=== PATIENT | female | born 1940 | race Caucasian/White ===

== ENCOUNTER → 2016-10-24 | Outpatient (CLI) | payer MEDICARE ==
--- NOTE | 2016-10-24 09:37 | MM ---
Reason for exam: follow-up at short interval from prior study. Last mammogram was performed 7 months ago. History: Patient is postmenopausal. Excisional biopsy of the left breast. Excisional biopsy of the right breast. Took estrogen for 2 years beginning at age 38. Physical Findings: Nurse did not find any significant physical abnormalities on exam. MG 3D Diag Mammo W/Cad LT CC and MLO view(s) were taken of the left breast. Prior study comparison: April 04, 2016, bilateral MG 3d screening mammo w/cad. January 26, 2003, bilateral screening mammogram. There are scattered fibroglandular densities. Finding: There is a 3 mm circumscribed round mass located 3 cm from the nipple in the inner quadrant of the left breast, stable. No significant changes in finding since April 04, 2016 and January 26, 2003. These results were verbally communicated with the patient and result sheet given to the patient on 10/24/16. ASSESSMENT: Benign, BI-RAD 2 RECOMMENDATION: Return to routine screening mammogram schedule for both breasts. Back on schedule.
== END | disposition home or self-care (01) ==
LOC: RADMAMWWP 08:44
PROVIDERS: ATTEND Family Medicine
DX: R92.8 Other abnormal and inconclusive findings on diagnostic imaging of breast (principal)
CPT/HCPCS: G0206; G0279

== ENCOUNTER → 2016-11-14 | Outpatient (CLI) | payer MEDICARE ==
--- NOTE | 2016-11-14 13:55 | XR ---
EXAMINATION TYPE: XR Hip Complete RT DATE OF EXAM: 11/14/2016 12:50 PM CLINICAL HISTORY: Right posterior groin area hip pain for 10 days. History of osteoarthritis. TECHNIQUE: AP and frogleg views of the right hip are obtained. COMPARISON: None. FINDINGS: There is no acute fracture/dislocation evident in the right hip. There is moderate to laura re axial joint space loss in the right hip. There is prominent spurring at head neck junction in the right proximal femur. Mild acetabular spurring is noted. Overlying soft tissue is unremarkable. IMPRESSION: Moderate to severe degenerative changes in right hip as detailed above
== END | disposition home or self-care (01) ==
LOC: RADXRMAIN 12:30
PROVIDERS: ATTEND Family Medicine
DX: M16.11 Unilateral primary osteoarthritis, right hip (principal)
CPT/HCPCS: 73502

== ENCOUNTER → 2017-11-28 | Outpatient (CLI) | payer MEDICARE ==
[2017-11-28 07:52] LABS: Basophils # (A) 0.1 k/uL (0-0.2); Basophils % (A) 1 %; Eosinophils # (A) 0.1 k/uL (0-0.7); Eosinophils % (A) 2 %; HCT 41.3 % (34.0-46.0); HGB 13.5 gm/dL (11.4-16.0); Lymphocytes # (A) 1.3 k/uL (1.0-4.8); Lymphocytes % (A) 22 %; MCH 30.7 pg (25.0-35.0); MCHC 32.8 g/dL (31.0-37.0); MCV 93.8 fL (80.0-100.0); Mean Platelet Volume 7.2; Monocytes # (A) 0.3 k/uL (0-1.0); Monocytes % (A) 5 %; Neutrophils # (A) 3.9 k/uL (1.3-7.7); Neutrophils % (A) 68 %; Platelet Count 205 k/uL (150-450); RBC 4.41 m/uL (3.80-5.40); WBC 5.7 k/uL (3.8-10.6)
[2017-11-28 08:09] LABS: Appearance,Urine Cloudy (Clear); Bacteria,Urine Many /hpf; Bilirubin,Urine Negative (Negative); Blood,Urine Moderate (Negative); Color,Urine Yellow; Glucose,Urine (UA) Negative (Negative); Ketones,Urine 1+ (Negative); Leukocyte Esterase,Urine Large (Negative); Mucus,Urine Rare /hpf; Nitrite,Urine Negative (Negative); PH, Urine 6.5 (5.0-8.0); Protein,Urine Trace (Negative); RBC,Urine 9 /hpf (0-5); Specific Gravity,Urine 1.017 (1.001-1.035); Squamous Epithelial Cell,Urine 8 /hpf (0-4); Urobilinogen,Urine <2.0 mg/dL (<2.0); WBC,Urine >182 /hpf (0-5)
[2017-11-28 08:29] LABS: ALT 34 U/L (9-52); AST 34 U/L (14-36); Albumin 4.1 g/dL (3.5-5.0); Alkaline Phosphatase 59 U/L (38-126); Anion Gap 11 mmol/L; Blood Urea Nitrogen 19 mg/dL (7-17); Calcium 8.9 mg/dL (8.4-10.2); Carbon Dioxide 26 mmol/L (22-30); Chloride 107 mmol/L (98-107); Cholesterol 130 mg/dL (<200); Creatine Kinase 107 U/L (30-135); Glucose 77 mg/dL (74-99); HDL Cholesterol 76 mg/dL (40-60); LDL Cholesterol,Calculated 39 mg/dL (0-99); Magnesium 1.9 mg/dL (1.6-2.3); Potassium 4.5 mmol/L (3.5-5.1); Sodium 144 mmol/L (137-145); Total Bilirubin 0.5 mg/dL (0.2-1.3); Total Protein 6.8 g/dL (6.3-8.2); Triglycerides 73 mg/dL (<150)
[2017-11-28 08:38] LABS: T4, Free (Free Thyroxine) 1.26 ng/dL (0.78-2.19)
[2017-11-28 11:19] LABS: Vitamin D 25 Hydroxy 30.5 ng/mL (30.0-100.0)
[2017-11-28 13:05] LABS: Hemoglobin A1C 5.6 % (4.0-6.0)
== END | disposition home or self-care (01) ==
LOC: LABWHC1 06:57
PROVIDERS: ATTEND Family Medicine
DX: N32.81 Overactive bladder (principal); M81.0 Age-related osteoporosis without current pathological fracture; I10 Essential (primary) hypertension; E78.5 Hyperlipidemia, unspecified; E03.9 Hypothyroidism, unspecified; E53.8 Deficiency of other specified B group vitamins
CPT/HCPCS: 36415; 80053; 80061; 81001; 82306; 82550; 82607; 83036; 83735; 84439; 84443; 85025

== ENCOUNTER → 2018-01-03 | Outpatient (CLI) | payer MEDICARE ==
--- NOTE | 2018-01-03 17:11 | US ---
EXAMINATION TYPE: US venous doppler duplex LE LT DATE OF EXAM: 01/03/2018 4:55 PM COMPARISON: NONE CLINICAL HISTORY: M79.662 left leg pain, I80.9 Phlebitis and thrombo. SIDE PERFORMED: TECHNIQUE: The lower extremity deep venous system is examined utilizing real time linear array sonog rickey with graded compression, doppler sonography and color-flow sonography. VESSELS IMAGED: External Iliac Vein (EIV) Common Femoral Vein Deep Femoral Vein Greater Saphenous Vein * Femoral Vein Popliteal Vein Small Saphenous Vein * Proximal Calf Veins (* superficial vessels) Right Leg: Negative for DVT Superficial thrombus noted in at ankle. IMPRESSION: No deep venous thrombosis in the right leg. There is some superficial venous thrombus at the ankle joint.
== END | disposition home or self-care (01) ==
LOC: RADUSWWP 16:34
PROVIDERS: ATTEND Orthopaedic Surgery
DX: I82.812 Embolism and thrombosis of superficial veins of left lower extremity (principal)

== ENCOUNTER → 2018-01-06 | Outpatient (CLI) | payer MEDICARE ==
--- NOTE | 2018-01-06 12:17 | BD ---
EXAMINATION TYPE: Axial Bone Density DATE OF EXAM: 01/06/2018 COMPARISON: 2016 CLINICAL HISTORY: osteoporosis Height: 5'2 Weight: 134 FRAX RISK QUESTIONS: History of Fracture in Adulthood: y Secondary Osteoporosis: RISK FACTORS HISTORY OF: Active: n Postmenopausal woman: y MEDICATIONS: Thyroid Medications: Which medication: Synthroid How Lon years Osteoporosis Medications: Which medication: Evista How Lon months Additional Medications: cholesterol, eye meds, heart Additional History: EXAM MEASUREMENTS: Bone mineral densitometry was performed using the [employer] System. Bone mineral density as measured about the Lumbar spine is: ----- L1-L4(G/cm2):0.825 T Score Values are as follows: ----- L2: -3.6 ----- L3: -3.2 ----- L4: -2.5 ----- L1-L4: -3.0 Bone mineral density has: Decreased -8.0% since study of: 01/03/2015 Bone mineral density about the R hip (g/cm2): 0.708 Bone mineral density about the L hip (g/cm2): 0.673 T Score values are as follows: -----R Neck: -2.4 -----L Neck: -2.6 -----R Total: -3.5 -----L Total: -3.4 Bone mineral density has: Increased 2.1% since study of: 01/03/2015 IMPRESSION: Osteoporosis (T Score less than -2.5). There is increased fracture risk and therapy is usually indicated based on age. Re-Screen 1-2 years. NOTE: T-SCORE=SD OF THE YOUNG ADULT MEAN.
== END | disposition home or self-care (01) ==
LOC: RADBDWWP 08:57
PROVIDERS: ATTEND Family Medicine
DX: M81.0 Age-related osteoporosis without current pathological fracture (principal)
CPT/HCPCS: 77080

== ENCOUNTER → 2018-03-21 | Outpatient (CLI) | payer MEDICARE ==
--- NOTE | 2018-03-21 15:45 | US ---
EXAMINATION TYPE: US carotid duplex BILAT DATE OF EXAM: 03/21/2018 COMPARISON: NONE CLINICAL HISTORY: R55 syncope and collapse. Syncope EXAM MEASUREMENTS: RIGHT: Peak Systolic Velocity (PSV) cm/sec ----- Right CCA: 61.2 ----- Right ICA: 95.4 ----- Right ECA: 61.6 ICA/CCA ratio: 1.6 RIGHT: End Diastole cm/sec ----- Right CCA: 17.2 ----- Right ICA: 38.1 ----- Right ECA: 12.7 LEFT: Peak Systolic Velocity (PSV) cm/sec ----- Left CCA: 70.0 ----- Left ICA: 87.7 ----- Left ECA: 66.7 ICA/CCA ratio: 1.3 LEFT: End Diastole cm/sec ----- Left CCA: 24.9 ----- Left ICA: 34.8 ----- Left ECA: 9.5 VERTEBRALS (direction of flow): Right Vertebral: Antegrade Left Vertebral: Antegrade Rhythm: Normal Mild plaque bilateral bifurcations. NO evidence of significant stenosis. Tortuous right ICA IMPRESSION: No hemodynamically significant stenosis seen in either internal carotid artery. Criteria for Assigning % of Stenosis / Diameter reduction (Estimation based on the indirect measurements of the internal carotid artery velocities (ICA PSV). 1. Normal (no stenosis)=ICA PSV < 125 cm/s: ratio < 2.0: ICA EDV<40 cm/s. 2. Less than 50% stenosis=ICA PSV < 125 cm/s: ratio < 2.0: ICA EDV<40 cm/s. 3. 50 to 69% stenosis=ICA PSV of 125 to 230 cm/s: ration 2.0 ? 4.0: ICA EDV 40-100 cm/s. 4. Greater than 70% stenosis to near occlusion= ICA PSV > 230 cm/s: ratio > 4.0: ICA EDV > 100 cm/s. 5. Near occlusion= ICA PSV velocities may be low or undetectable: variable ratio and ICA EDV. 6. Total occlusion=unable to detect flow.
== END ==
LOC: RADUSWWP 14:47
PROVIDERS: ATTEND Family Medicine
DX: R55 Syncope and collapse (principal)
CPT/HCPCS: 93880

== ENCOUNTER → 2018-06-30 | Outpatient (CLI) | payer MEDICARE ==
[2018-06-30 07:59] LABS: Basophils # (A) 0.1 k/uL (0-0.2); Basophils % (A) 1 %; Eosinophils # (A) 0.4 k/uL (0-0.7); Eosinophils % (A) 6 %; HCT 44.4 % (34.0-46.0); HGB 14.2 gm/dL (11.4-16.0); Lymphocytes # (A) 1.5 k/uL (1.0-4.8); Lymphocytes % (A) 20 %; MCH 29.9 pg (25.0-35.0); MCV 93.6 fL (80.0-100.0); Mean Platelet Volume 7.1; Monocytes # (A) 0.3 k/uL (0-1.0); Monocytes % (A) 4 %; Neutrophils # (A) 4.8 k/uL (1.3-7.7); Neutrophils % (A) 67 %; Platelet Count 269 k/uL (150-450); RBC 4.75 m/uL (3.80-5.40); RDW 12.7 % (11.5-15.5); WBC 7.1 k/uL (3.8-10.6)
[2018-06-30 11:07] LABS: Albumin 4.2 g/dL (3.80-4.90); Albumin/Globulin Ratio 1.83 (1.20-2.10); Anion Gap 6.8 mmol/L (4.00-12.00); Calcium 8.9 mg/dL (8.7-10.3); Carbon Dioxide 28.2 mmol/L (21.6-31.8); Globulin 2.3 g/dL (1.6-3.3); Potassium 4.2 mmol/L (3.5-5.5); Total Bilirubin 0.5 mg/dL (0.3-1.2); Total Protein 6.5 g/dL (6.2-8.2)
[2018-06-30 11:10] LABS: Iron Saturation 23.62 (12.00-45.00)
[2018-06-30 11:16] LABS: T4, Free (Free Thyroxine) 1.5 ng/dL (0.80-1.80)
== END | disposition home or self-care (01) ==
LOC: LABWHC1 07:38
PROVIDERS: ATTEND Family Medicine
DX: I49.5 Sick sinus syndrome (principal); E03.9 Hypothyroidism, unspecified; D64.9 Anemia, unspecified
CPT/HCPCS: 36415; 80053; 82728; 83540; 83550; 83735; 84439; 84443; 85025

== ENCOUNTER → 2018-07-08 | Outpatient (CLI) | payer MEDICARE ==
--- NOTE | 2018-07-08 14:14 | US ---
EXAMINATION TYPE: US venous doppler duplex LE BI DATE OF EXAM: 07/08/2018 1:46 PM COMPARISON: 01/03/2018 CLINICAL HISTORY: 77-year-old female R06.02 Shortness of Breath. SOB x 1 month following long plane r neal SIDE PERFORMED: Bilateral TECHNIQUE: The lower extremity deep venous system is examined utilizing real time linear array sonog rickey with graded compression, doppler sonography and color-flow sonography. FINDINGS: VESSELS IMAGED: External Iliac Vein (EIV) Common Femoral Vein Deep Femoral Vein Greater Saphenous Vein * Femoral Vein Popliteal Vein Small Saphenous Vein * Proximal Calf Veins (* superficial vessels) Right Leg: Positive for DVT lower femoral vein Left Leg: Positive for DVT popliteal vein Spinner Tender notes: Results called to Marlen at Dr. Vanegas's office at end of exam. IMPRESSION: Exam positive for bilateral lower extremity DVT within the lower femoral vein on the right and in the popliteal vein on the left.
[2018-07-08 14:44] LABS: Blood Urea Nitrogen 16 mg/dL (7-17)
--- NOTE | 2018-07-08 15:35 | CT ---
CT CHEST FOR PULMONARY EMBOLISM. EXAMINATION TYPE: CT angio chest DATE OF EXAM: 07/08/2018 INDICATION: SOB CT DLP: 167.6 mGycm, Automated exposure control for dose reduction was used. CONTRAST: Patient injected with 64 mL of Isovue 370. COMPARISON: None TECHNIQUE: CT of the chest is performed on a spiral scan at 2 mm thick sections. Study is performed with intravenous contrast timed for evaluation for pulmonary embolism. This will limit additional po rtions of the evaluation. 3-D MIP images reconstructed by the technologist are reviewed on the compu ter in the coronal and sagittal planes. FINDINGS: No persistent filling defects are evident to suggest an acute pulmonary embolism. No mediastinal or hilar adenopathy enlarged by CT criteria is evident. The ascending aorta diameter at the level of the main pulmonary artery is 3.9 cm. The main pulmonary artery diameter at the bifur cation is 3.2 cm. There is a 0.5 cm calcification anterior right middle lobe. Series [address] section through the upper abdomen are unremarkable. IMPRESSIONS: 1. No acute pulmonary embolism.
== END ==
LOC: RADUSWWP 13:09
PROVIDERS: ATTEND Family Medicine
DX: I82.411 Acute embolism and thrombosis of right femoral vein (principal); I82.432 Acute embolism and thrombosis of left popliteal vein; R06.02 Shortness of breath
CPT/HCPCS: 82565; 84520; 93970; 71275; 36415; Q9967

== ENCOUNTER → 2019-03-04 | Outpatient (CLI) | payer MEDICARE ==
[2019-03-04 17:11] LABS: T4, Free (Free Thyroxine) 1.6 ng/dL (0.80-1.80)
== END | disposition home or self-care (01) ==
LOC: LABWHC1 10:55
PROVIDERS: ATTEND Family Medicine
DX: E03.9 Hypothyroidism, unspecified (principal)
CPT/HCPCS: 36415; 84439; 84443; 84480

== ENCOUNTER → 2019-03-18 | Outpatient (CLI) | payer MEDICARE ==
--- NOTE | 2019-04-22 10:01 | P.PN ---
Progress Note - Text Progress Note Date: 04/22/19 This is a report on the 14 day event monitor. Baseline EKG showed sinus rhythm. Patient had frequent APCs with a short bursts of SVT. The longest being about 10 beats with heart rates in the 100s. No ventricular arrhythmias are detected. Patient did not report any cardiac symptoms. Final impression #1. Baseline rhythm is sinus #2 frequent APCs with short burst of paroxysmal atrial tachycardia. The longest run is about 10 beats and the highest rate is about 110. #3. Patient did not report any cardiac symptoms
--- NOTE | 2019-04-24 12:19 | EM ---
This is a report on the 14 day event monitor. Baseline EKG showed sinus rhythm. Patient had frequent APCs with a short bursts of SVT. The longest being about 10 beats with heart rates in the 100s. No ventricular arrhythmias are detected. Patient did not report any cardiac symptoms. Final impression #1. Baseline rhythm is sinus #2 frequent APCs with short burst of paroxysmal atrial tachycardia. The longest run is about 10 beats and the highest rate is about 110. #3. Patient did not report any cardiac symptoms MTDD
== END | disposition home or self-care (01) ==
LOC: RADECHMAIN 11:41
PROVIDERS: ATTEND Family Medicine
DX: I47.1 Supraventricular tachycardia (principal)
CPT/HCPCS: 93270

== ENCOUNTER → 2019-04-21 | Outpatient (CLI) | payer MEDICARE ==
[2019-04-21 11:20] LABS: Basophils % (A) 1 %; Eosinophils # (A) 0.1 k/uL (0-0.7); Eosinophils % (A) 2 %; HCT 40.2 % (34.0-46.0); HGB 12.9 gm/dL (11.4-16.0); Lymphocytes # (A) 1.8 k/uL (1.0-4.8); Lymphocytes % (A) 29 %; MCH 30.2 pg (25.0-35.0); MCHC 32.2 g/dL (31.0-37.0); MCV 93.8 fL (80.0-100.0); Mean Platelet Volume 6.2; Monocytes # (A) 0.3 k/uL (0-1.0); Monocytes % (A) 4 %; Neutrophils # (A) 3.9 k/uL (1.3-7.7); Neutrophils % (A) 63 %; Platelet Count 260 k/uL (150-450); RBC 4.29 m/uL (3.80-5.40); RDW 13.1 % (11.5-15.5); WBC 6.3 k/uL (3.8-10.6)
[2019-04-21 19:08] LABS: African American GFR (CKD) 80.7 (60.0-200.0); Albumin 4.2 g/dL (3.80-4.90); Albumin/Globulin Ratio 1.75 (1.60-3.17); Anion Gap 10.8 mmol/L (4.00-12.00); BUN/Creat Ratio 16.25 Ratio (12.00-20.00); Calcium 9.4 mg/dL (8.7-10.3); Carbon Dioxide 27.2 mmol/L (21.6-31.8); Chol/HDL Ratio 1.85; Globulin 2.4 g/dL (1.6-3.3); LDL Cholesterol,Calculated 43.4 mg/dL (0.0-131.0); Total Bilirubin 0.5 mg/dL (0.2-1.2); Total Protein 6.6 g/dL (6.2-8.2); VLDL Calculation 12.6 mg/dL (5.00-40.00)
[2019-04-21 19:15] LABS: T4, Free (Free Thyroxine) 1.6 ng/dL (0.80-1.80)
[2019-04-23 13:11] LABS: Alpha 1 Anti-Trypsin 208 mg/dL (90 - 200)
== END ==
LOC: LABWHC1 10:28
PROVIDERS: ATTEND Family Medicine
DX: I10 Essential (primary) hypertension (principal); E78.5 Hyperlipidemia, unspecified; E03.9 Hypothyroidism, unspecified; R06.02 Shortness of breath
CPT/HCPCS: 36415; 80053; 80061; 82103; 82104; 82550; 82607; 83880; 84439; 84443; 84480; 85025

== ENCOUNTER → 2020-03-03 | Outpatient (CLI) | payer MEDICARE ==
--- NOTE | 2020-03-03 11:07 | XR ---
EXAMINATION TYPE: XR Hip Complete RT DATE OF EXAM: 03/03/2020 COMPARISON: 04/22/2017 HISTORY: 79 year-old female right hip pain TECHNIQUE: 2 views FINDINGS: Redemonstrated moderate degenerative change of the right hip with marginal spurring and axial joint s pace narrowing which is slightly worsened. There may be a chronic healed fracture deformity of the in ferior right pubic ramus. Mild degenerative change of the right SI joint as well. Osteitis pubis. IMPRESSION: 1. Slight worsening moderate right hip OA with significant axial joint space loss. 2. Possible old fracture deformity along the right inferior pubic ramus. 3. Osteitis pubis.
== END | disposition home or self-care (01) ==
LOC: RADXRMAIN 08:18
PROVIDERS: ATTEND Family Medicine
DX: M16.11 Unilateral primary osteoarthritis, right hip (principal); M86.8X8 Other osteomyelitis, other site
CPT/HCPCS: 73502

== ENCOUNTER → 2020-03-04 | Outpatient (CLI) | payer MEDICARE ==
[~2020-03-04] MED LIST: REGADENOSON 0.4 MG/5 ML SYRINGE IV ONE
--- NOTE | 2020-03-04 12:57 | P.STRESS ---
- Stress Test Note Stress Test Results/Findings: Exam Performed: NM stress lexiscan cardiolite Exam Date: 03/04/20 Reason for Exam: CHEST PAIN Height: 5 ft 5 in Weight: 57.153 kg Protocol: LEXISCAN CARDIOLITE Stage: N/A Duration of Exercise: N/A Resting Heart Rate: 56 Resting Blood Pressure: 115/48 Maximum Achieved Heart Rate: 89 Maximum Achieved Blood Pressure: 115/48 85% PMHR: 118 100% PMHR: 139 METS: N/A Technologist Comment: Stress Test Results/Findings: At baseline EKG showed normal sinus rhythm with frequent PACs, nonspecific [address] depression in the inferior and lateral leads. Patient recieved IV infusion of Lexiscan 0.4mg and at peak infusion EKG showed nonspecific accentuation of 1.[address] depression in the inferior and lateral leads. Conclusions: 1. Nondiagnostic EKG response to Lexiscan infusion 2. Nuclear imaging to be reported separately.
--- NOTE | 2020-03-04 13:25 | NM ---
EXAMINATION TYPE: NM stress lexiscan cardiolite DATE OF EXAM: 03/04/2020 COMPARISON: 12/24/2018 HISTORY: 79-year-old female with chest pain. Patient with palpitations, angina, hypertension, hyperch olesterolemia, family history, and prior catheterization. TECHNIQUE: After the intravenous administration of 9.49 mCi Tc 99m Sestamibi - Cardiolite resting SP ECT images acquired 60 minutes post injection. The patient received 0.4mg Lexiscan, 24.3 mCi Tc 99m Sestamibi - Stress images obtained [address] injection FINDINGS: Review of stress and rest SPECT images demonstrates decreased perfusion along the mid to apical anter oseptal wall which is more pronounced on the rest images. No discrete reversibility is identified. Ga solomon analysis shows normal wall motion with an estimated left ventricular ejection fraction of 76 %. TID is calculated at 0.67, within normal limits. IMPRESSION: 1. Fixed defect along the mid to apical anteroseptal wall could represent an area of old infarct. As the defect is larger on rest images, at least a portion of this represents attenuation artifact. 2. No evidence for reversible ischemia.
== END | disposition home or self-care (01) ==
LOC: RADNMMAIN 07:42
PROVIDERS: ATTEND Family Medicine
DX: R07.9 Chest pain, unspecified (principal)
CPT/HCPCS: 93017; 78452; A9500; J2785

== ENCOUNTER → 2020-10-18 | Outpatient (CLI) | payer MEDICARE ==
[2020-10-18 16:49] LABS: Basophils # (A) 0.07 X 10*3/uL (0.00-0.10); Basophils % (A) 1.1 %; Eosinophils # (A) 0.14 X 10*3/uL (0.04-0.35); Eosinophils % (A) 2.2 %; HCT 42.6 % (37.2-46.3); HGB 13.3 g/dL (12.0-15.0); Lymphocytes # (A) 1.62 X 10*3/uL (0.90-5.00); Lymphocytes % (A) 25.7 %; MCH 29.9 pg (27.0-32.0); MCHC 31.2 g/dL (32.0-37.0); MCV 95.7 fL (80.0-97.0); Mean Platelet Volume 10.9 fL (9.5-12.2); Monocytes # (A) 0.43 X 10*3/uL (0.20-1.00); Monocytes % (A) 6.8 %; Neutrophils # (A) 4.02 X 10*3/uL (1.80-7.70); Neutrophils % (A) 63.9 %; Platelet Count 231 X 10*3/uL (140-440); RBC 4.45 X 10*6/uL (4.10-5.20); RDW 13.8 % (11.5-14.5)
[2020-10-19 02:29] LABS: African American GFR (CKD) 80.1 (60.0-200.0); Albumin 4.4 g/dL (3.80-4.90); Albumin/Globulin Ratio 1.83 (1.60-3.17); BUN/Creat Ratio 28.75 Ratio (12.00-20.00); Calcium 9.6 mg/dL (8.7-10.3); Chol/HDL Ratio 2.01; Globulin 2.4 g/dL (1.6-3.3); Non-African American GFR(CKD) 69.1 (60.0-200.0); Potassium 3.9 mmol/L (3.5-5.5); Total Bilirubin 0.6 mg/dL (0.2-1.2); Total Protein 6.8 g/dL (6.2-8.2)
[2020-10-19 04:13] LABS: T4, Free (Free Thyroxine) 0.9 ng/dL (0.80-1.80)
== END | disposition home or self-care (01) ==
LOC: LABWHC1 08:06
PROVIDERS: ATTEND Internal Medicine
DX: E78.5 Hyperlipidemia, unspecified (principal); E03.9 Hypothyroidism, unspecified; I47.1 Supraventricular tachycardia; I50.9 Heart failure, unspecified; I25.10 Atherosclerotic heart disease of native coronary artery without angina pectoris
CPT/HCPCS: 36415; 80053; 80061; 82306; 83835; 83880; 84439; 84443; 84480; 85025

== ENCOUNTER 2020-11-03 06:21 | Day surgery (SDC) | payer MEDICARE ==
[2020-11-01 16:45] VITALS: BMI 22.4
[~2020-11-03 06:21] MED LIST changes: +ALPRAZolam 0.25 MG TAB PO PRN; +ALPRAZolam 0.5 MG TAB PO PRN; +ASPIRIN 325 MG TAB PO STA; +ATORVASTATIN 80 MG TAB PO STA; +HEPARIN SODIUM,PORCINE 10,000 UNIT in SODIUM CHLORIDE 0.9% 1,000 ML IRRIGATION PRN; +HEPARIN SODIUM,PORCINE 2,500 UNIT in SODIUM CHLORIDE 0.9% 250 ML IRRIGATION PRN; +NITROGLYCERIN SL TABS 0.4 MG TAB SUBLINGUAL PRN; -REGADENOSON 0.4 MG/5 ML SYRINGE IV ONE; +SODIUM CHLORIDE 0.9% 1,000 ML in EMPTY BAG 1 BAG IV ONE
[2020-11-03 07:01] VITALS: TEMP 98.1
[2020-11-03] MEDS ORDERED: fentaNYL (PF) 50 MCG/ML 2 ML AMP ONE (07:23)
[2020-11-03] MEDS ORDERED: IV FLUID CONTINUATION 1,000 ML IV ONE (07:26)
[2020-11-03] MEDS ORDERED: BENZOCAINE SPRAY 1 CAN TOPICAL ONE (07:38)
[2020-11-03] MEDS: MIDAZOLAM 2 MG/2 ML VIAL IV ONE ×2 (07:39→07:43)
[2020-11-03] MEDS ORDERED: fentaNYL (PF) 50 MCG/ML 2 ML AMP IV ONE (07:41)
[2020-11-03 08:09] VITALS: RESP 16
--- NOTE | 2020-11-03 08:26 | P.TEE ---
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 She was given Versed 2 mg and fentanyl 25 g for sedation, given in boluses. The throat was sprayed with Cetacaine . A lubricated Omni probe was introduced into the oropharynx and was advanced into the esophagus. Multiple views were obtained. Patient tolerated the procedure well. Color, pulsed and continuous wave Doppler studies were done. Saline contrast bubble injections were done. Patient tolerated the procedure well. No immediate complications FINDINGS:. The aortic valve is tricuspid with normal opening excursion. There is central aortic regurgitation which appears to be in the range of 2-3+. The mitral valve shows thickening and myxoid changes with mild calcification. That seemed to some prolapsing of the posterior leaflet. There is central mitral regurgitation which appears to be 3-4+. The PISA value is about 0.8. There is no reversal of flow in the pulmonary veins. The left atrial appendage is free of any clot. The interatrial septum is free of any shunt. Saline contrast bubble injection did not show any crossing of bubbles. Left atrium is severely enlarged. Left ankle function is preserved. Aorta seem to have mild plaque IMPRESSION: #1. 3-4+ mitral regurgitation which is central. #2. 2-3+ aortic regurgitation. #3. Severe left atrial enlargement #4. Preserved LV function. #5. No clot in left atrial appendage. #6. No evidence of PFO PLAN:. Proceed with cardiac catheterization. May consider repair of the mitral valve
[2020-11-03] MEDS ORDERED: SODIUM CHLORIDE 0.9% 1,000 ML IV SCH ×3 (08:30→10:42)
[2020-11-03] MEDS ORDERED: MIDAZOLAM 2 MG/2 ML VIAL IV ONE (08:40)
[2020-11-03] MEDS ORDERED: LIDOCAINE 1% INJ 10MG/ML (20 ML MDV) SQ ONE (08:43)
[2020-11-03] MEDS ORDERED: HYDROmorphone 0.5 MG/0.5 ML SYRINGE IVP ONE (09:23)
[2020-11-03] MEDS ORDERED: IOPAMIDOL-370 100ML BTL INJ ONE (09:23)
[2020-11-03 09:27] LABS: O2 Sat Blood Gas 77.1 %
[2020-11-03 09:30] LABS: O2 Sat Blood Gas 69.3 %
[2020-11-03 09:31] LABS: O2 Sat Blood Gas 96.9 %
[2020-11-03] MEDS ORDERED: NITROGLYCERIN 1000MCG/10ML SYRINGE IV ONE (09:34)
--- NOTE | 2020-11-03 10:23 | CC ---
CARDIAC CATHETERIZATION REPORT DATE OF SERVICE: 11/03/2020. PROCEDURE: Right and left heart catheterization and coronary angiography. PERFORMED BY: Dr. Varun Rabago. Moderate conscious sedation time was 56 minutes. Patient was administered Versed. Oxygen saturation, hemodynamics and EKG were monitored closely. CLINICAL INFORMATION: Mrs. 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 She has history of hypertension, hyperlipidemia with increasing shortness of breath and echocardiogram revealed biatrial enlargement, more so of the left atrium with moderate to severe MR with prolapse of post mitral leaflet and mild to moderate aortic regurgitation. There was also prolapse of the posterior mitral leaflet as well. She has advised a right and left heart catheterization and coronary angiography, brought in for the procedure electively. She had a transesophageal echo earlier this morning. PROCEDURE NOTE: Under local anesthesia and strict aseptic precautions, a 6-[place] introducer was placed in the right femoral artery, the 8-[place] introducer in the right femoral vein. A balloon tipped flotation catheter was used to do the right heart catheterization on Mrs. David. Thermodilution cardiac output was performed. Hemodynamics and saturations were obtained. I then performed coronary angiography with standard Suze catheters. I used a pigtail catheter to check LV pressures but did not perform an LV- gram. Both sheaths were taken out and manual compression used to secure hemostasis and she was sent to the room in stable condition. The findings were discussed with the patient and daughter. I will see her in the office on Saturday. I will also seek an opinion from Dr. Carlitos Headley regarding mitral regurgitation. CARDIAC CATHETERIZATION FINDINGS: The right atrial pressure was 3 mmHg, right ventricular pressure was 25/3, pulmonary arterial pressure was 25/8 with a mean of 14 mmHg, pulmonary capillary wedge pressure was 8 mmHg. The left ventricular end-diastolic pressure was about 12 mmHg without any gradient across aortic valve. Right atrial saturation was 77%, pulmonary artery saturation was 70%, femoral arterial saturation was 96%. The thermodilution cardiac output was 4.14 L and Ariana cardiac output was 6.5 L. CORONARY ANGIOGRAPHY FINDINGS: RIGHT CORONARY ARTERY: This is a dominant vessel. No significant disease, minor irregularities, mild calcification. Distally bifurcates into PDA and PLV, both of which supply a sizable amount of myocardium. No significant disease in the dominant RCA. LEFT MAIN CORONARY ARTERY: Long patent disease-free vessel that bifurcates into LAD and circumflex. LEFT ANTERIOR DESCENDING CORONARY ARTERY: Good caliber vessel extends along the anterior wall, gives off septal and diagonal branches runs all the way to the apex supplying a sizable amount of myocardium. There is moderate calcification noted in the LAD, but no significant obstructive disease is noted. There is calcification in the midportion of a moderate degree noted. LEFT POSTERIOR CIRCUMFLEX CORONARY ARTERY: Small nondominant vessel, tortuous, has minor irregularities, no significant disease. LEFT VENTRICULOGRAM: LV-gram was not performed. FINAL IMPRESSION: This patient has a right dominant system, normal filling pressures. No gradient across aortic valve. She does not have any significant pulmonary hypertension. The Ariana and thermodilution cardiac outputs are normal. Saturations are normal. There is no shunt. She has calcified LAD. No significant obstructive coronary artery disease. Dominant RCA, disease-free. Small circumflex. LV gram was not performed. RECOMMENDATIONS: I will review the LAURA echo make specific recommendations regarding the valvular disease, specifically mitral regurgitation for which she may require surgical repair.. However, with regards to the coronary artery disease, no intervention necessary. Discussed my thoughts in detail with the patient. I will seek a surgical opinion from Dr. Headley regarding the mitral valve prolapse as well. I expect she will be discharged today and I will see her in the office next week. MMODL / IJN: [id number] / KUSUM
--- NOTE | 2020-11-03 11:56 | US ---
EXAMINATION TYPE: US carotid duplex BILAT DATE OF EXAM: 11/03/2020 COMPARISON: Carotid ultrasound March 21, 2018 CLINICAL HISTORY: preop open heart. EXAM MEASUREMENTS: RIGHT: Peak Systolic Velocity (PSV) cm/sec ----- Right CCA: 57.0 ----- Right ICA: 69.0 ----- Right ECA: 40.8 ICA/CCA ratio: 1.21 RIGHT: End Diastole cm/sec ----- Right CCA: 10.6 ----- Right ICA: 28.9 ----- Right ECA: 3.3 LEFT: Peak Systolic Velocity (PSV) cm/sec ----- Left CCA: 64.4 ----- Left ICA: 75.3 ----- Left ECA: 59.4 ICA/CCA ratio: 1.17 LEFT: End Diastole cm/sec ----- Left CCA: 22.7 ----- Left ICA: 28.9 ----- Left ECA: 6.9 VERTEBRALS (direction of flow): Right Vertebral: Antegrade Left Vertebral: Antegrade No significant velocity elevations, mild plaque. IMPRESSION: No hemodynamically significant stenosis seen in either internal carotid artery. No sign ificant change from prior . Criteria for Assigning % of Stenosis / Diameter reduction (Estimation based on the indirect measurements of the internal carotid artery velocities (ICA PSV). 1. Normal (no stenosis)=ICA PSV < 125 cm/s: ratio < 2.0: ICA EDV<40 cm/s. 2. Less than 50% stenosis=ICA PSV < 125 cm/s: ratio < 2.0: ICA EDV<40 cm/s. 3. 50 to 69% stenosis=ICA PSV of 125 to 230 cm/s: ration 2.0 ? 4.0: ICA EDV 40-100 cm/s. 4. Greater than 70% stenosis to near occlusion= ICA PSV > 230 cm/s: ratio > 4.0: ICA EDV > 100 cm/s. 5. Near occlusion= ICA PSV velocities may be low or undetectable: variable ratio and ICA EDV. 6. Total occlusion=unable to detect flow.
[2020-11-03 12:05] LABS: Basophils % (A) 1 %; Eosinophils # (A) 0.1 k/uL (0-0.7); Eosinophils % (A) 2 %; HGB 12.4 gm/dL (11.4-16.0); Lymphocytes # (A) 1.1 k/uL (1.0-4.8); Lymphocytes % (A) 21 %; MCH 30.3 pg (25.0-35.0); MCHC 31.9 g/dL (31.0-37.0); MCV 94.8 fL (80.0-100.0); Mean Platelet Volume 7.1; Monocytes # (A) 0.2 k/uL (0-1.0); Monocytes % (A) 3 %; Neutrophils # (A) 3.7 k/uL (1.3-7.7); Neutrophils % (A) 71 %; Platelet Count 205 k/uL (150-450); RBC 4.11 m/uL (3.80-5.40); RDW 13.9 % (11.5-15.5); WBC 5.2 k/uL (3.8-10.6)
[2020-11-03 12:11] LABS: Prothrombin Time 10.7 sec (9.0-12.0)
[2020-11-03 12:20] LABS: Albumin 3.4 g/dL (3.5-5.0); Calcium 8.8 mg/dL (8.4-10.2); Magnesium 2.1 mg/dL (1.6-2.3); Potassium 4.1 mmol/L (3.5-5.1); Total Bilirubin 0.5 mg/dL (0.2-1.3); Total Protein 6.2 g/dL (6.3-8.2)
[2020-11-03 13:35] LABS: T4, Free (Free Thyroxine) 1.02 ng/dL (0.78-2.19)
[2020-11-03] MEDS ORDERED: MORPHINE SULFATE 2 MG/ML SYRINGE IVP STA (14:14)
[2020-11-03] MEDS ORDERED: MORPHINE SULFATE 4 MG/ML SYRINGE ONE (14:20)
[2020-11-03 14:46] VITALS: BP 110/53
--- NOTE | 2020-11-03 15:24 | P.GSCN ---
History of Present Illness Consult date: 11/03/20 Reason for Consult: Mitral regurgitation Requesting physician: Minna Rabago History of present illness: This is an 79-year-old active female who follows on an outpatient basis with Dr. Tomeka Vanegas for primary care and Dr. HENNA Rabago for cardiology. She is a previous medical history of mitral valve regurgitation, hypertension, hyperlipidemia, sick sinus syndrome/asymptomatic bradycardia, bilateral lower extremity DVTs after a long overseas trip with subsequent Eliquis use for 6 months, never smoker, and family history of premature coronary artery disease with mother diagnosed before the age of 6060 years old. She reports symptoms of shortness of breath and fatigue for approximately 1 year, the symptoms have gotten progressively worse over the last 3 weeks after being taken off her beta edwardo due to bradycardia. Initially she attributed her symptoms to just getting older, however her profound fatigue is limiting her quality of life. She denies any chest pain, syncope, or any other symptomatology. She presented to Dr. Rabago's office for evaluation and treatment. She had a trans-thoracic echocardiogram demonstrating biatrial enlargement, moderate to severe mitral regurgitation with prolapse of the posterior mitral leaflet, mild to moderate aortic regurgitation. She was recommended to undergo heart catheterization and transesophageal echocardiogram for further diagnostic workup. Both were c ompleted today. Heart catheterization demonstrated no significant coronary artery disease. Transesophageal echocardiogram demonstrated 3-4+ central mitral regurgitation with prolapse of the posterior leaflet, 2-3+ aortic regurgitation, severe left atrial enlargement, and preserved LV function. Dr. Headley from cardiothoracic surgery was consulted for surgical recommendations. Review of Systems Review of systems was completed and was negative except as noted - Constitutional Reports as per HPI, Reports fatigue - Cardiovascular Reports as per HPI, Reports dyspnea on exertion, Reports shortness of breath Past Medical History Past Medical History: Chest Pain / Angina, Deep Vein Thrombosis (DVT), Eye Disorder, Hyperlipidemia, Hypertension, Musculoskeletal Disorder, Osteoarthritis (OA), Thyroid Disorder Additional Past Medical History / Comment(s): DDD, spondylithosis, migraines, kidney stones, "small vessel heart disease", heart murmur, hx phlebitis, "leaky valves" per pt., SOB w/exertion, DVT leg 2 years ago after traveling, glaucoma, fully vaccinated for covid History of Any Multi-Drug Resistant Organisms: None Reported Past Surgical History: Heart Catheterization, Hysterectomy, Joint Replacement Additional Past Surgical History / Comment(s): elsy knee replacements, cataracts, left eye surg. after cataract removed, tendon surgery in right hand Past Anesthesia/Blood Transfusion Reactions: No Reported Reaction, Motion Sickness Past Psychological History: No Psychological Hx Reported Smoking Status: Never smoker Past Alcohol Use History: Rare Past Drug Use History: None Reported - Past Family History Mother Family Medical History: Coronary Artery Disease (CAD) Additional Family Medical History / Comment(s): Mother had CAD diagnosed less than 60 years old, during a heart cath at 65 years old Father Family Medical History: Diabetes Mellitus Medications and Allergies Home Medications Medication Instructions Recorded Confirmed Type Levothyroxine Sodium [Synthroid] 125 mcg PO DAILY 12/28/14 11/03/20 History Nitroglycerin Sl Tabs [Nitrostat] 0.4 mg SUBLINGUAL Q5M PRN 12/28/14 11/03/20 History Atorvastatin [Lipitor] 10 mg PO DAILY 04/25/17 11/03/20 History Aspirin 81 mg PO DAILY 11/01/20 11/03/20 History Furosemide [Lasix] 40 mg PO DAILY 11/01/20 11/03/20 History Latanoprost/Pf [Latanoprost 0.005% 1 drop LEFT EYE HS 11/01/20 11/03/20 History Eye Drop] Potassium Chloride [Klor-Con 10] 10 meq PO DAILY 11/01/20 11/03/20 History traMADol HCL [Ultram] 50 mg PO DAILY PRN 11/03/20 11/03/20 History Allergies Allergy/AdvReac Type Severity Reaction Status Date / Time No Known Allergies Allergy Verified 11/03/20 06:45 Surgical - Exam Vital Signs Temp Pulse Resp BP Pulse Ox 98.1 F 81 18 140/73 98 11/03/20 06:59 11/03/20 06:59 11/03/20 06:59 11/03/20 06:59 11/03/20 06:59 CONSTITUTIONAL: Awake and alert, appears comfortable, cooperative, well- developed, well-nourished, no pain, no acute distress EYES: Pupils equal, round, reactive to light, normal ocular movement ENT: Moist mucous membranes without oral lesions present NECK: No masses, no bruits, trachea midline RESPIRATORY: Lungs sounds clear to auscultation bilaterally. Respirations even, nonlabored. Currently on room air with oxygen saturation 95%. Strong co ugh. No chest wall deformities. No clubbing or cyanosis present CARDIOVASCULAR: S1, S2 present. Regular rate and rhythm, sinus rhythm on telemetry. Palpable peripheral pulses bilaterally. Bilateral lower extremity edema present. No calf pain or tenderness noted. Lower extremity varicosities noted. GASTROINTESTINAL: Abdomen soft, nontender, nondistended without masses or organomegaly noted. There is no rebound or guarding present. Active bowel sounds present 4 quadrants. GENITOURINARY: Deferred INTEGUMENTARY: Skin is warm and dry with evidence of good perfusion. NEUROLOGIC: Cranial nerves II through XII intact, normal coordination, no obvious motor or sensory deficits, speech is normal MUSKULOSKELETAL: Able to move all extremities, strength equal bilaterally, normal posture PSYCHIATRIC: Alert and oriented to person place and time, appropriate affect, intact judgment and insight Results - Labs 11/03/20 11:25 11/03/20 11:25 Abnormal Lab Results - Last 24 Hours (Table) 11/03/20 Range/Units 11:25 Chloride 108 H (98-107) mmol/L Total Protein 6.2 L (6.3-8.2) g/dL Albumin 3.4 L (3.5-5.0) g/dL HDL Cholesterol 68 H (40-60) mg/dL TSH 12.600 H (0.465-4.680) mIU/L Diabetes panel 11/03/20 Range/Units 11:25 Sodium 141 (137-145) mmol/L Potassium 4.1 (3.5-5.1) mmol/L Chloride 108 H (98-107) mmol/L Carbon Dioxide 29 (22-30) mmol/L BUN 16 (7-17) mg/dL Creatinine 0.74 (0.52-1.04) mg/dL Glucose 97 (74-99) mg/dL Calcium 8.8 (8.4-10.2) mg/dL AST 36 (14-36) U/L ALT 23 (4-34) U/L Alkaline Phosphatase 91 (38-126) U/L Total Protein 6.2 L (6.3-8.2) g/dL Albumin 3.4 L (3.5-5.0) g/dL Triglycerides 55 (<150) mg/dL HDL Cholesterol 68 H (40-60) mg/dL Thyroid panel 11/03/20 Range/Units 11:25 TSH 12.600 H (0.465-4.680) mIU/L Calcium panel 11/03/20 Range/Units 11:25 Calcium 8.8 (8.4-10.2) mg/dL Albumin 3.4 L (3.5-5.0) g/dL Pituitary panel 11/03/20 Range/Units 11:25 Sodium 141 (137-145) mmol/L Potassium 4.1 (3.5-5.1) mmol/L Chloride 108 H (98-107) mmol/L Carbon Dioxide 29 (22-30) mmol/L BUN 16 (7-17) mg/dL Creatinine 0.74 (0.52-1.04) mg/dL Glucose 97 (74-99) mg/dL Calcium 8.8 (8.4-10.2) mg/dL TSH 12.600 H (0.465-4.680) mIU/L Adrenal panel 11/03/20 Range/Units 11:25 Sodium 141 (137-145) mmol/L Potassium 4.1 (3.5-5.1) mmol/L Chloride 108 H (98-107) mmol/L Carbon Dioxide 29 (22-30) mmol/L BUN 16 (7-17) mg/dL Creatinine 0.74 (0.52-1.04) mg/dL Glucose 97 (74-99) mg/dL Calcium 8.8 (8.4-10.2) mg/dL Total Bilirubin 0.5 (0.2-1.3) mg/dL AST 36 (14-36) U/L ALT 23 (4-34) U/L Alkaline Phosphatase 91 (38-126) U/L Total Protein 6.2 L (6.3-8.2) g/dL Albumin 3.4 L (3.5-5.0) g/dL - Imaging Additional studies: Heart catheterization and transesophageal echocardiogram films reviewed with Dr. Headley Assessment and Plan Assessment: 1. Severe mitral valve regurgitation with prolapse of the posterior leaflet 2. Hypertension 3. Hyperlipidemia 4. Sick sinus syndrome/asymptomatic bradycardia 5. Bilateral lower extremity DVTs after a long overseas trip with subsequent Eliquis use for 6 months 6. Never smoker 7. Family history of premature coronary artery disease with mother diagnosed before the age of 6060 years old. Plan: The patient was seen and examined at the bedside in the extended stay unit with Dr. Headley. The usual perioperative course of mitral valve repair was discussed in detail with the patient, risks and benefits were reviewed, all questions were answered. Preoperative testing was initiated. The patient will need to obtain dental clearance prior to surgery, we will contact her dentist, Dr. Renner, whom she sees faithfully every 6 months, last visit was in July of this year. We did make a follow-up appointment for her to see Dr. Headley in the office in 2 weeks to further discuss surgery as well as schedule a surgery date. This is agreeable to the patient and Dr. Rabago. Medical management to continue per her primary care physician as well as Dr. Rabago. More recommendations to follow. Thank you Dr. Rabago for this consult. We look forward to working with you in the care of your patient. Time with Patient: Greater than 30
[2020-11-03 16:43] VITALS: PULSE 55
[2020-11-03 21:22] LABS: Hemoglobin A1C 6.7 % (4.0-6.0)
--- NOTE | 2020-11-03 21:39 | XR ---
EXAMINATION TYPE: XR chest 2V DATE OF EXAM: 11/03/2020 COMPARISON: Chest x-ray March 11, 2015. CTA chest July 08, 2018 HISTORY: Preoperative cardiac surgery. TECHNIQUE: Frontal and lateral views of the chest are obtained. FINDINGS: There is chronic parenchymal change without suspicious focal air space opacity, pleural ef fusion, or pneumothorax seen. The cardiac silhouette size is enlarged. The osseous structures are demineralized. IMPRESSION: Cardiomegaly and chronic changes without acute pulmonary process.
[2020-11-04 10:35] LABS: Hepatitis A Antibody IgM Non-Reactive (Non-Reactive); Hepatitis B Core IgM Non-Reactive (Non-Reactive); Hepatitis B Surface Antigen Non-Reactive (Non-Reactive); Hepatitis C IgG Antibody Non-Reactive (Non-Reactive)
== END 2020-11-03 17:09 | disposition home or self-care (01) ==
LOC: CATHCVL 06:21
PROVIDERS: ATTEND Internal Medicine Interventional Cardiology
DX: R93.1 Abnormal findings on diagnostic imaging of heart and coronary circulation (principal); I25.10 Atherosclerotic heart disease of native coronary artery without angina pectoris; I25.84 Coronary atherosclerosis due to calcified coronary lesion; I08.0 Rheumatic disorders of both mitral and aortic valves; I65.23 Occlusion and stenosis of bilateral carotid arteries; I77.1 Stricture of artery; I49.5 Sick sinus syndrome; I11.9 Hypertensive heart disease without heart failure; H40.9 Unspecified glaucoma; E78.00 Pure hypercholesterolemia, unspecified; E78.2 Mixed hyperlipidemia; E07.9 Disorder of thyroid, unspecified; M19.90 Unspecified osteoarthritis, unspecified site; Z86.718 Personal history of other venous thrombosis and embolism; Z82.49 Family history of ischemic heart disease and other diseases of the circulatory system; Z83.3 Family history of diabetes mellitus; Z87.442 Personal history of urinary calculi; Z90.710 Acquired absence of both cervix and uterus; Z96.653 Presence of artificial knee joint, bilateral; Z98.42 Cataract extraction status, left eye; Z79.82 Long term (current) use of aspirin; Z79.890 Hormone replacement therapy; Z79.899 Other long term (current) drug therapy
CPT/HCPCS: 93312; 93320; 93325; 93460; 84439; 80061; 80053; 80074; 85018; 84443; 82810; 83735; 85025; 85610; 83036; 87635; 71046; 93880; C1769 ×5; C1894 ×2; J2250; J2001; J3010; J2270; J1170; Q9967

== ENCOUNTER → 2020-11-24 | Outpatient (CLI) | payer MEDICARE ==
[2020-11-24 09:42] LABS: HCT 38.5 % (34.0-46.0); MCH 31.8 pg (25.0-35.0); MCHC 33.7 g/dL (31.0-37.0); MCV 94.4 fL (80.0-100.0); Mean Platelet Volume 7.2; Platelet Count 213 k/uL (150-450); RBC 4.08 m/uL (3.80-5.40); RDW 13.4 % (11.5-15.5); WBC 6.7 k/uL (3.8-10.6)
[2020-11-24 09:54] LABS: ALT 22 U/L (4-34); AST 36 U/L (14-36); African American GFR (CKD) >90 (>60 ml/min/1.73 sqM); Albumin 4.2 g/dL (3.5-5.0); Alkaline Phosphatase 98 U/L (38-126); Anion Gap 5 mmol/L; Blood Urea Nitrogen 19 mg/dL (7-17); Calcium 9.6 mg/dL (8.4-10.2); Carbon Dioxide 31 mmol/L (22-30); Chloride 104 mmol/L (98-107); Glucose 82 mg/dL (74-99); Non-African American GFR(CKD) 81 (>60 ml/min/1.73 sqM); Potassium 3.9 mmol/L (3.5-5.1); Sodium 140 mmol/L (137-145); Total Bilirubin 0.5 mg/dL (0.2-1.3)
[2020-11-24 10:04] LABS: Prothrombin Time 10.8 sec (9.0-12.0)
[2020-11-24 10:05] LABS: Partial Thromboplastin Time 22.4 sec (22.0-30.0)
[2020-11-24 11:12] LABS: Appearance,Urine Cloudy (Clear); Bacteria,Urine Many /hpf; Bilirubin,Urine Negative (Negative); Blood,Urine Small (Negative); Color,Urine Yellow; Glucose,Urine (UA) Negative (Negative); Ketones,Urine Negative (Negative); Leukocyte Esterase,Urine Moderate (Negative); Mucus,Urine Occasional /hpf; Nitrite,Urine Positive (Negative); Protein,Urine Negative (Negative); RBC,Urine 4 /hpf (0-5); Specific Gravity,Urine 1.018 (1.001-1.035); Squamous Epithelial Cell,Urine 1 /hpf (0-4); WBC,Urine 43 /hpf (0-5)
== END | disposition home or self-care (01) ==
LOC: LABPAT 07:58
PROVIDERS: ATTEND Thoracic Surgery (Cardiothoracic Vascular Surgery)
DX: I34.0 Nonrheumatic mitral (valve) insufficiency (principal); Z79.01 Long term (current) use of anticoagulants; Z79.899 Other long term (current) drug therapy
CPT/HCPCS: 36415; 80053; 81001; 85027; 85610; 85730; 87070; 87077; 87086; 87186; 94150

== ENCOUNTER 2020-12-01 05:32 | Inpatient (IN) | payer MEDICARE ==
[~2020-12-01 05:32] MED LIST changes: +ALBUMIN HUMAN 25% 50 ML IV ONE; +ALBUMIN HUMAN 5% 500 ML IVPB ONE; -ALPRAZolam 0.25 MG TAB PO PRN; -ALPRAZolam 0.5 MG TAB PO PRN; +ASPIRIN 325 MG TAB PO ONE; -ASPIRIN 325 MG TAB PO STA; +ATORVASTATIN 10 MG TAB PO ONE; -ATORVASTATIN 80 MG TAB PO STA; +CALCIUM CHLORIDE 100 MG/ML 10 ML SYRINGE IV ONE; +CARDIOPLEGIC SOLN (K+ 16 MEQ/L 1,000 ML with SODIUM BICARB (1 MEQ/ML) 20 ML, LIDOCAINE ... PERFUSION ONE; +CHLORHEXIDINE GLUCONATE 15 ML CUP MUCOUS MEM ONE; +CLEVIDIPINE BUTYRATE 25 MG in EMPTY BAG 1 BAG IV ONE; +HEPARIN SODIUM 1,000 UN/ML (10ML VL) IV ONE; -HEPARIN SODIUM,PORCINE 10,000 UNIT in SODIUM CHLORIDE 0.9% 1,000 ML IRRIGATION PRN; -HEPARIN SODIUM,PORCINE 2,500 UNIT in SODIUM CHLORIDE 0.9% 250 ML IRRIGATION PRN; +HEPARIN SODIUM,PORCINE 5,000 UNIT in SODIUM CHLORIDE 0.9% 500 ML 500 ML IV ONE; +INSULIN REGULAR 100 UNIT in SODIUM CHLORIDE 0.9% 100 ML IV ONE; +LACTATED RINGERS 1,000 ML IV ONE; +MAGNESIUM SULFATE MG 500 MG/ML IV ONE; +MANNITOL 25% 12.5 GM/50 ML VIAL IV ONE; +METOPROLOL TARTRATE 12.5 MG TAB PO ONE; +NITROGLYCERIN SL TABS 0.4 MG TAB SUBLINGUAL ONE; -NITROGLYCERIN SL TABS 0.4 MG TAB SUBLINGUAL PRN; +NITROGLYCERIN-D5W PMX 25 MG/250 ML BTL IV ONE; +NITROGLYCERIN-D5W PMX 50 MG in DEXTROSE/WATER 1 250ML.BAG IV ONE; +NOREPINEPHRINE 4 MG in SODIUM CHLORIDE 0.9% 250 ML IV ONE; +PAPAVERINE 360 MG in SODIUM CHLORIDE 0.9% 90 ML IV ONE; +PHENYLEPHRINE 10 MG/ML VIAL IV ONE; +PHENYLEPHRINE 40 MG in SODIUM CHLORIDE 0.9% 250 ML IV ONE; +PROTAMINE SULFATE 10 MG/ML 25 ML VIAL IV ONE; +PROTAMINE SULFATE 250 MG in EMPTY BAG 1 BAG IV ONE; +SODIUM BICARB 8.4% 50 ML SYR (1 MEQ/ML) IV ONE; +SODIUM CHLORIDE 0.9% 1,000 ML IV ONE; -SODIUM CHLORIDE 0.9% 1,000 ML in EMPTY BAG 1 BAG IV ONE; +TRANEXAMIC ACID 2,000 MG in SODIUM CHLORIDE 0.9% 80 ML IV ONE; +ceFAZolin 1,000 MG in SODIUM CHLORIDE 0.9% IRRIGATIO 1,000 ML IRRIGATION ONE; +propofoL 1,000 MG/100 ML VIAL IV ONE
[2020-12-01] MEDS ORDERED: LACTATED RINGERS 1,000 ML IV ONE (06:13)
--- NOTE | 2020-12-01 06:58 | P.PN ---
Progress Note - Text Progress Note Date: 12/01/20 A 5 m walk test was completed with the patient this morning, time 1: 2.55 seconds, time 2: 2.52 seconds, time 3: 2.32 seconds.
[2020-12-01] MEDS ORDERED: fentaNYL (PF) 50 MCG/ML 50 ML VIAL ONE (07:58)
[2020-12-01] MEDS ORDERED: PHENYLEPHRINE-0.9% NACL SYG 1,000 MCG/10 ML SYRINGE ONE (07:58)
[2020-12-01] MEDS ORDERED: VECURONIUM 10 MG VIAL IV ONE (07:58)
[2020-12-01] MEDS ORDERED: PROPOFOL 10 MG/ML 20 ML VIAL IV ONE (07:58)
[2020-12-01] MEDS ORDERED: CALCIUM CHLORIDE 100 MG/ML 10 ML SYRINGE ONE (07:58)
[2020-12-01] MEDS ORDERED: ceFAZolin 1,000 MG VIAL ONE (07:58)
[2020-12-01] MEDS ORDERED: ELECTROLYTE-R (PH 7.4) 1,000 ML IV.SOLN IV ONE (07:58)
[2020-12-01] MEDS ORDERED: HEPARIN SODIUM,PORCINE 10,000 UNIT/ML 1 ML VIAL ONE (07:58)
[2020-12-01] MEDS ORDERED: SODIUM CHLORIDE 0.9% 100 ML BAG ONE (07:58)
[2020-12-01] MEDS ORDERED: TRANEXAMIC ACID 1,000 MG/10 ML VIAL ONE (07:58)
[2020-12-01] MEDS ORDERED: ePHEDrine SULFATE/0.9% NACL/PF 50 MG/5 ML SYRINGE IV ONE (07:58)
[2020-12-01] MEDS ORDERED: SODIUM CHLORIDE 0.9% IRRIG 1,000 ML BTL IRRIGATION ONE (07:58)
[2020-12-01] MEDS ORDERED: MIDAZOLAM 2 MG/2 ML VIAL ONE (07:58)
[2020-12-01] MEDS ORDERED: fentaNYL (PF) 50 MCG/ML 2 ML AMP ONE (07:58)
[2020-12-01] MEDS ORDERED: SODIUM CHLORIDE 0.9% 250 ML BAG ONE (07:58)
[2020-12-01 08:33] LABS: ABG Glucose Whole Blood 93 mg/dL (75-99); ABG HCO3 26 mmol/L (21-25); ABG Hematocrit 33 % (34.0-46.0); ABG Ionized Calcium 4.7 mg/dL (4.5-5.3); ABG Lactic Acid Whole Blood 1.2 mmol/L (0.5-1.6); ABG PCO2 37 mmHg (35-45); ABG PH 7.45 (7.35-7.45); ABG PO2 331 mmHg (83-108); ABG Potassium Whole Blood 3.8 mmol/L (3.4-4.5); ABG Sodium Whole Blood 143 mmol/L (135-146); ABG TCO2 27 mmol/L (19-24)
[2020-12-01 09:13] LABS: ABG Base Excess 1.6 mmol/L; ABG Glucose Whole Blood 112 mg/dL (75-99); ABG HCO3 25 mmol/L (21-25); ABG Hematocrit 33 % (34.0-46.0); ABG Ionized Calcium 4.7 mg/dL (4.5-5.3); ABG Lactic Acid Whole Blood 1.1 mmol/L (0.5-1.6); ABG PCO2 36 mmHg (35-45); ABG PH 7.45 (7.35-7.45); ABG PO2 307 mmHg (83-108); ABG Potassium Whole Blood 3.6 mmol/L (3.4-4.5); ABG Sodium Whole Blood 143 mmol/L (135-146); ABG TCO2 27 mmol/L (19-24)
[2020-12-01 09:40] LABS: ABG Base Excess -3.5 mmol/L; ABG Glucose Whole Blood 114 mg/dL (75-99); ABG HCO3 21 mmol/L (21-25); ABG Ionized Calcium 3.8 mg/dL (4.5-5.3); ABG Lactic Acid Whole Blood 1.6 mmol/L (0.5-1.6); ABG PCO2 35 mmHg (35-45); ABG PH 7.39 (7.35-7.45); ABG Potassium Whole Blood 3.6 mmol/L (3.4-4.5); ABG Sodium Whole Blood 137 mmol/L (135-146); ABG TCO2 22 mmol/L (19-24)
[2020-12-01 10:01] LABS: ABG Base Excess -2.2 mmol/L; ABG Glucose Whole Blood 112 mg/dL (75-99); ABG HCO3 24 mmol/L (21-25); ABG Ionized Calcium 4.4 mg/dL (4.5-5.3); ABG Oxygen Saturation 99.8 % (94-97); ABG PCO2 47 mmHg (35-45); ABG PH 7.31 (7.35-7.45); ABG PO2 282 mmHg (83-108); ABG Sodium Whole Blood 140 mmol/L (135-146); ABG TCO2 25 mmol/L (19-24)
[2020-12-01] MEDS ORDERED: SODIUM CHLORIDE 0.9% 500 ML 500 ML with HEPARIN SODIUM,PORCINE 5,000 UNIT IV ONE ×2 (10:02)
[2020-12-01] MEDS ORDERED: ceFAZolin 1,000 MG in SODIUM CHLORIDE 0.9% 1,000 ML IRRIGATION ONE (10:02)
[2020-12-01 10:39] LABS: ABG Base Excess -1.1 mmol/L; ABG Glucose Whole Blood 120 mg/dL (75-99); ABG HCO3 23 mmol/L (21-25); ABG Lactic Acid Whole Blood 1.1 mmol/L (0.5-1.6); ABG PCO2 35 mmHg (35-45); ABG PH 7.42 (7.35-7.45); ABG PO2 395 mmHg (83-108); ABG Potassium Whole Blood 4.2 mmol/L (3.4-4.5); ABG Sodium Whole Blood 141 mmol/L (135-146); ABG TCO2 24 mmol/L (19-24)
[2020-12-01 11:20] LABS: ABG Base Excess -0.5 mmol/L; ABG Glucose Whole Blood 118 mg/dL (75-99); ABG HCO3 24 mmol/L (21-25); ABG Hematocrit 28 % (34.0-46.0); ABG Ionized Calcium 4.2 mg/dL (4.5-5.3); ABG Lactic Acid Whole Blood 1.5 mmol/L (0.5-1.6); ABG PCO2 35 mmHg (35-45); ABG PH 7.44 (7.35-7.45); ABG Potassium Whole Blood 3.8 mmol/L (3.4-4.5); ABG Sodium Whole Blood 141 mmol/L (135-146); ABG TCO2 25 mmol/L (19-24)
[2020-12-01 11:32] LABS: ABG Hematocrit 23 % (34.0-46.0); ABG PO2 >420 mmHg (83-108)
[2020-12-01 11:32] LABS: ABG Hematocrit 24 % (34.0-46.0)
[2020-12-01 11:33] LABS: ABG PO2 >420 mmHg (83-108)
[2020-12-01 11:33] LABS: ABG Hematocrit 22 % (34.0-46.0)
[2020-12-01] MEDS ORDERED: CALCIUM GLUCONATE 2 GM in SODIUM CHLORIDE 0.9% 100 ML IVPB PRN (12:02)
[2020-12-01] MEDS ORDERED: DEXTROSE 5% IN WATER 100 ML with AMIODARONE 150 MG IV PRN (12:02)
[2020-12-01] MEDS ORDERED: INSULIN REGULAR 100 UNIT in SODIUM CHLORIDE 0.9% 100 ML IV SCH (12:02)
[2020-12-01] MEDS ORDERED: IPRATROPIUM-ALBUTEROL 3 ML NEB INHALATION PRN (12:02)
[2020-12-01] MEDS ORDERED: Potassium Replacement Protocol 1 EACH MISC MISCELLANE PRN (12:02)
[2020-12-01] MEDS ORDERED: NITROGLYCERIN-D5W PMX 50 MG in DEXTROSE/WATER 1 250ML.BAG IV SCH (12:02)
[2020-12-01] MEDS ORDERED: Phosphorus Replacement Protoco 1 EACH MISC MISCELLANE PRN (12:02)
[2020-12-01] MEDS ORDERED: Magnesium Replacement Protocol 1 EACH MISC MISCELLANE PRN (12:02)
[2020-12-01] MEDS ORDERED: METOCLOPRAMIDE 5 MG/ML 2 ML VIAL IVP PRN (12:02)
[2020-12-01] MEDS ORDERED: AMIODARONE 360 MG in DEXTROSE 5% IN WATER 200 ML IV PRN ×2 (12:02)
[2020-12-01] MEDS ORDERED: AMIODARONE 450 MG in DEXTROSE 5% IN WATER 250 ML IV PRN ×2 (12:02)
--- NOTE | 2020-12-01 12:16 | P.OP ---
Date of Procedure: 12/01/20 Preoperative Diagnosis: Mitral regurgitation, aortic valvular insufficiency Postoperative Diagnosis: Same Procedure(s) Performed: Mitral valve repair, obliteration of the left atrial appendage, epi-aortic ultrasonography Implants: 28 mm physio-2 mitral annuloplasty ring, 35 mm AtriCure clip Anesthesia: NED Surgeon: Carlitos Headley Estimated Blood Loss (ml): 200 IV fluids (ml): 1,500 Urine output (ml): 300 Pathology: none sent Condition: stable Disposition: ICU Indications for Procedure: 80-year-old female presents with worsening dyspnea. She is found to have severe mitral regurgitation confirmed on LAURA. Cardiac catheterization demonstrated no coronary artery disease. She was also noted to have mild aortic valvular insufficiency. Surgery was recommended and the patient was seen in consultat ion. Risks versus benefits of surgery were outlined. Patient opted to undergo elective mitral valve repair. Operative Findings: Under general anesthesia, mitral regurgitation was only moderate. Aortic insufficiency was very mild. Following mitral valve repair there was no mitral regurgitation. Aortic insufficiency remained unchanged. Epi-aortic ultrasonography demonstrated no significant atherosclerotic disease in the ascending aorta. LAURA demonstrated no evidence of thrombus in the left atrial appendage and confirmed good closure with the AtriCure clip postoperatively. Description of Procedure: Patient was brought to the operating room, placed supine on the operating table, anesthetized and intubated. T probe was placed with findings as noted above. The anterior torso and bilateral lower extremities were sterilely prepped and draped in standard fashion. Midline sternotomy was performed. Pleural spaces were opened bilaterally. Pericardium was opened in the midline and the heart exposed with pericardial sutures. Patient was systemically heparinized. Epi- aortic ultrasonography was performed with findings as noted above. Patient was cannulated for cardiotomy bypass with 6 mm soft flow cannula in the distal ascending aorta, a straight 34-Tunisian venous cannula through the right atrial appendage into the inferior vena cava and a 28 right angle venous cannula in the superior vena cava. Antegrade and retrograde cardioplegia lines were placed in standard fashion. During placement of the retrograde catheter patient went into an SVT and was cardioverted 1. Once the patient was fully cannulated and fully heparinized patient was placed on cardiopulmonary bypass and stabilized. 35mm AtriCure was applied to the base of the left atrial appendage. The aorta was crossclamped and arrested with cold crystalloid antegrade cardioplegia followed by retrograde cardioplegia. The interatrial groove was developed and the left atrium entered through the inner atrial groove. Mitral valve was exposed with the Abhi retractor and tested. There was no evidence of prolapse. Anterior leaflet was sized and a 28 mm physio-2 ring was chosen. Circumferential annuloplasty sutures were placed around the annulus of the [place] mitral valve and then passed through the physio-2 ring at appropriate intervals. The ring was seated and the sutures tied and cut. His proceeded without event. The valve was tested and noted to be competent. The atrium was now closed with running 3-0 Prolene single layer closure. Patient was placed in Trendelenburg and the cross-clamp was removed, patient returned to a spontaneous sinus rhythm. Atrial and ventricular pacing wires were placed. The inferior vena caval cannula was pulled back into the right atrium and the superior vena caval cannula was removed and pursestring suture tied with good hemostasis. LAURA was used to confirm good de-airing of the heart. Patient was subsequently weaned cardiopulmonary bypass without the use of inotropic support. Aortic cannulae were removed and the sites reinforced with 40 pledgeted Prolene sutures. Heparin was reversed with protamine and good hemostasis obtained throughout. The venous cannula had also been removed. Once we assured good hemostasis throughout the chest and mediastinum the mediastinum was drained with 236-Tunisian chest tubes in the left pleural space was drained with a 32-Tunisian chest tube. Chest was irrigated with antibiotic solution. Pericardium was tacked closed. Sternum was closed with 6 Mersilene band's. Fascia was closed with 0 Ethibond. Subcutaneous and subcuticular layers with layers of Vicryl suture. Sterile dressings were applied the patient was transferred to ICU in stable condition.
[2020-12-01 12:28] LABS: Glucose,Whole Blood 116 mg/dL (75-99)
[2020-12-01] MEDS: IPRATROPIUM-ALBUTEROL 3 ML NEB INHALATION SCH ×3 (12:30→19:39)
[2020-12-01] MEDS: LACTATED RINGERS 1,000 ML IV SCH (12:50)
[2020-12-01] MEDS: ALBUMIN HUMAN 5% 250 ML in EMPTY BAG 1 BAG IVPB PRN ×3 (12:51→16:10)
[2020-12-01 12:54] LABS: ABG HCO3 25 mmol/L (21-25); ABG Oxygen Saturation 99.6 % (94-97); ABG PCO2 33 mmHg (35-45); ABG PH 7.48 (7.35-7.45); ABG PO2 >400 mmHg (83-108); ABG TCO2 26 mmol/L (19-24)
[2020-12-01 13:00] LABS: INR 1.1 (<1.2); Partial Thromboplastin Time 25.8 sec (22.0-30.0)
--- NOTE | 2020-12-01 13:04 | XR ---
EXAMINATION TYPE: XR chest 1V portable DATE OF EXAM: 12/01/2020 COMPARISON: 11/03/2020 HISTORY: Postoperative cardiac surgery TECHNIQUE: Single frontal view of the chest is obtained. FINDINGS: Heart size is enlarged. Atherosclerotic aorta. Valvular replacement. Endotracheal tube is s een with its tip just above the gonzález. This may be retracted slightly. Left-sided chest tube. 2 medi astinal drainage catheters are seen. There is a Clopton-Jacquelyn catheter with its tip projecting over the t he pulmonary trunk. Moderate left and tiny right pleural effusions with adjacent airspace opacities. Pulmonary interstitial of prominence may represent edema. IMPRESSION: 1. Endotracheal tube with its tip just above the gonzález. This may be slightly retracted. There is a l eft chest tube and 2 mediastinal drainage catheters. There is a Clopton-Jacquelyn catheter with its tip at th e pulmonary trunk. 2. Moderate left and tiny right pleural effusion with adjacent airspace opacity suggestive of atelect asis, developing pneumonia, or edema. There is pulmonary edema. 3. Cardiomegaly. Valvular replacement.
[2020-12-01 13:05] LABS: Basophils % (A) 0 %; Eosinophils # (A) 0.1 k/uL (0-0.7); Eosinophils % (A) 2 %; HCT 27.3 % (34.0-46.0); Lymphocytes % (A) 14 %; MCH 31.1 pg (25.0-35.0); MCHC 32.8 g/dL (31.0-37.0); MCV 94.6 fL (80.0-100.0); Mean Platelet Volume 7.8; Monocytes # (A) 0.1 k/uL (0-1.0); Monocytes % (A) 1 %; Neutrophils # (A) 5.9 k/uL (1.3-7.7); Neutrophils % (A) 82 %; Platelet Count 119 k/uL (150-450); RBC 2.88 m/uL (3.80-5.40); RDW 13.7 % (11.5-15.5); WBC 7.2 k/uL (3.8-10.6)
[2020-12-01 13:27] LABS: Glucose,Whole Blood 119 mg/dL (75-99)
[2020-12-01 13:43] LABS: Ionized Calcium 4.5 mg/dL (4.5-5.3)
[2020-12-01 13:52] LABS: ALT 24 U/L (4-34); AST 45 U/L (14-36); African American GFR (CKD) >90 (>60 ml/min/1.73 sqM); Albumin 2.8 g/dL (3.5-5.0); Alkaline Phosphatase 59 U/L (38-126); Anion Gap 3 mmol/L; Blood Urea Nitrogen 11 mg/dL (7-17); Calcium 8.3 mg/dL (8.4-10.2); Carbon Dioxide 25 mmol/L (22-30); Chloride 111 mmol/L (98-107); Glucose 109 mg/dL (74-99); Magnesium 2.9 mg/dL (1.6-2.3); Non-African American GFR(CKD) 89 (>60 ml/min/1.73 sqM); Potassium 4.4 mmol/L (3.5-5.1); Sodium 139 mmol/L (137-145); Total Bilirubin 0.6 mg/dL (0.2-1.3); Total Protein 4.9 g/dL (6.3-8.2)
[2020-12-01] MEDS: ACETAMINOPHEN IV (For NPO) 1,000 MG in EMPTY BAG 1 BAG IVPB SCH ×2 (14:14→18:59)
[2020-12-01 14:44] LABS: Glucose,Whole Blood 152 mg/dL (75-99)
[2020-12-01 14:57] LABS: Basophils % (A) 0 %; Eosinophils # (A) 0.1 k/uL (0-0.7); Eosinophils % (A) 1 %; HCT 26.1 % (34.0-46.0); HGB 8.9 gm/dL (11.4-16.0); Lymphocytes # (A) 0.6 k/uL (1.0-4.8); Lymphocytes % (A) 8 %; MCH 31.9 pg (25.0-35.0); MCHC 34.1 g/dL (31.0-37.0); MCV 93.5 fL (80.0-100.0); Mean Platelet Volume 7.3; Monocytes # (A) 0.3 k/uL (0-1.0); Monocytes % (A) 5 %; Neutrophils # (A) 6.2 k/uL (1.3-7.7); Neutrophils % (A) 86 %; Platelet Count 124 k/uL (150-450); RBC 2.79 m/uL (3.80-5.40); RDW 13.2 % (11.5-15.5); WBC 7.3 k/uL (3.8-10.6)
[2020-12-01] MEDS ORDERED: MUPIROCIN 2% OINT 22 GM TUBE NASAL ONE (15:30)
[2020-12-01 15:54] LABS: Glucose,Whole Blood 138 mg/dL (75-99)
--- NOTE | 2020-12-01 16:01 | P.CNPUL ---
History of Present Illness Consult date: 12/01/20 Requesting physician: Carlitos Headley Reason for consult: dyspnea Chief complaint: Dyspnea, severe mitral regurgitation History of present illness: 80-year-old white female patient of Dr. Vanegas with symptoms of worsening dyspnea, she was found to have severe mitral regurgitation confirmed on tr ansesophageal echocardiogram with prolapse of the posterior mitral leaflet, cardiac catheterization showed no new coronary artery disease. LAURA showed 3-4+ central mitral regurgitation, and 2-3+ aortic regurgitation, severe left atrial enlargement and preserved LV function. She has known history of mitral valve regurgitation, hypertension, hyperlipidemia, sick sinus syndrome/asymptomatic bradycardia, previous history of bilateral lower extremity DVTs, lifetime nonsmoker, and family history of premature coronary artery disease. Patient was referred to cardiothoracic surgery and on 12/01/2020 patient underwent mitral valve repair, left atrial appendage exclusion, and epi-aortic ultrasonography. Patient is seen in the postoperative period in the intensive care unit, she sedated, and ventilated currently on assist control mode of ventilation with a rate of 12, tidal volume is 450, FiO2 100%, and PEEP of 5. Patient is intubated with the #8 endotracheal tube. Postoperative blood gas was completed showing pO2 of greater than 420, pCO2 35, and pH is 7.44, this was done on 100% FiO2 and FiO2 has since been cut back to 50%. Patient is currently on lactated Ringer's at 50 ML per hour, insulin infusion is at 1.5 units per hour, nitroglycerin drip is at 5 mics per minute, propofol is at 20 mics per kilo per minute. Blood pressure is 111/68, PA pressures 35/23, CVP is 15, cardiac output is 4.1 and cardiac index is 2.5. Patient is being paced at AAI mode at a rate of 80, underlying rhythm is junctional. Mediastinal and left pleural chest tubes to wall suction with no evidence of air leak, with 190 mL of sanguinous drainage from the mediastinal chest tube and 45 mL from the left pleural chest tube. Patient did receive 2 units of fresh frozen plasma and 1 unit of platelets. Cu rrently his hemoglobin is 8.9, platelet count is 124. Postoperative chest x-ray shows ET tube with its tip just above the gonzález, left chest tube and 2 mediastinal chest tubes, [place]-Jacquelyn catheter in appropriate positions, moderate left and tiny right pleural effusions, adjacent airspace opacity suggestive of atelectasis, pulmonary edema. Review of Systems All systems: negative Constitutional: Denies chills, Denies fever Eyes: denies blurred vision, denies pain Ears, nose, mouth and throat: Denies headache, Denies sore throat Cardiovascular: Reports decreased exercise tolerance, Reports shortness of breath, Denies chest pain Respiratory: Reports dyspnea, Denies cough Gastrointestinal: Denies abdominal pain, Denies diarrhea, Denies nausea, Denies vomiting Genitourinary: Denies dysuria, Denies hematuria Musculoskeletal: Denies myalgias Integumentary: Denies pruritus, Denies rash Neurological: Denies numbness, Denies weakness Psychiatric: Denies anxiety, Denies depression Endocrine: Denies fatigue, Denies weight change Past Medical History Past Medical History: Chest Pain / Angina, Deep Vein Thrombosis (DVT), Eye Disorder, Hyperlipidemia, Hypertension, Musculoskeletal Disorder, Osteoarthritis (OA), Thyroid Disorder Additional Past Medical History / Comment(s): DDD, spondylithosis, migraines, kidney stones, "small vessel heart disease", heart murmur, hx phlebitis, "leaky valves" per pt., SOB w/exertion, DVT leg 2 years ago after traveling, glaucoma, fully vaccinated for covid History of Any Multi-Drug Resistant Organisms: None Reported Past Surgical History: Heart Catheterization, Hysterectomy, Joint Replacement Additional Past Surgical History / Comment(s): elsy knee replacements, cataracts, left eye surg. after cataract removed, tendon surgery in right hand Past Anesthesia/Blood Transfusion Reactions: Motion Sickness, Postoperative Nausea & Vomiting (PONV) Smoking Status: Never smoker - Past Family History Father Family Medical History: Diabetes Mellitus Mother Family Medical History: Coronary Artery Disease (CAD) Additional Family Medical History / Comment(s): Mother had CAD diagnosed less than 60 years old, during a heart cath at 65 years old Medications and Allergies Home Medications Medication Instructions Recorded Confirmed Type Levothyroxine Sodium [Synthroid] 125 mcg PO DAILY 12/28/14 11/24/20 History Nitroglycerin Sl Tabs [Nitrostat] 0.4 mg SUBLINGUAL Q5M PRN 12/28/14 11/24/20 History Atorvastatin [Lipitor] 10 mg PO DAILY 04/25/17 11/24/20 History Aspirin 81 mg PO DAILY 11/01/20 11/24/20 History Furosemide [Lasix] 40 mg PO DAILY 11/01/20 11/24/20 History Latanoprost/Pf [Latanoprost 0.005% 1 drop LEFT EYE HS 11/01/20 11/24/20 History Eye Drop] Potassium Chloride [Klor-Con 10] 10 meq PO DAILY 11/01/20 11/24/20 History traMADol HCL [Ultram] 50 mg PO DAILY PRN 11/03/20 11/24/20 History Ciprofloxacin HCl [Cipro] 500 mg PO Q12H 3 Days #6 tab 11/29/20 11/30/20 Rx Allergies Allergy/AdvReac Type Severity Reaction Status Date / Time morphine AdvReac Itching Verified 11/24/20 10:41 Physical Exam Vitals: Vital Signs Temp Pulse Pulse Resp BP BP Pulse Ox 12/01/20 14:00 96.1 F L 80 20 112/78 100 12/01/20 13:45 80 20 100 12/01/20 13:30 80 20 100 12/01/20 13:15 80 20 145/93 100 12/01/20 13:00 63 20 100 12/01/20 12:45 69 17 100 12/01/20 12:30 95.9 F L 73 18 100 12/01/20 06:14 64 18 138/56 98 12/01/20 06:12 97.3 F L 58 L 18 132/84 98 12/01/20 05:59 97.3 F L 58 L 18 132/84 98 Intake and Output 11/30/20 12/01/20 12/01/20 22:59 06:59 14:59 Intake Total 100 1671.323 Output Total 1020 Balance 100 651.323 Intake: IV 100 101 Cardiac Output 80 Pressure bag 18 Intake, IV Titration 607.323 Amount Albumin Human 5% 250 ml 500 In Empty Bag 1 bag @ 250 mls/hr IVPB Q1HR PRN Rx#: [id number] Lactated Ringers 1,000 ml 100 @ 50 mls/hr IV .Q20H [facility] Rx#:[id number] propofoL 1,000 mg In 7.323 Empty Bag 1 bag @ Titrate IV .Q0M [facility] Rx#: [id number] Blood Product 963 Ffp 24 Cpd Unit 352 [id number] Ffp 24 Cpd Unit 327 [id number] Platelet Pheresis Pas 284 Psoralen Unit [id number] Output: Chest Tube Drainage 235 Lt Pleural 45 Mediastinal 190 Urine 785 Other: Voiding Method Indwelling Catheter Weight 61.3 kg ABP, PAP, CO, CI - Last 8 Hours Arterial Blood Pressure 111/68 Arterial Blood Pressure 104/63 Arterial Blood Pressure 124/73 Arterial Blood Pressure 149/85 Arterial Blood Pressure 140/80 Arterial Blood Pressure 145/81 Arterial Blood Pressure 140/77 Pulmonary Artery Pressure 35/23 Pulmonary Artery Pressure 37/23 Pulmonary Artery Pressure 40/24 Pulmonary Artery Pressure 37/25 Pulmonary Artery Pressure 38/24 Pulmonary Artery Pressure 36/22 Pulmonary Artery Pressure 32/18 Cardiac Output 4.1 Cardiac Output 3.8 Cardiac Output 2.7 Cardiac Output 2.8 Cardiac Index 2.5 Cardiac Index 2.3 Cardiac Index 1.6 Cardiac Index 1.7 GENERAL EXAM: Sedated, intubated, 80-year-old white female, on assist-control mode of ventilation with FiO2 of 100% and PEEP of 8 comfortable in no apparent distress. HEAD: Normocephalic/atraumatic. EYES: Normal reaction of pupils, equal size. Conjunctiva pink, sclera white. NOSE: Clear with pink turbinates. THROAT: No erythema or exudates. NECK: No masses, no JVD, no thyroid enlargement, no adenopathy. CHEST: No chest wall deformity. Symmetrical expansion. Sternal incision clean dry and intact, 2 mediastinal and left pleural chest tube in place connected to Pleur-evac and continuous wall suction, no evidence of air leak, with small amount of single drainage. Epicardial wires connected to external pacemaker box, with backup VVI mode LUNGS: Equal air entry with no crackles, wheeze, rhonchi or dullness. CVS: Regular rate and rhythm, normal S1 and S2, no gallops, no murmurs, no rubs ABDOMEN: Soft, nontender. No hepatosplenomegaly, normal bowel sounds, no guarding or rigidity. EXTREMITIES: No clubbing, no edema, no cyanosis, 2+ pulses and upper and lower extremities. MUSCULOSKELETAL: Muscle strength and tone normal. SPINE: No scoliosis or deformity SKIN: No rashes CENTRAL NERVOUS SYSTEM: Sedated, intubated No focal deficits, tone is normal in all 4 extremities. Results - Laboratory Findings CBC and BMP: 12/01/20 14:39 12/01/20 12:25 ABG ABG pH 7.48 (7.35-7.45) H 12/01/20 12:52 ABG pCO2 33 mmHg (35-45) L 12/01/20 12:52 ABG pO2 >400 mmHg (83-108) H 12/01/20 12:52 ABG O2 Saturation 99.6 % (94-97) H 12/01/20 12:52 PT/INR, D-dimer PT 12.0 sec (9.0-12.0) 12/01/20 12:25 INR 1.1 (<1.2) 12/01/20 12:25 Abnormal lab findings: Abnormal Labs 11/24/20 12/01/20 12/01/20 09:00 08:35 09:15 RBC Hgb Hct Plt Count ABG pH ABG pCO2 ABG pO2 331 H 307 H ABG HCO3 26 H ABG Total CO2 27 H 27 H ABG O2 Saturation 100.0 H 100.0 H ABG Hematocrit 33 L 33 L ABG Ionized Calcium ABG Glucose 112 H Hemoglobin 10.8 L 10.8 L Chloride Glucose POC Glucose (mg/dL) Calcium Magnesium AST Total Protein Albumin Arterial Blood Glucose 112 H Crossmatch See Detail 12/01/20 12/01/20 12/01/20 09:42 10:03 10:41 RBC Hgb Hct Plt Count ABG pH 7.31 L ABG pCO2 47 H ABG pO2 >420 H 282 H 395 H ABG HCO3 ABG Total CO2 25 H ABG O2 Saturation 100.0 H 99.8 H 100.0 H ABG Hematocrit 23 L 24 L 22 L ABG Ionized Calcium 3.8 L 4.4 L 4.0 L ABG Glucose 114 H 112 H 120 H Hemoglobin 7.4 L 7.9 L 7.1 L Chloride Glucose POC Glucose (mg/dL) Calcium Magnesium AST Total Protein Albumin Arterial Blood Glucose 114 H 112 H 120 H Crossmatch 12/01/20 12/01/20 12/01/20 11:22 12:25 12:25 RBC 2.88 L Hgb 9.0 L D Hct 27.3 L Plt Count 119 L ABG pH ABG pCO2 ABG pO2 >420 H ABG HCO3 ABG Total CO2 25 H ABG O2 Saturation 100.0 H ABG Hematocrit 28 L ABG Ionized Calcium 4.2 L ABG Glucose 118 H Hemoglobin 9.1 L Chloride 111 H Glucose 109 H POC Glucose (mg/dL) Calcium 8.3 L Magnesium 2.9 H AST 45 H Total Protein 4.9 L Albumin 2.8 L Arterial Blood Glucose 118 H Crossmatch 12/01/20 12/01/20 12/01/20 12:27 12:52 13:25 RBC Hgb Hct Plt Count ABG pH 7.48 H ABG pCO2 33 L ABG pO2 >400 H ABG HCO3 ABG Total CO2 26 H ABG O2 Saturation 99.6 H ABG Hematocrit ABG Ionized Calcium ABG Glucose Hemoglobin Chloride Glucose POC Glucose (mg/dL) 116 H 119 H Calcium Magnesium AST Total Protein Albumin Arterial Blood Glucose Crossmatch 12/01/20 14:42 RBC Hgb Hct Plt Count ABG pH ABG pCO2 ABG pO2 ABG HCO3 ABG Total CO2 ABG O2 Saturation ABG Hematocrit ABG Ionized Calcium ABG Glucose Hemoglobin Chloride Glucose POC Glucose (mg/dL) 152 H Calcium Magnesium AST Total Protein Albumin Arterial Blood Glucose Crossmatch - Diagnostic Findings Chest x-ray: report reviewed, image reviewed Assessment and Plan Plan: Assessment: #1. Severe mitral regurgitation, 3-4+, and some mild bileaflet prolapse, without evidence of flail or cordial disruption. Status post mitral valve re pair, left atrial appendage exclusion, postoperative day #0 #2. Mild to moderate central aortic insufficiency, and this was not severe enough to warrant surgical repair #3. Routine postoperative ventilator management #4. History of hypertension #5. Hyperlipidemia #6. Hypothyroidism #7. Patient is a nonsmoker and nondrinker, preop FEV1 was 1.78 L or 88% predicted, FVC of 2.14 L or 78% predicted, normal spirometry #8. Previous history of bilateral DVTs 2 years ago, provoked, and patient has completed 6 months of anticoagulation #9. History of glaucoma #10. Osteoarthritis #11. Family history of early-onset coronary artery disease #12. Status post completed COVID 19 vaccination Plan: Postoperative chest x-ray reviewed, the chest x-ray consistent with pulmonary edema Blood gases reviewed, labs reviewed, FiO2 is currently down to 45% We'll proceed with spontaneous awakening trial and spontaneous breathing trials Incentive spirometer to the bedside after extubation Breathing treatments to 4 times a day and when necessary after extubation Continue close hemodynamic monitoring GI and DVT prophylaxis per CT surgery We'll continue to closely follow I performed a history & physical examination of the patient and discussed their management with my nurse practitioner, Osiris Rogers. I reviewed the nurse practitioner's note and agree with the documented findings and plan of care. Lung sounds are positive for diminished breath sounds throughout the lung frye. The findings and the impression was discussed with the patient. I attest to the documentation by the nurse practitioner. Time with Patient: Greater than 30
[2020-12-01] MEDS: traMADol 50 MG TAB PO SCH ×2 (16:17→20:58)
[2020-12-01] MEDS: HEPARIN SODIUM,PORCINE/PF 5,000 UNIT/0.5 ML SYRINGE SQ SCH ×2 (16:17→23:04)
[2020-12-01 17:05] LABS: Glucose,Whole Blood 138 mg/dL (75-99)
[2020-12-01 17:24] LABS: ABG HCO3 25 mmol/L (21-25); ABG Oxygen Saturation 98.9 % (94-97); ABG PCO2 42 mmHg (35-45); ABG PH 7.38 (7.35-7.45); ABG PO2 167 mmHg (83-108); ABG TCO2 26 mmol/L (19-24); Allen Test Performed? Yes
[2020-12-01] MEDS: KETOROLAC 15 MG/ML 1 ML VIAL IVP SCH ×2 (17:55→23:04)
[2020-12-01 18:01] LABS: Glucose,Whole Blood 151 mg/dL (75-99)
[2020-12-01 18:21] LABS: Basophils % (A) 0 %; Eosinophils % (A) 1 %; HCT 25.5 % (34.0-46.0); HGB 8.2 gm/dL (11.4-16.0); Lymphocytes # (A) 0.7 k/uL (1.0-4.8); Lymphocytes % (A) 9 %; MCH 30.9 pg (25.0-35.0); MCHC 32.2 g/dL (31.0-37.0); MCV 95.9 fL (80.0-100.0); Mean Platelet Volume 7.6; Monocytes # (A) 0.2 k/uL (0-1.0); Monocytes % (A) 3 %; Neutrophils # (A) 6.2 k/uL (1.3-7.7); Neutrophils % (A) 86 %; Platelet Count 147 k/uL (150-450); RBC 2.66 m/uL (3.80-5.40); RDW 13.8 % (11.5-15.5); WBC 7.2 k/uL (3.8-10.6)
[2020-12-01] MEDS: POTASSIUM CHLORIDE 20 MEQ in WATER FOR INJECTION 1 100ML.BAG IVPB SCH ×2 (18:36→20:58)
[2020-12-01 19:09] LABS: Glucose,Whole Blood 153 mg/dL (75-99)
[2020-12-01 20:05] LABS: Glucose,Whole Blood 133 mg/dL (75-99)
[2020-12-01] MEDS: LATANOPROST 0.005% OPHTH DROPS 2.5 ML BTL LEFT EYE SCH (20:58)
[2020-12-01 20:59] LABS: Glucose,Whole Blood 132 mg/dL (75-99)
--- NOTE | 2020-12-01 21:05 | CONS ---
CONSULTATION HISTORY OF PRESENT ILLNESS: Mrs. David is an 80-year-old female, followed by Dr. Varun Rabago on a regular basis, who has been having progressive symptoms of dyspnea. She underwent cardiac evaluation including cardiac catheterization and LAURA recently that showed severe mitral regurgitation and normal coronary arteries. She underwent mitral valve repair today by Dr. Headley where she had a 28 mm mitral annuloplasty ring and closure of the left atrial appendage. She is intubated and sedated at this time, atrially paced. On no vasopressors. She has no history of myocardial infarction. On her recent workup, her left ventricular systolic function was preserved. She has severe left atrial enlargement. MEDICATION: At home prior to admission included: Ultram, Synthroid, her eye drops, Lasix 40 mg daily, Atorvastatin 10 mg mg daily and aspirin once a day. REVIEW OF SYSTEMS: Review of systems could not be obtained. PHYSICAL EXAMINATION: 80-year-old female, intubated, sedated. Blood pressure 112/70 with a heart rate in the 80s, atrially paced. Temperature 96.1. HEAD: Normocephalic. Eyes sclerae anicteric. NECK: IJ catheter noted on the right side. LUNGS: Clear to auscultation anteriorly. HEART: Regular rate and rhythm S1, S2. No S3. No rub appreciated. ABDOMEN: Soft, hypoactive bowel sounds. No organomegaly. EXTREMITIES: No edema. LAB DATA: Lab data revealed a hemoglobin of 8.9. Her BUN and creatinine 11 and 0.53. Potassium 4.4. Her chest x-ray showed possible atelectasis with congestion. IMPRESSION: 1. Status post mitral valve repair in a patient with symptomatic mitral regurgitation. 2. Hypertension. 3. Hyperlipidemia. RECOMMENDATION: I will continue supportive care at this time. Hopefully the patient will be weaned and extubated soon and depending on her blood pressure after, adjustment of her medical regimen will be done. We will continue on the present regimen for now. Thank you for this consult. We will follow with you. MMODL / IJN: [id number] /
[2020-12-01 21:55] LABS: Glucose,Whole Blood 127 mg/dL (75-99)
[2020-12-01 23:04] LABS: Glucose,Whole Blood 121 mg/dL (75-99)
[2020-12-01 23:58] LABS: Glucose,Whole Blood 125 mg/dL (75-99)
[2020-12-02 00:56] LABS: Glucose,Whole Blood 110 mg/dL (75-99)
[2020-12-02 02:04] LABS: Glucose,Whole Blood 117 mg/dL (75-99)
[2020-12-02 03:02] LABS: Glucose,Whole Blood 121 mg/dL (75-99)
[2020-12-02] MEDS ORDERED: HYDROcodone/APAP 5-325MG 1 EACH TAB PO PRN (03:02)
[2020-12-02] MEDS: HYDROcodone/APAP 5-325MG 1 EACH TAB PO PRN ×3 (03:14→20:26)
[2020-12-02 04:11] LABS: Glucose,Whole Blood 115 mg/dL (75-99)
[2020-12-02 04:20] LABS: Basophils % (A) 0 %; Eosinophils # (A) 0.1 k/uL (0-0.7); Eosinophils % (A) 1 %; HCT 25.1 % (34.0-46.0); HGB 8.2 gm/dL (11.4-16.0); Lymphocytes # (A) 0.8 k/uL (1.0-4.8); Lymphocytes % (A) 13 %; MCH 31.2 pg (25.0-35.0); MCHC 32.8 g/dL (31.0-37.0); Mean Platelet Volume 9.6; Monocytes # (A) 0.3 k/uL (0-1.0); Monocytes % (A) 5 %; Neutrophils # (A) 4.9 k/uL (1.3-7.7); Neutrophils % (A) 81 %; Platelet Count 130 k/uL (150-450); RBC 2.64 m/uL (3.80-5.40); RDW 13.5 % (11.5-15.5)
[2020-12-02 04:34] LABS: ALT 19 U/L (4-34); AST 56 U/L (14-36); African American GFR (CKD) >90 (>60 ml/min/1.73 sqM); Albumin 3.3 g/dL (3.5-5.0); Alkaline Phosphatase 58 U/L (38-126); Anion Gap 4 mmol/L; Blood Urea Nitrogen 12 mg/dL (7-17); Calcium 8.3 mg/dL (8.4-10.2); Carbon Dioxide 25 mmol/L (22-30); Chloride 110 mmol/L (98-107); Glucose 107 mg/dL (74-99); Magnesium 2.2 mg/dL (1.6-2.3); Non-African American GFR(CKD) 88 (>60 ml/min/1.73 sqM); Potassium 4.4 mmol/L (3.5-5.1); Sodium 139 mmol/L (137-145); Total Bilirubin 0.5 mg/dL (0.2-1.3); Total Protein 5.3 g/dL (6.3-8.2)
[2020-12-02] MEDS: KETOROLAC 15 MG/ML 1 ML VIAL IVP SCH ×3 (05:12→18:29)
[2020-12-02 05:17] LABS: Glucose,Whole Blood 106 mg/dL (75-99)
[2020-12-02] MEDS: ONDANSETRON 4 MG/2 ML VIAL IVP PRN (06:06)
[2020-12-02 06:11] LABS: Glucose,Whole Blood 148 mg/dL (75-99)
[2020-12-02 07:01] LABS: Glucose,Whole Blood 126 mg/dL (75-99)
[2020-12-02] MEDS: IPRATROPIUM-ALBUTEROL 3 ML NEB INHALATION SCH ×4 (07:15→19:34)
[2020-12-02 08:17] LABS: Glucose,Whole Blood 146 mg/dL (75-99)
[2020-12-02] MEDS: METOPROLOL TARTRATE 12.5 MG TAB PO SCH ×2 (08:50→20:25)
[2020-12-02] MEDS: HEPARIN SODIUM,PORCINE/PF 5,000 UNIT/0.5 ML SYRINGE SQ SCH ×2 (08:50→16:01)
[2020-12-02] MEDS: ATORVASTATIN 40 MG TAB PO SCH (08:51)
[2020-12-02] MEDS: CLOPIDOGREL 75 MG TAB PO SCH (08:51)
[2020-12-02] MEDS: LACTATED RINGERS 1,000 ML IV SCH (08:54)
[2020-12-02] MEDS: ASPIRIN 325 MG TAB PO SCH (08:56)
--- NOTE | 2020-12-02 08:59 | PN ---
PROGRESS NOTE Mrs. David is an 80-year-old female who was admitted yesterday and underwent mitral valve repair by Dr. Headley. She is extubated, sitting up in the chair, has some soreness in the chest and dyspnea. She continued to be paced with atrial pacing. Underlying she has bradycardia appeared earlier as complete heart block. She is on no vasopressors. Her urine output is stable. She continues to be on aspirin once a day, Lipitor 40 mg daily, Plavix 75 mg daily, metoprolol tartrate 12.5 mg twice a day. PHYSICAL EXAMINATION: Blood pressure 111/50. Her PA pressure is systolic 31. Heart rate in the 80s. Lungs no wheezes. Heart is regular rate and rhythm S1, S2, plus rub. No gallop. ABDOMEN: Soft, nontender. EXTREMITIES: No edema. LAB DATA: Lab data revealed a hemoglobin of 8.2, BUN and creatinine of 12 and 0.55. IMPRESSION: 1. Status post mitral valve repair with closure of the left atrial appendage, extubated. 2. Bradycardia postoperatively with atrial pacing. 3. History of hypertension. 4. History of hyperlipidemia. RECOMMENDATIONS: We will continue present therapy at this time. We will follow her rhythm and if she continues to have significant bradycardia or complete heart block, then a permanent pacemaker implantation may be required. We will continue to increase her level of activity. Continue incentive spirometry. MMODL / IJN: [id number] /
[2020-12-02] MEDS ORDERED: PANTOPRAZOLE 40 MG/10 ML VIAL IVP SCH (09:00)
[2020-12-02] MEDS ORDERED: bisacodyL 10 MG SUPP RECTAL PRN (09:00)
--- NOTE | 2020-12-02 09:02 | P.PN ---
Subjective Progress Note Date: 12/02/20 Principal diagnosis: Mitral valve regurgitation, aortic valvular insufficiency. Past medical history significant for hypertension, hyperlipidemia, hypothyroidism, history of DVT to her left lower extremity and right groin, preoperative urinary tract infection with E. coli, treated and arthritis. POD #1 Mitral valve repair, obliteration of the left atrial appendage, epi-aortic ultrasonography. Postoperative acute blood loss anemia, expected, due to cardiopulmonary bypass and hemodilution. The patient was seen in follow-up today 12/02/2020 at her bedside in the intensive care unit. Currently she is sitting up to the bedside chair, is awake, alert and oriented 3 and is in no acute distress. She denies any complaints of pain or shortness of breath at this time. She was successfully expanded at 5:30 PM, currently on 2 L nasal cannula with oxygen saturations 98%. She is achieving 1000 mL on her incentive spirometry with encouragement. Bedside telemetry showing atrial paced rhythm at 80 BPM. Underlying rhythm is normal sinus rhythm with frequent PACs heart rate 78 BPM. Mediastinal and left pleural chest tubes remain in place to low continuous wall suction -20 cm H2O. No air leak is present. Draining thin serosanguineous drainage. Mediastinal chest tubes drained 180 mL output in the last 8 hours, and 650 mL output since surgery. Left pleural chest tubes drained 80 mL output in the last 8 hours and 210 mL output since surgery. She remained hemodynamically stable and is currently on no inotropic or pressor support. Right IJ [place]-Jacquelyn catheter and Cordis remain in place with current hemodynamic showing a cardiac output 3.6, cardiac index 2.2, PA pressures 31/12 and CVP 9 mmHg. Objective - Vital Signs Vital signs: Vital Signs Temp 98.1 F 12/01/20 18:00 Pulse 82 12/02/20 07:25 Resp 23 12/02/20 07:00 BP 111/74 12/02/20 03:30 Pulse Ox 97 12/02/20 07:00 Intake & Output 12/01/20 12/02/20 12/02/20 18:59 06:59 18:59 Intake Total 2398.754 1153.807 60.237 Output Total 2014 1045 50 Balance 383.754 108.807 10.237 Weight 68.3 kg Intake: IV 208 888 59 Cardiac Output 160 80 Lactated Ringers 1,000 ml 550 50 @ 50 mls/hr IV .Q20H [facility] Rx#:[id number] Potassium Chloride 20 meq 100 In Water For Injection 1 100ml.bag @ 50 mls/hr IVPB Q2H [facility] Rx#: [id number] Pressure bag 45 108 9 ceFAZolin 2 gm In Sodium 50 Chloride 0.9% 50 ml @ 100 mls/hr IVPB Q8HR [facility] Rx# :[id number] Intake, IV Titration 1227.754 265.807 1.237 Amount ACETAMINOPHEN IV (For NPO 100 100 ) 1,000 mg In Empty Bag 1 bag @ 400 mls/hr IVPB Q6H [facility] Rx#:[id number] Albumin Human 5% 250 ml 750 In Empty Bag 1 bag @ 250 mls/hr IVPB Q1HR PRN Rx#: [id number] Insulin Regular 100 unit 3.880 15.807 1.237 In Sodium Chloride 0.9% 100 ml @ Per Protocol IV .Q0M [facility] Rx#:[id number] Lactated Ringers 1,000 ml 300 50 @ 50 mls/hr IV .Q20H [facility] Rx#:[id number] Potassium Chloride 20 meq 100 In Water For Injection 1 100ml.bag @ 50 mls/hr IVPB Q2H [facility] Rx#: [id number] ceFAZolin 2 gm In Sodium 50 Chloride 0.9% 50 ml @ 100 mls/hr IVPB Q8HR [facility] Rx# :[id number] propofoL 1,000 mg In 23.874 Empty Bag 1 bag @ Titrate IV .Q0M [facility] Rx#: [id number] Blood Product 963 Ffp 24 Cpd Unit 352 [id number] Ffp 24 Cpd Unit 327 [id number] Platelet Pheresis Pas 284 Psoralen Unit [id number] Output: Chest Tube Drainage 440 440 30 Lt Pleural 100 130 20 Mediastinal 340 310 10 Urine 1575 605 20 Other: Voiding Method Indwelling Catheter Indwelling Catheter ABP, PAP, CO, CI - Last Documented Arterial Blood Pressure 111/54 Pulmonary Artery Pressure 31/10 Cardiac Output 3.6 Cardiac Index 2.2 - Exam CONSTITUTIONAL: Sitting up to the bedside chair in the intensive care unit, appears comfortable, cooperative, no apparent acute distress. HEENT: Neck is supple, no JVD, no lymphadenopathy. Right IJ Cordis and [place]- Jacquelyn catheter in place and functioning. RESPIRATORY: Lungs sounds essentially clear throughout, diminished to his bilateral bases. Respirations are symmetrical and nonlabored. Currently on 2 L nasal cannula with oxygen saturations 98%. Able to achieve 1000 mL on her incentive spirometry. Strong cough. CARDIOVASCULAR: Regular rhythm and rate. S1 and S2 present, negative for S3, gallop or murmur. Sternum is stable. Palpable peripheral pulses bilaterally. No calf pain or tenderness noted. Heart hugger in place with patient demonstrating appropriate use. Knee-high SILVIA hose and sequential compression devices in place to his bilateral lower extremities. GASTROINTESTINAL: Abdomen soft, nontender, nondistended. Hypoactive bowel sounds present 4 quadrants. Tolerating diet. Passing flatus. No guarding or rigidity. GENITOURINARY: Olmos present draining clear, yellow urine. Output 260 mL in the last 8 hours INTEGUMENTARY: Skin is warm and dry, no cyanosis.. Midline sternal incision clean dry and well approximated, covered with dry intact dressing. No redness or drainage is present. NEUROLOGIC: Cranial nerves II through XII intact. No focal deficits. MUSKULOSKELETAL: Able to move all extremities, strength equal bilaterally, generalized weakness. PSYCHIATRIC: Alert and oriented to person place and time, appropriate affect, intact judgment and insight. INVASIVE LINES AND TUBES: Mediastinal/left pleural chest tubes present and connected to low continuous wall suction, no air leaks present. Mediastinal tube with 180 mL of thin serosanguineous drainage overnight, 650 mL output in the last 24 hours. Left pleural chest tube with 80 mL of thin serosanguineous drainage overnight, 210 mL output in the last 24 hours. Atrial and ventricular epicardial pacemaker wires present, connected to generator, AAI backup rate 80 bpm. Right internal jugular [place]/Cordis, right radial arterial line present. Last CO 3.6 , CI 2.2 , PA 31/12 and CVP 9 mmHg. - Labs CBC & Chem 7: 12/02/20 04:04 12/02/20 04:04 Labs: Abnormal Lab Results - Last 24 Hours (Table) 11/24/20 12/01/20 12/01/20 Range/Units 09:00 08:35 09:15 RBC (3.80-5.40) m/uL Hgb (11.4-16.0) gm/dL Hct (34.0-46.0) % Plt Count (150-450) k/uL Lymphocytes # (1.0-4.8) k/uL ABG pH (7.35-7.45) ABG pCO2 (35-45) mmHg ABG pO2 331 H 307 H (83-108) mmHg ABG HCO3 26 H (21-25) mmol/L ABG Total CO2 27 H 27 H (19-24) mmol/L ABG O2 Saturation 100.0 H 100.0 H (94-97) % ABG Hematocrit 33 L 33 L (34.0-46.0) % ABG Ionized Calcium (4.5-5.3) mg/dL ABG Glucose 112 H (75-99) mg/dL Hemoglobin 10.8 L 10.8 L (11.4-16.0) gm/dL Chloride (98-107) mmol/L Glucose (74-99) mg/dL POC Glucose (mg/dL) (75-99) mg/dL Calcium (8.4-10.2) mg/dL Magnesium (1.6-2.3) mg/dL AST (14-36) U/L Total Protein (6.3-8.2) g/dL Albumin (3.5-5.0) g/dL Arterial Blood Glucose 112 H (75-99) mg/dL Crossmatch See Detail 12/01/20 12/01/20 12/01/20 Range/Units 09:42 10:03 10:41 RBC (3.80-5.40) m/uL Hgb (11.4-16.0) gm/dL Hct (34.0-46.0) % Plt Count (150-450) k/uL Lymphocytes # (1.0-4.8) k/uL ABG pH 7.31 L (7.35-7.45) ABG pCO2 47 H (35-45) mmHg ABG pO2 >420 H 282 H 395 H (83-108) mmHg ABG HCO3 (21-25) mmol/L ABG Total CO2 25 H (19-24) mmol/L ABG O2 Saturation 100.0 H 99.8 H 100.0 H (94-97) % ABG Hematocrit 23 L 24 L 22 L (34.0-46.0) % ABG Ionized Calcium 3.8 L 4.4 L 4.0 L (4.5-5.3) mg/dL ABG Glucose 114 H 112 H 120 H (75-99) mg/dL Hemoglobin 7.4 L 7.9 L 7.1 L (11.4-16.0) gm/dL Chloride (98-107) mmol/L Glucose (74-99) mg/dL POC Glucose (mg/dL) (75-99) mg/dL Calcium (8.4-10.2) mg/dL Magnesium (1.6-2.3) mg/dL AST (14-36) U/L Total Protein (6.3-8.2) g/dL Albumin (3.5-5.0) g/dL Arterial Blood Glucose 114 H 112 H 120 H (75-99) mg/dL Crossmatch 12/01/20 12/01/20 12/01/20 Range/Units 11:22 12:25 12:25 RBC 2.88 L (3.80-5.40) m/uL Hgb 9.0 L D (11.4-16.0) gm/dL Hct 27.3 L (34.0-46.0) % Plt Count 119 L (150-450) k/uL Lymphocytes # (1.0-4.8) k/uL ABG pH (7.35-7.45) ABG pCO2 (35-45) mmHg ABG pO2 >420 H (83-108) mmHg ABG HCO3 (21-25) mmol/L ABG Total CO2 25 H (19-24) mmol/L ABG O2 Saturation 100.0 H (94-97) % ABG Hematocrit 28 L (34.0-46.0) % ABG Ionized Calcium 4.2 L (4.5-5.3) mg/dL ABG Glucose 118 H (75-99) mg/dL Hemoglobin 9.1 L (11.4-16.0) gm/dL Chloride 111 H (98-107) mmol/L Glucose 109 H (74-99) mg/dL POC Glucose (mg/dL) (75-99) mg/dL Calcium 8.3 L (8.4-10.2) mg/dL Magnesium 2.9 H (1.6-2.3) mg/dL AST 45 H (14-36) U/L Total Protein 4.9 L (6.3-8.2) g/dL Albumin 2.8 L (3.5-5.0) g/dL Arterial Blood Glucose 118 H (75-99) mg/dL Crossmatch 12/01/20 12/01/20 12/01/20 Range/Units 12:27 12:52 13:25 RBC (3.80-5.40) m/uL Hgb (11.4-16.0) gm/dL Hct (34.0-46.0) % Plt Count (150-450) k/uL Lymphocytes # (1.0-4.8) k/uL ABG pH 7.48 H (7.35-7.45) ABG pCO2 33 L (35-45) mmHg ABG pO2 >400 H (83-108) mmHg ABG HCO3 (21-25) mmol/L ABG Total CO2 26 H (19-24) mmol/L ABG O2 Saturation 99.6 H (94-97) % ABG Hematocrit (34.0-46.0) % ABG Ionized Calcium (4.5-5.3) mg/dL ABG Glucose (75-99) mg/dL Hemoglobin (11.4-16.0) gm/dL Chloride (98-107) mmol/L Glucose (74-99) mg/dL POC Glucose (mg/dL) 116 H 119 H (75-99) mg/dL Calcium (8.4-10.2) mg/dL Magnesium (1.6-2.3) mg/dL AST (14-36) U/L Total Protein (6.3-8.2) g/dL Albumin (3.5-5.0) g/dL Arterial Blood Glucose (75-99) mg/dL Crossmatch 12/01/20 12/01/20 12/01/20 Range/Units 14:39 14:42 15:52 RBC 2.79 L (3.80-5.40) m/uL Hgb 8.9 L (11.4-16.0) gm/dL Hct 26.1 L (34.0-46.0) % Plt Count 124 L (150-450) k/uL Lymphocytes # 0.6 L (1.0-4.8) k/uL ABG pH (7.35-7.45) ABG pCO2 (35-45) mmHg ABG pO2 (83-108) mmHg ABG HCO3 (21-25) mmol/L ABG Total CO2 (19-24) mmol/L ABG O2 Saturation (94-97) % ABG Hematocrit (34.0-46.0) % ABG Ionized Calcium (4.5-5.3) mg/dL ABG Glucose (75-99) mg/dL Hemoglobin (11.4-16.0) gm/dL Chloride (98-107) mmol/L Glucose (74-99) mg/dL POC Glucose (mg/dL) 152 H 138 H (75-99) mg/dL Calcium (8.4-10.2) mg/dL Magnesium (1.6-2.3) mg/dL AST (14-36) U/L Total Protein (6.3-8.2) g/dL Albumin (3.5-5.0) g/dL Arterial Blood Glucose (75-99) mg/dL Crossmatch 12/01/20 12/01/20 12/01/20 Range/Units 16:55 17:01 17:18 RBC 2.66 L (3.80-5.40) m/uL Hgb 8.2 L (11.4-16.0) gm/dL Hct 25.5 L (34.0-46.0) % Plt Count 147 L (150-450) k/uL Lymphocytes # 0.7 L (1.0-4.8) k/uL ABG pH (7.35-7.45) ABG pCO2 (35-45) mmHg ABG pO2 167 H (83-108) mmHg ABG HCO3 (21-25) mmol/L ABG Total CO2 26 H (19-24) mmol/L ABG O2 Saturation 98.9 H (94-97) % ABG Hematocrit (34.0-46.0) % ABG Ionized Calcium (4.5-5.3) mg/dL ABG Glucose (75-99) mg/dL Hemoglobin (11.4-16.0) gm/dL Chloride (98-107) mmol/L Glucose (74-99) mg/dL POC Glucose (mg/dL) 138 H (75-99) mg/dL Calcium (8.4-10.2) mg/dL Magnesium (1.6-2.3) mg/dL AST (14-36) U/L Total Protein (6.3-8.2) g/dL Albumin (3.5-5.0) g/dL Arterial Blood Glucose (75-99) mg/dL Crossmatch 12/01/20 12/01/20 12/01/20 Range/Units 17:59 19:02 20:04 RBC (3.80-5.40) m/uL Hgb (11.4-16.0) gm/dL Hct (34.0-46.0) % Plt Count (150-450) k/uL Lymphocytes # (1.0-4.8) k/uL ABG pH (7.35-7.45) ABG pCO2 (35-45) mmHg ABG pO2 (83-108) mmHg ABG HCO3 (21-25) mmol/L ABG Total CO2 (19-24) mmol/L ABG O2 Saturation (94-97) % ABG Hematocrit (34.0-46.0) % ABG Ionized Calcium (4.5-5.3) mg/dL ABG Glucose (75-99) mg/dL Hemoglobin (11.4-16.0) gm/dL Chloride (98-107) mmol/L Glucose (74-99) mg/dL POC Glucose (mg/dL) 151 H 153 H 133 H (75-99) mg/dL Calcium (8.4-10.2) mg/dL Magnesium (1.6-2.3) mg/dL AST (14-36) U/L Total Protein (6.3-8.2) g/dL Albumin (3.5-5.0) g/dL Arterial Blood Glucose (75-99) mg/dL Crossmatch 12/01/20 12/01/20 12/01/20 Range/Units 20:57 21:53 23:03 RBC (3.80-5.40) m/uL Hgb (11.4-16.0) gm/dL Hct (34.0-46.0) % Plt Count (150-450) k/uL Lymphocytes # (1.0-4.8) k/uL ABG pH (7.35-7.45) ABG pCO2 (35-45) mmHg ABG pO2 (83-108) mmHg ABG HCO3 (21-25) mmol/L ABG Total CO2 (19-24) mmol/L ABG O2 Saturation (94-97) % ABG Hematocrit (34.0-46.0) % ABG Ionized Calcium (4.5-5.3) mg/dL ABG Glucose (75-99) mg/dL Hemoglobin (11.4-16.0) gm/dL Chloride (98-107) mmol/L Glucose (74-99) mg/dL POC Glucose (mg/dL) 132 H 127 H 121 H (75-99) mg/dL Calcium (8.4-10.2) mg/dL Magnesium (1.6-2.3) mg/dL AST (14-36) U/L Total Protein (6.3-8.2) g/dL Albumin (3.5-5.0) g/dL Arterial Blood Glucose (75-99) mg/dL Crossmatch 12/01/20 12/02/20 12/02/20 Range/Units 23:57 00:55 02:02 RBC (3.80-5.40) m/uL Hgb (11.4-16.0) gm/dL Hct (34.0-46.0) % Plt Count (150-450) k/uL Lymphocytes # (1.0-4.8) k/uL ABG pH (7.35-7.45) ABG pCO2 (35-45) mmHg ABG pO2 (83-108) mmHg ABG HCO3 (21-25) mmol/L ABG Total CO2 (19-24) mmol/L ABG O2 Saturation (94-97) % ABG Hematocrit (34.0-46.0) % ABG Ionized Calcium (4.5-5.3) mg/dL ABG Glucose (75-99) mg/dL Hemoglobin (11.4-16.0) gm/dL Chloride (98-107) mmol/L Glucose (74-99) mg/dL POC Glucose (mg/dL) 125 H 110 H 117 H (75-99) mg/dL Calcium (8.4-10.2) mg/dL Magnesium (1.6-2.3) mg/dL AST (14-36) U/L Total Protein (6.3-8.2) g/dL Albumin (3.5-5.0) g/dL Arterial Blood Glucose (75-99) mg/dL Crossmatch 12/02/20 12/02/20 12/02/20 Range/Units 03:01 04:04 04:04 RBC 2.64 L (3.80-5.40) m/uL Hgb 8.2 L (11.4-16.0) gm/dL Hct 25.1 L (34.0-46.0) % Plt Count 130 L (150-450) k/uL Lymphocytes # 0.8 L (1.0-4.8) k/uL ABG pH (7.35-7.45) ABG pCO2 (35-45) mmHg ABG pO2 (83-108) mmHg ABG HCO3 (21-25) mmol/L ABG Total CO2 (19-24) mmol/L ABG O2 Saturation (94-97) % ABG Hematocrit (34.0-46.0) % ABG Ionized Calcium (4.5-5.3) mg/dL ABG Glucose (75-99) mg/dL Hemoglobin (11.4-16.0) gm/dL Chloride 110 H (98-107) mmol/L Glucose 107 H (74-99) mg/dL POC Glucose (mg/dL) 121 H (75-99) mg/dL Calcium 8.3 L (8.4-10.2) mg/dL Magnesium (1.6-2.3) mg/dL AST 56 H (14-36) U/L Total Protein 5.3 L (6.3-8.2) g/dL Albumin 3.3 L (3.5-5.0) g/dL Arterial Blood Glucose (75-99) mg/dL Crossmatch 12/02/20 12/02/20 12/02/20 Range/Units 04:08 05:15 06:10 RBC (3.80-5.40) m/uL Hgb (11.4-16.0) gm/dL Hct (34.0-46.0) % Plt Count (150-450) k/uL Lymphocytes # (1.0-4.8) k/uL ABG pH (7.35-7.45) ABG pCO2 (35-45) mmHg ABG pO2 (83-108) mmHg ABG HCO3 (21-25) mmol/L ABG Total CO2 (19-24) mmol/L ABG O2 Saturation (94-97) % ABG Hematocrit (34.0-46.0) % ABG Ionized Calcium (4.5-5.3) mg/dL ABG Glucose (75-99) mg/dL Hemoglobin (11.4-16.0) gm/dL Chloride (98-107) mmol/L Glucose (74-99) mg/dL POC Glucose (mg/dL) 115 H 106 H 148 H (75-99) mg/dL Calcium (8.4-10.2) mg/dL Magnesium (1.6-2.3) mg/dL AST (14-36) U/L Total Protein (6.3-8.2) g/dL Albumin (3.5-5.0) g/dL Arterial Blood Glucose (75-99) mg/dL Crossmatch 12/02/20 12/02/20 Range/Units 07:00 08:15 RBC (3.80-5.40) m/uL Hgb (11.4-16.0) gm/dL Hct (34.0-46.0) % Plt Count (150-450) k/uL Lymphocytes # (1.0-4.8) k/uL ABG pH (7.35-7.45) ABG pCO2 (35-45) mmHg ABG pO2 (83-108) mmHg ABG HCO3 (21-25) mmol/L ABG Total CO2 (19-24) mmol/L ABG O2 Saturation (94-97) % ABG Hematocrit (34.0-46.0) % ABG Ionized Calcium (4.5-5.3) mg/dL ABG Glucose (75-99) mg/dL Hemoglobin (11.4-16.0) gm/dL Chloride (98-107) mmol/L Glucose (74-99) mg/dL POC Glucose (mg/dL) 126 H 146 H (75-99) mg/dL Calcium (8.4-10.2) mg/dL Magnesium (1.6-2.3) mg/dL AST (14-36) U/L Total Protein (6.3-8.2) g/dL Albumin (3.5-5.0) g/dL Arterial Blood Glucose (75-99) mg/dL Crossmatch Assessment and Plan Assessment: 1. Mitral valve regurgitation, status post mitral valve repair 2. Aortic valvular insufficiency 3. History of hypertension 4. Hyperlipidemia 5. Hypothyroidism 6. History of DVT to her left lower extremity and right groin 7. Osteoarthritis 8. Preoperative urinary tract infection with E. coli, treated 9. Postoperative acute blood loss anemia, expected Plan: 1. Continue to maximize medical therapy with aspirin, statin, Plavix and beta edwardo. We will increase beta edwardo as tolerated. 2. Place pacemaker to a VVI backup of 50. Keep atrial and ventricular epicardial pacemaker wires in place. 3. Wean oxygen as tolerated. Encourage use of his incentive spirometry 10 times every hour while awake. Bronchodilators per pulmonary management. 4. Will monitor daily labs and chest x-rays. Electrolyte replacement per protocol. 5. GI/DVT prophylaxis. 6. Remove right IJ [place]-Jacquelyn catheter. Keep right IJ Cordis in place for continuous CVP monitoring. 7. Insulin management per primary care service. Preoperative hemoglobin A1c 6.7% 8. Pain control current medication regimen. Toradol added for pain control. 9. Discontinue nitroglycerin drip. 10. Keep mediastinal and left pleural chest tubes in place to low continuous wall suction -20 cm H2O. 11. Increase activity as tolerated. Out of bed for all meals. Physical/occupational therapy and cardiac rehab consulted. 12. Restarted on her home dose of Cipro 500 mg by mouth twice a day for her preoperative urinary tract infection. 13. More recommendations to follow the follow based on patient's clinical course. Time with Patient: Greater than 30
[2020-12-02 09:12] LABS: Glucose,Whole Blood 126 mg/dL (75-99)
[2020-12-02] MEDS: ALBUMIN HUMAN 5% 250 ML in EMPTY BAG 1 BAG IVPB PRN ×2 (10:24→22:15)
[2020-12-02 10:31] LABS: Glucose,Whole Blood 111 mg/dL (75-99)
--- NOTE | 2020-12-02 11:16 | XR ---
EXAMINATION TYPE: XR chest 1V portable DATE OF EXAM: 12/02/2020 COMPARISON: 12/01/2020 HISTORY: Cardiac surgery postoperative TECHNIQUE: Single frontal view of the chest is obtained. FINDINGS: Heart size is enlarged. Atherosclerotic aorta. Valvular replacement. Endotracheal tube has been removed. Left-sided chest tube. 2 mediastinal drainage catheters are seen. There is a [place]-Jacquelyn catheter with its tip projecting over the the pulmonary trunk. Left Atrial clip.. Moderate left and t iny right pleural effusions with adjacent airspace opacities. Patchy perihilar airspace opacities may represent edema. IMPRESSION: 1. Left chest tube and 2 mediastinal drainage catheters. There is a [place]-Jacquelyn catheter with its tip a t the pulmonary trunk. 2. Moderate left and tiny right pleural effusion with adjacent airspace opacity suggestive of atelect asis, developing pneumonia, or edema. There is pulmonary edema. 3. Cardiomegaly. Valvular replacement.
[2020-12-02 11:27] VITALS: BMI 25.0
[2020-12-02 11:48] LABS: Glucose,Whole Blood 138 mg/dL (75-99)
--- NOTE | 2020-12-02 11:48 | P.PN ---
Subjective Progress Note Date: 12/02/20 Principal diagnosis: Status post mitral valve repair, postoperative day #1 80-year-old white female patient of Dr. Vanegas with symptoms of worsening dyspnea, she was found to have severe mitral regurgitation confirmed on transesophageal echocardiogram with prolapse of the posterior mitral leaflet, cardiac catheterization showed no new coronary artery disease. LAURA showed 3-4+ central mitral regurgitation, and 2-3+ aortic regurgitation, severe left atrial enlargement and preserved LV function. She has known history of mitral valve regurgitation, hypertension, hyperlipidemia, sick sinus syndrome/asymptomatic bradycardia, previous history of bilateral lower extremity DVTs, lifetime nonsmoker, and family history of premature coronary artery disease. Patient was referred to cardiothoracic surgery and on 12/01/2020 patient underwent mitral valve repair, left atrial appendage exclusion, and epi-aortic ultrasonography. Patient is seen in the postoperative period in the intensive care unit, she sedated, and ventilated currently on assist control mode of ventilation with a rate of 12, tidal volume is 450, FiO2 100%, and PEEP of 5. Patient is intubated with the #8 endotracheal tube. Postoperative blood gas was completed showing pO2 of greater than 420, pCO2 35, and pH is 7.44, this was done on 100% FiO2 and FiO2 has since been cut back to 50%. Patient is currently on lactated Ringer's at 50 ML per hour, insulin infusion is at 1.5 units per hour, nitroglycerin drip is at 5 mics per minute, propofol is at 20 mics per kilo per minute. Blood pressure is 111/68, PA pressures 35/23, CVP is 15, cardiac output is 4.1 and cardiac index is 2.5. Patient is being paced at AAI mode at a rate of 80, underlying rhythm is junctional. Mediastinal and left pleural chest tubes to wall suction with no evidence of air leak, with 190 mL of sanguinous drainage from the mediastinal chest tube and 45 mL from the left pleural chest tube. Patient did receive 2 units of fresh frozen plasma and 1 unit of platelets. Currently his hemoglobin is 8.9, platelet count is 124. Postoperative chest x- ray shows ET tube with its tip just above the gonzález, left chest tube and 2 medi astinal chest tubes, Savannah-Jacquelyn catheter in appropriate positions, moderate left and tiny right pleural effusions, adjacent airspace opacity suggestive of atelectasis, pulmonary edema. Patient was reevaluated today on 12/02/2020, patient is doing well, she is now postoperative day #1, sitting at a bedside chair, awake alert oriented 3, not in any distress. Patient was extubated around 5:30 PM yesterday, she is now on 2 L nasal cannula, and her O2 saturations 98%. Patient is doing fairly well w ith incentive spirometer. She is not requiring any pressors or any inotropes. Her cardiac output is 3.3 cardiac index is 2.0. CT PE is 8 pulmonary artery pressure 33/13. Hemoglobin is 8.2. Patient is on insulin at 1.5 units per hour, and all are at 80 mL per hour. Continues to have left pleural and mediastinal chest tubes, patient did receive yesterday 2 units of fresh frozen plasma and platelets. Chest x-ray today is reassuring except for minimal atelectasis. WBC count 6.0 hemoglobin is 8.2. Electrolytes and renal profile are normal. Objective - Vital Signs Vital signs: Vital Signs Temp 98.1 F 12/01/20 18:00 Pulse 65 12/02/20 10:30 Resp 12 12/02/20 10:30 BP 79/68 12/02/20 10:30 Pulse Ox 97 12/02/20 10:30 Intake & Output 12/01/20 12/02/20 12/02/20 18:59 06:59 18:59 Intake Total 2398.754 1153.807 587.237 Output Total 20145 220 Balance 383.754 108.807 367.237 Weight 68.3 kg 68.3 kg Intake: IV 208 888 586 Albumin Human 5% 250 ml 250 In Empty Bag 1 bag @ 250 mls/hr IVPB Q1HR PRN Rx#: [id number] Cardiac Output 160 80 50 Lactated Ringers 1,000 ml 550 200 @ 50 mls/hr IV .Q20H [facility] Rx#:[id number] Potassium Chloride 20 meq 100 In Water For Injection 1 100ml.bag @ 50 mls/hr IVPB Q2H [facility] Rx#: [id number] Pressure bag 45 108 36 ceFAZolin 2 gm In Sodium 50 50 Chloride 0.9% 50 ml @ 100 mls/hr IVPB Q8HR [facility] Rx# :[id number] Intake, IV Titration 1227.754 265.807 1.237 Amount ACETAMINOPHEN IV (For NPO 100 100 ) 1,000 mg In Empty Bag 1 bag @ 400 mls/hr IVPB Q6H [facility] Rx#:[id number] Albumin Human 5% 250 ml 750 In Empty Bag 1 bag @ 250 mls/hr IVPB Q1HR PRN Rx#: [id number] Insulin Regular 100 unit 3.880 15.807 1.237 In Sodium Chloride 0.9% 100 ml @ Per Protocol IV .Q0M [facility] Rx#:[id number] Lactated Ringers 1,000 ml 300 50 @ 50 mls/hr IV .Q20H [facility] Rx#:[id number] Potassium Chloride 20 meq 100 In Water For Injection 1 100ml.bag @ 50 mls/hr IVPB Q2H [facility] Rx#: [id number] ceFAZolin 2 gm In Sodium 50 Chloride 0.9% 50 ml @ 100 mls/hr IVPB Q8HR [facility] Rx# :[id number] propofoL 1,000 mg In 23.874 Empty Bag 1 bag @ Titrate IV .Q0M [facility] Rx#: [id number] Blood Product 963 Ffp 24 Cpd Unit 352 [id number] Ffp 24 Cpd Unit 327 [id number] Platelet Pheresis Pas 284 Psoralen Unit [id number] Output: Chest Tube Drainage 440 440 100 Lt Pleural 100 130 30 Mediastinal 340 310 70 Urine 1575 605 120 Other: Voiding Method Indwelling Catheter Indwelling Catheter Indwelling Catheter ABP, PAP, CO, CI - Last Documented Arterial Blood Pressure 77/44 Pulmonary Artery Pressure 33/14 Cardiac Output 3.3 Cardiac Index 2 - Exam CONSTITUTIONAL: Revealed a 28-year-old female in no distress, asymptomatic. HEENT: Supple no neck masses no JVD, right IJ Cordis and Savannah-Jacquelyn catheter in place. RESPIRATORY: Symmetrical chest expansion, diminished at the bases no crackles or rhonchi or wheezes. CARDIOVASCULAR: Normal S1 and S2, no S3 gallop. 2/6 systolic murmur thought the precordium. ABDOMEN: soft, nontender, no megaly, no rebound, no guarding. GENITOURINARY: Olmos present otherwise unremarkable. INTEGUMENTARY: Sternal incision clean and dry. NEUROLOGIC: Alert oriented 3 focal deficits. MUSKULOSKELETAL: No deformities, normal range of motion. PSYCHIATRIC: Normal mood affect and normal mental status examination.. - Labs CBC & Chem 7: 12/02/20 04:04 12/02/20 04:04 Labs: Abnormal Lab Results - Last 24 Hours (Table) 11/24/20 12/01/20 12/01/20 Range/Units 09:00 12:25 12:25 RBC 2.88 L (3.80-5.40) m/uL Hgb 9.0 L D (11.4-16.0) gm/dL Hct 27.3 L (34.0-46.0) % Plt Count 119 L (150-450) k/uL Lymphocytes # (1.0-4.8) k/uL ABG pH (7.35-7.45) ABG pCO2 (35-45) mmHg ABG pO2 (83-108) mmHg ABG Total CO2 (19-24) mmol/L ABG O2 Saturation (94-97) % Chloride 111 H (98-107) mmol/L Glucose 109 H (74-99) mg/dL POC Glucose (mg/dL) (75-99) mg/dL Calcium 8.3 L (8.4-10.2) mg/dL Magnesium 2.9 H (1.6-2.3) mg/dL AST 45 H (14-36) U/L Total Protein 4.9 L (6.3-8.2) g/dL Albumin 2.8 L (3.5-5.0) g/dL Crossmatch See Detail 12/01/20 12/01/20 12/01/20 Range/Units 12:27 12:52 13:25 RBC (3.80-5.40) m/uL Hgb (11.4-16.0) gm/dL Hct (34.0-46.0) % Plt Count (150-450) k/uL Lymphocytes # (1.0-4.8) k/uL ABG pH 7.48 H (7.35-7.45) ABG pCO2 33 L (35-45) mmHg ABG pO2 >400 H (83-108) mmHg ABG Total CO2 26 H (19-24) mmol/L ABG O2 Saturation 99.6 H (94-97) % Chloride (98-107) mmol/L Glucose (74-99) mg/dL POC Glucose (mg/dL) 116 H 119 H (75-99) mg/dL Calcium (8.4-10.2) mg/dL Magnesium (1.6-2.3) mg/dL AST (14-36) U/L Total Protein (6.3-8.2) g/dL Albumin (3.5-5.0) g/dL Crossmatch 12/01/20 12/01/20 12/01/20 Range/Units 14:39 14:42 15:52 RBC 2.79 L (3.80-5.40) m/uL Hgb 8.9 L (11.4-16.0) gm/dL Hct 26.1 L (34.0-46.0) % Plt Count 124 L (150-450) k/uL Lymphocytes # 0.6 L (1.0-4.8) k/uL ABG pH (7.35-7.45) ABG pCO2 (35-45) mmHg ABG pO2 (83-108) mmHg ABG Total CO2 (19-24) mmol/L ABG O2 Saturation (94-97) % Chloride (98-107) mmol/L Glucose (74-99) mg/dL POC Glucose (mg/dL) 152 H 138 H (75-99) mg/dL Calcium (8.4-10.2) mg/dL Magnesium (1.6-2.3) mg/dL AST (14-36) U/L Total Protein (6.3-8.2) g/dL Albumin (3.5-5.0) g/dL Crossmatch 12/01/20 12/01/20 12/01/20 Range/Units 16:55 17:01 17:18 RBC 2.66 L (3.80-5.40) m/uL Hgb 8.2 L (11.4-16.0) gm/dL Hct 25.5 L (34.0-46.0) % Plt Count 147 L (150-450) k/uL Lymphocytes # 0.7 L (1.0-4.8) k/uL ABG pH (7.35-7.45) ABG pCO2 (35-45) mmHg ABG pO2 167 H (83-108) mmHg ABG Total CO2 26 H (19-24) mmol/L ABG O2 Saturation 98.9 H (94-97) % Chloride (98-107) mmol/L Glucose (74-99) mg/dL POC Glucose (mg/dL) 138 H (75-99) mg/dL Calcium (8.4-10.2) mg/dL Magnesium (1.6-2.3) mg/dL AST (14-36) U/L Total Protein (6.3-8.2) g/dL Albumin (3.5-5.0) g/dL Crossmatch 12/01/20 12/01/20 12/01/20 Range/Units 17:59 19:02 20:04 RBC (3.80-5.40) m/uL Hgb (11.4-16.0) gm/dL Hct (34.0-46.0) % Plt Count (150-450) k/uL Lymphocytes # (1.0-4.8) k/uL ABG pH (7.35-7.45) ABG pCO2 (35-45) mmHg ABG pO2 (83-108) mmHg ABG Total CO2 (19-24) mmol/L ABG O2 Saturation (94-97) % Chloride (98-107) mmol/L Glucose (74-99) mg/dL POC Glucose (mg/dL) 151 H 153 H 133 H (75-99) mg/dL Calcium (8.4-10.2) mg/dL Magnesium (1.6-2.3) mg/dL AST (14-36) U/L Total Protein (6.3-8.2) g/dL Albumin (3.5-5.0) g/dL Crossmatch 12/01/20 12/01/20 12/01/20 Range/Units 20:57 21:53 23:03 RBC (3.80-5.40) m/uL Hgb (11.4-16.0) gm/dL Hct (34.0-46.0) % Plt Count (150-450) k/uL Lymphocytes # (1.0-4.8) k/uL ABG pH (7.35-7.45) ABG pCO2 (35-45) mmHg ABG pO2 (83-108) mmHg ABG Total CO2 (19-24) mmol/L ABG O2 Saturation (94-97) % Chloride (98-107) mmol/L Glucose (74-99) mg/dL POC Glucose (mg/dL) 132 H 127 H 121 H (75-99) mg/dL Calcium (8.4-10.2) mg/dL Magnesium (1.6-2.3) mg/dL AST (14-36) U/L Total Protein (6.3-8.2) g/dL Albumin (3.5-5.0) g/dL Crossmatch 12/01/20 12/02/20 12/02/20 Range/Units 23:57 00:55 02:02 RBC (3.80-5.40) m/uL Hgb (11.4-16.0) gm/dL Hct (34.0-46.0) % Plt Count (150-450) k/uL Lymphocytes # (1.0-4.8) k/uL ABG pH (7.35-7.45) ABG pCO2 (35-45) mmHg ABG pO2 (83-108) mmHg ABG Total CO2 (19-24) mmol/L ABG O2 Saturation (94-97) % Chloride (98-107) mmol/L Glucose (74-99) mg/dL POC Glucose (mg/dL) 125 H 110 H 117 H (75-99) mg/dL Calcium (8.4-10.2) mg/dL Magnesium (1.6-2.3) mg/dL AST (14-36) U/L Total Protein (6.3-8.2) g/dL Albumin (3.5-5.0) g/dL Crossmatch 12/02/20 12/02/20 12/02/20 Range/Units 03:01 04:04 04:04 RBC 2.64 L (3.80-5.40) m/uL Hgb 8.2 L (11.4-16.0) gm/dL Hct 25.1 L (34.0-46.0) % Plt Count 130 L (150-450) k/uL Lymphocytes # 0.8 L (1.0-4.8) k/uL ABG pH (7.35-7.45) ABG pCO2 (35-45) mmHg ABG pO2 (83-108) mmHg ABG Total CO2 (19-24) mmol/L ABG O2 Saturation (94-97) % Chloride 110 H (98-107) mmol/L Glucose 107 H (74-99) mg/dL POC Glucose (mg/dL) 121 H (75-99) mg/dL Calcium 8.3 L (8.4-10.2) mg/dL Magnesium (1.6-2.3) mg/dL AST 56 H (14-36) U/L Total Protein 5.3 L (6.3-8.2) g/dL Albumin 3.3 L (3.5-5.0) g/dL Crossmatch 12/02/20 12/02/20 12/02/20 Range/Units 04:08 05:15 06:10 RBC (3.80-5.40) m/uL Hgb (11.4-16.0) gm/dL Hct (34.0-46.0) % Plt Count (150-450) k/uL Lymphocytes # (1.0-4.8) k/uL ABG pH (7.35-7.45) ABG pCO2 (35-45) mmHg ABG pO2 (83-108) mmHg ABG Total CO2 (19-24) mmol/L ABG O2 Saturation (94-97) % Chloride (98-107) mmol/L Glucose (74-99) mg/dL POC Glucose (mg/dL) 115 H 106 H 148 H (75-99) mg/dL Calcium (8.4-10.2) mg/dL Magnesium (1.6-2.3) mg/dL AST (14-36) U/L Total Protein (6.3-8.2) g/dL Albumin (3.5-5.0) g/dL Crossmatch 12/02/20 12/02/20 12/02/20 Range/Units 07:00 08:15 09:11 RBC (3.80-5.40) m/uL Hgb (11.4-16.0) gm/dL Hct (34.0-46.0) % Plt Count (150-450) k/uL Lymphocytes # (1.0-4.8) k/uL ABG pH (7.35-7.45) ABG pCO2 (35-45) mmHg ABG pO2 (83-108) mmHg ABG Total CO2 (19-24) mmol/L ABG O2 Saturation (94-97) % Chloride (98-107) mmol/L Glucose (74-99) mg/dL POC Glucose (mg/dL) 126 H 146 H 126 H (75-99) mg/dL Calcium (8.4-10.2) mg/dL Magnesium (1.6-2.3) mg/dL AST (14-36) U/L Total Protein (6.3-8.2) g/dL Albumin (3.5-5.0) g/dL Crossmatch 12/02/20 Range/Units 10:28 RBC (3.80-5.40) m/uL Hgb (11.4-16.0) gm/dL Hct (34.0-46.0) % Plt Count (150-450) k/uL Lymphocytes # (1.0-4.8) k/uL ABG pH (7.35-7.45) ABG pCO2 (35-45) mmHg ABG pO2 (83-108) mmHg ABG Total CO2 (19-24) mmol/L ABG O2 Saturation (94-97) % Chloride (98-107) mmol/L Glucose (74-99) mg/dL POC Glucose (mg/dL) 111 H (75-99) mg/dL Calcium (8.4-10.2) mg/dL Magnesium (1.6-2.3) mg/dL AST (14-36) U/L Total Protein (6.3-8.2) g/dL Albumin (3.5-5.0) g/dL Crossmatch Assessment and Plan Assessment: Impression: Severe mitral regurgitation, status post mitral valve repair postoperative day #1. History of mild aortic insufficiency. History of benign essential hypertension. History of hypothyroidism. Lifelong nonsmoker. History of DVT. History of glaucoma. Degenerative joint disease. Family history of coronary artery disease. Postoperative atelectasis, expected. Recommendation: Patient was extubated successfully yesterday on 5:50 PM. Continue incentive spirometer. Early ambulation. GI and DVT prophylaxis. Maximized medical therapy with aspirin statins and Plavix and beta blockers. Pain control management. Discontinue unnecessary lines and catheters. We will continue to follow. Time with Patient: Less than 30
[2020-12-02] MEDS: INSULIN ASPART (NovoLOG) 100 UNIT/ML VIAL SQ SCH ×3 (11:59→20:26)
--- NOTE | 2020-12-02 12:43 | P.CONS ---
History of Present Illness - Reason for Consult Consult date: 12/02/20 Medical management - History of Present Illness HISTORY OF PRESENT ILLNESS This is an 80-year-old female patient of Dr. Vanegas with past medical history of mitral valve regurgitation, hypertension, hyperlipidemia, sick sinus syndrome/asymptomatic bradycardia, history of lower extremity DVTs. Patient recently underwent LAURA revealed severe mitral regurgitation, posterior mitral leaflet prolapse. Heart catheterization did not show any coronary artery disease. regurgitation and subsequently underwent LAURA with prolapse of the posterior mitral leaflet. Yesterday, patient underwent mitral valve repair, left atrial appendage exclusion. Patient was successfully extubated. She is seen in the morning postop day #1. She is sitting upright recliner and appears to be somewhat uncomfortable. She received 2 units of fresh frozen plasma and 1 unit of platelets. She was started on Lopressor 12.5 mg this morning. She was being paced this morning but is now intrinsic rhythm. She has a mediastinal and left pleural chest tube in place with no air leak. She has been afebrile, heart rate 64, blood pressure 93/58, pulse ox 97% on 2 L nasal cannula. Repeat blood work reveals WBC 6.0, hemoglobin 8.2, platelet count 130. Sodium 139, potassium 4.4, chloride 110, CO2 25, BUN 12 and creatinine 0.55. ALT is 56. Capillary blood glucose running 111 246. We will plan to transition her to Lantus 10 units daily and scale. Repeat chest x-ray reveals left chest tube and 2 mediastinal drainage catheters. A [place]-Jacqu[place] catheter with tip at the pulmonary trunk. Moderate left and tiny right pleural effusion and adjacent airspace opacities suggestive of atelectasis, developing pneumonia or edema. There is pulmonary edema. Cardiomegaly. Valvular replacement. REVIEW OF SYSTEMS Constitutional: No fever, no chills, no night sweats. No weight change. Mild generalized weakness and fatigue no lethargy. No daytime sleepiness. EENT: No headache. No blurred vision or double vision, no loss of vision. No loss of Hearing, no ringing in the ears, no dizziness. No nasal drainage or congestion. No epistaxis. No sore throat. Lungs: No shortness of breath, cough, no sputum production. No wheezing. Cardiovascular: Expected chest discomfort, no lower extremity edema. No palpitations. No paroxysmal nocturnal dyspnea. No orthopnea. No lightheadedness or dizziness. No syncopal episodes. Abdominal: No abdominal pain. No nausea, vomiting. No diarrhea. No const ipation. No bloody or tarry stools.. No loss of appetite. Genitourinary: No dysuria, increased frequency, urgency. No urinary retention. Musculoskeletal: No myalgias. No muscle weakness, no gait dysfunction, no frequent falls. No back pain. No neck pain. Integumentary: No wounds, no lesions. No rash or pruritus. No unusual bruising. No change in hair or nails. Neurologic: No aphasia. No facial droop. No change in mentation. No head injury. No headache. No paralysis. No paresthesia. Psychiatric: No depression. No anxiety. No mood swings. Endocrine: No abnormal blood sugars. No weight change. No excessive sweating or thirst. No cold intolerance. SOCIAL HISTORY Lifelong nonsmoker, no alcohol abuse. FAMILY HISTORY Mother had coronary artery disease at age 60 and during heart catheterization at age 65.. PHYSICAL EXAMINATION Gen: This is an 80-year-old female. She is resting in recliner and appears to be comfortable. No acute distress is noted. HEENT: Head is atraumatic, normocephalic. Pupils equal, round. Sclerae is anicteric. Right sided IJ Cord[place] and [place] catheter in place NECK: Supple. No JVD. No lymphadenopathy. No thyromegaly. LUNGS: Diminished breath sounds bilaterally. No wheezes or rhonchi. No intercostal retractions. Mediastinal and left pleural chest tube in place. HEART: Regular rate and rhythm. 2/6 systolic murmur. ABDOMEN: Soft. Bowel sounds are present. No masses. No tenderness. Olmos catheter in place draining clear beltran urine. EXTREMITIES: No pedal edema. No calf tenderness. NEUROLOGICAL: Patient is awake, alert and oriented x3. Cranial nerves 2 through 12 are grossly intact. ASSESSMENT AND PLAN 1. Severe mitral regurgitation status post mitral valve repair, postop day #1. Continue current care per cardiothoracic team, continue incentive spirometry to reduce incidence of atelectasis and hospital acquired pneumonia., Lopressor 12.5 mg twice daily started this morning, Plavix 75 mg daily, atorvastatin 40 mg daily. 2. Mild aortic valve insufficiency. 3. Hypertension. Patient is currently hypotensive, stable. 4. Hypothyroidism. Continue levothyroxine 125 g daily 5. History of DVT. 6. Glaucoma. 7. Generalized osteoarthritis. 8. Preoperative urinary tract infection. Patient was resumed on ciprofloxacin 500 mg twice daily. 9. GI prophylaxis. Protonix 40 mg IV push daily. 10. DVT prophylaxis. Heparin 5000 units subcu every 8 hours. DISCHARGE PLAN Most likely return home with homecare. Impression and plan of care have been directed as dictated by the signing physician. Lynnette Sanchez nurse practitioner acting as scribe for signing physician. Past Medical History Past Medical History: Chest Pain / Angina, Deep Vein Thrombosis (DVT), Eye Disorder, Hyperlipidemia, Hypertension, Musculoskeletal Disorder, Osteoarthritis (OA), Thyroid Disorder Additional Past Medical History / Comment(s): DDD, spondylithosis, migraines, kidney stones, "small vessel heart disease", heart murmur, hx phlebitis, "leaky valves" per pt., SOB w/exertion, DVT leg 2 years ago after traveling, glaucoma, fully vaccinated for covid History of Any Multi-Drug Resistant Organisms: None Reported Past Surgical History: Heart Catheterization, Hysterectomy, Joint Replacement Additional Past Surgical History / Comment(s): elsy knee replacements, cataracts, left eye surg. after cataract removed, tendon surgery in right hand Past Anesthesia/Blood Transfusion Reactions: Motion Sickness, Postoperative Nausea & Vomiting (PONV) Smoking Status: Never smoker - Past Family History Father Family Medical History: Diabetes Mellitus Mother Family Medical History: Coronary Artery Disease (CAD) Additional Family Medical History / Comment(s): Mother had CAD diagnosed less than 60 years old, during a heart cath at 65 years old Medications and Allergies Home Medications Medication Instructions Recorded Confirmed Type Levothyroxine Sodium [Synthroid] 125 mcg PO DAILY 12/28/14 11/24/20 History Nitroglycerin Sl Tabs [Nitrostat] 0.4 mg SUBLINGUAL Q5M PRN 12/28/14 11/24/20 History Atorvastatin [Lipitor] 10 mg PO DAILY 04/25/17 11/24/20 History Aspirin 81 mg PO DAILY 11/01/20 11/24/20 History Furosemide [Lasix] 40 mg PO DAILY 11/01/20 11/24/20 History Latanoprost/Pf [Latanoprost 0.005% 1 drop LEFT EYE HS 11/01/20 11/24/20 History Eye Drop] Potassium Chloride [Klor-Con 10] 10 meq PO DAILY 11/01/20 11/24/20 History traMADol HCL [Ultram] 50 mg PO DAILY PRN 11/03/20 11/24/20 History Ciprofloxacin HCl [Cipro] 500 mg PO Q12H 3 Days #6 tab 11/29/20 11/30/20 Rx Allergies Allergy/AdvReac Type Severity Reaction Status Date / Time morphine AdvReac Itching Verified 11/24/20 10:41 Physical Exam Vitals: Vital Signs Temp Pulse Resp BP Pulse Ox 12/02/20 08:30 75 21 105/57 93 L 12/02/20 08:00 90 16 118/98 89 L 12/02/20 07:30 80 15 105/65 98 12/02/20 07:25 82 12/02/20 07:15 80 12/02/20 07:00 80 23 97 12/02/20 06:30 80 20 98 12/02/20 06:00 97 23 93 L 12/02/20 05:30 80 11 L 96 12/02/20 05:00 80 16 99 12/02/20 04:30 80 17 99 12/02/20 04:00 82 24 98 12/02/20 03:30 80 18 111/74 98 12/02/20 03:00 80 27 H 98 12/02/20 02:30 80 17 98 12/02/20 02:00 80 19 98 12/02/20 01:30 80 15 98 12/02/20 01:00 80 18 98 12/02/20 00:30 80 17 107/76 98 12/02/20 00:02 80 18 98 12/02/20 00:00 80 21 98 12/01/20 23:30 80 23 98 12/01/20 23:00 80 18 98 12/01/20 22:30 80 13 97 12/01/20 22:00 80 19 98 12/01/20 21:30 80 17 98 12/01/20 21:00 80 26 H 98 12/01/20 20:30 80 21 98 12/01/20 20:00 80 19 99 12/01/20 19:46 80 12/01/20 19:40 80 12/01/20 19:30 80 30 H 98 12/01/20 19:00 80 20 121/81 97 12/01/20 18:45 80 22 98 12/01/20 18:30 80 22 98 12/01/20 18:15 80 20 98 12/01/20 18:00 98.1 F 80 16 123/80 98 12/01/20 17:45 80 18 98 12/01/20 17:30 80 18 99 12/01/20 17:15 80 19 98 12/01/20 17:00 98.1 F 80 20 121/82 98 12/01/20 16:45 80 18 98 12/01/20 16:30 80 17 98 12/01/20 16:15 80 15 98 12/01/20 16:13 80 12/01/20 16:00 98.2 F 80 14 110/74 98 12/01/20 15:45 80 16 99 12/01/20 15:30 80 18 98 12/01/20 15:15 80 20 99 12/01/20 15:00 97.3 F L 80 17 111/73 97 12/01/20 14:45 80 20 100 12/01/20 14:30 80 20 100 12/01/20 14:15 80 20 100 12/01/20 14:00 96.1 F L 80 20 112/78 100 12/01/20 13:45 80 20 100 12/01/20 13:30 80 20 100 12/01/20 13:15 80 20 145/93 100 12/01/20 13:00 63 20 100 12/01/20 12:45 69 17 100 12/01/20 12:30 95.9 F L 73 18 100 Intake and Output 12/01/20 12/02/20 12/02/20 22:59 06:59 14:59 Intake Total 1311.301 569.937 149.237 Output Total 1116 609 170 Balance 195.301 -39.063 -20.763 Intake: IV 433 562 148 Cardiac Output 120 40 30 Lactated Ringers 1,000 ml 150 400 100 @ 50 mls/hr IV .Q20H [facility] Rx#:[id number] Potassium Chloride 20 meq 100 In Water For Injection 1 100ml.bag @ 50 mls/hr IVPB Q2H [facility] Rx#: [id number] Pressure bag 63 72 18 ceFAZolin 2 gm In Sodium 50 Chloride 0.9% 50 ml @ 100 mls/hr IVPB Q8HR [facility] Rx# :[id number] Intake, IV Titration 878.301 7.937 1.237 Amount ACETAMINOPHEN IV (For NPO 200 ) 1,000 mg In Empty Bag 1 bag @ 400 mls/hr IVPB Q6H [facility] Rx#:[id number] Albumin Human 5% 250 ml 250 In Empty Bag 1 bag @ 250 mls/hr IVPB Q1HR PRN Rx#: [id number] Insulin Regular 100 unit 11.750 7.937 1.237 In Sodium Chloride 0.9% 100 ml @ Per Protocol IV .Q0M [facility] Rx#:[id number] Lactated Ringers 1,000 ml 250 @ 50 mls/hr IV .Q20H [facility] Rx#:[id number] Potassium Chloride 20 meq 100 In Water For Injection 1 100ml.bag @ 50 mls/hr IVPB Q2H [facility] Rx#: [id number] ceFAZolin 2 gm In Sodium 50 Chloride 0.9% 50 ml @ 100 mls/hr IVPB Q8HR [facility] Rx# :[id number] propofoL 1,000 mg In 16.551 Empty Bag 1 bag @ Titrate IV .Q0M [facility] Rx#: [id number] Output: Chest Tube Drainage 336 264 70 Lt Pleural 86 84 30 Mediastinal 250 180 40 Urine 780 345 100 Other: Voiding Method Indwelling Catheter Indwelling Catheter Indwelling Catheter Weight 68.3 kg ABP, PAP, CO, CI - Last 8 Hours Arterial Blood Pressure 95/52 Arterial Blood Pressure 89/48 Arterial Blood Pressure 102/51 Arterial Blood Pressure 111/54 Arterial Blood Pressure 128/61 Arterial Blood Pressure 145/73 Arterial Blood Pressure 125/64 Arterial Blood Pressure 117/61 Arterial Blood Pressure 113/62 Arterial Blood Pressure 115/64 Arterial Blood Pressure 117/66 Pulmonary Artery Pressure 32/14 Pulmonary Artery Pressure 32/12 Pulmonary Artery Pressure 30/10 Pulmonary Artery Pressure 31/10 Pulmonary Artery Pressure 31/12 Pulmonary Artery Pressure 43/18 Pulmonary Artery Pressure 43/23 Pulmonary Artery Pressure 37/17 Pulmonary Artery Pressure 36/19 Pulmonary Artery Pressure 43/22 Pulmonary Artery Pressure 42/21 Pulmonary Artery Pressure 43/24 Pulmonary Artery Pressure 37/18 Cardiac Output 3.3 Cardiac Output 3.6 Cardiac Output 3.6 Cardiac Output 3.6 Cardiac Index 2 Cardiac Index 2.2 Cardiac Index 2.2 Cardiac Index 2.2 Cardiac Index 2.2 Results CBC & Chem 7: 12/02/20 04:04 12/02/20 04:04 Labs: Abnormal Lab Results - Last 24 Hours (Table) 11/24/20 12/01/20 12/01/20 Range/Units 09:00 08:35 09:15 RBC (3.80-5.40) m/uL Hgb (11.4-16.0) gm/dL Hct (34.0-46.0) % Plt Count (150-450) k/uL Lymphocytes # (1.0-4.8) k/uL ABG pH (7.35-7.45) ABG pCO2 (35-45) mmHg ABG pO2 331 H 307 H (83-108) mmHg ABG HCO3 26 H (21-25) mmol/L ABG Total CO2 27 H 27 H (19-24) mmol/L ABG O2 Saturation 100.0 H 100.0 H (94-97) % ABG Hematocrit 33 L 33 L (34.0-46.0) % ABG Ionized Calcium (4.5-5.3) mg/dL ABG Glucose 112 H (75-99) mg/dL Hemoglobin 10.8 L 10.8 L (11.4-16.0) gm/dL Chloride (98-107) mmol/L Glucose (74-99) mg/dL POC Glucose (mg/dL) (75-99) mg/dL Calcium (8.4-10.2) mg/dL Magnesium (1.6-2.3) mg/dL AST (14-36) U/L Total Protein (6.3-8.2) g/dL Albumin (3.5-5.0) g/dL Arterial Blood Glucose 112 H (75-99) mg/dL Crossmatch See Detail 12/01/20 12/01/20 12/01/20 Range/Units 09:42 10:03 10:41 RBC (3.80-5.40) m/uL Hgb (11.4-16.0) gm/dL Hct (34.0-46.0) % Plt Count (150-450) k/uL Lymphocytes # (1.0-4.8) k/uL ABG pH 7.31 L (7.35-7.45) ABG pCO2 47 H (35-45) mmHg ABG pO2 >420 H 282 H 395 H (83-108) mmHg ABG HCO3 (21-25) mmol/L ABG Total CO2 25 H (19-24) mmol/L ABG O2 Saturation 100.0 H 99.8 H 100.0 H (94-97) % ABG Hematocrit 23 L 24 L 22 L (34.0-46.0) % ABG Ionized Calcium 3.8 L 4.4 L 4.0 L (4.5-5.3) mg/dL ABG Glucose 114 H 112 H 120 H (75-99) mg/dL Hemoglobin 7.4 L 7.9 L 7.1 L (11.4-16.0) gm/dL Chloride (98-107) mmol/L Glucose (74-99) mg/dL POC Glucose (mg/dL) (75-99) mg/dL Calcium (8.4-10.2) mg/dL Magnesium (1.6-2.3) mg/dL AST (14-36) U/L Total Protein (6.3-8.2) g/dL Albumin (3.5-5.0) g/dL Arterial Blood Glucose 114 H 112 H 120 H (75-99) mg/dL Crossmatch 12/01/20 12/01/20 12/01/20 Range/Units 11:22 12:25 12:25 RBC 2.88 L (3.80-5.40) m/uL Hgb 9.0 L D (11.4-16.0) gm/dL Hct 27.3 L (34.0-46.0) % Plt Count 119 L (150-450) k/uL Lymphocytes # (1.0-4.8) k/uL ABG pH (7.35-7.45) ABG pCO2 (35-45) mmHg ABG pO2 >420 H (83-108) mmHg ABG HCO3 (21-25) mmol/L ABG Total CO2 25 H (19-24) mmol/L ABG O2 Saturation 100.0 H (94-97) % ABG Hematocrit 28 L (34.0-46.0) % ABG Ionized Calcium 4.2 L (4.5-5.3) mg/dL ABG Glucose 118 H (75-99) mg/dL Hemoglobin 9.1 L (11.4-16.0) gm/dL Chloride 111 H (98-107) mmol/L Glucose 109 H (74-99) mg/dL POC Glucose (mg/dL) (75-99) mg/dL Calcium 8.3 L (8.4-10.2) mg/dL Magnesium 2.9 H (1.6-2.3) mg/dL AST 45 H (14-36) U/L Total Protein 4.9 L (6.3-8.2) g/dL Albumin 2.8 L (3.5-5.0) g/dL Arterial Blood Glucose 118 H (75-99) mg/dL Crossmatch 12/01/20 12/01/20 12/01/20 Range/Units 12:27 12:52 13:25 RBC (3.80-5.40) m/uL Hgb (11.4-16.0) gm/dL Hct (34.0-46.0) % Plt Count (150-450) k/uL Lymphocytes # (1.0-4.8) k/uL ABG pH 7.48 H (7.35-7.45) ABG pCO2 33 L (35-45) mmHg ABG pO2 >400 H (83-108) mmHg ABG HCO3 (21-25) mmol/L ABG Total CO2 26 H (19-24) mmol/L ABG O2 Saturation 99.6 H (94-97) % ABG Hematocrit (34.0-46.0) % ABG Ionized Calcium (4.5-5.3) mg/dL ABG Glucose (75-99) mg/dL Hemoglobin (11.4-16.0) gm/dL Chloride (98-107) mmol/L Glucose (74-99) mg/dL POC Glucose (mg/dL) 116 H 119 H (75-99) mg/dL Calcium (8.4-10.2) mg/dL Magnesium (1.6-2.3) mg/dL AST (14-36) U/L Total Protein (6.3-8.2) g/dL Albumin (3.5-5.0) g/dL Arterial Blood Glucose (75-99) mg/dL Crossmatch 12/01/20 12/01/20 12/01/20 Range/Units 14:39 14:42 15:52 RBC 2.79 L (3.80-5.40) m/uL Hgb 8.9 L (11.4-16.0) gm/dL Hct 26.1 L (34.0-46.0) % Plt Count 124 L (150-450) k/uL Lymphocytes # 0.6 L (1.0-4.8) k/uL ABG pH (7.35-7.45) ABG pCO2 (35-45) mmHg ABG pO2 (83-108) mmHg ABG HCO3 (21-25) mmol/L ABG Total CO2 (19-24) mmol/L ABG O2 Saturation (94-97) % ABG Hematocrit (34.0-46.0) % ABG Ionized Calcium (4.5-5.3) mg/dL ABG Glucose (75-99) mg/dL Hemoglobin (11.4-16.0) gm/dL Chloride (98-107) mmol/L Glucose (74-99) mg/dL POC Glucose (mg/dL) 152 H 138 H (75-99) mg/dL Calcium (8.4-10.2) mg/dL Magnesium (1.6-2.3) mg/dL AST (14-36) U/L Total Protein (6.3-8.2) g/dL Albumin (3.5-5.0) g/dL Arterial Blood Glucose (75-99) mg/dL Crossmatch 12/01/20 12/01/20 12/01/20 Range/Units 16:55 17:01 17:18 RBC 2.66 L (3.80-5.40) m/uL Hgb 8.2 L (11.4-16.0) gm/dL Hct 25.5 L (34.0-46.0) % Plt Count 147 L (150-450) k/uL Lymphocytes # 0.7 L (1.0-4.8) k/uL ABG pH (7.35-7.45) ABG pCO2 (35-45) mmHg ABG pO2 167 H (83-108) mmHg ABG HCO3 (21-25) mmol/L ABG Total CO2 26 H (19-24) mmol/L ABG O2 Saturation 98.9 H (94-97) % ABG Hematocrit (34.0-46.0) % ABG Ionized Calcium (4.5-5.3) mg/dL ABG Glucose (75-99) mg/dL Hemoglobin (11.4-16.0) gm/dL Chloride (98-107) mmol/L Glucose (74-99) mg/dL POC Glucose (mg/dL) 138 H (75-99) mg/dL Calcium (8.4-10.2) mg/dL Magnesium (1.6-2.3) mg/dL AST (14-36) U/L Total Protein (6.3-8.2) g/dL Albumin (3.5-5.0) g/dL Arterial Blood Glucose (75-99) mg/dL Crossmatch 12/01/20 12/01/20 12/01/20 Range/Units 17:59 19:02 20:04 RBC (3.80-5.40) m/uL Hgb (11.4-16.0) gm/dL Hct (34.0-46.0) % Plt Count (150-450) k/uL Lymphocytes # (1.0-4.8) k/uL ABG pH (7.35-7.45) ABG pCO2 (35-45) mmHg ABG pO2 (83-108) mmHg ABG HCO3 (21-25) mmol/L ABG Total CO2 (19-24) mmol/L ABG O2 Saturation (94-97) % ABG Hematocrit (34.0-46.0) % ABG Ionized Calcium (4.5-5.3) mg/dL ABG Glucose (75-99) mg/dL Hemoglobin (11.4-16.0) gm/dL Chloride (98-107) mmol/L Glucose (74-99) mg/dL POC Glucose (mg/dL) 151 H 153 H 133 H (75-99) mg/dL Calcium (8.4-10.2) mg/dL Magnesium (1.6-2.3) mg/dL AST (14-36) U/L Total Protein (6.3-8.2) g/dL Albumin (3.5-5.0) g/dL Arterial Blood Glucose (75-99) mg/dL Crossmatch 12/01/20 12/01/20 12/01/20 Range/Units 20:57 21:53 23:03 RBC (3.80-5.40) m/uL Hgb (11.4-16.0) gm/dL Hct (34.0-46.0) % Plt Count (150-450) k/uL Lymphocytes # (1.0-4.8) k/uL ABG pH (7.35-7.45) ABG pCO2 (35-45) mmHg ABG pO2 (83-108) mmHg ABG HCO3 (21-25) mmol/L ABG Total CO2 (19-24) mmol/L ABG O2 Saturation (94-97) % ABG Hematocrit (34.0-46.0) % ABG Ionized Calcium (4.5-5.3) mg/dL ABG Glucose (75-99) mg/dL Hemoglobin (11.4-16.0) gm/dL Chloride (98-107) mmol/L Glucose (74-99) mg/dL POC Glucose (mg/dL) 132 H 127 H 121 H (75-99) mg/dL Calcium (8.4-10.2) mg/dL Magnesium (1.6-2.3) mg/dL AST (14-36) U/L Total Protein (6.3-8.2) g/dL Albumin (3.5-5.0) g/dL Arterial Blood Glucose (75-99) mg/dL Crossmatch 12/01/20 12/02/20 12/02/20 Range/Units 23:57 00:55 02:02 RBC (3.80-5.40) m/uL Hgb (11.4-16.0) gm/dL Hct (34.0-46.0) % Plt Count (150-450) k/uL Lymphocytes # (1.0-4.8) k/uL ABG pH (7.35-7.45) ABG pCO2 (35-45) mmHg ABG pO2 (83-108) mmHg ABG HCO3 (21-25) mmol/L ABG Total CO2 (19-24) mmol/L ABG O2 Saturation (94-97) % ABG Hematocrit (34.0-46.0) % ABG Ionized Calcium (4.5-5.3) mg/dL ABG Glucose (75-99) mg/dL Hemoglobin (11.4-16.0) gm/dL Chloride (98-107) mmol/L Glucose (74-99) mg/dL POC Glucose (mg/dL) 125 H 110 H 117 H (75-99) mg/dL Calcium (8.4-10.2) mg/dL Magnesium (1.6-2.3) mg/dL AST (14-36) U/L Total Protein (6.3-8.2) g/dL Albumin (3.5-5.0) g/dL Arterial Blood Glucose (75-99) mg/dL Crossmatch 12/02/20 12/02/20 12/02/20 Range/Units 03:01 04:04 04:04 RBC 2.64 L (3.80-5.40) m/uL Hgb 8.2 L (11.4-16.0) gm/dL Hct 25.1 L (34.0-46.0) % Plt Count 130 L (150-450) k/uL Lymphocytes # 0.8 L (1.0-4.8) k/uL ABG pH (7.35-7.45) ABG pCO2 (35-45) mmHg ABG pO2 (83-108) mmHg ABG HCO3 (21-25) mmol/L ABG Total CO2 (19-24) mmol/L ABG O2 Saturation (94-97) % ABG Hematocrit (34.0-46.0) % ABG Ionized Calcium (4.5-5.3) mg/dL ABG Glucose (75-99) mg/dL Hemoglobin (11.4-16.0) gm/dL Chloride 110 H (98-107) mmol/L Glucose 107 H (74-99) mg/dL POC Glucose (mg/dL) 121 H (75-99) mg/dL Calcium 8.3 L (8.4-10.2) mg/dL Magnesium (1.6-2.3) mg/dL AST 56 H (14-36) U/L Total Protein 5.3 L (6.3-8.2) g/dL Albumin 3.3 L (3.5-5.0) g/dL Arterial Blood Glucose (75-99) mg/dL Crossmatch 12/02/20 12/02/20 12/02/20 Range/Units 04:08 05:15 06:10 RBC (3.80-5.40) m/uL Hgb (11.4-16.0) gm/dL Hct (34.0-46.0) % Plt Count (150-450) k/uL Lymphocytes # (1.0-4.8) k/uL ABG pH (7.35-7.45) ABG pCO2 (35-45) mmHg ABG pO2 (83-108) mmHg ABG HCO3 (21-25) mmol/L ABG Total CO2 (19-24) mmol/L ABG O2 Saturation (94-97) % ABG Hematocrit (34.0-46.0) % ABG Ionized Calcium (4.5-5.3) mg/dL ABG Glucose (75-99) mg/dL Hemoglobin (11.4-16.0) gm/dL Chloride (98-107) mmol/L Glucose (74-99) mg/dL POC Glucose (mg/dL) 115 H 106 H 148 H (75-99) mg/dL Calcium (8.4-10.2) mg/dL Magnesium (1.6-2.3) mg/dL AST (14-36) U/L Total Protein (6.3-8.2) g/dL Albumin (3.5-5.0) g/dL Arterial Blood Glucose (75-99) mg/dL Crossmatch 12/02/20 12/02/20 12/02/20 Range/Units 07:00 08:15 09:11 RBC (3.80-5.40) m/uL Hgb (11.4-16.0) gm/dL Hct (34.0-46.0) % Plt Count (150-450) k/uL Lymphocytes # (1.0-4.8) k/uL ABG pH (7.35-7.45) ABG pCO2 (35-45) mmHg ABG pO2 (83-108) mmHg ABG HCO3 (21-25) mmol/L ABG Total CO2 (19-24) mmol/L ABG O2 Saturation (94-97) % ABG Hematocrit (34.0-46.0) % ABG Ionized Calcium (4.5-5.3) mg/dL ABG Glucose (75-99) mg/dL Hemoglobin (11.4-16.0) gm/dL Chloride (98-107) mmol/L Glucose (74-99) mg/dL POC Glucose (mg/dL) 126 H 146 H 126 H (75-99) mg/dL Calcium (8.4-10.2) mg/dL Magnesium (1.6-2.3) mg/dL AST (14-36) U/L Total Protein (6.3-8.2) g/dL Albumin (3.5-5.0) g/dL Arterial Blood Glucose (75-99) mg/dL Crossmatch
[2020-12-02 13:18] LABS: Glucose,Whole Blood 169 mg/dL (75-99)
[2020-12-02] MEDS ORDERED: ALBUMIN HUMAN 5% 500 ML in EMPTY BAG 1 BAG IVPB ONE (15:30)
[2020-12-02 16:47] LABS: Glucose,Whole Blood 126 mg/dL (75-99)
[2020-12-02 20:20] LABS: Glucose,Whole Blood 139 mg/dL (75-99)
[2020-12-02] MEDS: LEVOTHYROXINE 125 MCG TAB PO SCH (20:25)
[2020-12-02] MEDS: SENNOSIDES-DOCUSATE SODIUM 1 EACH TAB PO SCH (20:26)
[2020-12-02] MEDS: CIPROFLOXACIN HCL 500 MG TAB PO SCH (20:26)
[2020-12-02] MEDS: LATANOPROST 0.005% OPHTH DROPS 2.5 ML BTL LEFT EYE SCH (20:26)
[2020-12-03] MEDS: ONDANSETRON 4 MG/2 ML VIAL IVP PRN (00:51)
[2020-12-03] MEDS: HEPARIN SODIUM,PORCINE/PF 5,000 UNIT/0.5 ML SYRINGE SQ SCH ×3 (00:53→15:24)
[2020-12-03] MEDS: KETOROLAC 15 MG/ML 1 ML VIAL IVP SCH ×3 (00:53→12:13)
[2020-12-03] MEDS: ALBUMIN HUMAN 5% 250 ML in EMPTY BAG 1 BAG IVPB PRN (02:58)
[2020-12-03 04:30] LABS: Basophils % (A) 0 %; Eosinophils # (A) 0.1 k/uL (0-0.7); Eosinophils % (A) 1 %; HCT 21.5 % (34.0-46.0); HGB 7.3 gm/dL (11.4-16.0); Lymphocytes # (A) 0.6 k/uL (1.0-4.8); Lymphocytes % (A) 9 %; MCH 32.4 pg (25.0-35.0); MCV 95.2 fL (80.0-100.0); Mean Platelet Volume 7.7; Monocytes # (A) 0.4 k/uL (0-1.0); Monocytes % (A) 6 %; Neutrophils # (A) 5.6 k/uL (1.3-7.7); Neutrophils % (A) 83 %; Platelet Count 111 k/uL (150-450); RBC 2.25 m/uL (3.80-5.40); RDW 13.6 % (11.5-15.5); WBC 6.7 k/uL (3.8-10.6)
[2020-12-03 04:36] LABS: Ionized Calcium 4.8 mg/dL (4.5-5.3)
[2020-12-03 04:57] LABS: ALT 21 U/L (4-34); AST 54 U/L (14-36); African American GFR (CKD) >90 (>60 ml/min/1.73 sqM); Albumin 3.5 g/dL (3.5-5.0); Alkaline Phosphatase 53 U/L (38-126); Anion Gap 6 mmol/L; Blood Urea Nitrogen 16 mg/dL (7-17); Calcium 8.5 mg/dL (8.4-10.2); Carbon Dioxide 23 mmol/L (22-30); Chloride 107 mmol/L (98-107); Glucose 111 mg/dL (74-99); Non-African American GFR(CKD) 83 (>60 ml/min/1.73 sqM); Potassium 4.5 mmol/L (3.5-5.1); Sodium 136 mmol/L (137-145); Total Bilirubin 0.5 mg/dL (0.2-1.3); Total Protein 5.4 g/dL (6.3-8.2)
[2020-12-03] MEDS: HYDROcodone/APAP 5-325MG 1 EACH TAB PO PRN ×3 (05:33→21:49)
[2020-12-03] MEDS ORDERED: INSULIN DETEMIR (LEVEMIR) 100 UNIT/ML SYR SQ SCH (07:00)
--- NOTE | 2020-12-03 07:14 | XR ---
EXAMINATION TYPE: XR chest 1V portable DATE OF EXAM: 12/03/2020 COMPARISON: 12/02/2020 HISTORY: Shortness of breath TECHNIQUE: Single frontal view of the chest is obtained. FINDINGS: There is a left chest tube and mediastinal tube unchanged in position. The [place]Jacqu[place] stuart ter has been removed in the interval. There is a tiny left apical pneumothorax. There are mild predominantly interstitial infiltrates in the lung bases bilaterally essentially uncha nged compared to the prior study. The osseous structures are intact. The heart size is normal. There is a prosthetic heart valve. IMPRESSION: Interval removal of the [place]Jacqu[place] catheter. No change in the mediastinal tube and left c hest tube. There is a tiny left apical pneumothorax. Mild by basilar infiltrates unchanged compared t o the prior study.
[2020-12-03] MEDS: IPRATROPIUM-ALBUTEROL 3 ML NEB INHALATION SCH ×4 (07:17→19:45)
[2020-12-03 08:22] LABS: Glucose,Whole Blood 160 mg/dL (75-99)
[2020-12-03] MEDS: INSULIN ASPART (NovoLOG) 100 UNIT/ML VIAL SQ SCH ×4 (08:28→21:31)
[2020-12-03] MEDS: ATORVASTATIN 40 MG TAB PO SCH (08:29)
[2020-12-03] MEDS: ASPIRIN 325 MG TAB PO SCH (08:29)
[2020-12-03] MEDS: CLOPIDOGREL 75 MG TAB PO SCH (08:29)
[2020-12-03] MEDS: CIPROFLOXACIN HCL 500 MG TAB PO SCH ×2 (08:29→21:49)
[2020-12-03] MEDS: PANTOPRAZOLE 40 MG TABLET PO SCH (08:34)
[2020-12-03] MEDS: LACTATED RINGERS 1,000 ML IV SCH (08:36)
--- NOTE | 2020-12-03 08:40 | P.PN ---
Subjective Progress Note Date: 12/03/20 Principal diagnosis: Mitral regurgitation, aortic valve insufficiency. Previous medical history of hypertension, hyperlipidemia, remote sick sinus syndrome/asymptomatic bradycardi a, hypothyroid, DVT to the bilateral lower extremities with subsequent 6 month use of Eliquis, arthritis, never smoker, and family history of premature coronary artery disease with mother diagnosed before 60 years old. Preoperative urinary tract infection with E. coli treated with Cipro POD #2 mitral valve repair with a 28 mm physio-2 mitral annuloplasty ring, obliteration of the left atrial appendage with a 35 mm AtriCure clip, epi-aortic ultrasonography Postoperative acute blood loss anemia and thrombocytopenia, expected given hemodilution and cardiopulmonary bypass pump The patient's currently sitting up in a recliner in the intensive care unit in no acute distress eating breakfast although oral intake is minimal. She states pain is controlled on current medication regimen, denies shortness of breath. She remains in underlying sinus rhythm in the low 60s, although we are pacing her at 80 bpm for blood pressure support. She did receive both doses of low- dose beta edwardo yesterday and subsequently developed some hypotension and low urine output. She has ambulated in the room with assistance. No other new concerns. Objective - Vital Signs Vital signs: Vital Signs Temp 97.8 F 12/03/20 04:00 Pulse 80 12/03/20 07:30 Resp 27 H 12/03/20 07:30 BP 109/67 12/03/20 07:30 Pulse Ox 97 12/03/20 07:30 Intake & Output 12/02/20 12/03/20 12/03/20 18:59 06:59 18:59 Intake Total 1615.169 952 Output Total 756 607 Balance 859.169 345 Weight 68.3 kg 68.3 kg Intake: IV 1609 952 Albumin Human 5% 250 ml 250 500 In Empty Bag 1 bag @ 250 mls/hr IVPB Q1HR PRN Rx#: [id number] Albumin Human 5% 500 ml 500 In Empty Bag 1 bag @ 500 mls/hr IVPB ONCE ONE Rx#: [id number] Cardiac Output 110 Lactated Ringers 1,000 ml 600 380 @ 20 mls/hr IV .Q24H [facility] [place] Rx#:[id number] Pressure bag 99 72 ceFAZolin 2 gm In Sodium 50 Chloride 0.9% 50 ml @ 100 mls/hr IVPB Q8HR [facility] Rx# :[id number] Intake, IV Titration 6.169 Amount Insulin Regular 100 unit 6.169 In Sodium Chloride 0.9% 100 ml @ Per Protocol IV .Q0M [facility] Rx#:[id number] Output: Chest Tube Drainage 370 400 Lt Pleural 70 110 Mediastinal 300 290 Urine 386 207 Other: Voiding Method Indwelling Catheter Indwelling Catheter ABP, PAP, CO, CI - Last Documented Arterial Blood Pressure 96/44 Pulmonary Artery Pressure 28/10 Cardiac Output 4.2 Cardiac Index 2.5 - Exam CONSTITUTIONAL: Appears comfortable, cooperative, no acute distress RESPIRATORY: Lungs sounds diminished bilaterally. Respirations even, nonlabored. Currently on 3 L nasal cannula with oxygen saturation 98%. Able to achieve 1000 mL on incentive spirometry. Strong cough. CARDIOVASCULAR: S1, S2 present. Regular rate and rhythm, underlying sinus rhythm on telemetry, currently atrially paced at 80 bpm. Sternum stable. Palpable peripheral pulses bilaterally. No edema present. No calf pain or tenderness noted. Heart hugger in place with patient demonstrating appropriate use. Antiembolism stockings, SCDs present. GASTROINTESTINAL: Abdomen soft, nontender, nondistended. Active bowel sounds present 4 quadrants. Tolerating clear liquid diet. Denies flatus GENITOURINARY: Olmos present draining clear, yellow urine. Output overnight 20-30 mL per hour INTEGUMENTARY: Skin is warm and dry with evidence of good perfusion. Anterior chest incision well approximated and covered with dry intact dressing. EVH site well approximated without redness or drainage. NEUROLOGIC: Cranial nerves II through XII intact MUSKULOSKELETAL: Able to move all extremities, strength equal bilaterally, gait normal PSYCHIATRIC: Alert and oriented to person place and time, appropriate affect, intact judgment and insight INVASIVE LINES AND TUBES: Mediastinal/left pleural chest tubes present and connected to wall suction, no air leaks present. Mediastinal tube with 140 mL serosanguineous drainage overnight, 650 mL in the last 24 hours. Left pleural chest tube with 50 mL serosanguineous drainage overnight, 200 mL in the last 24 hours. A/V epicardial pacemaker wires present, connected to generator, AAI mode at 80 bpm. Right internal jugular Cordis, right radial arterial line present. - Allied health notes Allied health notes reviewed: nursing - Labs CBC & Chem 7: 12/03/20 04:10 12/03/20 04:10 Labs: Abnormal Lab Results - Last 24 Hours (Table) 12/02/20 12/02/20 12/02/20 Range/Units 08:15 09:11 10:28 RBC (3.80-5.40) m/uL Hgb (11.4-16.0) gm/dL Hct (34.0-46.0) % Plt Count (150-450) k/uL Lymphocytes # (1.0-4.8) k/uL Sodium (137-145) mmol/L Glucose (74-99) mg/dL POC Glucose (mg/dL) 146 H 126 H 111 H (75-99) mg/dL AST (14-36) U/L Total Protein (6.3-8.2) g/dL 12/02/20 12/02/20 12/02/20 Range/Units 11:47 13:16 16:45 RBC (3.80-5.40) m/uL Hgb (11.4-16.0) gm/dL Hct (34.0-46.0) % Plt Count (150-450) k/uL Lymphocytes # (1.0-4.8) k/uL Sodium (137-145) mmol/L Glucose (74-99) mg/dL POC Glucose (mg/dL) 138 H 169 H 126 H (75-99) mg/dL AST (14-36) U/L Total Protein (6.3-8.2) g/dL 12/02/20 12/03/20 12/03/20 Range/Units 20:18 04:10 04:10 RBC 2.25 L (3.80-5.40) m/uL Hgb 7.3 L (11.4-16.0) gm/dL Hct 21.5 L (34.0-46.0) % Plt Count 111 L (150-450) k/uL Lymphocytes # 0.6 L (1.0-4.8) k/uL Sodium 136 L (137-145) mmol/L Glucose 111 H (74-99) mg/dL POC Glucose (mg/dL) 139 H (75-99) mg/dL AST 54 H (14-36) U/L Total Protein 5.4 L (6.3-8.2) g/dL - Imaging and Cardiology Chest x-ray: report reviewed, image reviewed Assessment and Plan Assessment: 1. Mitral regurgitation, status post mitral valve repair 2. Aortic valve insufficiency 3. Hypertension 4. Hyperlipidemia, treated, cholesterol 125, LDL 46 5. Remote sick sinus syndrome/asymptomatic bradycardia 6. Hypothyroid, TSH 12.6 with free T4 1.02 7. DVT to the bilateral lower extremities with subsequent 6 month use of Eliquis 8. Arthritis 9. Never smoker, preoperative FEV1 88% of predicted 10. Family history of premature coronary artery disease with mother diagnosed before 60 years old 11. Preoperative urinary tract infection with E. coli treated with Cipro 12. Postoperative acute blood loss anemia and thrombocytopenia, expected Plan: 1. Continue to maximize medical therapy with aspirin, statin, Plavix. Beta blockers discontinued due to hypotension, bradycardia, history of bradycardia with a edwardo use 2. Keep pacemaker to a AAI mode with rate 68 bpm for now 3. Wean oxygen as tolerated. Encourage use of his incentive spirometry 10 times every hour while awake. Bronchodilators per pulmonary management. 4. Will monitor daily labs and chest x-rays. Electrolyte replacement per protocol. No transfusion at this time. Will start lasix 10 mg IVP BID 5. GI/DVT prophylaxis. 6. Increase activity as tolerated, PT/OT/cardiac rehab following 7. Insulin management per primary care service. Preoperative hemoglobin A1c 6.7% 8. Pain control with current medication regimen. 9. Keep mediastinal and left pleural chest tubes for another 24 hours 10. Keep Olmos catheter another 24 hours 11. Strict accurate intake and output. Daily weights 12. DC cordis, arterial line 13. More recommendations to follow Time with Patient: Greater than 30
--- NOTE | 2020-12-03 10:06 | PN ---
PROGRESS NOTE Mrs. David is an 80-year-old female who underwent mitral valve repair and exclusion of the left atrial appendage. She is doing well this morning. She is sitting up in the chair. She is feeling better overall. She was nauseated yesterday. She continues to have intermittent atrial pacing. She denies any dizziness or palpitation. She has no episodes of ventricle ectopic activity. She had an episode of bradycardia and atrial fibrillation yesterday but she is back in sinus mechanism at this time. She continues to be on aspirin once a day, Plavix 75 mg daily in addition to Lipitor 40 mg daily. PHYSICAL EXAMINATION: Blood pressure 109/60 with a heart rate in the mid 70s. LUNGS: No wheezes or rales. HEART: Regular rate and rhythm, S1, S2 with a rub and a systolic murmur, no diastolic murmur. ABDOMEN: Soft, nontender. EXTREMITIES: No edema. LAB DATA: Lab data revealed BUN and creatinine 16 and 0.65, hemoglobin of 7.32, potassium 4.5. IMPRESSION: 1. Status post mitral valve repair, stable. 2. Episode of bradyarrhythmia requiring temporary pacer, improving. 3. History of hypertension. 4. History of hyperlipidemia. RECOMMENDATION: We will continue observing her heart rate. Her pacing rate will be cut down to 70 and will observe her rate. If she remains stable, then hopefully we can take the temporary pacemaker wire out. Otherwise, if she continues to require intermittent pacing, she may be a candidate for permanent pacemaker implantation. MMODL / IJN: [id number] /
[2020-12-03] MEDS: FUROSEMIDE 10 MG/ML 2 ML VIAL IV SCH ×2 (10:16→21:48)
[2020-12-03] MEDS: MAGNESIUM HYDROXIDE 2,400 MG/10 ML CUP PO PRN (10:16)
--- NOTE | 2020-12-03 11:09 | P.PN ---
Subjective Progress Note Date: 12/03/20 Principal diagnosis: Status post mitral valve repair, postoperative day #2 80-year-old white female patient of Dr. Vanegas with symptoms of worsening dyspnea, she was found to have severe mitral regurgitation confirmed on transesophageal echocardiogram with prolapse of the posterior mitral leaflet, cardiac catheterization showed no new coronary artery disease. LAURA showed 3-4+ central mitral regurgitation, and 2-3+ aortic regurgitation, severe left atrial enlargement and preserved LV function. She has known history of mitral valve regurgitation, hypertension, hyperlipidemia, sick sinus syndrome/asymptomatic bradycardia, previous history of bilateral lower extremity DVTs, lifetime nonsmoker, and family history of premature coronary artery disease. Patient was referred to cardiothoracic surgery and on 12/01/2020 patient underwent mitral valve repair, left atrial appendage exclusion, and epi-aortic ultrasonography. Patient is seen in the postoperative period in the intensive care unit, she sedated, and ventilated currently on assist control mode of ventilation with a rate of 12, tidal volume is 450, FiO2 100%, and PEEP of 5. Patient is intubated with the #8 endotracheal tube. Postoperative blood gas was completed showing pO2 of greater than 420, pCO2 35, and pH is 7.44, this was done on 100% FiO2 and FiO2 has since been cut back to 50%. Patient is currently on lactated Ringer's at 50 ML per hour, insulin infusion is at 1.5 units per hour, nitroglycerin drip is at 5 mics per minute, propofol is at 20 mics per kilo per minute. Blood pressure is 111/68, PA pressures 35/23, CVP is 15, cardiac output is 4.1 and cardiac index is 2.5. Patient is being paced at AAI mode at a rate of 80, underlying rhythm is junctional. Mediastinal and left pleural chest tubes to wall suction with no evidence of air leak, with 190 mL of sanguinous drainage from the mediastinal chest tube and 45 mL from the left pleural chest tube. Patient did receive 2 units of fresh frozen plasma and 1 unit of platelets. Currently his hemoglobin is 8.9, platelet count is 124. Postoperative chest x- ray shows ET tube with its tip just above the gonzález, left chest tube and 2 medi astinal chest tubes, Rising Fawn-Jacquelyn catheter in appropriate positions, moderate left and tiny right pleural effusions, adjacent airspace opacity suggestive of atelectasis, pulmonary edema. Patient was reevaluated today on 12/02/2020, patient is doing well, she is now postoperative day #1, sitting at a bedside chair, awake alert oriented 3, not in any distress. Patient was extubated around 5:30 PM yesterday, she is now on 2 L nasal cannula, and her O2 saturations 98%. Patient is doing fairly well w ith incentive spirometer. She is not requiring any pressors or any inotropes. Her cardiac output is 3.3 [address] is 2.0. [address] PE is 8 pulmonary artery pressure 33/13. Hemoglobin is 8.2. Patient is on insulin at 1.5 units per hour, and all are at 80 mL per hour. Continues to have left pleural and mediastinal chest tubes, patient did receive yesterday 2 units of fresh frozen plasma and platelets. Chest x-ray today is reassuring except for minimal atelectasis. WBC count 6.0 hemoglobin is 8.2. Electrolytes and renal profile are normal. Reevaluated today on 12/03/2020, patient remains in the ICU, she is postoperative day #2. Patient is on 2 L nasal cannula, LR at 50 mL per hour. Continues to have [address], left pleural and mediastinal tube. Continues to have a right IJ Cordis. Patient is now being paced, she seems to have very low junctional rhythm, now atrially paced, rate at 68/m. At lower rates, patient becomes hypotensive. But at this rates she seems to be doing much better. Cardiology is potentially considering a pacemaker implantation this patient. Fish high received some hypotension with low dose beta edwardo yesterday, hence is presently on hold. Chest x-ray showed minimal bibasilar atelectasis. Labs were all reviewed WBC count 6.7 hemoglobin 7.3F lites are normal renal profile is normal Objective - Vital Signs Vital signs: Vital Signs Temp 98.1 F 12/03/20 10:00 Pulse 68 12/03/20 10:37 Resp 18 12/03/20 10:37 BP 84/54 12/03/20 10:00 Pulse Ox 95 12/03/20 08:30 Intake & Output 12/02/20 12/03/20 12/03/20 18:59 06:59 18:59 Intake Total 1615.169 952 144 Output Total 756 607 118 Balance 859.169 345 26 Weight 68.3 kg 68.3 kg Intake: IV 1609 952 144 Albumin Human 5% 250 ml 250 500 In Empty Bag 1 bag @ 250 mls/hr IVPB Q1HR PRN Rx#: [id number] Albumin Human 5% 500 ml 500 In Empty Bag 1 bag @ 500 mls/hr IVPB ONCE ONE Rx#: [id number] Cardiac Output 110 Lactated Ringers 1,000 ml 600 380 120 @ 20 mls/hr IV .Q24H [facility] Rx#:[id number] Pressure bag 99 72 24 ceFAZolin 2 gm In Sodium 50 Chloride 0.9% 50 ml @ 100 mls/hr IVPB Q8HR [facility] Rx# :[id number] Intake, IV Titration 6.169 Amount Insulin Regular 100 unit 6.169 In Sodium Chloride 0.9% 100 ml @ Per Protocol IV .Q0M [facility] Rx#:[id number] Output: Chest Tube Drainage 370 400 30 Lt Pleural 70 110 10 Mediastinal 300 290 20 Urine 386 207 88 Other: Voiding Method Indwelling Catheter Indwelling Catheter Indwelling Catheter ABP, PAP, CO, CI - Last Documented Arterial Blood Pressure 219/122 Pulmonary Artery Pressure 28/10 Cardiac Output 4.2 Cardiac Index 2.5 - Exam CONSTITUTIONAL: Revealed an 80-year-old female in no distress, asymptomatic. On 2 L nasal cannula HEENT: Supple no neck masses no JVD, right IJ Cordis in place. RESPIRATORY: Symmetrical chest expansion, slightly diminished at the bases CARDIOVASCULAR: Normal S1 and S2, no S3 gallop. 2/6 systolic murmur thought the precordium. ABDOMEN: soft, nontender, no megaly, no rebound, no guarding. INTEGUMENTARY: Sternal incision clean and dry. NEUROLOGIC: Alert oriented 3 focal deficits. MUSKULOSKELETAL: No deformities, normal range of motion. PSYCHIATRIC: Normal mood affect and normal mental status examination.. - Labs CBC & Chem 7: 12/03/20 04:10 12/03/20 04:10 Labs: Abnormal Lab Results - Last 24 Hours (Table) 12/02/20 12/02/20 12/02/20 Range/Units 11:47 13:16 16:45 RBC (3.80-5.40) m/uL Hgb (11.4-16.0) gm/dL Hct (34.0-46.0) % Plt Count (150-450) k/uL Lymphocytes # (1.0-4.8) k/uL Sodium (137-145) mmol/L Glucose (74-99) mg/dL POC Glucose (mg/dL) 138 H 169 H 126 H (75-99) mg/dL AST (14-36) U/L Total Protein (6.3-8.2) g/dL 12/02/20 12/03/20 12/03/20 Range/Units 20:18 04:10 04:10 RBC 2.25 L (3.80-5.40) m/uL Hgb 7.3 L (11.4-16.0) gm/dL Hct 21.5 L (34.0-46.0) % Plt Count 111 L (150-450) k/uL Lymphocytes # 0.6 L (1.0-4.8) k/uL Sodium 136 L (137-145) mmol/L Glucose 111 H (74-99) mg/dL POC Glucose (mg/dL) 139 H (75-99) mg/dL AST 54 H (14-36) U/L Total Protein 5.4 L (6.3-8.2) g/dL 12/03/20 Range/Units 08:20 RBC (3.80-5.40) m/uL Hgb (11.4-16.0) gm/dL Hct (34.0-46.0) % Plt Count (150-450) k/uL Lymphocytes # (1.0-4.8) k/uL Sodium (137-145) mmol/L Glucose (74-99) mg/dL POC Glucose (mg/dL) 160 H (75-99) mg/dL AST (14-36) U/L Total Protein (6.3-8.2) g/dL Assessment and Plan Assessment: Impression: Severe mitral regurgitation, status post mitral valve repair postoperative day #2 History of mild aortic insufficiency. History of benign essential hypertension. History of hypothyroidism. Lifelong nonsmoker. History of DVT. History of glaucoma. Degenerative joint disease. Family history of coronary artery disease. Postoperative atelectasis, expected. Postoperative acute blood loss anemia, expected. Cardiac arrhythmia in the form of sinus bradycardia and junctional rhythm associated with hypotension, requiring pacing Recommendation: Chest x-ray was reviewed and reassuring Continue incentive spirometer. Continue pacing since lower heart rates are associated with hypotension Ambulate GI and DVT prophylaxis. Continue aspirin statins and Plavix and beta blockers. Discontinue unnecessary lines and catheters. We will continue to follow. Time with Patient: Less than 30
[2020-12-03 11:51] LABS: Glucose,Whole Blood 100 mg/dL (75-99)
--- NOTE | 2020-12-03 12:12 | P.PN ---
Subjective Progress Note Date: 12/03/20 HISTORY OF PRESENT ILLNESS This is an 80-year-old female patient of Dr. Vanegas with past medical history of mitral valve regurgitation, hypertension, hyperlipidemia, sick sinus syndr ome/asymptomatic bradycardia, history of lower extremity DVTs. Patient recently underwent LAURA revealed severe mitral regurgitation, posterior mitral leaflet prolapse. Heart catheterization did not show any coronary artery disease. regurgitation and subsequently underwent LAURA with prolapse of the posterior mitral leaflet. Yesterday, patient underwent mitral valve repair, left atrial appendage exclusion. Patient was successfully extubated. She is seen in the morning postop day #1. She is sitting upright recliner and appears to be somewhat uncomfortable. She received 2 units of fresh frozen plasma and 1 unit of platelets. She was started on Lopressor 12.5 mg this morning. She was being paced this morning but is now intrinsic rhythm. She has a mediastinal and left pleural chest tube in place with no air leak. She has been afebrile, heart rate 64, blood pressure 93/58, pulse ox 97% on 2 L nasal cannula. Repeat blood work reveals WBC 6.0, hemoglobin 8.2, platelet count 130. Sodium 139, potassium 4.4, chloride 110, CO2 25, BUN 12 and creatinine 0.55. ALT is 56. Capillary blood glucose running 111 246. We will plan to transition her to Lantus 10 units daily and scale. Repeat chest x-ray reveals left chest tube and 2 mediastinal drainage catheters. A [place] catheter with tip at the pulmonary trunk. Moderate left and tiny right pleural effusion and adjacent airspace opacities suggestive of atelectasis, developing pneumonia or edema. There is pulmonary edema. Cardiomegaly. Valvular replacement. 12/03: Patient remains in intensive care unit. She denies any new complaints. She is feeling a little bit better from yesterday but fatigued and tired. She was in and out of atrial fibrillation and junctional rhythm yesterday. She is being paced. Beta edwardo is on hold as patient cannot tolerate it. She was started on Lasix 10 mg IV twice daily this morning. Plan is to remove A-line and Cordis today. She remains with chest tubes and Olmos catheter in place. Blood sugars have been well managed and Levemir will be discontinued and patient continued on NovoLog scale. Patient has been afebrile, heart rate 71, blood pressure 84/54, pulse ox 95% on 3 L nasal cannula. Repeat blood work reveals WBC 6.7, hemoglobin 7.3, platelet count 111. Blood sugars have been running between 111 and 139. AST 54. Repeat chest x-ray reveals interval removal [place] catheter. No change in the mediastinal tube and left chest tube. There is tiny left apical pneumothorax. Mild bibasilar infiltrates unchanged. REVIEW OF SYSTEMS Constitutional: No fever, no chills, no night sweats. No weight change. Mild generalized weakness and fatigue no lethargy. No daytime sleepiness. EENT: No headache. No blurred vision or double vision, no loss of vision. No loss of Hearing, no ringing in the ears, no dizziness. No nasal drainage or congestion. No epistaxis. No sore throat. Lungs: No shortness of breath, cough, no sputum production. No wheezing. Cardiovascular: Expected chest discomfort, no lower extremity edema. No palpitations. No paroxysmal nocturnal dyspnea. No orthopnea. No lightheadedness or dizziness. No syncopal episodes. Abdominal: No abdominal pain. No nausea, vomiting. No diarrhea. No constipation. No bloody or tarry stools.. No loss of appetite. Genitourinary: No dysuria, increased frequency, urgency. No urinary retention. Musculoskeletal: No myalgias. No muscle weakness, no gait dysfunction, no frequent falls. No back pain. No neck pain. Integumentary: No wounds, no lesions. No rash or pruritus. No unusual bruising. No change in hair or nails. Neurologic: No aphasia. No facial droop. No change in mentation. No head injury. No headache. No paralysis. No paresthesia. Psychiatric: No depression. No anxiety. Endocrine: No abnormal blood sugars. No weight change. No excessive sweating or thirst. No cold intolerance. PHYSICAL EXAMINATION Gen: This is an 80-year-old female. She is resting in recliner and appears to be comfortable. No acute distress is noted. HEENT: Head is atraumatic, normocephalic. Pupils equal, round. Sclerae is anicteric. Right sided IJ Cordis and [place] catheter in place NECK: Supple. No JVD. No lymphadenopathy. No thyromegaly. LUNGS: Diminished breath sounds bilaterally. No wheezes or rhonchi. No intercostal retractions. Mediastinal and left pleural chest tube in place. HEART: Regular rate and rhythm. 2/6 systolic murmur. ABDOMEN: Soft. Bowel sounds are present. No masses. No tenderness. Olmos catheter in place draining clear beltran urine. EXTREMITIES: No pedal edema. No calf tenderness. NEUROLOGICAL: Patient is awake, alert and oriented x3. Cranial nerves 2 through 12 are grossly intact. ASSESSMENT AND PLAN 1. Severe mitral regurgitation status post mitral valve repair, postop day #2. Continue current care per cardiothoracic team, continue incentive spirometry to reduce incidence of atelectasis and hospital acquired pneumonia., Lopressor discontinued, continue Plavix 75 mg daily, atorvastatin 40 mg daily. 2. Mild aortic valve insufficiency. 3. Bradycardia requiring temporary pacing. Cardiology is following closely and being observed for now. Lopressor was discontinued. 4. Hypertension. Patient is currently hypotensive, stable. 5. Hypothyroidism. Continue levothyroxine 125 g daily 6. History of DVT. 7. Glaucoma. 8. Generalized osteoarthritis. 9. Preoperative urinary tract infection. Patient was resumed on ciprofloxacin 500 mg twice daily. 10. Thrombocytopenia. 11. GI prophylaxis. Protonix 40 mg IV push daily. 12. DVT prophylaxis. Heparin 5000 units subcu every 8 hours. DISCHARGE PLAN Most likely return home with homecare. Impression and plan of care have been directed as dictated by the signing physician. Lynnette Sanchez nurse practitioner acting as scribe for signing physician. Objective - Vital Signs Vital signs: Vital Signs Temp 98.0 F 12/03/20 09:00 Pulse 68 12/03/20 09:00 Resp 29 H 12/03/20 09:00 BP 98/60 12/03/20 09:00 Pulse Ox 95 12/03/20 08:30 Intake & Output 12/02/20 12/03/20 12/03/20 18:59 06:59 18:59 Intake Total 1615.169 952 108 Output Total 756 607 96 Balance 859.169 345 12 Weight 68.3 kg 68.3 kg Intake: IV 1609 952 108 Albumin Human 5% 250 ml 250 500 In Empty Bag 1 bag @ 250 mls/hr IVPB Q1HR PRN Rx#: [id number] Albumin Human 5% 500 ml 500 In Empty Bag 1 bag @ 500 mls/hr IVPB ONCE ONE Rx#: [id number] Cardiac Output 110 Lactated Ringers 1,000 ml 600 380 90 @ 20 mls/hr IV .Q24H GAURI Rx#:[id number] Pressure bag 99 72 18 ceFAZolin 2 gm In Sodium 50 Chloride 0.9% 50 ml @ 100 mls/hr IVPB Q8HR GAURI Rx# :[id number] Intake, IV Titration 6.169 Amount Insulin Regular 100 unit 6.169 In Sodium Chloride 0.9% 100 ml @ Per Protocol IV .Q0M GAURI Rx#:[id number] Output: Chest Tube Drainage 370 400 30 Lt Pleural 70 110 10 Mediastinal 300 290 20 Urine 386 207 66 Other: Voiding Method Indwelling Catheter Indwelling Catheter Indwelling Catheter ABP, PAP, CO, CI - Last Documented Arterial Blood Pressure 41/35 Pulmonary Artery Pressure 28/10 Cardiac Output 4.2 Cardiac Index 2.5 - Labs CBC & Chem 7: 12/03/20 04:10 12/03/20 04:10 Labs: Abnormal Lab Results - Last 24 Hours (Table) 12/02/20 12/02/20 12/02/20 Range/Units 10:28 11:47 13:16 RBC (3.80-5.40) m/uL Hgb (11.4-16.0) gm/dL Hct (34.0-46.0) % Plt Count (150-450) k/uL Lymphocytes # (1.0-4.8) k/uL Sodium (137-145) mmol/L Glucose (74-99) mg/dL POC Glucose (mg/dL) 111 H 138 H 169 H (75-99) mg/dL AST (14-36) U/L Total Protein (6.3-8.2) g/dL 12/02/20 12/02/20 12/03/20 Range/Units 16:45 20:18 04:10 RBC 2.25 L (3.80-5.40) m/uL Hgb 7.3 L (11.4-16.0) gm/dL Hct 21.5 L (34.0-46.0) % Plt Count 111 L (150-450) k/uL Lymphocytes # 0.6 L (1.0-4.8) k/uL Sodium (137-145) mmol/L Glucose (74-99) mg/dL POC Glucose (mg/dL) 126 H 139 H (75-99) mg/dL AST (14-36) U/L Total Protein (6.3-8.2) g/dL 12/03/20 12/03/20 Range/Units 04:10 08:20 RBC (3.80-5.40) m/uL Hgb (11.4-16.0) gm/dL Hct (34.0-46.0) % Plt Count (150-450) k/uL Lymphocytes # (1.0-4.8) k/uL Sodium 136 L (137-145) mmol/L Glucose 111 H (74-99) mg/dL POC Glucose (mg/dL) 160 H (75-99) mg/dL AST 54 H (14-36) U/L Total Protein 5.4 L (6.3-8.2) g/dL
[2020-12-03] MEDS: BENZOCAINE/MENTHOL LOZENG 1 EACH LOZENGE MUCOUS MEM PRN ×2 (12:13→15:23)
[2020-12-03 16:50] LABS: Glucose,Whole Blood 151 mg/dL (75-99)
[2020-12-03 21:31] LABS: Glucose,Whole Blood 103 mg/dL (75-99)
[2020-12-03] MEDS: SENNOSIDES-DOCUSATE SODIUM 1 EACH TAB PO SCH (21:49)
[2020-12-03] MEDS: LEVOTHYROXINE 125 MCG TAB PO SCH (21:49)
[2020-12-03] MEDS: LATANOPROST 0.005% OPHTH DROPS 2.5 ML BTL LEFT EYE SCH (21:49)
[2020-12-04] MEDS: KETOROLAC 15 MG/ML 1 ML VIAL IVP SCH ×4 (00:38→12:21)
[2020-12-04] MEDS: HEPARIN SODIUM,PORCINE/PF 5,000 UNIT/0.5 ML SYRINGE SQ SCH ×4 (00:55→23:38)
[2020-12-04 04:48] LABS: RBC 2.37 m/uL (3.80-5.40); WBC 5.5 k/uL (3.8-10.6)
[2020-12-04 04:49] LABS: Basophils % (A) 1 %; Eosinophils # (A) 0.2 k/uL (0-0.7); Eosinophils % (A) 4 %; HGB 7.7 gm/dL (11.4-16.0); Lymphocytes % (A) 19 %; MCH 32.4 pg (25.0-35.0); MCHC 33.3 g/dL (31.0-37.0); MCV 97.2 fL (80.0-100.0); Monocytes # (A) 0.3 k/uL (0-1.0); Monocytes % (A) 5 %; Neutrophils # (A) 3.9 k/uL (1.3-7.7); Neutrophils % (A) 70 %; Platelet Count 133 k/uL (150-450); RDW 13.8 % (11.5-15.5)
[2020-12-04 05:00] LABS: Albumin 3.3 g/dL (3.5-5.0); Calcium 8.7 mg/dL (8.4-10.2); Potassium 4.4 mmol/L (3.5-5.1); Total Bilirubin 0.4 mg/dL (0.2-1.3); Total Protein 5.3 g/dL (6.3-8.2)
--- NOTE | 2020-12-04 06:33 | XR ---
EXAMINATION TYPE: XR chest 1V portable DATE OF EXAM: 12/04/2020 COMPARISON: 12/03/2020 HISTORY: Post cardiac surgery TECHNIQUE: Single frontal view of the chest is obtained. FINDINGS: Partially consolidative opacity at the right lung base likely combination of atelectasis a nd pleural effusion. Pneumonic infiltrate. There is been no interval change since prior study. The le ft lung is essentially clear. There is no pneumothorax. The pulmonary vasculature does not appear karin ssly congested. No change in left chest tube and mediastinal tube. IMPRESSION: Stable appearance to the postop chest.
[2020-12-04] MEDS: INSULIN ASPART (NovoLOG) 100 UNIT/ML VIAL SQ SCH ×4 (07:13→20:44)
[2020-12-04 07:14] LABS: Glucose,Whole Blood 114 mg/dL (75-99)
--- NOTE | 2020-12-04 08:13 | P.PN ---
Subjective Progress Note Date: 12/04/20 Principal diagnosis: Mitral regurgitation, aortic valve insufficiency. Previous medical history of hypertension, hyperlipidemia, remote sick sinus syndrome/asymptomatic bradycardi a, hypothyroid, DVT to the bilateral lower extremities with subsequent 6 month use of Eliquis, arthritis, never smoker, and family history of premature coronary artery disease with mother diagnosed before 60 years old. Preoperative urinary tract infection with E. coli treated with Cipro POD #3 mitral valve repair with a 28 mm physio-2 mitral annuloplasty ring, obliteration of the left atrial appendage with a 35 mm AtriCure clip, epi-aortic ultrasonography Postoperative acute blood loss anemia and thrombocytopenia, expected given hemodilution and cardiopulmonary bypass pump The patient's currently sitting up in a recliner in the intensive care unit in no acute distress eating breakfast. She states pain is controlled on current medication regimen, denies shortness of breath. Her only complaint is of sore throat which she states is better than yesterday, states she feels better than y esterday. She remains in sinus rhythm with some hypotension although mean pressure is in the 70s, beta edwardo discontinued. She is oxygenating well on room air. She has ambulated in the room with assistance. No other new concerns. Objective - Vital Signs Vital signs: Vital Signs Temp 98.1 F 12/04/20 04:00 Pulse 75 12/04/20 07:00 Resp 15 12/04/20 07:00 BP 97/60 12/04/20 07:00 Pulse Ox 93 L 12/04/20 04:00 Intake & Output 12/03/20 12/04/20 12/04/20 18:59 06:59 18:59 Intake Total 270 290 Output Total 771 639 25 Balance -501 -349 -25 Weight 68.3 kg Intake: IV 270 50 Albumin Human 5% 500 ml 20 In Empty Bag 1 bag @ 500 mls/hr IVPB ONCE ONE Rx#: [id number] Lactated Ringers 1,000 ml 220 50 @ 20 mls/hr IV .Q24H GAURI Rx#:[id number] Pressure bag 30 Oral 240 Output: Chest Tube Drainage 300 210 Lt Pleural 80 70 Mediastinal 220 140 Urine 471 429 25 Other: Voiding Method Indwelling Catheter Indwelling Catheter ABP, PAP, CO, CI - Last Documented Arterial Blood Pressure 85/78 Pulmonary Artery Pressure 28/10 Cardiac Output 4.2 Cardiac Index 2.5 - Exam CONSTITUTIONAL: Appears comfortable, cooperative, no acute distress RESPIRATORY: Lungs sounds diminished bilaterally. Respirations even, nonlabored. Currently on room air with oxygen saturation 93%. Able to achieve 1000 mL on incentive spirometry. Strong cough. CARDIOVASCULAR: S1, S2 present. Regular rate and rhythm, sinus rhythm on telemetry, heart rate in the 60s. Sternum stable. Palpable peripheral pulses bilaterally. No edema present. No calf pain or tenderness noted. Heart hugger in place with patient demonstrating appropriate use. Antiembolism stockings, SCDs present. GASTROINTESTINAL: Abdomen soft, nontender, nondistended. Active bowel sounds present 4 quadrants. Tolerating diet. Positive flatus GENITOURINARY: Olmos present draining clear, yellow urine. Output overnight 30-75 mL per hour INTEGUMENTARY: Skin is warm and dry with evidence of good perfusion. Anterior chest incision well approximated and covered with dry intact dressing. EVH site well approximated without redness or drainage. NEUROLOGIC: Cranial nerves II through XII intact MUSKULOSKELETAL: Able to move all extremities, strength equal bilaterally, gait normal PSYCHIATRIC: Alert and oriented to person place and time, appropriate affect, intact judgment and insight INVASIVE LINES AND TUBES: Mediastinal/left pleural chest tubes present and connected to wall suction, no air leaks present. Mediastinal tube with 100 mL of thin serous drainage overnight, 400 mL in the last 24 hours. Left pleural chest tube with 60 mL serosanguineous drainage overnight, 200 mL in the last 24 hours. A/V epicardial pacemaker wires present, connected to generator, AAI mode with backup rate 50 bpm. - Allied health notes Allied health notes reviewed: nursing - Labs CBC & Chem 7: 12/04/20 04:21 12/04/20 04:21 Labs: Abnormal Lab Results - Last 24 Hours (Table) 12/03/20 12/03/20 12/03/20 Range/Units 08:20 11:49 16:48 RBC (3.80-5.40) m/uL Hgb (11.4-16.0) gm/dL Hct (34.0-46.0) % Plt Count (150-450) k/uL Sodium (137-145) mmol/L BUN (7-17) mg/dL POC Glucose (mg/dL) 160 H 100 H 151 H (75-99) mg/dL AST (14-36) U/L Total Protein (6.3-8.2) g/dL Albumin (3.5-5.0) g/dL 12/03/20 12/04/20 12/04/20 Range/Units 21:30 04:21 04:21 RBC 2.37 L (3.80-5.40) m/uL Hgb 7.7 L (11.4-16.0) gm/dL Hct 23.0 L (34.0-46.0) % Plt Count 133 L (150-450) k/uL Sodium 136 L (137-145) mmol/L BUN 19 H (7-17) mg/dL POC Glucose (mg/dL) 103 H (75-99) mg/dL AST 51 H (14-36) U/L Total Protein 5.3 L (6.3-8.2) g/dL Albumin 3.3 L (3.5-5.0) g/dL 12/04/20 Range/Units 07:11 RBC (3.80-5.40) m/uL Hgb (11.4-16.0) gm/dL Hct (34.0-46.0) % Plt Count (150-450) k/uL Sodium (137-145) mmol/L BUN (7-17) mg/dL POC Glucose (mg/dL) 114 H (75-99) mg/dL AST (14-36) U/L Total Protein (6.3-8.2) g/dL Albumin (3.5-5.0) g/dL - Imaging and Cardiology Chest x-ray: report reviewed, image reviewed Assessment and Plan Assessment: 1. Mitral regurgitation, status post mitral valve repair 2. Aortic valve insufficiency 3. Hypertension 4. Hyperlipidemia, treated, cholesterol 125, LDL 46 5. Remote sick sinus syndrome/asymptomatic bradycardia 6. Hypothyroid, TSH 12.6 with free T4 1.02 7. DVT to the bilateral lower extremities with subsequent 6 month use of Eliquis 8. Arthritis 9. Never smoker, preoperative FEV1 88% of predicted 10. Family history of premature coronary artery disease with mother diagnosed before 60 years old 11. Preoperative urinary tract infection with E. coli treated with Cipro 12. Postoperative acute blood loss anemia and thrombocytopenia, expected Plan: 1. Continue to maximize medical therapy with aspirin, statin, Plavix. Beta blockers discontinued due to hypotension, bradycardia, history of bradycardia with a edwardo use 2. Encourage use of his incentive spirometry 10 times every hour while awake. Bronchodilators per pulmonary management. 3. Will monitor daily labs and chest x-rays. Electrolyte replacement per protocol. No transfusion at this time. Continue lasix 4. GI/DVT prophylaxis. 5. Increase activity as tolerated, PT/OT/cardiac rehab following 6. Insulin management per primary care service. Preoperative hemoglobin A1c 6.7% 7. Pain control with current medication regimen. 8. Keep mediastinal and left pleural chest tubes for another 24 hours 9. Discontinue Olmos catheter. May bladder scan and straight cath for greater than 300 mL residual 10. Strict accurate intake and output. Daily weights 11. More recommendations to follow Time with Patient: Greater than 30
[2020-12-04] MEDS: IPRATROPIUM-ALBUTEROL 3 ML NEB INHALATION SCH ×4 (08:43→20:34)
[2020-12-04] MEDS: LACTATED RINGERS 1,000 ML IV SCH (09:25)
[2020-12-04] MEDS: PANTOPRAZOLE 40 MG TABLET PO SCH (09:29)
[2020-12-04] MEDS: ATORVASTATIN 40 MG TAB PO SCH (09:29)
[2020-12-04] MEDS: CIPROFLOXACIN HCL 500 MG TAB PO SCH ×2 (09:29→20:55)
[2020-12-04] MEDS: ASPIRIN 325 MG TAB PO SCH (09:29)
[2020-12-04] MEDS: CLOPIDOGREL 75 MG TAB PO SCH (09:30)
[2020-12-04] MEDS: FUROSEMIDE 10 MG/ML 2 ML VIAL IV SCH ×2 (09:30→20:56)
--- NOTE | 2020-12-04 09:48 | PN ---
PROGRESS NOTE Mrs. David is an 80-year-old female who underwent mitral valve repair. She is feeling better today. She is sitting up in the chair. She denies any chest pain. Her breathing is stable. She denies any dizziness or palpitation. She denies any nausea. Hemodynamically, she is stable. She feels stronger. She continues to be at this time on aspirin once a day, Plavix 75 mg daily, Lipitor 40 mg daily, furosemide 10 mg IV q.12 hours. PHYSICAL EXAMINATION: Blood pressure running in the 90s to 100 with a heart rate in 70s. Lungs: Mild crackles at the bases. HEART: Regular rate and rhythm S1, S2, plus rub and a systolic murmur. ABDOMEN: Soft, nontender. EXTREMITIES: No edema. LAB DATA: BUN and creatinine 19 and 0.83. Hemoglobin 7.7. IMPRESSION: 1. Status post mitral valve repair, stable. 2. Hyperlipidemia. 3. Anemia postoperatively. 4. History of hypothyroidism. RECOMMENDATION: From the cardiac standpoint, will continue present therapy. Continue incentive spirometry. Continue to increase level of activity and depending on her progress, further recommendations will be made. MMODL / IJN: [id number] /
[2020-12-04] MEDS: MAGNESIUM HYDROXIDE 2,400 MG/10 ML CUP PO PRN (10:27)
--- NOTE | 2020-12-04 11:19 | P.PN ---
Subjective Progress Note Date: 12/04/20 HISTORY OF PRESENT ILLNESS This is an 80-year-old female patient of Dr. Vanegas with past medical history of mitral valve regurgitation, hypertension, hyperlipidemia, sick sinus syndr ome/asymptomatic bradycardia, history of lower extremity DVTs. Patient recently underwent LAURA revealed severe mitral regurgitation, posterior mitral leaflet prolapse. Heart catheterization did not show any coronary artery disease. regurgitation and subsequently underwent LAURA with prolapse of the posterior mitral leaflet. Yesterday, patient underwent mitral valve repair, left atrial appendage exclusion. Patient was successfully extubated. She is seen in the morning postop day #1. She is sitting upright recliner and appears to be somewhat uncomfortable. She received 2 units of fresh frozen plasma and 1 unit of platelets. She was started on Lopressor 12.5 mg this morning. She was being paced this morning but is now intrinsic rhythm. She has a mediastinal and left pleural chest tube in place with no air leak. She has been afebrile, heart rate 64, blood pressure 93/58, pulse ox 97% on 2 L nasal cannula. Repeat blood work reveals WBC 6.0, hemoglobin 8.2, platelet count 130. Sodium 139, potassium 4.4, chloride 110, CO2 25, BUN 12 and creatinine 0.55. ALT is 56. Capillary blood glucose running 111 246. We will plan to transition her to Lantus 10 units daily and scale. Repeat chest x-ray reveals left chest tube and 2 mediastinal drainage catheters. A [place]-Jacquelyn catheter with tip at the pulmonary trunk. Moderate left and tiny right pleural effusion and adjacent airspace opacities suggestive of atelectasis, developing pneumonia or edema. There is pulmonary edema. Cardiomegaly. Valvular replacement. 12/03: Patient remains in intensive care unit. She denies any new complaints. She is feeling a little bit better from yesterday but fatigued and tired. She was in and out of atrial fibrillation and junctional rhythm yesterday. She is being paced. Beta edwardo is on hold as patient cannot tolerate it. She was started on Lasix 10 mg IV twice daily this morning. Plan is to remove A-line and Cordis today. She remains with chest tubes and Olmos catheter in place. Blood sugars have been well managed and Levemir will be discontinued and patient continued on NovoLog scale. Patient has been afebrile, heart rate 71, blood pressure 84/54, pulse ox 95% on 3 L nasal cannula. Repeat blood work reveals WBC 6.7, hemoglobin 7.3, platelet count 111. Blood sugars have been running between 111 and 139. AST 54. Repeat chest x-ray reveals interval removal [place]- Jacquelyn catheter. No change in the mediastinal tube and left chest tube. There is tiny left apical pneumothorax. Mild bibasilar infiltrates unchanged. 12/04: Patient remains in the intensive care unit and is doing well. She states her breathing is better today. He is sitting up in recliner and appears to be comfortable and in no acute distress. Pacer wires remain in place and heart rate is running in the 70s in sinus rhythm. She has been afebrile, blood pressure 103/66. Blood work reveals WBC 5.5, hemoglobin 7.7, platelet count 133. Sodium 136, potassium 4.4, chloride 104, CO2 26, BUN 19 and creatinine 0.83. Blood sugar 87. Capillary blood glucose has been running between 103 and 151. AST 51. She is off oxygen. Chest tubes remain in place. Olmos catheter to be removed today, continue incentive spirometry and increase activity. REVIEW OF SYSTEMS Constitutional: No fever, no chills, no night sweats. No weight change. Mild generalized weakness and fatigue no lethargy. No daytime sleepiness. EENT: No headache. No blurred vision or double vision, no loss of vision. No loss of Hearing, no ringing in the ears, no dizziness. No nasal drainage or congestion. No epistaxis. No sore throat. Lungs: Denies shortness of breath, cough, no sputum production. No wheezing. Cardiovascular: Expected chest discomfort improved, no lower extremity edema. No palpitations. No paroxysmal nocturnal dyspnea. No orthopnea. No lightheadedness or dizziness. No syncopal episodes. Abdominal: No abdominal pain. No nausea, vomiting. No diarrhea. No constipation. No bloody or tarry stools.. No loss of appetite. Genitourinary: No dysuria, increased frequency, urgency. No urinary retention. Musculoskeletal: No myalgias. No muscle weakness, no gait dysfunction, no frequent falls. No back pain. No neck pain. Integumentary: No wounds, no lesions. No rash or pruritus. No unusual bruising. No change in hair or nails. Neurologic: No aphasia. No facial droop. No change in mentation. No head injury. No headache. No paralysis. No paresthesia. Psychiatric: No depression. No anxiety. Endocrine: No abnormal blood [id number]. No weight change. No excessive sweating or thirst. No cold intolerance. PHYSICAL EXAMINATION Gen: This is an 80-year-old female. She is resting in recliner and appears to be comfortable. No acute distress is noted. HEENT: Head is atraumatic, normocephalic. Pupils equal, round. Sclerae is anicteric. NECK: Supple. No JVD. No lymphadenopathy. No thyromegaly. LUNGS: Diminished breath sounds bilaterally. No wheezes or rhonchi. No intercostal retractions. Mediastinal and left pleural chest tube in place. HEART: Regular rate and rhythm. 2/6 systolic murmur. ABDOMEN: Soft. Bowel sounds are present. No masses. No tenderness. Olmos catheter in place draining clear beltran urine. EXTREMITIES: No pedal edema. No calf tenderness. NEUROLOGICAL: Patient is awake, alert and oriented x3. Cranial nerves 2 through 12 are grossly intact. ASSESSMENT AND PLAN 1. Severe mitral regurgitation status post mitral valve repair, postop day #3. Continue current care per cardiothoracic team, continue incentive spirometry to reduce incidence of atelectasis and hospital acquired pneumonia., Lopressor discontinued, continue Plavix 75 mg daily, atorvastatin 40 mg daily. 2. Mild aortic valve insufficiency. 3. Bradycardia requiring temporary pacing. Cardiology is following closely and being observed for now. Lopressor was discontinued. 4. Hypertension. Blood pressure is stable. 5. Hypothyroidism. Continue levothyroxine 125 g daily 6. History of DVT. 7. Glaucoma. 8. Generalized osteoarthritis. 9. Preoperative urinary tract infection. Patient was resumed on ciprofloxacin 500 mg twice daily. 10. Thrombocytopenia. 11. GI prophylaxis. Protonix 40 mg IV push daily. 12. DVT prophylaxis. Heparin 5000 units subcu every 8 hours. DISCHARGE PLAN Most likely return home with homecare. Impression and plan of care have been directed as dictated by the signing physician. Lynnette Sanchez nurse practitioner acting as scribe for signing physician. Objective - Vital Signs Vital signs: Vital Signs Temp 98.1 F 12/04/20 04:00 Pulse 78 12/04/20 08:56 Resp 18 12/04/20 08:56 BP 97/60 12/04/20 07:00 Pulse Ox 95 12/04/20 08:44 Intake & Output 12/03/20 12/04/20 12/04/20 18:59 06:59 18:59 Intake Total 270 290 Output Total 771 639 25 Balance -501 -349 -25 Weight 68.3 kg Intake: IV 270 50 Albumin Human 5% 500 ml 20 In Empty Bag 1 bag @ 500 mls/hr IVPB ONCE ONE Rx#: [id number] Lactated Ringers 1,000 ml 220 50 @ 20 mls/hr IV .Q24H [facility] Rx#:[id number] Pressure bag 30 Oral 240 Output: Chest Tube Drainage 300 210 Lt Pleural 80 70 Mediastinal 220 140 Urine 471 429 25 Other: Voiding Method Indwelling Catheter Indwelling Catheter ABP, PAP, CO, CI - Last Documented Arterial Blood Pressure 85/78 Pulmonary Artery Pressure 28/10 Cardiac Output 4.2 Cardiac Index 2.5 - Labs CBC & Chem 7: 12/04/20 04:21 12/04/20 04:21 Labs: Abnormal Lab Results - Last 24 Hours (Table) 12/03/20 12/03/20 12/03/20 Range/Units 11:49 16:48 21:30 RBC (3.80-5.40) m/uL Hgb (11.4-16.0) gm/dL Hct (34.0-46.0) % Plt Count (150-450) k/uL Sodium (137-145) mmol/L BUN (7-17) mg/dL POC Glucose (mg/dL) 100 H 151 H 103 H (75-99) mg/dL AST (14-36) U/L Total Protein (6.3-8.2) g/dL Albumin (3.5-5.0) g/dL 12/04/20 12/04/20 12/04/20 Range/Units 04:21 04:21 07:11 RBC 2.37 L (3.80-5.40) m/uL Hgb 7.7 L (11.4-16.0) gm/dL Hct 23.0 L (34.0-46.0) % Plt Count 133 L (150-450) k/uL Sodium 136 L (137-145) mmol/L BUN 19 H (7-17) mg/dL POC Glucose (mg/dL) 114 H (75-99) mg/dL AST 51 H (14-36) U/L Total Protein 5.3 L (6.3-8.2) g/dL Albumin 3.3 L (3.5-5.0) g/dL
[2020-12-04 11:43] LABS: Glucose,Whole Blood 102 mg/dL (75-99)
--- NOTE | 2020-12-04 12:33 | P.PN ---
Subjective Progress Note Date: 12/04/20 Principal diagnosis: Status post mitral valve repair, postoperative day #3 80-year-old white female patient of Dr. Vanegas with symptoms of worsening dyspnea, she was found to have severe mitral regurgitation confirmed on transesophageal echocardiogram with prolapse of the posterior mitral leaflet, cardiac catheterization showed no new coronary artery disease. LAURA showed 3-4+ central mitral regurgitation, and 2-3+ aortic regurgitation, severe left atrial enlargement and preserved LV function. She has known history of mitral valve regurgitation, hypertension, hyperlipidemia, sick sinus syndrome/asymptomatic bradycardia, previous history of bilateral lower extremity DVTs, lifetime nonsmoker, and family history of premature coronary artery disease. Patient was referred to cardiothoracic surgery and on 12/01/2020 patient underwent mitral valve repair, left atrial appendage exclusion, and epi-aortic ultrasonography. Patient is seen in the postoperative period in the intensive care unit, she sedated, and ventilated currently on assist control mode of ventilation with a rate of 12, tidal volume is 450, FiO2 100%, and PEEP of 5. Patient is intubated with the #8 endotracheal tube. Postoperative blood gas was completed showing pO2 of greater than 420, pCO2 35, and pH is 7.44, this was done on 100% FiO2 and FiO2 has since been cut back to 50%. Patient is currently on lactated Ringer's at 50 ML per hour, insulin infusion is at 1.5 units per hour, nitroglycerin drip is at 5 mics per minute, propofol is at 20 mics per kilo per minute. Blood pressure is 111/68, PA pressures 35/23, CVP is 15, cardiac output is 4.1 and cardiac index is 2.5. Patient is being paced at AAI mode at a rate of 80, underlying rhythm is junctional. Mediastinal and left pleural chest tubes to wall suction with no evidence of air leak, with 190 mL of sanguinous drainage from the mediastinal chest tube and 45 mL from the left pleural chest tube. Patient did receive 2 units of fresh frozen plasma and 1 unit of platelets. Currently his hemoglobin is 8.9, platelet count is 124. Postoperative chest x- ray shows ET tube with its tip just above the gonzález, left chest tube and 2 medi astinal chest tubes, [place]-Jacquelyn catheter in appropriate positions, moderate left and tiny right pleural effusions, adjacent airspace opacity suggestive of atelectasis, pulmonary edema. Patient was reevaluated today on 12/02/2020, patient is doing well, she is now postoperative day #1, sitting at a bedside chair, awake alert oriented 3, not in any distress. Patient was extubated around 5:30 PM yesterday, she is now on 2 L nasal cannula, and her O2 saturations 98%. Patient is doing fairly well w ith incentive spirometer. She is not requiring any pressors or any inotropes. Her cardiac output is 3.3 cardiac index is 2.0. CT PE is 8 pulmonary artery pressure 33/13. Hemoglobin is 8.2. Patient is on insulin at 1.5 units per hour, and all are at 80 mL per hour. Continues to have left pleural and mediastinal chest tubes, patient did receive yesterday 2 units of fresh frozen plasma and platelets. Chest x-ray today is reassuring except for minimal atelectasis. WBC count 6.0 hemoglobin is 8.2. Electrolytes and renal profile are normal. Reevaluated today on 12/03/2020, patient remains in the ICU, she is postoperative day #2. Patient is on 2 L nasal cannula, LR at 50 mL per hour. Continues to have [address], left pleural and mediastinal tube. Continues to have a right IJ Cordis. Patient is now being paced, she seems to have very low junctional rhythm, now atrially paced, rate at 68/m. At lower rates, patient becomes hypotensive. But at this rates she seems to be doing much better. Cardiology is potentially considering a pacemaker implantation this patient. Fish high received some hypotension with low dose beta edwardo yesterday, hence is presently on hold. Chest x-ray showed minimal bibasilar atelectasis. Labs were all reviewed WBC count 6.7 hemoglobin 7.3F lites are normal renal profile is normal Reevaluated today on 12/04/2020, patient remains in the ICU, she is now postoperative day #3. Overall the patient is doing great, her chest x-ray showed minimal atelectasis, patient is on room air, continues to have a left pleural chest tube and mediastinal chest tube in place, denies any shortness of breath or cough or wheezing. Denies any chest pain. She is in sinus rhythm with episodes of hypotension and bradycardia, and a blockers have been disc ontinued. Patient is ambulating in the room with assistance labs were reviewed WBC is 5.5 hemoglobin is 7.7 and lites are normal renal profile is normal Objective - Vital Signs Vital signs: Vital Signs Temp 98.1 F 12/04/20 08:00 Pulse 69 12/04/20 11:44 Resp 18 12/04/20 11:44 BP 104/71 12/04/20 11:00 Pulse Ox 95 12/04/20 08:44 Intake & Output 12/03/20 12/04/20 12/04/20 18:59 06:59 18:59 Intake Total 270 290 Output Total 771 639 350 Balance -501 -349 -350 Weight 68.3 kg Intake: IV 270 50 Albumin Human 5% 500 ml 20 In Empty Bag 1 bag @ 500 mls/hr IVPB ONCE ONE Rx#: [id number] Lactated Ringers 1,000 ml 220 50 @ 20 mls/hr IV .Q24H [facility] Rx#:[id number] Pressure bag 30 Oral 240 Output: Chest Tube Drainage 300 210 Lt Pleural 80 70 Mediastinal 220 140 Urine 471 429 350 Other: Voiding Method Indwelling Catheter Indwelling Catheter ABP, PAP, CO, CI - Last Documented Arterial Blood Pressure 85/78 Pulmonary Artery Pressure 28/10 Cardiac Output 4.2 Cardiac Index 2.5 - Exam CONSTITUTIONAL: Revealed an 80-year-old female in no distress, asymptomatic. Presently on room air. HEENT: Supple no neck masses no JVD, right IJ Cordis in place. RESPIRATORY: Symmetrical chest expansion, slightly diminished at the bases. Pleural Chest tube and mediastinal chest tube noted CARDIOVASCULAR: Normal S1 and S2, no S3 gallop. 2/6 systolic murmur thought the precordium. ABDOMEN: soft, nontender, no megaly, no rebound, no guarding. INTEGUMENTARY: Sternal incision clean and dry. NEUROLOGIC: Alert oriented 3 focal deficits. MUSKULOSKELETAL: No deformities, normal range of motion. PSYCHIATRIC: Normal mood affect and normal mental status examination.. - Labs CBC & Chem 7: 12/04/20 04:21 12/04/20 04:21 Labs: Abnormal Lab Results - Last 24 Hours (Table) 12/03/20 12/03/20 12/04/20 Range/Units 16:48 21:30 04:21 RBC 2.37 L (3.80-5.40) m/uL Hgb 7.7 L (11.4-16.0) gm/dL Hct 23.0 L (34.0-46.0) % Plt Count 133 L (150-450) k/uL Sodium (137-145) mmol/L BUN (7-17) mg/dL POC Glucose (mg/dL) 151 H 103 H (75-99) mg/dL AST (14-36) U/L Total Protein (6.3-8.2) g/dL Albumin (3.5-5.0) g/dL 12/04/20 12/04/20 12/04/20 Range/Units 04:21 07:11 11:42 RBC (3.80-5.40) m/uL Hgb (11.4-16.0) gm/dL Hct (34.0-46.0) % Plt Count (150-450) k/uL Sodium 136 L (137-145) mmol/L BUN 19 H (7-17) mg/dL POC Glucose (mg/dL) 114 H 102 H (75-99) mg/dL AST 51 H (14-36) U/L Total Protein 5.3 L (6.3-8.2) g/dL Albumin 3.3 L (3.5-5.0) g/dL Assessment and Plan Assessment: Impression: Severe mitral regurgitation, status post mitral valve repair postoperative day #3 History of mild aortic insufficiency. History of benign essential hypertension. History of hypothyroidism. Lifelong nonsmoker. History of DVT. History of glaucoma. Degenerative joint disease. Family history of coronary artery disease. Postoperative atelectasis, expected. Postoperative acute blood loss anemia, expected. Recommendation: Continue incentive spirometer. Ambulate GI and DVT prophylaxis. Discontinue Olmos catheter Continue to monitor daily labs and daily x-rays of the chest. Continue aspirin statins and Plavix , beta blockers presently on hold. Mostly because of bradycardia. Discontinue unnecessary lines and catheters. Including Olmos catheter. We will continue to follow. Time with Patient: Less than 30
[2020-12-04 16:56] LABS: Glucose,Whole Blood 116 mg/dL (75-99)
[2020-12-04 20:45] LABS: Glucose,Whole Blood 117 mg/dL (75-99)
[2020-12-04] MEDS: SENNOSIDES-DOCUSATE SODIUM 1 EACH TAB PO SCH (20:55)
[2020-12-04] MEDS: LEVOTHYROXINE 125 MCG TAB PO SCH (20:55)
[2020-12-04] MEDS: BENZOCAINE/MENTHOL LOZENG 1 EACH LOZENGE MUCOUS MEM PRN (20:55)
[2020-12-04] MEDS: ACETAMINOPHEN TAB 500 MG TAB PO PRN (20:56)
[2020-12-04] MEDS: LATANOPROST 0.005% OPHTH DROPS 2.5 ML BTL LEFT EYE SCH (21:54)
[2020-12-05 05:30] LABS: HCT 23.1 % (34.0-46.0); HGB 7.8 gm/dL (11.4-16.0); MCH 32.6 pg (25.0-35.0); MCHC 33.7 g/dL (31.0-37.0); MCV 96.8 fL (80.0-100.0); Mean Platelet Volume 7.9; Platelet Count 164 k/uL (150-450); RBC 2.39 m/uL (3.80-5.40); RDW 14.1 % (11.5-15.5); WBC 4.9 k/uL (3.8-10.6)
[2020-12-05 05:54] LABS: Potassium 4.3 mmol/L (3.5-5.1)
[2020-12-05 05:55] LABS: Calcium 8.3 mg/dL (8.4-10.2)
[2020-12-05 07:05] LABS: Glucose,Whole Blood 108 mg/dL (75-99)
[2020-12-05] MEDS: INSULIN ASPART (NovoLOG) 100 UNIT/ML VIAL SQ SCH ×4 (07:07→20:20)
--- NOTE | 2020-12-05 07:29 | XR ---
EXAMINATION TYPE: XR chest 1V portable DATE OF EXAM: 12/05/2020 Comparison: 12/04/2020 Clinical History: 80-year-old female post open heart surgery Findings: Retained epicardial pacer leads. Heart remains enlarged. Annuloplasty ring is demonstrated. Left-side d chest tube in mediastinal drains removed in the interval. There is a well-defined curvilinear edge projecting at the left midlung, possible superimposition shadow. Lung markings are seen beyond. Other villarreal, no sizable pneumothorax is seen. Interstitial/vascular prominence. Small effusions with some mi ld patchy basilar opacities persist. Impression: 1. Cardiomegaly with pulmonary vascular congestion, relatively unchanged. 2. Continued trace pleural effusions with adjacent atelectasis and/or consolidation. 3. A well-defined curvilinear edge projects at the left mid lung, suspected superimposition artifact. The edge of a pneumothorax is considered unlikely. Attention on follow-up.
--- NOTE | 2020-12-05 08:14 | P.PN ---
Subjective Progress Note Date: 12/05/20 Principal diagnosis: Mitral regurgitation, aortic valve insufficiency. Previous medical history of hypertension, hyperlipidemia, remote sick sinus syndrome/asymptomatic bradycardi a, hypothyroid, DVT to the bilateral lower extremities with subsequent 6 month use of Eliquis, arthritis, never smoker, and family history of premature coronary artery disease with mother diagnosed before 60 years old. Preoperative urinary tract infection with E. coli treated with Cipro POD #4 mitral valve repair with a 28 mm physio-2 mitral annuloplasty ring, obliteration of the left atrial appendage with a 35 mm AtriCure clip, epi-aortic ultrasonography Postoperative acute blood loss anemia and thrombocytopenia, expected given hemodilution and cardiopulmonary bypass pump The patient's currently sitting up in a recliner in the intensive care unit in no acute distress eating breakfast. She states pain is controlled on current medication regimen, denies shortness of breath. She remains in sinus rhythm, hemodynamically stable. She is oxygenating well on room air. She has ambulated in the hallway with assistance. No other new concerns. Objective - Vital Signs Vital signs: Vital Signs Temp 98.0 F 12/05/20 04:00 Pulse 65 12/05/20 07:00 Resp 24 12/05/20 07:00 BP 92/62 12/05/20 07:00 Pulse Ox 97 12/05/20 04:00 Intake & Output 12/04/20 12/05/20 12/05/20 18:59 06:59 18:59 Intake Total 300 Output Total 700 100 Balance -400 -100 Weight 68 kg Intake: Oral 300 Output: Urine 700 100 Other: Voiding Method Indwelling Catheter Bedside Commode # Voids 1 ABP, PAP, CO, CI - Last Documented Arterial Blood Pressure 85/78 Pulmonary Artery Pressure 28/10 Cardiac Output 4.2 Cardiac Index 2.5 - Exam CONSTITUTIONAL: Appears comfortable, cooperative, no acute distress RESPIRATORY: Lungs sounds diminished bilaterally. Respirations even, nonlabored. Currently on room air with oxygen saturation 97%. Able to achieve 750 mL on incentive spirometry. Strong cough. CARDIOVASCULAR: S1, S2 present. Regular rate and rhythm, sinus rhythm on telemetry. Sternum stable. Palpable peripheral pulses bilaterally. No edema present. No calf pain or tenderness noted. Heart hugger in place with patient demonstrating appropriate use. Antiembolism stockings, SCDs present. GASTROINTESTINAL: Abdomen soft, nontender, nondistended. Active bowel sounds present 4 quadrants. Tolerating diet. Positive bowel movement GENITOURINARY: Olmos discontinued yesterday, patient has voided INTEGUMENTARY: Skin is warm and dry with evidence of good perfusion. Anterior chest incision well approximated and covered with dry intact dressing. NEUROLOGIC: Cranial nerves II through XII intact MUSKULOSKELETAL: Able to move all extremities, strength equal bilaterally, gait normal PSYCHIATRIC: Alert and oriented to person place and time, appropriate affect, intact judgment and insight INVASIVE LINES AND TUBES: A/V epicardial pacemaker wires present, connected to generator, AAI mode with backup rate 50 bpm. - Allied health notes Allied health notes reviewed: nursing - Labs CBC & Chem 7: 12/05/20 05:04 12/05/20 05:04 Labs: Abnormal Lab Results - Last 24 Hours (Table) 12/04/20 12/04/20 12/04/20 Range/Units 11:42 16:54 20:43 RBC (3.80-5.40) m/uL Hgb (11.4-16.0) gm/dL Hct (34.0-46.0) % BUN (7-17) mg/dL POC Glucose (mg/dL) 102 H 116 H 117 H (75-99) mg/dL Calcium (8.4-10.2) mg/dL 12/05/20 12/05/20 12/05/20 Range/Units 05:04 05:04 07:03 RBC 2.39 L (3.80-5.40) m/uL Hgb 7.8 L (11.4-16.0) gm/dL Hct 23.1 L (34.0-46.0) % BUN 19 H (7-17) mg/dL POC Glucose (mg/dL) 108 H (75-99) mg/dL Calcium 8.3 L (8.4-10.2) mg/dL - Imaging and Cardiology Chest x-ray: report reviewed, image reviewed Assessment and Plan Assessment: 1. Mitral regurgitation, status post mitral valve repair 2. Aortic valve insufficiency 3. Hypertension 4. Hyperlipidemia, treated, cholesterol 125, LDL 46 5. Remote sick sinus syndrome/asymptomatic bradycardia 6. Hypothyroid, TSH 12.6 with free T4 1.02 7. DVT to the bilateral lower extremities with subsequent 6 month use of Eliquis 8. Arthritis 9. Never smoker, preoperative FEV1 88% of predicted 10. Family history of premature coronary artery disease with mother diagnosed before 60 years old 11. Preoperative urinary tract infection with E. coli treated with Cipro 12. Postoperative acute blood loss anemia and thrombocytopenia, expected Plan: 1. Continue to maximize medical therapy with aspirin, statin, Plavix. Beta blockers discontinued due to hypotension, bradycardia, history of bradycardia with a edwardo use 2. Encourage use of his incentive spirometry 10 times every hour while awake. Bronchodilators per pulmonary management. 3. Will monitor daily labs and chest x-rays. Electrolyte replacement per protocol. No transfusion at this time. Continue lasix, switched to oral 4. GI/DVT prophylaxis. 5. Increase activity as tolerated, PT/OT/cardiac rehab following 6. Insulin management per primary care service. Preoperative hemoglobin A1c 6.7% 7. Pain control with current medication regimen. 8. Will discontinue epicardial pacemaker wires. Patient to remain on bedrest for 1 hour post wire removal 9. Strict accurate intake and output. Daily weights 10. Will place tranfer orders for [facility] cardiac stepdown unit. May transfer when bed available 11. Discharge planning in progress, anticipate DC to home with home care in the next 24-48 hours 12. More recommendations to follow Time with Patient: Greater than 30
[2020-12-05] MEDS: ATORVASTATIN 40 MG TAB PO SCH (08:22)
[2020-12-05] MEDS: CLOPIDOGREL 75 MG TAB PO SCH (08:22)
[2020-12-05] MEDS: PANTOPRAZOLE 40 MG TABLET PO SCH (08:22)
[2020-12-05] MEDS: CIPROFLOXACIN HCL 500 MG TAB PO SCH ×2 (08:22→20:20)
[2020-12-05] MEDS: FUROSEMIDE 20 MG TAB PO SCH (08:22)
[2020-12-05] MEDS: ASPIRIN 325 MG TAB PO SCH (08:22)
[2020-12-05] MEDS: HEPARIN SODIUM,PORCINE/PF 5,000 UNIT/0.5 ML SYRINGE SQ SCH ×2 (08:22→15:44)
[2020-12-05] MEDS: ACETAMINOPHEN TAB 500 MG TAB PO PRN ×3 (08:23→20:59)
[2020-12-05] MEDS: IPRATROPIUM-ALBUTEROL 3 ML NEB INHALATION SCH ×4 (08:34→19:40)
--- NOTE | 2020-12-05 09:09 | P.PN ---
Subjective Progress Note Date: 12/05/20 Principal diagnosis: Mitral valve regurgitation, severe 80-year-old white female patient of Dr. Vanegas with symptoms of worsening dyspnea, she was found to have severe mitral regurgitation confirmed on transesophageal echocardiogram with prolapse of the posterior mitral leaflet, cardiac catheterization showed no new coronary artery disease. LAURA showed 3-4+ central mitral regurgitation, and 2-3+ aortic regurgitation, severe left atrial enlargement and preserved LV function. She has known history of mitral valve regurgitation, hypertension, hyperlipidemia, sick sinus syndrome/asymptomatic bradycardia, previous history of bilateral lower extremity DVTs, lifetime nonsmoker, and family history of premature coronary artery disease. Patient was referred to cardiothoracic surgery and on 12/01/2020 patient underwent mitral valve repair, left atrial appendage exclusion, and epi-aortic ultrasonography. Patient is seen in the postoperative period in the intensive care unit, she sedated, and ventilated currently on assist control mode of ventilation with a rate of 12, tidal volume is 450, FiO2 100%, and PEEP of 5. Patient is intubated with the #8 endotracheal tube. Postoperative blood gas was completed showing pO2 of greater than 420, pCO2 35, and pH is 7.44, this was done on 100% FiO2 and FiO2 has since been cut back to 50%. Patient is currently on lactated Ringer's at 50 ML per hour, insulin infusion is at 1.5 units per hour, nitroglycerin drip is at 5 mics per minute, propofol is at 20 mics per kilo per minute. Blood pressure is 111/68, PA pressures 35/23, CVP is 15, cardiac output is 4.1 and cardiac index is 2.5. Patient is being paced at AAI mode at a rate of 80, underlying rhythm is junctional. Mediastinal and left pleural chest tubes to wall suction with no evidence of air leak, with 190 mL of sanguinous drainage from the mediastinal chest tube and 45 mL from the left pleural chest tube. Patient did receive 2 units of fresh frozen plasma and 1 unit of platelets. Currently his hemoglobin is 8.9, platelet count is 124. Postoperative chest x- ray shows ET tube with its tip just above the gonzález, left chest tube and 2 mediastinal chest tubes, [place]-Jacquelyn catheter in appropriate positions, moderate left and tiny right pleural effusions, adjacent airspace opacity suggestive of atelectasis, pulmonary edema. Patient was reevaluated today on 12/02/2020, patient is doing well, she is now postoperative day #1, sitting at a bedside chair, awake alert oriented 3, not in any distress. Patient was extubated around 5:30 PM yesterday, she is now on 2 L nasal cannula, and her O2 saturations 98%. Patient is doing fairly well with incentive spirometer. She is not requiring any pressors or any inotropes. Her cardiac output is 3.3 cardiac index is 2.0. CT PE is 8 pulmonary artery pressure 33/13. Hemoglobin is 8.2. Patient is on insulin at 1.5 units per hour, and all are at 80 mL per hour. Continues to have left pleural and mediastinal chest tubes, patient did receive yesterday 2 units of fresh frozen plasma and platelets. Chest x-ray today is reassuring except for minimal atelectasis. WBC count 6.0 hemoglobin is 8.2. Electrolytes and renal profile are normal. Reevaluated today on 12/03/2020, patient remains in the ICU, she is postoperative day #2. Patient is on 2 L nasal cannula, LR at 50 mL per hour. Continues to have [address], left pleural and mediastinal tube. Continues to have a right IJ Cordis. Patient is now being paced, she seems to have very low junctional rhythm, now atrially paced, rate at 68/m. At lower rates, patient becomes hypotensive. But at this rates she seems to be doing much better. Cardiology is potentially considering a pacemaker implantation this patient. Patient received some hypotension with low dose beta edwardo yesterday, hence is presently on hold. Chest x-ray showed minimal bibasilar atelectasis. Labs were all reviewed WBC count 6.7 hemoglobin 7.3F lites are normal renal profile is normal Reevaluated today on 12/04/2020, patient remains in the ICU, she is now pos toperative day #3. Overall the patient is doing great, her chest x-ray showed minimal atelectasis, patient is on room air, continues to have a left pleural chest tube and mediastinal chest tube in place, denies any shortness of breath or cough or wheezing. Denies any chest pain. She is in sinus rhythm with episodes of hypotension and bradycardia, and a blockers have been discontinued. Patient is ambulating in the room with assistance labs were reviewed WBC is 5.5 hemoglobin is 7.7 and lites are normal renal profile is normal On 12/05/2020 patient seen in follow-up on medical surgical floor. She is awake and alert, in no acute distress, she sitting up in the chair, on room air her pulse ox is 98%, she is afebrile, hemodynamically she is stable, she is currently in sinus mechanism with a rate of 70 BPM, she has no specific complaints, she is working on this and spirometer, she is calling [phone] on incentive spirometer today, lung sounds reveal minimal bibasilar crackles, good air entry noted bilaterally. She is oriented 3, no altered mentation, she is tolerating oral diet, all chest tubes have been discontinued. Incisions clean dry and intact. Today's chest x-ray has been reviewed and cardiomegaly with pulmonary vessel congestion, relatively unchanged, and continue trace pleural effusions with adjacent atelectasis. Patient still has epicardial wires that are grounded. Objective - Vital Signs Vital signs: Vital Signs Temp 97.6 F 12/05/20 08:00 Pulse 67 12/05/20 08:46 Resp 20 12/05/20 08:00 BP 93/59 12/05/20 08:00 Pulse Ox 98 12/05/20 08:00 Intake & Output 12/04/20 12/05/20 12/05/20 18:59 06:59 18:59 Intake Total 300 Output Total 700 100 175 Balance -400 -100 -175 Weight 68 kg Intake: Oral 300 Output: Urine 700 100 175 Other: Voiding Method Indwelling Catheter Bedside Commode # Voids 1 ABP, PAP, CO, CI - Last Documented Arterial Blood Pressure 85/78 Pulmonary Artery Pressure 28/10 Cardiac Output 4.2 Cardiac Index 2.5 - Exam GENERAL EXAM: Awake and alert, oriented 3, very pleasant 80-year-old white female, on room air, with a possible septal 100%, sitting up in the recliner, in no acute distress HEAD: Normocephalic/atraumatic. EYES: Normal reaction of pupils, equal size. Conjunctiva pink, sclera white. NOSE: Clear with pink turbinates. THROAT: No erythema or exudates. NECK: No masses, no JVD, no thyroid enlargement, no adenopathy. CHEST: No chest wall deformity. Symmetrical expansion. Sternal incision clean dry and intact, chest tube sites are clean dry and intact, chest tubes have been discontinued Epicardial wires are still in place, and are grounded LUNGS: Equal air entry with no crackles, wheeze, rhonchi or dullness. CVS: Regular rate and rhythm, normal S1 and S2, no gallops, no murmurs, no rubs ABDOMEN: Soft, nontender. No hepatosplenomegaly, normal bowel sounds, no guarding or rigidity. EXTREMITIES: No clubbing, no edema, no cyanosis, 2+ pulses and upper and lower extremities. MUSCULOSKELETAL: Muscle strength and tone normal. SPINE: No scoliosis or deformity SKIN: No rashes CENTRAL NERVOUS SYSTEM: Alert, oriented 3 No focal deficits, tone is normal in all 4 extremities. - Labs CBC & Chem 7: 12/05/20 05:04 12/05/20 05:04 Labs: Abnormal Lab Results - Last 24 Hours (Table) 12/04/20 12/04/20 12/04/20 Range/Units 11:42 16:54 20:43 RBC (3.80-5.40) m/uL Hgb (11.4-16.0) gm/dL Hct (34.0-46.0) % BUN (7-17) mg/dL POC Glucose (mg/dL) 102 H 116 H 117 H (75-99) mg/dL Calcium (8.4-10.2) mg/dL 12/05/20 12/05/20 12/05/20 Range/Units 05:04 05:04 07:03 RBC 2.39 L (3.80-5.40) m/uL Hgb 7.8 L (11.4-16.0) gm/dL Hct 23.1 L (34.0-46.0) % BUN 19 H (7-17) mg/dL POC Glucose (mg/dL) 108 H (75-99) mg/dL Calcium 8.3 L (8.4-10.2) mg/dL Assessment and Plan Plan: Assessment: #1. Severe mitral regurgitation, 3-4+, and some mild bileaflet prolapse, without evidence of flail or cordial disruption. Status post mitral valve repair, left atrial appendage exclusion, postoperative day #4 #2. Mild to moderate central aortic insufficiency, and this was not severe enough to warrant surgical repair #3. Routine postoperative ventilator management #4. History of hypertension #5. Hyperlipidemia #6. Hypothyroidism #7. Patient is a nonsmoker and nondrinker, preop FEV1 was 1.78 L or 88% predicted, FVC of 2.14 L or 78% predicted, normal spirometry #8. Previous history of bilateral DVTs 2 years ago, provoked, and patient has completed 6 months of anticoagulation #9. History of glaucoma #10. Osteoarthritis #11. Family history of early-onset coronary artery disease #12. Status post completed COVID 19 vaccination Plan: Continue encouraging deep breathing and coughing Patient is compliant with his incentive spirometer, Continue breathing treatments 4 times when necessary for shortness of breath and wheezing Today's chest x-ray reviewed, showing pulmonary vessel congestion, trace pleural effusions Oxygenation stable on room air Hemodynamically stable, in sinus mechanism She's been downgraded to stepdown unit by CT surgery We'll continue to follow I performed a history & physical examination of the patient and discussed their management with my nurse practitioner, Osiris Rogers. I reviewed the nurse practitioner's note and agree with the documented findings and plan of care. Lung sounds are positive for diminished breath sounds throughout the lung frye. The findings and the impression was discussed with the patient. I attest to the documentation by the nurse practitioner. Time with Patient: Less than 30
[2020-12-05 11:27] LABS: Glucose,Whole Blood 104 mg/dL (75-99)
--- NOTE | 2020-12-05 12:00 | P.PN ---
Subjective Progress Note Date: 12/05/20 HISTORY OF PRESENT ILLNESS This is an 80-year-old female patient of Dr. Vanegas with past medical history of mitral valve regurgitation, hypertension, hyperlipidemia, sick sinus syndr ome/asymptomatic bradycardia, history of lower extremity DVTs. Patient recently underwent LAURA revealed severe mitral regurgitation, posterior mitral leaflet prolapse. Heart catheterization did not show any coronary artery disease. regurgitation and subsequently underwent LAURA with prolapse of the posterior mitral leaflet. Yesterday, patient underwent mitral valve repair, left atrial appendage exclusion. Patient was successfully extubated. She is seen in the morning postop day #1. She is sitting upright recliner and appears to be somewhat uncomfortable. She received 2 units of fresh frozen plasma and 1 unit of platelets. She was started on Lopressor 12.5 mg this morning. She was being paced this morning but is now intrinsic rhythm. She has a mediastinal and left pleural chest tube in place with no air leak. She has been afebrile, heart rate 64, blood pressure 93/58, pulse ox 97% on 2 L nasal cannula. Repeat blood work reveals WBC 6.0, hemoglobin 8.2, platelet count 130. Sodium 139, potassium 4.4, chloride 110, CO2 25, BUN 12 and creatinine 0.55. ALT is 56. Capillary blood glucose running 111 246. We will plan to transition her to Lantus 10 units daily and scale. Repeat chest x-ray reveals left chest tube and 2 mediastinal drainage catheters. A [place]-Jacquelyn catheter with tip at the pulmonary trunk. Moderate left and tiny right pleural effusion and adjacent airspace opacities suggestive of atelectasis, developing pneumonia or edema. There is pulmonary edema. Cardiomegaly. Valvular replacement. 12/03: Patient remains in intensive care unit. She denies any new complaints. She is feeling a little bit better from yesterday but fatigued and tired. She was in and out of atrial fibrillation and junctional rhythm yesterday. She is being paced. Beta edwardo is on hold as patient cannot tolerate it. She was started on Lasix 10 mg IV twice daily this morning. Plan is to remove A-line and Cordis today. She remains with chest tubes and Olmos catheter in place. Blood sugars have been well managed and Levemir will be discontinued and patient continued on NovoLog scale. Patient has been afebrile, heart rate 71, blood pressure 84/54, pulse ox 95% on 3 L nasal cannula. Repeat blood work reveals WBC 6.7, hemoglobin 7.3, platelet count 111. Blood sugars have been running between 111 and 139. AST 54. Repeat chest x-ray reveals interval removal [place]- Jacquelyn catheter. No change in the mediastinal tube and left chest tube. There is tiny left apical pneumothorax. Mild bibasilar infiltrates unchanged. 12/04: Patient remains in the intensive care unit and is doing well. She states her breathing is better today. He is sitting up in recliner and appears to be comfortable and in no acute distress. Pacer wires remain in place and heart rate is running in the 70s in sinus rhythm. She has been afebrile, blood pressure 103/66. Blood work reveals WBC 5.5, hemoglobin 7.7, platelet count 133. Sodium 136, potassium 4.4, chloride 104, CO2 26, BUN 19 and creatinine 0.83. Blood sugar 87. Capillary blood glucose has been running between 103 and 151. AST 51. She is off oxygen. Chest tubes remain in place. Olmos catheter to be removed today, continue incentive spirometry and increase activity. 12/05: Patient remains in the intensive care unit. Chest tubes and Olmos stuart ters have been removed. She is scheduled to transfer to the cardiac stepdown unit. Patient states that she is feeling better again from yesterday. She'll open for breakfast this morning. Pacemaker wires are out. She is scheduled for discharge home tomorrow. She is reaching 1000 mL solid incentive spirometry. Patient has been afebrile, heart rate 65, blood pressure 93/59, pulse ox 90% on room air. 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 Repeat chest x-ray reveals cardiomegaly with pulmonary vascular congestion. Trace pleural effusions with adjacent atelectasis and/or consolidation. Repeat blood work reveals WBC 4.9, hemoglobin 7.8, platelet count 164. Electrolytes are normal. Creatinine 0.82. Blood sugars are running between 104 and 117. Discharge plan is home with [facility]. REVIEW OF SYSTEMS Constitutional: No fever, no chills, no night sweats. No weight change. Mild generalized weakness and fatigue no lethargy. No daytime sleepiness. EENT: No headache. No blurred vision or double vision, no loss of vision. No loss of Hearing, no ringing in the ears, no dizziness. No nasal drainage or congestion. No epistaxis. No sore throat. Lungs: Denies shortness of breath, cough, no sputum production. No wheezing. Cardiovascular: Expected chest discomfort improved, no lower extremity edema. No palpitations. No paroxysmal nocturnal dyspnea. No orthopnea. No lightheadedness or dizziness. No syncopal episodes. Abdominal: No abdominal pain. No nausea, vomiting. No diarrhea. No constipation. No bloody or tarry stools.. No loss of appetite. Genitourinary: No dysuria, increased frequency, urgency. No urinary retention. Musculoskeletal: No myalgias. No muscle weakness, no gait dysfunction, no frequent falls. No back pain. No neck pain. Integumentary: No wounds, no lesions. No rash or pruritus. No unusual bruising. No change in hair or nails. Neurologic: No aphasia. No facial droop. No change in mentation. No head injury. No headache. No paralysis. No paresthesia. Psychiatric: No depression. No anxiety. Endocrine: No abnormal blood [id number]. No weight change. PHYSICAL EXAMINATION Gen: This is an 80-year-old female. She is resting in recliner and appears to be comfortable. No acute distress is noted. HEENT: Head is atraumatic, normocephalic. Pupils equal, round. Sclerae is anicteric. NECK: Supple. No JVD. No lymphadenopathy. No thyromegaly. LUNGS: Diminished breath sounds bilaterally. No wheezes or rhonchi. No intercostal retractions. HEART: Regular rate and rhythm. 2/6 systolic murmur. ABDOMEN: Soft. Bowel sounds are present. No masses. No tenderness. EXTREMITIES: No pedal edema. No calf tenderness. NEUROLOGICAL: Patient is awake, alert and oriented x3. Cranial nerves 2 through 12 are grossly intact. ASSESSMENT AND PLAN 1. Severe mitral regurgitation status post mitral valve repair, postop day #4. Continue current care per cardiothoracic team, continue incentive spirometry to reduce incidence of atelectasis and hospital acquired pneumonia., Lopressor discontinued, continue aspirin 81 mg daily, Plavix 75 mg daily, atorvastatin 40 mg daily. 2. Mild aortic valve insufficiency. 3. Bradycardia requiring temporary pacing. Cardiology is following closely and being observed for now. Lopressor was discontinued. 4. Hypertension. Blood pressure is stable. 5. Hypothyroidism. Continue levothyroxine 125 g daily 6. History of DVT. 7. Glaucoma. 8. Generalized osteoarthritis. 9. Preoperative urinary tract infection. Patient was resumed on ciprofloxacin 500 mg twice daily. 10. Thrombocytopenia. 11. GI prophylaxis. Protonix 40 mg IV push daily. 12. DVT prophylaxis. Heparin 5000 units subcu every 8 hours. DISCHARGE PLAN Home with [facility] on Saturday. Impression and plan of care have been directed as dictated by the signing physician. Lynnette Sanchez nurse practitioner acting as scribe for signing physician. Objective - Vital Signs Vital signs: Vital Signs Temp 97.6 F 12/05/20 08:00 Pulse 67 12/05/20 08:46 Resp 20 12/05/20 08:00 BP 93/59 12/05/20 08:00 Pulse Ox 98 12/05/20 08:00 Intake & Output 12/04/20 12/05/20 12/05/20 18:59 06:59 18:59 Intake Total 300 Output Total 700 100 175 Balance -400 -100 -175 Weight 68 kg Intake: Oral 300 Output: Urine 700 100 175 Other: Voiding Method Indwelling Catheter Bedside Commode Bedside Commode # Voids 1 ABP, PAP, CO, CI - Last Documented Arterial Blood Pressure 85/78 Pulmonary Artery Pressure 28/10 Cardiac Output 4.2 Cardiac Index 2.5 - Labs CBC & Chem 7: 12/05/20 05:04 12/05/20 05:04 Labs: Abnormal Lab Results - Last 24 Hours (Table) 12/04/20 12/04/20 12/04/20 Range/Units 11:42 16:54 20:43 RBC (3.80-5.40) m/uL Hgb (11.4-16.0) gm/dL Hct (34.0-46.0) % BUN (7-17) mg/dL POC Glucose (mg/dL) 102 H 116 H 117 H (75-99) mg/dL Calcium (8.4-10.2) mg/dL 12/05/20 12/05/20 12/05/20 Range/Units 05:04 05:04 07:03 RBC 2.39 L (3.80-5.40) m/uL Hgb 7.8 L (11.4-16.0) gm/dL Hct 23.1 L (34.0-46.0) % BUN 19 H (7-17) mg/dL POC Glucose (mg/dL) 108 H (75-99) mg/dL Calcium 8.3 L (8.4-10.2) mg/dL
--- NOTE | 2020-12-05 13:26 | P.PN ---
Subjective This is a pleasant 80-year-old female past medical history significant for severe symptomatic mitral regurgitation, hypertension, dyslipidemia hypoth yroidism. She follows in the office with Dr. Rabago. We have been asked to see in consultation for post cardiac surgery management. Patient has had progressive shortness of breath, dyspnea and fatigue for the past several months. LAURA on 11/03/20 revealed 3-4+ mitral regurgitation, 2-3+ aortic regurgi tation, severe left atrial enlargement, preserved LV function. Right and left heart catheterization revealed no significant obstructive coronary artery disease. Patient underwent mitral valve repair, obliteration of the left atrial appendage on 12/01/20. 12/05/20 Patient seen and examined in the intensive care unit. She is sitting in the bedside chair. Denies chest pain, dizziness, palpitations, lightheadedness, or nausea. She does have exertional shortness of breath. When ambulating in the halls feels that she needs to take frequent breaks. Laboratory reviewed, WBC 4.9, hemoglobin 7.8, platelets 164, sodium 137, potassium 4.3, BUN 19, serum creatinine 0.8 to She is currently being maintained on aspirin once a day, plavix 75mg daily, Lipitor 40mg daily, furosemide 10mg IV BID. GENERAL: Well-appearing, well-nourished and in no acute distress. NECK: Supple without JVD or thyromegaly. LUNGS: Breath sounds mild crackles to auscultation bilaterally. Respiration equal and unlabored. No wheezes, rales or rhonchi. HEART: Regular rate and rhythm Systolic murmur noted. S1 and S2 heard. EXTREMITIES: Normal range of motion, no edema. No clubbing or cyanosis. Peripheral pulses intact. ASSESSMENT Severe non-rheumatic mitral regurgitation Status post mitral valve repair Non-obstructive coronary artery disease Dyslipidemia History of hypothyroidism History of hypertension Anemia postoperatively PLAN -Continue current medical therapy with aspirin, plavix and statin -Beta blockers discontinued due to hypotension and bradycardia, history of bradycardia with beta edwardo use -Lasix switched to oral 20mg daily -Continue incentive spirometry Q1hr -Increase activity as tolerated -Post operative management per CTS -Will continue to follow Nurse Practitioner note has been reviewed, I agree with a documented findings and plan of care. Patient was seen and examined. Objective - Vital Signs Vital signs: Vital Signs Temp 98.2 F 12/04/20 13:00 Pulse 88 12/04/20 16:02 Resp 11 L 12/04/20 16:02 BP 100/67 12/04/20 16:00 Pulse Ox 97 12/04/20 16:00 Intake & Output 12/03/20 12/04/20 12/04/20 18:59 06:59 18:59 Intake Total 270 290 300 Output Total 771 639 700 Balance -501 349 -400 Weight 68.3 kg Intake: IV 270 50 Albumin Human 5% 500 ml 20 In Empty Bag 1 bag @ 500 mls/hr IVPB ONCE ONE Rx#: [id number] Lactated Ringers 1,000 ml 220 50 @ 20 mls/hr IV .Q24H GAURI Rx#:[id number] Pressure bag 30 Oral 240 300 Output: Chest Tube Drainage 300 210 Lt Pleural 80 70 Mediastinal 220 140 Urine 471 429 700 Other: Voiding Method Indwelling Catheter Indwelling Catheter Indwelling Catheter ABP, PAP, CO, CI - Last Documented Arterial Blood Pressure 85/78 Pulmonary Artery Pressure 28/10 Cardiac Output 4.2 Cardiac Index 2.5 - Labs CBC & Chem 7: 12/05/20 05:04 12/05/20 05:04 Labs: Abnormal Lab Results - Last 24 Hours (Table) 12/03/20 12/03/20 12/04/20 Range/Units 16:48 21:30 04:21 RBC 2.37 L (3.80-5.40) m/uL Hgb 7.7 L (11.4-16.0) gm/dL Hct 23.0 L (34.0-46.0) % Plt Count 133 L (150-450) k/uL Sodium (137-145) mmol/L BUN (7-17) mg/dL POC Glucose (mg/dL) 151 H 103 H (75-99) mg/dL AST (14-36) U/L Total Protein (6.3-8.2) g/dL Albumin (3.5-5.0) g/dL 12/04/20 12/04/20 12/04/20 Range/Units 04:21 07:11 11:42 RBC (3.80-5.40) m/uL Hgb (11.4-16.0) gm/dL Hct (34.0-46.0) % Plt Count (150-450) k/uL Sodium 136 L (137-145) mmol/L BUN 19 H (7-17) mg/dL POC Glucose (mg/dL) 114 H 102 H (75-99) mg/dL AST 51 H (14-36) U/L Total Protein 5.3 L (6.3-8.2) g/dL Albumin 3.3 L (3.5-5.0) g/dL
[2020-12-05 16:33] LABS: Glucose,Whole Blood 135 mg/dL (75-99)
[2020-12-05 20:18] LABS: Glucose,Whole Blood 144 mg/dL (75-99)
[2020-12-05] MEDS: SENNOSIDES-DOCUSATE SODIUM 1 EACH TAB PO SCH (20:20)
[2020-12-05] MEDS: LEVOTHYROXINE 125 MCG TAB PO SCH (20:20)
[2020-12-05] MEDS: LATANOPROST 0.005% OPHTH DROPS 2.5 ML BTL LEFT EYE SCH (20:21)
[2020-12-05] MEDS: BENZOCAINE/MENTHOL LOZENG 1 EACH LOZENGE MUCOUS MEM PRN (20:44)
[2020-12-05 22:26] VITALS: RESP 18
[2020-12-06] MEDS: HEPARIN SODIUM,PORCINE/PF 5,000 UNIT/0.5 ML SYRINGE SQ SCH ×2 (00:05→08:51)
[2020-12-06 01:12] LABS: Potassium 3.7 mmol/L (3.5-5.1)
[2020-12-06] MEDS: ACETAMINOPHEN TAB 500 MG TAB PO PRN (05:02)
[2020-12-06 06:08] LABS: Glucose,Whole Blood 108 mg/dL (75-99)
[2020-12-06] MEDS: INSULIN ASPART (NovoLOG) 100 UNIT/ML VIAL SQ SCH (06:11)
[2020-12-06] MEDS: PANTOPRAZOLE 40 MG TABLET PO SCH (06:25)
--- NOTE | 2020-12-06 08:27 | XR ---
EXAMINATION TYPE: XR chest 2V DATE OF EXAM: 12/06/2020 COMPARISON: 12/05/2020 INDICATION: Post cardiac surgery TECHNIQUE: Single frontal view of the chest is obtained. FINDINGS: The heart size is mildly prominent. The pulmonary vasculature is normal. Mild bibasilar infiltrates are present. This slightly worse interval. Pleural effusions are present. Linear density over the left upper chest is not identified on the current examination may have been a rtifact prior exam. IMPRESSION: 1. Small bilateral pleural effusions with bibasilar infiltrates continued follow-up is recommended
[2020-12-06 08:34] LABS: HCT 25.3 % (34.0-46.0); HGB 8.5 gm/dL (11.4-16.0); MCH 32.3 pg (25.0-35.0); MCHC 33.4 g/dL (31.0-37.0); MCV 96.9 fL (80.0-100.0); Mean Platelet Volume 7.4; Platelet Count 234 k/uL (150-450); RBC 2.61 m/uL (3.80-5.40); RDW 14.2 % (11.5-15.5); WBC 6.2 k/uL (3.8-10.6)
[2020-12-06 08:47] LABS: African American GFR (CKD) >90 (>60 ml/min/1.73 sqM); Anion Gap 5 mmol/L; Blood Urea Nitrogen 14 mg/dL (7-17); Calcium 8.7 mg/dL (8.4-10.2); Carbon Dioxide 28 mmol/L (22-30); Chloride 108 mmol/L (98-107); Glucose 100 mg/dL (74-99); Non-African American GFR(CKD) 81 (>60 ml/min/1.73 sqM); Potassium 4.1 mmol/L (3.5-5.1); Sodium 141 mmol/L (137-145)
[2020-12-06] MEDS: IPRATROPIUM-ALBUTEROL 3 ML NEB INHALATION SCH ×2 (08:48→12:14)
[2020-12-06] MEDS: CLOPIDOGREL 75 MG TAB PO SCH (08:51)
[2020-12-06] MEDS: ATORVASTATIN 40 MG TAB PO SCH (08:51)
[2020-12-06] MEDS: ASPIRIN 325 MG TAB PO SCH (08:51)
[2020-12-06] MEDS: CIPROFLOXACIN HCL 500 MG TAB PO SCH (08:51)
[2020-12-06] MEDS: FUROSEMIDE 20 MG TAB PO SCH (08:52)
--- NOTE | 2020-12-06 10:14 | P.PN ---
Subjective Progress Note Date: 12/06/20 Principal diagnosis: Mitral valve regurgitation, severe 80-year-old white female patient of Dr. Vanegas with symptoms of worsening dyspnea, she was found to have severe mitral regurgitation confirmed on transesophageal echocardiogram with prolapse of the posterior mitral leaflet, cardiac catheterization showed no new coronary artery disease. LAURA showed 3-4+ central mitral regurgitation, and 2-3+ aortic regurgitation, severe left atrial enlargement and preserved LV function. She has known history of mitral valve regurgitation, hypertension, hyperlipidemia, sick sinus syndrome/asymptomatic bradycardia, previous history of bilateral lower extremity DVTs, lifetime nonsmoker, and family history of premature coronary artery disease. Patient was referred to cardiothoracic surgery and on 12/01/2020 patient underwent mitral valve repair, left atrial appendage exclusion, and epi-aortic ultrasonography. Patient is seen in the postoperative period in the intensive care unit, she sedated, and ventilated currently on assist control mode of ventilation with a rate of 12, tidal volume is 450, FiO2 100%, and PEEP of 5. Patient is intubated with the #8 endotracheal tube. Postoperative blood gas was completed showing pO2 of greater than 420, pCO2 35, and pH is 7.44, this was done on 100% FiO2 and FiO2 has since been cut back to 50%. Patient is currently on lactated Ringer's at 50 ML per hour, insulin infusion is at 1.5 units per hour, nitroglycerin drip is at 5 mics per minute, propofol is at 20 mics per kilo per minute. Blood pressure is 111/68, PA pressures 35/23, CVP is 15, cardiac output is 4.1 and cardiac index is 2.5. Patient is being paced at AAI mode at a rate of 80, underlying rhythm is junctional. Mediastinal and left pleural chest tubes to wall suction with no evidence of air leak, with 190 mL of sanguinous drainage from the mediastinal chest tube and 45 mL from the left pleural chest tube. Patient did receive 2 units of fresh frozen plasma and 1 unit of platelets. Currently his hemoglobin is 8.9, platelet count is 124. Postoperative chest x- ray shows ET tube with its tip just above the gonzález, left chest tube and 2 mediastinal chest tubes, [place] catheter in appropriate positions, moderate left and tiny right pleural effusions, adjacent airspace opacity suggestive of atelectasis, pulmonary edema. Patient was reevaluated today on 12/02/2020, patient is doing well, she is now postoperative day #1, sitting at a bedside chair, awake alert oriented 3, not in any distress. Patient was extubated around 5:30 PM yesterday, she is now on 2 L nasal cannula, and her O2 saturations 98%. Patient is doing fairly well with incentive spirometer. She is not requiring any pressors or any inotropes. Her cardiac output is 3.3 cardiac index is 2.0. CT PE is 8 pulmonary artery pressure 33/13. Hemoglobin is 8.2. Patient is on insulin at 1.5 units per hour, and all are at 80 mL per hour. Continues to have left pleural and mediastinal chest tubes, patient did receive yesterday 2 units of fresh frozen plasma and platelets. Chest x-ray today is reassuring except for minimal atelectasis. WBC count 6.0 hemoglobin is 8.2. Electrolytes and renal profile are normal. Reevaluated today on 12/03/2020, patient remains in the ICU, she is postoperative day #2. Patient is on 2 L nasal cannula, LR at 50 mL per hour. Continues to have [address], left pleural and mediastinal tube. Continues to have a right IJ Cordis. Patient is now being paced, she seems to have very low junctional rhythm, now atrially paced, rate at 68/m. At lower rates, patient becomes hypotensive. But at this rates she seems to be doing much better. Cardiology is potentially considering a pacemaker implantation this patient. Patient received some hypotension with low dose beta edwardo yesterday, hence is presently on hold. Chest x-ray showed minimal bibasilar atelectasis. Labs were all reviewed WBC count 6.7 hemoglobin 7.3F lites are normal renal profile is normal Reevaluated today on 12/04/2020, patient remains in the ICU, she is now pos toperative day #3. Overall the patient is doing great, her chest x-ray showed minimal atelectasis, patient is on room air, continues to have a left pleural chest tube and mediastinal chest tube in place, denies any shortness of breath or cough or wheezing. Denies any chest pain. She is in sinus rhythm with episodes of hypotension and bradycardia, and a blockers have been discontinued. Patient is ambulating in the room with assistance labs were reviewed WBC is 5.5 hemoglobin is 7.7 and lites are normal renal profile is normal On 12/05/2020 patient seen in follow-up on medical surgical floor. She is awake and alert, in no acute distress, she sitting up in the chair, on room air her pulse ox is 98%, she is afebrile, hemodynamically she is stable, she is currently in sinus mechanism with a rate of 70 BPM, she has no specific complaints, she is working on this and spirometer, she is calling [phone] on incentive spirometer today, lung sounds reveal minimal bibasilar crackles, good air entry noted bilaterally. She is oriented 3, no altered mentation, she is tolerating oral diet, all chest tubes have been discontinued. Incisions clean dry and intact. Today's chest x-ray has been reviewed and cardiomegaly with pulmonary vessel congestion, relatively unchanged, and continue trace pleural effusions with adjacent atelectasis. Patient still has epicardial wires that are grounded. On 12/06/2020 patient seen in follow-up on selective care unit, she sits up in a recliner, in no acute distress, awake alert oriented 3, room air pulse ox is 98%, no fever or chills, blood pressure is been stable. Today's chest x-ray has been reviewed showing small bilateral pleural effusions with bibasilar infiltrates. Patient is compliant with his incentive spirometer, all chest tubes have been discontinued. Olmos catheter discontinued. Patient has been ambulating with cardiac rehab. She is anticipated to go home today. Today's labs have been noted Objective - Vital Signs Vital signs: Vital Signs Temp 98.4 F 12/06/20 08:25 Pulse 88 12/06/20 08:58 Resp 18 12/06/20 08:25 BP 123/72 12/06/20 08:25 Pulse Ox 98 12/06/20 08:25 Intake & Output 12/05/20 12/06/20 12/06/20 18:59 06:59 18:59 Intake Total 350 100 240 Output Total 645 Balance -295 100 240 Weight 68.7 kg Intake: Oral 350 100 240 Output: Urine 645 Other: Voiding Method Bedside Commode Bedside Commode # Voids 2 ABP, PAP, CO, CI - Last Documented Arterial Blood Pressure 85/78 Pulmonary Artery Pressure 28/10 Cardiac Output 4.2 Cardiac Index 2.5 - Exam GENERAL EXAM: Awake and alert, oriented 3, very pleasant 80-year-old white female, on room air, with a possible septal 100%, sitting up in the recliner, in no acute distress HEAD: Normocephalic/atraumatic. EYES: Normal reaction of pupils, equal size. Conjunctiva pink, sclera white. NOSE: Clear with pink turbinates. THROAT: No erythema or exudates. NECK: No masses, no JVD, no thyroid enlargement, no adenopathy. CHEST: No chest wall deformity. Symmetrical expansion. Sternal incision clean dry and intact, chest tube sites are clean dry and intact, chest tubes have been discontinued Epicardial wires are still in place, and are grounded LUNGS: Equal air entry with no crackles, wheeze, rhonchi or dullness. CVS: Regular rate and rhythm, normal S1 and S2, no gallops, no murmurs, no rubs ABDOMEN: Soft, nontender. No hepatosplenomegaly, normal bowel sounds, no guarding or rigidity. EXTREMITIES: No clubbing, no edema, no cyanosis, 2+ pulses and upper and lower extremities. MUSCULOSKELETAL: Muscle strength and tone normal. SPINE: No scoliosis or deformity SKIN: No rashes CENTRAL NERVOUS SYSTEM: Alert, oriented 3 No focal deficits, tone is normal in all 4 extremities. - Labs CBC & Chem 7: 12/06/20 08:05 12/06/20 08:05 Labs: Abnormal Lab Results - Last 24 Hours (Table) 12/05/20 12/05/20 12/05/20 Range/Units 11:26 16:31 20:16 RBC (3.80-5.40) m/uL Hgb (11.4-16.0) gm/dL Hct (34.0-46.0) % Chloride (98-107) mmol/L Glucose (74-99) mg/dL POC Glucose (mg/dL) 104 H 135 H 144 H (75-99) mg/dL 12/06/20 12/06/20 12/06/20 Range/Units 06:07 08:05 08:05 RBC 2.61 L (3.80-5.40) m/uL Hgb 8.5 L (11.4-16.0) gm/dL Hct 25.3 L (34.0-46.0) % Chloride 108 H (98-107) mmol/L Glucose 100 H (74-99) mg/dL POC Glucose (mg/dL) 108 H (75-99) mg/dL Assessment and Plan Plan: Assessment: #1. Severe mitral regurgitation, 3-4+, and some mild bileaflet prolapse, without evidence of flail or cordial disruption. Status post mitral valve repair, left atrial appendage exclusion, postoperative day #5 #2. Mild to moderate central aortic insufficiency, and this was not severe enough to warrant surgical repair #3. Routine postoperative ventilator management #4. History of hypertension #5. Hyperlipidemia #6. Hypothyroidism #7. Patient is a nonsmoker and nondrinker, preop FEV1 was 1.78 L or 88% predicted, FVC of 2.14 L or 78% predicted, normal spirometry #8. Previous history of bilateral DVTs 2 years ago, provoked, and patient has completed 6 months of anticoagulation #9. History of glaucoma #10. Osteoarthritis #11. Family history of early-onset coronary artery disease #12. Status post completed COVID 19 vaccination Plan: Patient is doing well Continue deep breathing and coughing Today's chest x-ray shows small bilateral pleural effusions and adjacent atelectasis The patient is breathing comfortably, not requiring any supplemental oxygen No acute events overnight Patient is going home this afternoon She will need outpatient follow-up with Dr. Riddle in the office in one to 2 weeks I performed a history & physical examination of the patient and discussed their management with my nurse practitioner, Osiris Rogers. I reviewed the nurse practitioner's note and agree with the documented findings and plan of care. L rita sounds are positive for diminished breath sounds throughout the lung frye. The findings and the impression was discussed with the patient. I attest to the documentation by the nurse practitioner. Time with Patient: Less than 30
--- NOTE | 2020-12-06 10:28 | P.PN ---
Subjective Progress Note Date: 12/06/20 Principal diagnosis: Mitral regurgitation, aortic valve insufficiency. Previous medical history of hypertension, hyperlipidemia, remote sick sinus syndrome/asymptomatic bradycardi a, hypothyroid, DVT to the bilateral lower extremities with subsequent 6 month use of Eliquis, arthritis, never smoker, and family history of premature coronary artery disease with mother diagnosed before 60 years old. Preoperative urinary tract infection with E. coli treated with Cipro POD #5 mitral valve repair with a 28 mm physio-2 mitral annuloplasty ring, obliteration of the left atrial appendage with a 35 mm AtriCure clip, epi-aortic ultrasonography Postoperative acute blood loss anemia and thrombocytopenia, expected given hemodilution and cardiopulmonary bypass pump The patient's currently sitting up in a recliner on the cardiac stepdown unit in no acute distress. She states pain is controlled on current medication regimen, denies shortness of breath. She remains in sinus rhythm, hemodynamically stable. She is oxygenating well on room air. She has ambulated in the hallway with assistance. Anticipate discharge to home with home care today. No other new concerns. Objective - Vital Signs Vital signs: Vital Signs Temp 98.4 F 12/06/20 08:25 Pulse 88 12/06/20 08:58 Resp 18 12/06/20 08:25 BP 123/72 12/06/20 08:25 Pulse Ox 98 12/06/20 08:25 Intake & Output 12/05/20 12/06/20 12/06/20 18:59 06:59 18:59 Intake Total 350 100 240 Output Total 645 Balance -295 100 240 Weight 68.7 kg Intake: Oral 350 100 240 Output: Urine 645 Other: Voiding Method Bedside Commode Bedside Commode # Voids 2 ABP, PAP, CO, CI - Last Documented Arterial Blood Pressure 85/78 Pulmonary Artery Pressure 28/10 Cardiac Output 4.2 Cardiac Index 2.5 - Exam CONSTITUTIONAL: Appears comfortable, cooperative, no acute distress RESPIRATORY: Lungs sounds diminished bilaterally. Respirations even, nonlabored. Currently on room air with oxygen saturation 97%. Able to achieve 750 mL on incentive spirometry. Strong cough. CARDIOVASCULAR: S1, S2 present. Regular rate and rhythm, sinus rhythm on telemetry. Sternum stable. Palpable peripheral pulses bilaterally. No edema present. No calf pain or tenderness noted. Heart hugger in place with patient demonstrating appropriate use. Antiembolism stockings, SCDs present. GASTROINTESTINAL: Abdomen soft, nontender, nondistended. Active bowel sounds present 4 quadrants. Tolerating diet. Positive bowel movement GENITOURINARY: Continues to void INTEGUMENTARY: Skin is warm and dry with evidence of good perfusion. Anterior chest incision well approximated and covered with dry intact dressing. NEUROLOGIC: Cranial nerves II through XII intact MUSKULOSKELETAL: Able to move all extremities, strength equal bilaterally, gait normal PSYCHIATRIC: Alert and oriented to person place and time, appropriate affect, intact judgment and insight - Allied health notes Allied health notes reviewed: nursing - Labs CBC & Chem 7: 12/06/20 08:05 12/06/20 08:05 Labs: Abnormal Lab Results - Last 24 Hours (Table) 12/05/20 12/05/20 12/05/20 Range/Units 11:26 16:31 20:16 RBC (3.80-5.40) m/uL Hgb (11.4-16.0) gm/dL Hct (34.0-46.0) % Chloride (98-107) mmol/L Glucose (74-99) mg/dL POC Glucose (mg/dL) 104 H 135 H 144 H (75-99) mg/dL 12/06/20 12/06/20 12/06/20 Range/Units 06:07 08:05 08:05 RBC 2.61 L (3.80-5.40) m/uL Hgb 8.5 L (11.4-16.0) gm/dL Hct 25.3 L (34.0-46.0) % Chloride 108 H (98-107) mmol/L Glucose 100 H (74-99) mg/dL POC Glucose (mg/dL) 108 H (75-99) mg/dL - Imaging and Cardiology Chest x-ray: report reviewed, image reviewed Assessment and Plan Assessment: 1. Mitral regurgitation, status post mitral valve repair 2. Aortic valve insufficiency 3. Hypertension 4. Hyperlipidemia, treated, cholesterol 125, LDL 46 5. Remote sick sinus syndrome/asymptomatic bradycardia 6. Hypothyroid, TSH 12.6 with free T4 1.02 7. DVT to the bilateral lower extremities with subsequent 6 month use of Eliquis 8. Arthritis 9. Never smoker, preoperative FEV1 88% of predicted 10. Family history of premature coronary artery disease with mother diagnosed before 60 years old 11. Preoperative urinary tract infection with E. coli treated with Cipro 12. Postoperative acute blood loss anemia and thrombocytopenia, expected Plan: 1. Continue to maximize medical therapy with aspirin, statin, Plavix. Beta blockers discontinued due to hypotension, bradycardia, history of bradycardia with a edwardo use 2. Encourage use of his incentive spirometry 10 times every hour while awake. Bronchodilators per pulmonary management. 3. Will monitor daily labs and chest x-rays. Electrolyte replacement per protocol. No transfusion. Continue lasix 4. GI/DVT prophylaxis. 5. Increase activity as tolerated, PT/OT/cardiac rehab following 6. Insulin management per primary care service. Preoperative hemoglobin A1c 6.7% 7. Pain control with current medication regimen. 8. Strict accurate intake and output. Daily weights 9. Discharge planning in progress, anticipate DC to home with home care this afternoon 10. More recommendations to follow Time with Patient: Greater than 30
--- NOTE | 2020-12-06 10:48 | P.DS ---
Providers Date of admission: 12/01/20 05:32 Expected date of discharge: 12/06/20 Attending physician: Carlitos Headley Consults: 12/01/20 12:02 Consult Physician Routine Consulting Provider: Tomeka Vanegas Consult Reason/Comments: Medical management Do you want consulting provider notified?: Yes Consult Physician Routine Consulting Provider: Yi Tejeda Consult Reason/Comments: Account Administrator Consult: post cardiac surgery Do you want consulting provider notified?: Yes Consult Physician Routine Consulting Provider: Minna Rabago Consult Reason/Comments: Home Health Care Respiratory Therapist Consult: post cardiac surgery Do you want consulting provider notified?: Yes 12/06/20 09:29 Consult Physician Routine Consulting Provider: Parmjit Ulloa Consult Reason/Comments: Inpatient rehab Do you want consulting provider notified?: Yes Primary care physician: Tomeka Vanegas Hospital Course: FINAL DIAGNOSIS: 1. Mitral regurgitation 2. Aortic valve insufficiency 3. Hypertension 4. Hyperlipidemia, treated, cholesterol 125, LDL 46 5. Remote 6 sinus syndrome/asymptomatic bradycardia 6. Hypothyroid, TSH 12.6 with a free T4 1 0.0 to 7. 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 Arthritis 9. Never smoker, preoperative FEV1 88% predicted 10. Family history of premature coronary artery disease 11. Preoperative urinary tract infection with E. coli, treated with Cipro 12. Stop her of acute blood loss anemia and thrombocytopenia, expected PRINCIPAL PROCEDURE: 1. Mitral valve repair with 28 mm physio-2 mitral annuloplasty ring 2. Obliteration of the left atrial appendage with a 35 mm AtriCure clip 3. Epi-aortic ultrasonography HISTORY OF PRESENT ILLNESS: This is an 80-year-old female patient who follows with Dr. Vanegas for primary care and Dr. HENNA Rabago for cardiology. She reported symptoms of shortness of breath and fatigue for approximately 1 year, however the symptoms had gotten progressively worse. Initially she attributed her symptoms to discuss older, however her profound fatigue was limiting her quality of life. She denied any chest pain, syncope, or any other symptomatology. She presented to Dr. Rabago's office for evaluation and treatment where she had a transthoracic echocardiogram demonstrating biatrial enlargement, moderate to severe mitral regurgitation with prolapse of the posterior mitral leaflet, mild to moderate aortic regurgitation. She was recommended to undergo heart catheterization and LAURA for further diagnostic workup. Her catheterization demonstrated no significant coronary artery disease. LAURA demonstrated 3-4+ central mitral regurgitation with prolapse of the posterior leaflet, 2-3+ aortic regurgitation, severe left atrial enlargement, preserved LV function. Consultat ion was placed to Dr. Headley from cardiothoracic surgery. She was recommended to undergo mitral valve repair. The usual perioperative course was discussed in detail with the patient and her family, all risks and benefits were explained, all questions were answered, and consent was obtained to proceed with surgery. The patient was discharged to home on maximal medical therapy to return as an outpatient for surgery after obtaining dental clearance. HOSPITAL COURSE: The patient was brought to the hospital on 12/01/2020, taken to the preoperative area, prepared in the usual fashion, and subsequently taken to the operating room where Dr. Headley performed mitral valve repair. Upon completion of surgery the patient was transferred to the cardiovascular intensive care unit where she was recovered and monitored hemodynamically. She was extubated, all lines, tubes, and drips were discontinued when appropriate, and she was transferred to 3 S. cardiac stepdown unit for further monitoring and rehabilitation. Her oxygen was titrated down, she continued to work with physical and occupational therapy, she was tolerating oral diet, her pain was controlled, and she was ready to be discharged to home with [facility] on postoperative day #5. She received written and verbal instruction regarding her medications, activity restrictions, signs and symptoms requiring physician notification, and follow-up appointments. Beta blockers are contraindicated due to bradycardia. COMPLICATIONS: The patient experienced no postoperative complications. Patient Condition at Discharge: Stable Plan - Discharge Summary Discharge Rx Participant: Yes New Discharge Prescriptions: New Furosemide [Lasix] 20 mg PO DAILY #30 tab Clopidogrel [Plavix] 75 mg PO DAILY #30 tab Acetaminophen Tab [Tylenol] 1,000 mg PO Q6HR PRN tab PRN Reason: Fever and/ or Mild Pain Pantoprazole [Protonix] 40 mg PO AC-BRKFST #30 tablet. Sennosides-Docusate Sodium [Senokot-S] 2 each PO HS PRN tab PRN Reason: Constipation Continue Levothyroxine Sodium [Synthroid] 125 mcg PO DAILY Atorvastatin [Lipitor] 10 mg PO DAILY Aspirin 81 mg PO DAILY Latanoprost/Pf [Latanoprost 0.005% Eye Drop] 1 drop LEFT EYE HS Potassium Chloride [Klor-Con 10] 10 meq PO DAILY traMADol HCL [Ultram] 50 mg PO DAILY PRN PRN Reason: Pain Discontinued Nitroglycerin Sl Tabs [Nitrostat] 0.4 mg SUBLINGUAL Q5M PRN PRN Reason: Chest Pain Furosemide [Lasix] 40 mg PO DAILY Ciprofloxacin HCl [Cipro] 500 mg PO Q12H 3 Days #6 tab Discharge Medication List Levothyroxine Sodium [Synthroid] 125 mcg PO DAILY 12/28/14 [History] Atorvastatin [Lipitor] 10 mg PO DAILY 04/25/17 [History] Aspirin 81 mg PO DAILY 11/01/20 [History] Latanoprost/Pf [Latanoprost 0.005% Eye Drop] 1 drop LEFT EYE HS 11/01/20 [History] Potassium Chloride [Klor-Con 10] 10 meq PO DAILY 11/01/20 [History] traMADol HCL [Ultram] 50 mg PO DAILY PRN 11/03/20 [History] Acetaminophen Tab [Tylenol] 1,000 mg PO Q6HR PRN tab 12/06/20 [Rx] Clopidogrel [Plavix] 75 mg PO DAILY #30 tab 12/06/20 [Rx] Furosemide [Lasix] 20 mg PO DAILY #30 tab 12/06/20 [Rx] Pantoprazole [Protonix] 40 mg PO AC-BRKFST #30 tablet.dr 12/06/20 [Rx] Sennosides-Docusate Sodium [Senokot-S] 2 each PO HS PRN tab 12/06/20 [Rx] Follow up Appointment(s)/Referral(s): Yi Tejeda MD [STAFF PHYSICIAN] - 12/30/20 10:00 am Bebe Canchola NPC [Nurse Practitioner] - 12/12/20 11:00 am (Will see in the surgeon's office behind the [facility], [facility], [place], [address], [address]) Minna Rabago MD [STAFF PHYSICIAN] - 2 Weeks (Office will call with appointment) Rehab [facility] [NON-STAFF] - 4 Weeks (You will receive a phone call in 4-6 weeks for evaluation for cardiac rehab) Tomeka Vanegas MD [Primary Care Provider] - 2 Weeks (Office will call with appointment) Carlitos Headley MD [STAFF PHYSICIAN] - 12/29/20 9:45 am [facility] Visiting Nurse, [NON-STAFF] - 1-2 Days Ambulatory/Diagnostic Orders: Complete Blood Count w/diff [LAB.AMB] Time Frame: 3 Days, Location: None Selected Comprehensive Metabolic Panel [LAB.AMB] Time Frame: 3 Days, Location: None Selected Activity/Diet/Wound Care/Special Instructions: DISCHARGE INSTRUCTIONS: 1. No driving for 4 weeks, or until physician gives their ok. 2. The patient should sleep in their own bed, no medical bed needed. 3. Stairs are not an issue. If the bedroom is upstairs, it is advised that the patient go up at night and down in the morning for the first week. Go slowly, using handrail and take 1 step at a time. 4. SILVIA hose are to be worn for 30 days or until physician discontinues. 5. Heart hugger is to be worn 100% of the time until physician discontinues.(except when showering) 6. No lifting, pushing, or pulling more than 10 pounds for 12 weeks. The physician will advise of any restriction changes. 7. The patient is expected to continue the prescribed walking program. 8. Continue pain control per as needed orders. 9. Continue with incentive spirometry and splinting/heart hugger until otherwise directed by the physician. 10. Must shower daily using liquid antibacterial soap and a separate white washcloth for each individual incision. 11. Routine sternal incision care. No powders, lotions, ointments on incisions. No dressings are necessary on incisions unless they are draining. Dermabond tape is to remain on sternal incision until surgeon follow-up. 12. Please call surgeon/KEYBOARD TEACHER for temp greater than 101 F or purulent drainage from incisions. 13. All prescriptions given by surgeon for 30 days. Refills need to be filled through bar attendant/primary care physician. 14. A Red armband has been placed on the patient. It should be worn for 30 days post surgery and will be removed by the cardiac surgeons. If an ER visit is necessary, please make sure the number on the Red armband is called. 15. [facility] have been [facility] HOME HEALTH SERVICES TO PROVIDE: RN SKILLED HOME CARE SERVICES FOR POST-OP SURGICAL PATIENTS WITH THE FOLLOWING: Coronary Artery Bypass Surgery (CABG), Mitral Valve Replacement/Repair ( MVR), Aortic Valve Replacement/Repair (AVR) RN TO CONTINUE EDUCATION FROM ``ROAD TO A HEALTH HEART PATIENT EDUCATION MANUAL (GIVEN TO PATIENT IN THE HOSPITAL) MEDICATION RECONCILIATION WITH EDUCATION NEEDED ON FIRST HOME VISIT EMPHASIZE IMPORTANCE OF WEARING BREAST SUPPORT/HEART HUGGER ENCOURAGE USE OF INCENTIVE SPIROMETER 10 X EVERY HOUR WHILE AWAKE ENCOURAGE UTILIZATION OF LOWER EXTREMITY COMPRESSION STOCKINGS/SILVIA HOSE and ELEVATE LEGS ABOVE LEVEL OF HEART WHILE AT REST. ENCOURAGE AMBULATION 3-5x/day INCREASING TOLERATES, WHILE AVOIDING EXTR EMES IN TEMPERATURE FREQUENCY: RN TO OPEN THE PATIENT WITHIN 24 HOURS OF DISCHARGE FROM THE HOSPITAL WITH TELEHEALTH INSTALLED AT [facility], RN TO VISIT 2-3 X A WEEK FOR 4 WEEKS ESTABLISHED BY PATIENT NEEDS. LABORATORY: CBC, CMP TO BE DRAWN ON THE THIRD DAY HOME, (RAN STAT) FAX RESULTS TO [phone]. TELEHEALTH PARAMETERS: WEIGHT: NOTIFY MD OF WEIGHT GAIN OF 2 LBS IN 24 HOURS OR 5 LBS IN ONE WEEK HR: NOTIFY MD OF HR <55 BPM OR HR>100 BPM BP: NOTIFY MD IF BP <90/55 OR BP>140/100 O2 SAT: NOTIFY MD IF PO2<93% ON ROOM AIR SEND TELEHEALTH REPORT TO COIL WINDER AND CARDIOVASCULAR SURGEON THE FIRST WEEK OF CARE AND THEN BI-WEEKLY. PLEASE ADDITIONALLY COMMUNICATE ANY ABNORMALS AND NEW FINDINGS TO THE SURGEONS OFFICE. For any questions or concerns please call paper mill superintendent Bebe @ or Idris @ Discharge Disposition: HOME WITH HOME HEALTH SERVICES
--- NOTE | 2020-12-06 10:56 | P.CONS ---
History of Present Illness - Chief Complaint Cardiac debility - History of Present Illness I had the opportunity to see patient for inpatient rehab consultation with regard to cardiac debility. Patient rated to [facility] December 01 known cardiac disease for elective MVR and amputation left atrial appendage, Dr. Headley. She denies you by Dr. Riddle and medically by PCP Dr. Vanegas. Serial chest x-rays followed and note cardiomegaly, congestion, atelectasis and the pneumothorax. Prescribed therapies. PT reports no assistance for bed mobility, transfers, gait 170 feet with IV pole. OT prescribed. Previous functional history as elicited from patient: 80-year-old right-handed white female who is right-handed, lives in one floor home alone. Retired. Describes independent with own cooking, laundry, standing shower gait without device. Daughter is now doing the driving. PCP Dr. Vanegas. Denies tobacco or alcohol. Family history both parents with heart disease. Review of Systems Review of systems: ENT: Denies sneezes or discharge. Eyes: Denies discharge or photophobia. Cardiac: Denies chest pain or palpitation. Pulmonary: Denies cough or shortness of breath. Breast: Denies discharge or lumps. Gastrointestinal: Denies nausea, emesis, constipation, diarrhea. Genitourinary: Denies discharge or frequency. Musculoskeletal: Denies muscle or bone aches. Neurologic: Denies motor or sensory change. Endocrine: Denies shakes or sweats. Oncology: Denies cancers. Dermatologic: Denies rash, itching, pruritus. ALLERGY/immunology: Denies sneezes, rashes. Past Medical History Past Medical History: Chest Pain / Angina, Deep Vein Thrombosis (DVT), Eye Disorder, Hyperlipidemia, Hypertension, Musculoskeletal Disorder, Osteoarthritis (OA), Thyroid Disorder Additional Past Medical History / Comment(s): DDD, spondylithosis, migraines, kidney stones, "small vessel heart disease", heart murmur, hx phlebitis, "leaky valves" per pt., SOB w/exertion, DVT leg 2 years ago after traveling, glaucoma, fully vaccinated for covid History of Any Multi-Drug Resistant Organisms: None Reported Past Surgical History: Heart Catheterization, Hysterectomy, Joint Replacement Additional Past Surgical History / Comment(s): elsy knee replacements, cataracts, left eye surg. after cataract removed, tendon surgery in right hand Past Anesthesia/Blood Transfusion Reactions: Motion Sickness, Postoperative Nausea & Vomiting (PONV) Smoking Status: Never smoker - Past Family History Father Family Medical History: Diabetes Mellitus Mother Family Medical History: Coronary Artery Disease (CAD) Additional Family Medical History / Comment(s): Mother had CAD diagnosed less than 60 years old, during a heart cath at 65 years old Medications and Allergies Home Medications Medication Instructions Recorded Confirmed Type Levothyroxine Sodium [Synthroid] 125 mcg PO DAILY 12/28/14 11/24/20 History Atorvastatin [Lipitor] 10 mg PO DAILY 04/25/17 11/24/20 History Aspirin 81 mg PO DAILY 11/01/20 11/24/20 History Latanoprost/Pf [Latanoprost 0.005% 1 drop LEFT EYE HS 11/01/20 11/24/20 History Eye Drop] Potassium Chloride [Klor-Con 10] 10 meq PO DAILY 11/01/20 11/24/20 History traMADol HCL [Ultram] 50 mg PO DAILY PRN 11/03/20 11/24/20 History Acetaminophen Tab [Tylenol] 1,000 mg PO Q6HR PRN tab 12/06/20 Rx Clopidogrel [Plavix] 75 mg PO DAILY #30 tab 12/06/20 Rx Furosemide [Lasix] 20 mg PO DAILY #30 tab 12/06/20 Rx Pantoprazole [Protonix] 40 mg PO AC-BRKFST #30 tablet.dr 12/06/20 Rx Sennosides-Docusate Sodium 2 each PO HS PRN tab 12/06/20 Rx [Senokot-S] Allergies Allergy/AdvReac Type Severity Reaction Status Date / Time morphine AdvReac Itching Verified 11/24/20 10:41 Physical Exam Vitals: Vital Signs Temp Pulse Pulse Pulse Resp BP BP 12/06/20 08:58 88 12/06/20 08:48 88 12/06/20 08:25 98.4 F 92 18 123/72 12/06/20 08:20 12/06/20 04:00 74 18 117/65 12/06/20 00:00 75 18 104/65 12/05/20 21:00 98.2 F 92 18 130/62 12/05/20 20:00 98.1 F 84 14 120/75 12/05/20 19:50 72 12/05/20 19:40 73 12/05/20 16:07 74 12/05/20 16:00 97.9 F 72 18 118/73 12/05/20 15:56 72 12/05/20 12:00 98.0 F 72 19 105/74 12/05/20 11:36 72 12/05/20 11:20 70 Pulse Ox 12/06/20 08:58 12/06/20 08:48 12/06/20 08:25 98 12/06/20 08:20 98 12/06/20 04:00 97 12/06/20 00:00 92 L 12/05/20 21:00 99 12/05/20 20:00 96 12/05/20 19:50 12/05/20 19:40 12/05/20 16:07 12/05/20 16:00 96 12/05/20 15:56 12/05/20 12:00 95 12/05/20 11:36 12/05/20 11:20 Intake and Output 12/05/20 12/06/20 12/06/20 22:59 06:59 14:59 Intake Total 350 240 Output Total 470 Balance -120 240 Intake: Oral 350 240 Output: Urine 470 Other: Voiding Method Bedside Commode Bedside Commode # Voids 0 2 Weight 68.7 kg Skin: Atrophic, intact. General: Medium build and comfortable appearance. Head: Normocephalic, atraumatic. Eyes: Symmetric. Pupils equal round. Ears: Symmetric. Hearing within normal limits. Mouth: Clear. Neck: Supple. Carotid without bruit. Cardiac: Midline sternotomy clean and dressed. Lungs: Clear anteriorly and posteriorly. Abdomen: Soft active nontender. Extremities: Normal tone. Neurological: Mental status: Alert, cooperative, pleasant. Cranial nerves: Symmetric facial tone and trapezius. Motor: Active movement elevation all 4 limbs. Sensation: Intact throughout. DTRs: Symmetric and equal throughout. Mobility: Patient sitting up in Shanthi chair and did not stand at this time. Results CBC & Chem 7: 12/06/20 08:05 12/06/20 08:05 Labs: Abnormal Lab Results - Last 24 Hours (Table) 12/05/20 12/05/20 12/05/20 Range/Units 11:26 16:31 20:16 RBC (3.80-5.40) m/uL Hgb (11.4-16.0) gm/dL Hct (34.0-46.0) % Chloride (98-107) mmol/L Glucose (74-99) mg/dL POC Glucose (mg/dL) 104 H 135 H 144 H (75-99) mg/dL 12/06/20 12/06/20 12/06/20 Range/Units 06:07 08:05 08:05 RBC 2.61 L (3.80-5.40) m/uL Hgb 8.5 L (11.4-16.0) gm/dL Hct 25.3 L (34.0-46.0) % Chloride 108 H (98-107) mmol/L Glucose 100 H (74-99) mg/dL POC Glucose (mg/dL) 108 H (75-99) mg/dL Assessment and Plan Plan: Impression: 1. Cardiac debility with elective MVR and left atrial appendage. History coronary artery disease. 2. Hypertension. 3. Dyslipidemia. 4. Hypothyroid. 5. Osteoarthritis. 6. History of DVT. Comments and plan: At this time PT ongoing and OT prescribed. I discussed possible inpatient rehab with patient but she strongly prefers to return home and not have further hospitalization. This plan will course require daughter support.
[2020-12-06 11:53] VITALS: BP 117/63; PULSE 72; TEMP 96.8
--- NOTE | 2020-12-06 11:57 | P.PN ---
Subjective Progress Note Date: 12/06/20 HISTORY OF PRESENT ILLNESS This is an 80-year-old female patient of Dr. Vanegas with past medical history of mitral valve regurgitation, hypertension, hyperlipidemia, sick sinus syndr ome/asymptomatic bradycardia, history of lower extremity DVTs. Patient recently underwent LAURA revealed severe mitral regurgitation, posterior mitral leaflet prolapse. Heart catheterization did not show any coronary artery disease. regurgitation and subsequently underwent LAURA with prolapse of the posterior mitral leaflet. Yesterday, patient underwent mitral valve repair, left atrial appendage exclusion. Patient was successfully extubated. She is seen in the morning postop day #1. She is sitting upright recliner and appears to be somewhat uncomfortable. She received 2 units of fresh frozen plasma and 1 unit of platelets. She was started on Lopressor 12.5 mg this morning. She was being paced this morning but is now intrinsic rhythm. She has a mediastinal and left pleural chest tube in place with no air leak. She has been afebrile, heart rate 64, blood pressure 93/58, pulse ox 97% on 2 L nasal cannula. Repeat blood work reveals WBC 6.0, hemoglobin 8.2, platelet count 130. Sodium 139, potassium 4.4, chloride 110, CO2 25, BUN 12 and creatinine 0.55. ALT is 56. Capillary blood glucose running 111 246. We will plan to transition her to Lantus 10 units daily and scale. Repeat chest x-ray reveals left chest tube and 2 mediastinal drainage catheters. A Stacy-Jacquelyn catheter with tip at the pulmonary trunk. Moderate left and tiny right pleural effusion and adjacent airspace opacities suggestive of atelectasis, developing pneumonia or edema. There is pulmonary edema. Cardiomegaly. Valvular replacement. 12/03: Patient remains in intensive care unit. She denies any new complaints. She is feeling a little bit better from yesterday but fatigued and tired. She was in and out of atrial fibrillation and junctional rhythm yesterday. She is being paced. Beta edwardo is on hold as patient cannot tolerate it. She was started on Lasix 10 mg IV twice daily this morning. Plan is to remove A-line and Cordis today. She remains with chest tubes and Olmos catheter in place. Blood sugars have been well managed and Levemir will be discontinued and patient continued on NovoLog scale. Patient has been afebrile, heart rate 71, blood pressure 84/54, pulse ox 95% on 3 L nasal cannula. Repeat blood work reveals WBC 6.7, hemoglobin 7.3, platelet count 111. Blood sugars have been running between 111 and 139. AST 54. Repeat chest x-ray reveals interval removal Stacy- Jacquelyn catheter. No change in the mediastinal tube and left chest tube. There is tiny left apical pneumothorax. Mild bibasilar infiltrates unchanged. 12/04: Patient remains in the intensive care unit and is doing well. She states her breathing is better today. He is sitting up in recliner and appears to be comfortable and in no acute distress. Pacer wires remain in place and heart rate is running in the 70s in sinus rhythm. She has been afebrile, blood pressure 103/66. Blood work reveals WBC 5.5, hemoglobin 7.7, platelet count 133. Sodium 136, potassium 4.4, chloride 104, CO2 26, BUN 19 and creatinine 0.83. Blood sugar 87. Capillary blood glucose has been running between 103 and 151. AST 51. She is off oxygen. Chest tubes remain in place. Olmos catheter to be removed today, continue incentive spirometry and increase activity. 12/05: Patient remains in the intensive care unit. Chest tubes and Olmos stuart ters have been removed. She is scheduled to transfer to the cardiac stepdown unit. Patient states that she is feeling better again from yesterday. She'll open for breakfast this morning. Pacemaker wires are out. She is scheduled for discharge home tomorrow. She is reaching 1000 mL solid incentive spirometry. Patient has been afebrile, heart rate 65, blood pressure 93/59, pulse ox 90% on room air. 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 Repeat chest x-ray reveals cardiomegaly with pulmonary vascular congestion. Trace pleural effusions with adjacent atelectasis and/or consolidation. Repeat blood work reveals WBC 4.9, hemoglobin 7.8, platelet count 164. Electrolytes are normal. Creatinine 0.82. Blood sugars are running between 104 and 117. Discharge plan is home with [facility]. 12/06: The patient states that she did not sleep very much last night as she had leg cramps. She also had episode of coughing that was nonproductive. She is just to be discharged home today. She states that her daughter is planning to stay with her. She's been afebrile, heart rate 88, blood pressure 123/72, pulse ox 90% on room air. Repeat blood work reveals A blood glucose running between 108 and 144. WBC 6.2, hemoglobin 8.5, platelet count 234. Sodium 141, potassium 4.1, chloride 108, CO2 28, BUN 14 and creatinine 0.7. Blood sugar 100. She has been afebrile, heart rate 88, blood pressure 123/72, pulse ox 98% on room air. REVIEW OF SYSTEMS Constitutional: No fever, no chills, no night sweats. No weight change. Mild generalized weakness and fatigue no lethargy. No daytime sleepiness. EENT: No headache. No blurred vision or double vision, no loss of vision. No loss of Hearing, no ringing in the ears, no dizziness. No nasal drainage or congestion. No epistaxis. No sore throat. Lungs: Denies shortness of breath, cough, no sputum production. No wheezing. Cardiovascular: Expected chest discomfort improved, no lower extremity edema. No palpitations. No paroxysmal nocturnal dyspnea. No orthopnea. No lightheadedness or dizziness. No syncopal episodes. Abdominal: No abdominal pain. No nausea, vomiting. No diarrhea. No constipation. No bloody or tarry stools.. No loss of appetite. Genitourinary: No dysuria, increased frequency, urgency. No urinary retention. Musculoskeletal: No myalgias. No muscle weakness, no gait dysfunction, no frequent falls. No back pain. No neck pain. Integumentary: No wounds, no lesions. No rash or pruritus. No unusual bruising. No change in hair or nails. Neurologic: No aphasia. No facial droop. No change in mentation. No head injury. No headache. No paralysis. No paresthesia. Psychiatric: No depression. No anxiety. Endocrine: No abnormal blood [id number]. PHYSICAL EXAMINATION Gen: This is an 80-year-old female. She is resting in recliner on the cardiac stepdown unit and appears to be comfortable. No acute distress is noted. HEENT: Head is atraumatic, normocephalic. Pupils equal, round. Sclerae is anicteric. NECK: Supple. No JVD. No lymphadenopathy. No thyromegaly. LUNGS: Diminished breath sounds bilaterally. No wheezes or rhonchi. No intercostal retractions. HEART: Regular rate and rhythm. 2/6 systolic murmur. ABDOMEN: Soft. Bowel sounds are present. No masses. No tenderness. EXTREMITIES: No pedal edema. No calf tenderness. NEUROLOGICAL: Patient is awake, alert and oriented x3. Cranial nerves 2 through 12 are grossly intact. ASSESSMENT AND PLAN 1. Severe mitral regurgitation status post mitral valve repair, postop day #4. Continue current care per cardiothoracic team, continue incentive spirometry to reduce incidence of atelectasis and hospital acquired pneumonia., Lopressor di scontinued, continue aspirin 81 mg daily, Plavix 75 mg daily, atorvastatin 40 mg daily. 2. Mild aortic valve insufficiency. 3. Bradycardia requiring temporary pacing. Cardiology is following closely and being observed for now. Lopressor was discontinued. 4. Hypertension. Blood pressure is stable. 5. Hypothyroidism. Continue levothyroxine 125 g daily 6. History of DVT. 7. Glaucoma. 8. Generalized osteoarthritis. 9. Preoperative urinary tract infection. Patient was resumed on ciprofloxacin 500 mg twice daily. 10. Thrombocytopenia. 11. GI prophylaxis. Protonix 40 mg IV push daily. 12. DVT prophylaxis. Heparin 5000 units subcu every 8 hours. DISCHARGE PLAN Home with [facility] on Saturday. Impression and plan of care have been directed as dictated by the signing physician. Lynnette Sanchez nurse practitioner acting as scribe for signing physician. Objective - Vital Signs Vital signs: Vital Signs Temp 98.2 F 12/05/20 21:00 Pulse 74 12/06/20 04:00 Resp 18 12/06/20 04:00 BP 117/65 12/06/20 04:00 Pulse Ox 97 12/06/20 04:00 Intake & Output 12/05/20 12/05/20 12/06/20 06:59 18:59 06:59 Intake Total 350 100 Output Total 100 645 Balance -100 -295 100 Weight 68 kg 68.7 kg Intake: Oral 350 100 Output: Urine 100 645 Other: Voiding Method Bedside Commode Bedside Commode Bedside Commode # Voids 1 2 ABP, PAP, CO, CI - Last Documented Arterial Blood Pressure 85/78 Pulmonary Artery Pressure 28/10 Cardiac Output 4.2 Cardiac Index 2.5 - Labs CBC & Chem 7: 12/06/20 08:05 12/06/20 08:05 Labs: Abnormal Lab Results - Last 24 Hours (Table) 12/05/20 12/05/20 12/05/20 Range/Units 07:03 11:26 16:31 POC Glucose (mg/dL) 108 H 104 H 135 H (75-99) mg/dL 12/05/20 12/06/20 Range/Units 20:16 06:07 POC Glucose (mg/dL) 144 H 108 H (75-99) mg/dL
--- NOTE | 2020-12-06 12:00 | P.PN ---
Subjective Progress Note Date: 12/06/20 HISTORY OF PRESENT ILLNESS: This is a pleasant 80-year-old female past medical history significant for severe symptomatic mitral regurgitation, hypertension, dyslipidemia hypothyroi dism. She follows in the office with Dr. Rabago. We have been asked to see in consultation for post cardiac surgery management. Patient has had progressive shortness of breath, dyspnea and fatigue for the past several months. LAURA on 11/03/20 revealed 3-4+ mitral regurgitation, 2-3+ aortic regurgitation, severe left atrial enlargement, preserved LV function. Right and left heart catheterization revealed no significant obstructive coronary artery disease. Patient underwent mitral valve repair, obliteration of the left atrial appendage on 12/01/20. 12/05/20 Patient seen and examined in the intensive care unit. She is sitting in the bedside chair. Denies chest pain, dizziness, palpitations, lightheadedness, or nausea. She does have exertional shortness of breath. When ambulating in the halls feels that she needs to take frequent breaks. Laboratory reviewed, WBC 4.9, hemoglobin 7.8, platelets 164, sodium 137, potassium 4.3, BUN 19, serum creatinine 0.8 to She is currently being maintained on aspirin once a day, plavix 75mg daily, Lipitor 40mg daily, furosemide 10mg IV BID. 12/06/2020 Patient examined this morning at the bedside. Patient denies chest pain or pressure. She reports lower extremity edema. She states she feels tired. She is planning to be discharged home this afternoon. PHYSICAL EXAM: VITAL SIGNS: Reviewed. GENERAL: Well-developed in no acute distress. NECK: Supple. No JVD or thyromegaly LUNGS: Respirations even and unlabored. Lungs essentially clear to auscultation bilaterally. HEART: Regular rate and rhythm. S1 and S2 heard. EXTREMITIES: Normal range of motion. No clubbing or cyanosis. Peripheral pulses intact. 1-2+ bilateral lower extremity edema ASSESSMENT: Severe non-rheumatic mitral regurgitation Status post mitral valve repair Non-obstructive coronary artery disease Dyslipidemia History of hypothyroidism History of hypertension Anemia postoperatively PLAN: Continue current cardiac medications Patient is stable for discharge from a cardiac standpoint She is to follow up outpatient with Dr. Rabago Nurse practitioner note has been reviewed by physician. Signing provider agrees with the documented findings, assessment, and plan of care. Objective - Vital Signs Vital signs: Vital Signs Temp 98.4 F 06/08/21 08:25 Pulse 88 12/06/20 08:58 Resp 18 12/06/20 08:25 BP 123/72 12/06/20 08:25 Pulse Ox 98 12/06/20 08:25 Intake & Output 12/05/20 12/06/20 12/06/20 18:59 06:59 18:59 Intake Total 350 100 240 Output Total 645 300 Balance -295 100 -60 Weight 68.7 kg Intake: Oral 350 100 240 Output: Urine 645 300 Other: Voiding Method Bedside Commode Bedside Commode # Voids 2 ABP, PAP, CO, CI - Last Documented Arterial Blood Pressure 85/78 Pulmonary Artery Pressure 28/10 Cardiac Output 4.2 Cardiac Index 2.5 - Labs CBC & Chem 7: 12/06/20 08:05 12/06/20 08:05 Labs: Abnormal Lab Results - Last 24 Hours (Table) 12/05/20 12/05/20 12/06/20 Range/Units 16:31 20:16 06:07 RBC (3.80-5.40) m/uL Hgb (11.4-16.0) gm/dL Hct (34.0-46.0) % Chloride (98-107) mmol/L Glucose (74-99) mg/dL POC Glucose (mg/dL) 135 H 144 H 108 H (75-99) mg/dL 12/06/20 12/06/20 Range/Units 08:05 08:05 RBC 2.61 L (3.80-5.40) m/uL Hgb 8.5 L (11.4-16.0) gm/dL Hct 25.3 L (34.0-46.0) % Chloride 108 H (98-107) mmol/L Glucose 100 H (74-99) mg/dL POC Glucose (mg/dL) (75-99) mg/dL
== END 2020-12-06 13:04 | disposition home health service (06) | DRG 220 ==
LOC: 2ORMAIN 05:32 → 2SICU 12:09 → 3SCARD 12-05 20:55
PROVIDERS: ADMIT Thoracic Surgery (Cardiothoracic Vascular Surgery); ATTEND Thoracic Surgery (Cardiothoracic Vascular Surgery)
PROC: 02UG0JZ Supplement Mitral Valve with Synthetic Substitute, Open Approach (ICD-10-PCS; principal; 2020-12-01 08:00)
PROC: 02L70CK Occlusion of Left Atrial Appendage with Extraluminal Device, Open Approach (ICD-10-PCS; principal; 2020-12-01 08:00)
PROC: B24BZZ4 Ultrasonography of Heart with Aorta, Transesophageal (ICD-10-PCS; principal; 2020-12-01 08:00)
PROC: 5A1221Z Performance of Cardiac Output, Continuous (ICD-10-PCS; principal; 2020-12-01 08:00)
PROC: 30243K1 Transfusion of Nonautologous Frozen Plasma into Central Vein, Percutaneous Approach (ICD-10-PCS; 2020-12-01 08:00)
PROC: 30243R1 Transfusion of Nonautologous Platelets into Central Vein, Percutaneous Approach (ICD-10-PCS; 2020-12-01 08:00)
DX: I08.0 Rheumatic disorders of both mitral and aortic valves (principal); D62 Acute posthemorrhagic anemia; J98.11 Atelectasis; N39.0 Urinary tract infection, site not specified; D69.6 Thrombocytopenia, unspecified; I49.5 Sick sinus syndrome; I95.9 Hypotension, unspecified; I48.91 Unspecified atrial fibrillation; I49.8 Other specified cardiac arrhythmias; I25.10 Atherosclerotic heart disease of native coronary artery without angina pectoris; B96.20 Unspecified Escherichia coli [E. coli] as the cause of diseases classified elsewhere; E03.9 Hypothyroidism, unspecified; E78.5 Hyperlipidemia, unspecified; I10 Essential (primary) hypertension; M15.9 Polyosteoarthritis, unspecified; H40.9 Unspecified glaucoma; Z79.82 Long term (current) use of aspirin; Z79.890 Hormone replacement therapy; Z79.899 Other long term (current) drug therapy; Z86.718 Personal history of other venous thrombosis and embolism; Z90.710 Acquired absence of both cervix and uterus; Z96.653 Presence of artificial knee joint, bilateral; Z98.42 Cataract extraction status, left eye; Z87.39 Personal history of other diseases of the musculoskeletal system and connective tissue; Z86.72 Personal history of thrombophlebitis; Z87.442 Personal history of urinary calculi; Z86.69 Personal history of other diseases of the nervous system and sense organs; Z98.890 Other specified postprocedural states; Z60.2 Problems related to living alone; Z88.5 Allergy status to narcotic agent; Z82.49 Family history of ischemic heart disease and other diseases of the circulatory system; Z83.3 Family history of diabetes mellitus
CPT/HCPCS: 71045; 71046; 80048; 80053; 82330; 82805; 83735; 84132; 85025; 85027; 85520; 85610; 85730; 86850; 86891; 86900; 86901; 86920; 94002; 94640

== ENCOUNTER → 2021-04-19 | Outpatient (CLI) | payer MEDICARE ==
[2021-04-19 11:32] LABS: Basophils # (A) 0.07 X 10*3/uL (0.00-0.10); Eosinophils # (A) 0.31 X 10*3/uL (0.04-0.35); Eosinophils % (A) 4.5 %; HCT 40.2 % (37.2-46.3); HGB 12.5 g/dL (12.0-15.0); Lymphocytes # (A) 1.78 X 10*3/uL (0.90-5.00); Lymphocytes % (A) 25.9 %; MCH 28.3 pg (27.0-32.0); MCHC 31.1 g/dL (32.0-37.0); MCV 91.2 fL (80.0-97.0); Mean Platelet Volume 10.3 fL (9.5-12.2); Monocytes # (A) 0.41 X 10*3/uL (0.20-1.00); Neutrophils # (A) 4.29 X 10*3/uL (1.80-7.70); Neutrophils % (A) 62.3 %; Platelet Count 228 X 10*3/uL (140-440); RBC 4.41 X 10*6/uL (4.10-5.20); RDW 14.5 % (11.5-14.5); WBC 6.88 X 10*3/uL (4.50-10.00)
[2021-04-19 16:22] LABS: BUN/Creat Ratio 19.05 Ratio (12.00-20.00); Chol/HDL Ratio 2.01 Ratio; Globulin 2.8 g/dL (1.6-3.3); LDL Cholesterol,Calculated 53.5 mg/dL (0.0-131.0); VLDL Calculation 11.22 mg/dL (5.00-40.00)
[2021-04-19 16:23] LABS: African American GFR (CKD) 85.2 (60.0-200.0); Albumin 4.1 g/dL (3.8-4.9); Albumin/Globulin Ratio 1.46 (1.60-3.17); Anion Gap 15.3 mmol/L (4.00-12.00); Blood Urea Nitrogen 14.4 mg/dL (9.0-27.0); Calcium 9.2 mg/dL (8.7-10.3); Carbon Dioxide 21.8 mmol/L (21.6-31.8); HDL Cholesterol 64.3 mg/dL (40.00-60.00); Non-African American GFR(CKD) 73.5 (60.0-200.0); Potassium 4.1 mmol/L (3.5-5.5); T4, Free (Free Thyroxine) 1.64 ng/dL (0.800-1.800); Total Bilirubin 0.4 mg/dL (0.30-1.20); Total Protein 6.9 g/dL (6.2-8.2); Triglycerides 56.1 mg/dL (0.00-149.00); Uric Acid 5.7 mg/dL (2.9-7.7)
== END | disposition home or self-care (01) ==
LOC: LABWHC1 07:08
PROVIDERS: ATTEND Internal Medicine Interventional Cardiology
DX: I10 Essential (primary) hypertension (principal); E03.9 Hypothyroidism, unspecified; E78.5 Hyperlipidemia, unspecified; G56.22 Lesion of ulnar nerve, left upper limb
CPT/HCPCS: 36415; 80053; 80061; 82550; 84439; 84443; 84481; 84550; 85025

== ENCOUNTER 2022-07-23 16:45 | Emergency (ER) | payer MEDICARE ==
--- NOTE | 2022-07-23 17:23 | ED ---
General Adult HPI <Kimberly Cochran - Last Filed: 07/23/22 17:19> <Alexandra Cannon - Last Filed: 07/23/22 21:20> - General Chief complaint: Dizziness Stated complaint: dizziness, nausea, hypertension - History of Present Illness Initial comments: 81-year-old female presents to the emergency Department for an episode of dizziness that occurred while she was watching TV earlier this afternoon. She reports the dizziness has subsided after taking Zofran. (Kimberly Cochran) Patient is an 81-year-old female presenting with chief complaint of dizziness. Patient states that she was watching television this evening when she had sudden onset dizziness and nausea. She denies any chest pain, difficulty breathing, palpitations, weakness. Patient states she took a Zofran which helped resolve some of her symptoms, however they have not completely resolved. She denies vomiting, abdominal pain, headache, vision or hearing changes, numbness, tingling, use of blood thinners, recent fall or injury. (Alexandra Cannon) - Related Data Home Medications Medication Instructions Recorded Confirmed Levothyroxine Sodium [Synthroid] 125 mcg PO DAILY 12/28/14 07/23/22 Atorvastatin [Lipitor] 10 mg PO DAILY 04/25/17 07/23/22 traMADol HCL [Ultram] 50 mg PO Q8H PRN 11/03/20 07/23/22 Dorzolamide HCl/Pf [Dorzolamide 2% 1 drop LEFT EYE BID 07/23/22 07/23/22 Eye Drop] Metoprolol Succinate (ER) [Toprol 12.5 mg PO DAILY 07/23/22 07/23/22 Xl] Previous Rx's Medication Instructions Recorded Cephalexin [Keflex] 500 mg PO Q12HR 7 Days #14 cap 07/23/22 Meclizine [Antivert] 25 mg PO BID PRN #10 tab 07/23/22 Allergies Allergy/AdvReac Type Severity Reaction Status Date / Time morphine AdvReac Itching Verified 07/23/22 17:25 Review of Systems ROS Other: All systems not noted in ROS Statement are negative. <Kimberly Cochran - Last Filed: 07/23/22 17:19> ROS Other: All systems not noted in ROS Statement are negative. <Alexandra Cannon - Last Filed: 07/23/22 21:20> ROS Statement: Those systems with pertinent positive or pertinent negative responses have been documented in the HPI. Past Medical History Past Medical History: Chest Pain / Angina, Deep Vein Thrombosis (DVT), Eye Disorder, Hyperlipidemia, Hypertension, Musculoskeletal Disorder, Osteoarthritis (OA), Thyroid Disorder Additional Past Medical History / Comment(s): DDD, spondylithosis, migraines, kidney stones, "small vessel heart disease", heart murmur, hx phlebitis, "leaky valves" per pt., SOB w/exertion, DVT leg 2 years ago after traveling, glaucoma, fully vaccinated for covid History of Any Multi-Drug Resistant Organisms: None Reported Past Surgical History: Heart Catheterization, Hysterectomy, Joint Replacement Additional Past Surgical History / Comment(s): elsy knee replacements, cataracts, left eye surg. after cataract removed, tendon surgery in right hand Past Anesthesia/Blood Transfusion Reactions: No Reported Reaction, Motion Sickness Smoking Status: Never smoker - Past Family History Father Family Medical History: Diabetes Mellitus Mother Family Medical History: Coronary Artery Disease (CAD) Additional Family Medical History / Comment(s): Mother had CAD diagnosed less than 60 years old, during a heart cath at 65 years old <Kimberly Cochran - Last Filed: 07/23/22 17:19> General Exam Limitations: no limitations General appearance: alert, in no apparent distress Head exam: Present: atraumatic, normocephalic, normal inspection Eye exam: Present: normal appearance, EOMI. Absent: scleral icterus, conjunc tival injection, periorbital swelling Pupils: Present: normal accommodation (Patient states that she had an injury from childhood to the left eye which causes her pupil to be slightly larger) Neck exam: Present: normal inspection, full ROM Respiratory exam: Present: normal lung sounds bilaterally. Absent: respiratory distress, wheezes, rales, rhonchi, stridor Cardiovascular Exam: Present: regular rate, normal rhythm, normal heart sounds. Absent: systolic murmur, diastolic murmur, rubs, gallop, clicks Neurological exam: Present: alert, oriented X3, CN II-XII intact Expanded Patient oriented to: Present: person, place, time Speech: Present: fluid speech Cranial nerves: EOM's Intact: Normal, Facial Sensation: Normal Sensory exam: Upper Extremity Light Touch: Normal, Lower Extremity Light Touch: Normal Motor strength exam: RUE: 5, LUE: 5, RLE: 5, LLE: 5 Eye Response: (4) open spontaneously Motor Response: (6) obeys commands Verbal Response: (5) oriented Bharat Total: 15 Psychiatric exam: Present: normal affect, normal mood Skin exam: Present: warm, dry, intact, normal color. Absent: rash <Alexandra Cannon - Last Filed: 07/23/22 21:20> Course Vital Signs 07/23/22 07/23/22 07/23/22 17:22 18:22 20:17 Temperature 98.4 F Pulse Rate 67 86 71 Respiratory 20 18 18 Rate Blood Pressure 123/79 127/76 130/70 O2 Sat by Pulse 97 97 98 Oximetry EKG Findings - EKG Comments: EKG Findings:: Sinus rhythm ventricular rate 60. KS interval 190. QRS 101. QT 448 QTc 449. <Alexandra Cannon - Last Filed: 07/23/22 21:20> Medical Decision Making - Lab Data Result diagrams: 07/23/22 17:55 07/23/22 17:55 <Alexandra Cannon - Last Filed: 07/23/22 21:20> - Medical Decision Making Was pt. sent in by a medical professional or institution ([facility], [facility], urgent care, hospital, or intermediate...) When possible be specific @ -No Did you speak to anyone other than the patient for history (EMS, parent, family, police, friend...)? What history was obtained from this source @ -Patient's granddaughter Did you review nursing and triage notes (agree or disagree)? Why? @ -I reviewed and agree with nursing and triage notes Were old charts reviewed (outside hosp., previous admission, EMS record, old EKG, old radiological studies, urgent care reports/EKG's, intermediate records)? Report findings @ -No old charts were reviewed Differential Diagnosis (chest pain, altered mental status, abdominal pain women, abdominal pain men, vaginal bleeding, weakness, fever, dyspnea, syncope, headache, dizziness, GI bleed, back pain, seizure, CVA, palpatations, mental health)? @ -MDM Differential Dizziness: Benign paroxysmal positional Vertigo, Menieres disease, otitis media, acoustic neuroma, vertebrobasilar insufficiency, cerebellar stroke, encephalitis, hypovolemic, arrhythmia, coronary artery syndrome, anemia this is not meant to be an all-inclusive list EKG interpreted by me (3pts min.). @ -As above X-rays interpreted by me (1pt min.). @ -Chest x-ray shows no acute process CT interpreted by me (1pt min.). @ -No acute intracranial process. Nonspecific white matter changes, likely secondary to chronic small vessel ischemic disease U/S interpreted by me (1pt. min.). @ -None done What testing was considered but not performed or refused? (CT, X-rays, U/S, labs)? Why? @ -None What meds were considered but not given or refused? Why? @ -None Did you discuss the management of the patient with other professionals (professionals i.e. , PA, WINDER TENDER, lab, RT, psych nurse, social service worker, senior director insight, teacher, inspectors and regulatory officers, case folder)? Give summary @ -No Was smoking cessation discussed for >3mins.? @ -No Was critical care preformed (if so, how long)? @ -No Were there social determinants of health that impacted care today? How? (Homelessness, low income, unemployed, alcoholism, drug addiction, transportation, low edu. Level, literacy, decrease access to med. care, intermediate, rehab)? @ -No Was there de-escalation of care discussed even if they declined (Discuss DNR or withdrawal of care, Hospice)? DNR status @ -No What co-morbidities impacted this encounter? (DM, HTN, Smoking, COPD, CAD, Cancer, CVA, ARF, Chemo, Hep., AIDS, mental health diagnosis, sleep apnea, mo rbid obesity)? @ -Hypertension, hyperlipidemia Was patient admitted / discharged? Hospital course, mention meds given and route, prescriptions, significant lab abnormalities, going to OR and other pertinent info. @ -Patient is an 81-year-old female presenting with chief complaint of dizziness that started this evening. At home she took a Zofran which helped partially resolve symptoms. On physical examination there are no focal neurological deficits, heart and lungs are clear to auscultation. Lab work shows no leukocytosis or anemia. Troponin is less than 0.012. EKG shows no ischemic changes. CMP is essentially unremarkable. Urine shows signs of UTI, we'll treat with Keflex. CT of the brain and chest x-ray show no acute process. Patient was given Reglan and meclizine here in the ER, on reassessment she reports resolution of her symptoms. Educated patient on these findings, provided with prescription for Keflex and meclizine. Follow-up with PCP. Report back to ER with any new or worsening symptoms. Discussed return parameters and answered all questions. Patient conveyed verbal understanding and agreed to the plan. I discussed this case in detail with my attending Dr. Greenberg Undiagnosed new problem with uncertain prognosis? @ -No Drug Therapy requiring intensive monitoring for toxicity (Heparin, Nitro, Insulin, Cardizem)? @ -No Were any procedures done? @ -No Diagnosis/symptom? @ -UTI Acute, or Chronic, or Acute on Chronic? @ -Acute Uncomplicated (without systemic symptoms) or Complicated (systemic symptoms)? @ -Uncomplicated Side effects of treatment? @ -No Exacerbation, Progression, or Severe Exacerbation? @ -No Poses a threat to life or bodily function? How? (Chest pain, [place], [place], pneumonia, PE, COPD, DKA, ARF, appy, cholecystitis, CVA, Diverticulitis, Homicidal, Suicidal, threat to staff... and all critical care pts) @ -Unlikely (Alexandra Cannon) - Lab Data Lab Results 07/23/22 07/23/22 07/23/22 Range/Units 17:55 17:55 17:55 WBC 5.6 (3.8-10.6) k/uL RBC 4.37 (3.80-5.40) m/uL Hgb 13.5 (11.4-16.0) gm/dL Hct 41.1 (34.0-46.0) % MCV 94.1 (80.0-100.0) fL MCH 30.8 (25.0-35.0) pg MCHC 32.8 (31.0-37.0) g/dL RDW 12.9 (11.5-15.5) % Plt Count 197 (150-450) k/uL MPV 7.9 Neutrophils % 67 % Lymphocytes % 22 % Monocytes % 6 % Eosinophils % 2 % Basophils % 1 % Neutrophils # 3.7 (1.3-7.7) k/uL Lymphocytes # 1.2 (1.0-4.8) k/uL Monocytes # 0.3 (0-1.0) k/uL Eosinophils # 0.1 (0-0.7) k/uL Basophils # 0.1 (0-0.2) k/uL PT 10.5 (9.0-12.0) sec INR 1.0 (<1.2) Sodium 137 (137-145) mmol/L Potassium 4.1 (3.5-5.1) mmol/L Chloride 103 (98-107) mmol/L Carbon Dioxide 29 (22-30) mmol/L Anion Gap 5 mmol/L BUN 18 H (7-17) mg/dL Creatinine 0.72 (0.52-1.04) mg/dL Est GFR (CKD-EPI)AfAm >90 (>60 ml/min/1.73 sqM) Est GFR (CKD-EPI)NonAf 78 (>60 ml/min/1.73 sqM) Glucose 119 H (74-99) mg/dL Plasma Lactic Acid Jim (0.7-2.0) mmol/L Calcium 9.1 (8.4-10.2) mg/dL Total Bilirubin 0.4 (0.2-1.3) mg/dL AST 34 (14-36) U/L ALT 25 (4-34) U/L Alkaline Phosphatase 99 (38-126) U/L Troponin I (0.000-0.034) ng/mL Total Protein 7.7 (6.3-8.2) g/dL Albumin 4.5 (3.5-5.0) g/dL Urine Color Urine Appearance (Clear) Urine pH (5.0-8.0) Ur Specific Marcus (1.001-1.035) Urine Protein (Negative) Urine Glucose (UA) (Negative) Urine Ketones (Negative) Urine Blood (Negative) Urine Nitrite (Negative) Urine Bilirubin (Negative) Urine Urobilinogen (<2.0) mg/dL Ur Leukocyte Esterase (Negative) Urine RBC (0-5) /hpf Urine WBC (0-5) /hpf Ur Squamous Epith Cells (0-4) /hpf Urine Bacteria (None) /hpf Hyaline Casts (0-2) /lpf Urine Mucus (None) /hpf 01/23/23 01/23/23 01/23/23 Range/Units 17:55 17:55 19:25 WBC (3.8-10.6) k/uL RBC (3.80-5.40) m/uL Hgb (11.4-16.0) gm/dL Hct (34.0-46.0) % MCV (80.0-100.0) fL MCH (25.0-35.0) pg MCHC (31.0-37.0) g/dL RDW (11.5-15.5) % Plt Count (150-450) k/uL MPV Neutrophils % % Lymphocytes % % Monocytes % % Eosinophils % % Basophils % % Neutrophils # (1.3-7.7) k/uL Lymphocytes # (1.0-4.8) k/uL Monocytes # (0-1.0) k/uL Eosinophils # (0-0.7) k/uL Basophils # (0-0.2) k/uL PT (9.0-12.0) sec INR (<1.2) Sodium (137-145) mmol/L Potassium (3.5-5.1) mmol/L Chloride (98-107) mmol/L Carbon Dioxide (22-30) mmol/L Anion Gap mmol/L BUN (7-17) mg/dL Creatinine (0.52-1.04) mg/dL Est GFR (CKD-EPI)AfAm (>60 ml/min/1.73 sqM) Est GFR (CKD-EPI)NonAf (>60 ml/min/1.73 sqM) Glucose (74-99) mg/dL Plasma Lactic Acid Jim 1.2 (0.7-2.0) mmol/L Calcium (8.4-10.2) mg/dL Total Bilirubin (0.2-1.3) mg/dL AST (14-36) U/L ALT (4-34) U/L Alkaline Phosphatase (38-126) U/L Troponin I <0.012 (0.000-0.034) ng/mL Total Protein (6.3-8.2) g/dL Albumin (3.5-5.0) g/dL Urine Color Yellow Urine Appearance Cloudy H (Clear) Urine pH 7.0 (5.0-8.0) Ur Specific Marcus 1.018 (1.001-1.035) Urine Protein Trace H (Negative) Urine Glucose (UA) Negative (Negative) Urine Ketones Trace H (Negative) Urine Blood Negative (Negative) Urine Nitrite Positive H (Negative) Urine Bilirubin Negative (Negative) Urine Urobilinogen <2.0 (<2.0) mg/dL Ur Leukocyte Esterase Small H (Negative) Urine RBC 2 (0-5) /hpf Urine WBC 11 H (0-5) /hpf Ur Squamous Epith Cells <1 (0-4) /hpf Urine Bacteria Moderate H (None) /hpf Hyaline Casts 4 H (0-2) /lpf Urine Mucus Rare H (None) /hpf Disposition <Kimberly Cochran - Last Filed: 07/23/22 17:19> Is patient prescribed a controlled substance at d/c from ED?: No Time of Disposition: 20:37 <Alexandra Cannon - Last Filed: 07/23/22 21:20> Clinical Impression: UTI (urinary tract infection) Disposition: HOME SELF-CARE Condition: Good Instructions (If sedation given, give patient instructions): Urinary Tract Infection in Women (ED), Dizziness (ED) Additional Instructions: Follow-up with PCP. Report back to ER with any new or worsening symptoms. Take medication as prescribed. Prescriptions: Meclizine [Antivert] 25 mg PO BID PRN #10 tab PRN Reason: Vertigo Cephalexin [Keflex] 500 mg PO Q12HR 7 Days #14 cap Referrals: Tomeka Vanegas MD [Primary Care Provider] - 1-2 days
[2022-07-23 17:25] VITALS: TEMP 98.4
[2022-07-23] MEDS ORDERED: MECLIZINE 12.5 MG TAB PO STA (17:37)
[2022-07-23] MEDS ORDERED: SODIUM CHLORIDE 0.9% 500 ML 500 ML IV STA (17:37)
[2022-07-23] MEDS ORDERED: METOCLOPRAMIDE 5 MG/ML 2 ML VIAL IVP STA (17:41)
[2022-07-23 18:08] LABS: Basophils # (A) 0.1 k/uL (0-0.2); Basophils % (A) 1 %; Eosinophils # (A) 0.1 k/uL (0-0.7); Eosinophils % (A) 2 %; HCT 41.1 % (34.0-46.0); HGB 13.5 gm/dL (11.4-16.0); Lymphocytes # (A) 1.2 k/uL (1.0-4.8); Lymphocytes % (A) 22 %; MCH 30.8 pg (25.0-35.0); MCHC 32.8 g/dL (31.0-37.0); MCV 94.1 fL (80.0-100.0); Mean Platelet Volume 7.9; Monocytes # (A) 0.3 k/uL (0-1.0); Monocytes % (A) 6 %; Neutrophils # (A) 3.7 k/uL (1.3-7.7); Neutrophils % (A) 67 %; Platelet Count 197 k/uL (150-450); RBC 4.37 m/uL (3.80-5.40); RDW 12.9 % (11.5-15.5); WBC 5.6 k/uL (3.8-10.6)
[2022-07-23 18:12] LABS: ALT 25 U/L (4-34); AST 34 U/L (14-36); African American GFR (CKD) >90 (>60 ml/min/1.73 sqM); Albumin 4.5 g/dL (3.5-5.0); Alkaline Phosphatase 99 U/L (38-126); Anion Gap 5 mmol/L; Blood Urea Nitrogen 18 mg/dL (7-17); Calcium 9.1 mg/dL (8.4-10.2); Carbon Dioxide 29 mmol/L (22-30); Chloride 103 mmol/L (98-107); Glucose 119 mg/dL (74-99); Non-African American GFR(CKD) 78 (>60 ml/min/1.73 sqM); Potassium 4.1 mmol/L (3.5-5.1); Sodium 137 mmol/L (137-145); Total Bilirubin 0.4 mg/dL (0.2-1.3); Total Protein 7.7 g/dL (6.3-8.2)
[2022-07-23 18:22] VITALS: RESP 18
[2022-07-23 18:23] LABS: Prothrombin Time 10.5 sec (9.0-12.0)
--- NOTE | 2022-07-23 18:55 | XR ---
EXAMINATION TYPE: XR chest 2V DATE OF EXAM: 07/23/2022 6:39 PM COMPARISON: Chest radiographs from 12/06/2020 TECHNIQUE: XR chest 2V Frontal and lateral views of the chest. CLINICAL INDICATION:Female, 81 years old with history of dizziness; FINDINGS: Lungs/Pleura: Prominent interstitial lung markings are seen scattered throughout the lungs with paddy ening of the diaphragm and increased lucency of the lung apices. No evidence of focal consolidation, pneumothorax or pleural effusion. Pulmonary vascularity: Unremarkable. Heart/mediastinum: Cardiomediastinal silhouette is unremarkable. Post aortic valve repair changes. L eft atrial appendage occlusion device is present. Musculoskeletal: No acute osseous pathology. Other findings: None IMPRESSION: 1. No acute cardiopulmonary disease process. 2. COPD changes.
--- NOTE | 2022-07-23 18:56 | CT ---
EXAMINATION TYPE: CT brain wo con CT DLP: 1090.4 mGycm, Automated exposure control for dose reduction was used. DATE OF EXAM: 07/23/2022 6:48 PM COMPARISON: None. CLINICAL INDICATION:Female, 81 years old with history of dizziness, dizziness TECHNIQUE: Brain: Axial CT images of the brain were obtained with coronal and sagittal reformats created and rev iewed. Contrast used: None. Oral contrast used: None. FINDINGS: Brain: Extra-axial spaces: No abnormal extra-axial fluid collections. Ventricular system: Dilatation in proportion to cerebral atrophy. Cerebral parenchyma: Cerebral atrophy. No acute intraparenchymal hemorrhage or mass effect. The byrd -white junction is well differentiated. Scattered hypoattenuating areas are seen within the white mat ter. Cerebellum: Unremarkable. Mass effect: No evidence of midline shift. Intracranial vasculature: Atherosclerotic calcifications of the intracranial vessels. Soft tissues: Normal. Calvarium/osseous structures: No depressed skull fracture. Paranasal sinuses and mastoid air cells: Mild scattered paranasal sinus disease. Visualized orbits: Senile calcific scleral plaques are present. IMPRESSION: 1. No acute intracranial process. 2. Nonspecific white matter changes, likely secondary to chronic small vessel ischemic disease.
[2022-07-23 19:59] LABS: Appearance,Urine Cloudy (Clear); Bacteria,Urine Moderate /hpf; Bilirubin,Urine Negative (Negative); Blood,Urine Negative (Negative); Color,Urine Yellow; Glucose,Urine (UA) Negative (Negative); Hyaline Casts,Urine 4 /lpf (0-2); Ketones,Urine Trace (Negative); Leukocyte Esterase,Urine Small (Negative); Mucus,Urine Rare /hpf; Nitrite,Urine Positive (Negative); Protein,Urine Trace (Negative); RBC,Urine 2 /hpf (0-5); Specific Gravity,Urine 1.018 (1.001-1.035); Squamous Epithelial Cell,Urine <1 /hpf (0-4); Urobilinogen,Urine <2.0 mg/dL (<2.0); WBC,Urine 11 /hpf (0-5)
[2022-07-23 20:17] VITALS: BP 130/70; PULSE 71
[2022-07-23] MEDS ORDERED: CEPHALEXIN 500 MG CAP PO STA (20:37)
== END 2022-07-23 21:02 | disposition home or self-care (01) ==
LOC: EC 16:45
DX: N39.0 Urinary tract infection, site not specified (principal); Z86.718 Personal history of other venous thrombosis and embolism; E78.5 Hyperlipidemia, unspecified; I10 Essential (primary) hypertension; M19.90 Unspecified osteoarthritis, unspecified site; E07.9 Disorder of thyroid, unspecified; Z88.5 Allergy status to narcotic agent; Z79.890 Hormone replacement therapy; Z79.899 Other long term (current) drug therapy
CPT/HCPCS: 99285; 96374; 96361; 36415; 93005; 80053; 83605; 84484; 85025; 85610; 81001; 87086; 87077; 87186; 71046; 70450; 99284; J2765

== ENCOUNTER → 2022-08-03 | Outpatient (CLI) | payer MEDICARE ==
[2022-08-03 12:31] LABS: Chol/HDL Ratio 1.96 Ratio; LDL Cholesterol,Calculated 55.2 mg/dL (0.0-131.0)
[2022-08-03 13:00] LABS: Basophils # (A) 0.08 X 10*3/uL (0.00-0.10); Basophils % (A) 1.3 %; Eosinophils # (A) 0.27 X 10*3/uL (0.04-0.35); Eosinophils % (A) 4.2 %; HCT 42.6 % (37.2-46.3); HGB 13.4 g/dL (12.0-15.0); Immature Grans, Automated 0.6 %; Lymphocytes # (A) 1.69 X 10*3/uL (0.90-5.00); Lymphocytes % (A) 26.5 %; MCH 30.7 pg (27.0-32.0); MCHC 31.5 g/dL (32.0-37.0); MCV 97.7 fL (80.0-97.0); Mean Platelet Volume 10.5 fL (9.5-12.2); Monocytes # (A) 0.45 X 10*3/uL (0.20-1.00); Monocytes % (A) 7.1 %; NRBC Per 100 WBC 0 /100 WBCS (0.0-0.0); Neutrophils # (A) 3.84 X 10*3/uL (1.80-7.70); Neutrophils % (A) 60.3 %; Platelet Count 225 X 10*3/uL (140-440); RBC 4.36 X 10*6/uL (4.10-5.20); RDW 13.2 % (11.5-14.5); WBC 6.37 X 10*3/uL (4.50-10.00)
[2022-08-03 13:01] LABS: ALT 17 U/L (8-44); AST 39 U/L (13-35); African American GFR (CKD) 68.5 (60.0-200.0); Albumin/Globulin Ratio 1.21 (1.60-3.17); Alkaline Phosphatase 90 U/L (41-126); BUN/Creat Ratio 13.56 Ratio (12.00-20.00); Blood Urea Nitrogen 12.2 mg/dL (9.0-27.0); Calcium 9.5 mg/dL (8.7-10.3); Carbon Dioxide 23.3 mmol/L (20.0-27.5); Chloride 105 mmol/L (96-109); Globulin 3.3 g/dL (1.6-3.3); Glucose 91 mg/dL (70-110); Non-African American GFR(CKD) 59.1 (60.0-200.0); Potassium 4.1 mmol/L (3.5-5.5); Sodium 140 mmol/L (135-145); Total Protein 7.3 g/dL (6.2-8.2)
[2022-08-03 13:17] LABS: Erythrocyte Sedimentation Rate 20 mm/Hr (0-30)
== END | disposition home or self-care (01) ==
LOC: LABWHC1 06:41
PROVIDERS: ATTEND Family Medicine
DX: Z00.01 Encounter for general adult medical examination with abnormal findings (principal); I34.1 Nonrheumatic mitral (valve) prolapse; I50.32 Chronic diastolic (congestive) heart failure; E78.5 Hyperlipidemia, unspecified; D51.9 Vitamin B12 deficiency anemia, unspecified; E03.9 Hypothyroidism, unspecified; E55.9 Vitamin D deficiency, unspecified
CPT/HCPCS: 36415; 80053; 80061; 82306; 82607; 83880; 84439; 84443; 85025; 85652

== ENCOUNTER → 2023-01-15 | Outpatient (CLI) | payer MEDICARE ==
--- NOTE | 2023-01-15 19:19 | BD ---
EXAMINATION TYPE: Axial Bone Density DATE OF EXAM: 01/15/2023 CLINICAL HISTORY: 82 year old Female. ICD-10 CODE: M81.0 OSTEOPOROSIS Height: 62 Weight: 121.6 FRAX RISK QUESTIONS: Alcohol (3 or more units per day): no Family History (Parent hip fracture): no Glucocorticoids (More than 3mos): no (Ex: prednisone, prednisolone, methylprednisolone, dexamethasone, and hydrocortisone). History of Fracture in Adulthood: yes Secondary Osteoporosis: 1. Type 1 Diabetes: no 2. Hyperthyroidism: no 3. Menopause before 45: no 4. Malnutrition: no 5. Chronic liver disease: no Rheumatoid Arthritis: no Current Tobacco Use: no RISK FACTORS HISTORY OF: Surgery to Spine/Hip(right/left)/Wrist (right/left): no Family History of Osteoporosis: no Active: no Diet low in dairy products/other sources of calcium: no Postmenopausal woman: yes Lost more than 2 inches in height since high school: yes MEDICATIONS: Thyroid Medications: thyroid How Lon years Osteoporosis Medications: stopped taking 5 years ago Additional Medications: Additional History: EXAM MEASUREMENTS: Bone mineral densitometry was performed using the [employer] System. Bone mineral density as measured about the Lumbar spine is: ----- L1-L4(G/cm2): 0.738 T Score Values are as follows: ----- L1: -3.9 ----- L2: -4.3 ----- L3: -3.5 ----- L4: -3.1 ----- L1-L4: -3.7 Z Score Values are as follows: ----- L1: -1.7 ----- L2: -2.1 ----- L3: -1.3 ----- L4: -0.9 ----- L1-L4: -1.5 Bone mineral density has: decreased -10.5 % since study of: 01.06.2018 Bone mineral density about the R hip (g/cm2): 0.572 Bone mineral density about the L hip (g/cm2): 0.489 T Score values are as follows: -----R Neck: -2.3 -----L Neck: -3.3 -----R Total: -3.5 -----L Total: -4.0 Z Score values are as follows: -----R Neck: 0.2 -----L Neck: -0.7 -----R Total: -1.0 -----L Total: -1.7 Bone mineral density has: decreased -7.3 % since study of: 7.2018 FRAX%s: The graph provided illustrates a 34.1% chance for a major osteoporotic fx and a 14.8% chance for the hips probability for fx in 10 years time. IMPRESSION: Osteoporosis (T Score less than -2.5). There is increased fracture risk and therapy is usually indicated based on age. Re-Screen 1-2 years. NOTE: T-SCORE=SD OF THE YOUNG ADULT MEAN.
== END | disposition home or self-care (01) ==
LOC: RADBDWWP 08:21
PROVIDERS: ATTEND Family Medicine
DX: M81.0 Age-related osteoporosis without current pathological fracture (principal); M85.89 Other specified disorders of bone density and structure, multiple sites
CPT/HCPCS: 77080

== ENCOUNTER → 2023-04-23 | Outpatient (CLI) | payer MEDICARE ==
[2023-04-23 10:30] LABS: INR 0.9 (<1.2); Partial Thromboplastin Time 23.3 sec (22.0-30.0); Prothrombin Time 10.5 sec (10.0-12.5)
[2023-04-23 16:13] LABS: ALT 22 U/L (8-44); AST 22 U/L (13-35); Albumin 4.5 d/dL (3.8-4.9); Albumin/Globulin Ratio 1.73 Ratio (1.60-3.17); Alkaline Phosphatase 84 U/L (41-126); BUN/Creat Ratio 28.29 Ratio (12.00-20.00); Blood Urea Nitrogen 19.8 mg/dL (9.0-27.0); Calcium 9.7 mg/dL (8.7-10.3); Carbon Dioxide 26.6 mmol/L (21.6-31.8); Chloride 107 mmol/L (96-109); Globulin 2.6 d/dL (1.6-3.3); Glucose 83 mg/dL (70-110); Magnesium 1.9 mg/dL (1.5-2.4); Potassium 4.4 mmol/L (3.5-5.5); Sodium 144 mmol/L (135-145); T4, Free (Free Thyroxine) 1.54 ng/dL (0.80-1.80); Total Bilirubin 0.2 mg/dL (0.3-1.2); Total Protein 7.1 d/dL (6.2-8.2)
[2023-04-23 16:22] LABS: Appearance,Urine Clear (Clear); Bilirubin,Urine Negative (Negative); Blood,Urine Trace (Negative); Color,Urine Yellow (Yellow); Ketones,Urine Negative (Negative); Nitrite,Urine Negative (Negative)
[2023-04-23 16:27] LABS: Bacteria,Urine None Seen (None Seen)
[2023-04-23 17:20] LABS: Microalbumin Creatinine Ratio <9 mg/g Cr (0-30)
[2023-04-23 18:44] LABS: Basophils # (A) 0.07 X 10*3/uL (0.00-0.10); Basophils % (A) 1.2 %; Eosinophils # (A) 0.18 X 10*3/uL (0.04-0.35); HCT 43.9 % (37.2-46.3); HGB 13.5 d/dL (12.0-15.0); Lymphocytes # (A) 1.25 X 10*3/uL (0.90-5.00); MCH 30.5 pg (27.0-32.0); MCHC 30.8 d/dL (32.0-37.0); MCV 99.1 FL (80.0-97.0); Mean Platelet Volume 10.5 FL (9.5-12.2); Monocytes # (A) 0.35 X 10*3/uL (0.20-1.00); Monocytes % (A) 5.9 %; NRBC Per 100 WBC 0 X 10*3/uL (0.00-0.01); Neutrophils # (A) 4.09 X 10*3/uL (1.80-7.70); Neutrophils % (A) 68.6 %; Platelet Count 223 X 10*3/uL (140-440); RBC 4.43 X 10*6/uL (4.10-5.20); RDW 13.1 % (11.5-14.5); WBC 5.96 X 10*3/uL (4.50-10.00)
== END | disposition home or self-care (01) ==
LOC: LABPAT 07:39
PROVIDERS: ATTEND Orthopaedic Surgery
DX: Z01.812 Encounter for preprocedural laboratory examination (principal); I34.1 Nonrheumatic mitral (valve) prolapse; I49.5 Sick sinus syndrome; E03.9 Hypothyroidism, unspecified
CPT/HCPCS: 80053; 81001; 82043; 82570; 83735; 84439; 84443; 85025; 85610; 85730; 86850; 86900; 86901; 87070; 87086

== ENCOUNTER → 2023-04-24 | Outpatient (CLI) | payer MEDICARE ==
--- NOTE | 2023-04-24 23:16 | XR ---
EXAMINATION TYPE: XR chest 2V DATE OF EXAM: 04/24/2023 COMPARISON: 07/23/2022 INDICATION: Presurgical clearance for hip replacement TECHNIQUE: Frontal and lateral views of the chest are obtained. FINDINGS: The heart size is normal. Prior cardiac valve surgery is evident. The pulmonary vasculature is normal. The lungs are clear. IMPRESSION: 1. No acute pulmonary process.
== END | disposition home or self-care (01) ==
LOC: RADXRMAIN 11:25
PROVIDERS: ATTEND Family Medicine
DX: Z01.818 Encounter for other preprocedural examination (principal)
CPT/HCPCS: 71046

== ENCOUNTER 2023-05-06 07:17 | Day surgery (SDC) | payer MEDICARE ==
[2023-05-01 13:27] VITALS: BMI 22.8
[~2023-05-06 07:17] MED LIST changes: +ACETAMINOPHEN TAB 500 MG TAB PO PRN; -ALBUMIN HUMAN 25% 50 ML IV ONE; -ALBUMIN HUMAN 5% 500 ML IVPB ONE; -ASPIRIN 325 MG TAB PO ONE; -ATORVASTATIN 10 MG TAB PO ONE; -CALCIUM CHLORIDE 100 MG/ML 10 ML SYRINGE IV ONE; -CARDIOPLEGIC SOLN (K+ 16 MEQ/L 1,000 ML with SODIUM BICARB (1 MEQ/ML) 20 ML, LIDOCAINE ... PERFUSION ONE; -CHLORHEXIDINE GLUCONATE 15 ML CUP MUCOUS MEM ONE; -CLEVIDIPINE BUTYRATE 25 MG in EMPTY BAG 1 BAG IV ONE; +DEXAMETHASONE SOD PHOSPHATE 4 MG/ML 1 ML VIAL IV ONE; +GABAPENTIN 300 MG CAP PO PRN; -HEPARIN SODIUM 1,000 UN/ML (10ML VL) IV ONE; -HEPARIN SODIUM,PORCINE 5,000 UNIT in SODIUM CHLORIDE 0.9% 500 ML 500 ML IV ONE; +HYDROmorphone 0.5 MG/0.5 ML SYRINGE IVP PRN; -INSULIN REGULAR 100 UNIT in SODIUM CHLORIDE 0.9% 100 ML IV ONE; -LACTATED RINGERS 1,000 ML IV ONE; -MAGNESIUM SULFATE MG 500 MG/ML IV ONE; -MANNITOL 25% 12.5 GM/50 ML VIAL IV ONE; +MELOXICAM 7.5 MG TAB PO PRN; -METOPROLOL TARTRATE 12.5 MG TAB PO ONE; -NITROGLYCERIN SL TABS 0.4 MG TAB SUBLINGUAL ONE; -NITROGLYCERIN-D5W PMX 25 MG/250 ML BTL IV ONE; -NITROGLYCERIN-D5W PMX 50 MG in DEXTROSE/WATER 1 250ML.BAG IV ONE; -NOREPINEPHRINE 4 MG in SODIUM CHLORIDE 0.9% 250 ML IV ONE; +ONDANSETRON 4 MG/2 ML VIAL IVP ONE; -PAPAVERINE 360 MG in SODIUM CHLORIDE 0.9% 90 ML IV ONE; -PHENYLEPHRINE 10 MG/ML VIAL IV ONE; -PHENYLEPHRINE 40 MG in SODIUM CHLORIDE 0.9% 250 ML IV ONE; -PROTAMINE SULFATE 10 MG/ML 25 ML VIAL IV ONE; -PROTAMINE SULFATE 250 MG in EMPTY BAG 1 BAG IV ONE; -SODIUM BICARB 8.4% 50 ML SYR (1 MEQ/ML) IV ONE; -SODIUM CHLORIDE 0.9% 1,000 ML IV ONE; +TRANEXAMIC 1,000 MG/100ML-NACL 1,000 MG in SALINE 1 100ML.BAG IVPB PRN; -TRANEXAMIC ACID 2,000 MG in SODIUM CHLORIDE 0.9% 80 ML IV ONE; -ceFAZolin 1,000 MG in SODIUM CHLORIDE 0.9% IRRIGATIO 1,000 ML IRRIGATION ONE; -propofoL 1,000 MG/100 ML VIAL IV ONE
[2023-05-06] MEDS: LACTATED RINGERS 1,000 ML IV SCH (08:04)
[2023-05-06] MEDS ORDERED: MIDAZOLAM 2 MG/2 ML VIAL IVP ONE (08:55)
[2023-05-06] MEDS ORDERED: HYDROmorphone 0.5 MG/0.5 ML SYRINGE IVP PRN ×2 (09:20)
[2023-05-06] MEDS ORDERED: MAGNESIUM HYDROXIDE 2,400 MG/30 ML CUP PO PRN (09:20)
[2023-05-06] MEDS ORDERED: ONDANSETRON 4 MG/2 ML VIAL IVP PRN (09:20)
[2023-05-06] MEDS ORDERED: NALOXONE 0.4 MG/ML 1 ML VIAL IV PRN (09:20)
[2023-05-06] MEDS ORDERED: HYDROcodone/APAP 7.5-325MG 1 EACH TAB PO PRN (09:22)
[2023-05-06] MEDS ORDERED: DEXAMETHASONE SOD PHOSPHATE 4 MG/ML 1 ML VIAL ONE (09:33)
[2023-05-06] MEDS ORDERED: PROPOFOL 10 MG/ML 20 ML VIAL IV ONE (09:33)
[2023-05-06] MEDS ORDERED: PHENYLEPHRINE 10 MG/ML 5 ML VIAL ONE (09:33)
[2023-05-06] MEDS ORDERED: ePHEDrine 50 MG/ML 1 ML VIAL ONE (09:33)
[2023-05-06] MEDS ORDERED: TRANEXAMIC 1,000 MG/100ML-NACL PREMIX BAG ONE (09:33)
[2023-05-06] MEDS ORDERED: ROPIVACAINE 5 MG/ML 30 ML VIAL ONE (09:33)
[2023-05-06] MEDS ORDERED: ceFAZolin 1,000 MG in SODIUM CHLORIDE 0.9% 1,000 ML IRRIGATION ONE (09:58)
[2023-05-06] MEDS ORDERED: ROPIVACAINE 5 MG/ML 30 ML VIAL MISCELLANE ONE ×2 (10:10→10:46)
--- NOTE | 2023-05-06 10:52 | P.OP ---
Date of Procedure: 05/06/23 Preoperative Diagnosis: Severe osteoarthritis right hip Postoperative Diagnosis: Severe osteoarthritis right hip Procedure(s) Performed: Right total hip arthroplasty with a direct anterior approach Implants: [employer] Polarstem standard size 7 with a collar [employer]hew R3, multi hole hemispherical acetabular shell, 52 mm [employer]hew Reflection 6.5 mm cancellus screw, 20 mm 2, 15 mm [employer]hew R3, XLPE 20 acetabular liner [employer] Nephew Oxinium femoral head 36 m, +4 All components were press-fit. The articulation is Oxinium on polyethylene. Anesthesia: spinal Surgeon: Charles Yo [place]rier #1: Shannan Dailey Estimated Blood Loss (ml): 400 Pathology: none sent Condition: stable Disposition: PACU Indications for Procedure: After failure of conservative treatment we discussed the surgical and nonsurgical treatment options at length. Patient wishes to proceed with a total hip arthroplasty with a direct anterior approach. Complications specific to this procedure were discussed at length, including but not limited to infection, leg length discrepancy, dislocation, nerve injury, and fracture. Covid-19 was also discussed at length with the patient, and they are aware of the current policies and procedures. The patient was given the option of delaying surgery, but they elect to proceed knowing these risks. Patient is aware of all these complications and informed consent was obtained Operative Findings: The operative findings are consistent with severe osteoarthritis of the right hip Description of Procedure: The patient was seen and evaluated in the preoperative area and the consent was reviewed. The operative site was marked with a skin marker. The patient verified the procedure and operative site. A ELIU block was placed by anesthesia in the preoperative area. The patient was then brought to the operating room and given preoperative antibiotics intravenously. 1 g of Tranexamic acid was also given intravenously. A spinal anesthetic was administered by the anesthesia department. The patient was then placed on the Delta table with the bony prominences well-padded. The hip area was then prepped with a ChloraPrep solution and draped in the usual sterile fashion. A universal timeout was then performed, which confirmed the patient's name, surgical site, ALLERGIES, and procedure being performed on the consent. Next the incision site was located at 1 cm distal and 4 cm lateral to the anterior superior iliac spine. The skin and subcutaneous tissues were sharply incised. Incision was carefully dissected down to the fascia overlying the tensor fascia fernando muscle. This fascia was then incised in line with the muscle fibers. Care was taken to stay laterally in order to avoid injuring the lateral femoral cutaneous nerve. Next, using blunt finger dissection, the tensor fascia fernando muscle was dissected off its investing fascia. The muscle was then carefully retracted laterally with a cobra retractor over the lateral neck of the femur. Next, the circumflex vessels were identified and cauterized using the Aquamantis device. The anterior hip capsule was then exposed. The capsule was then opened and an inverted T fashion. The retractors were then placed intracapsularly. The retractors were maintained intracapsular throughout the procedure. The proximal femur was then visualized. Fluoroscopic x-rays were then taken in order to evaluate the preoperative leg lengths. A small amount of traction was placed on the leg. The femoral neck was then osteotomized at the appropriate level above the lesser trochanter. A small wedge of bone was then removed from the remaining femoral head. Next, using a corkscrew the femoral head was removed from the acetabulum. On gross visual inspection, the femoral head had complete loss of articular cartilage and multiple periarticular osteophytes. The femoral head was then measured. Attention was then turned to the acetabulum. The acetabulum was exposed and any remaining labrum was excised. Sequential reaming of the acetabulum was performed using fluoroscopic guidance until there was a good bed of bleeding cancellus bone. When the appropriate size was reached, a trial was then placed. The position and fit of the trial was checked with fluoroscopy. The trial was then removed. Then, using fluoroscopic guidance, the final implant was impacted at 20 of anteversion and 40 of abduction, and fully seated in the acetabulum. 3 screws were then placed in the acetabulum. Again fluoroscopy was used to check position of the screws. Next, the liner was then impacted, with a 20 elevated liner located in the anterior superior quadrant. Component locking was confirmed. Attention was then directed to the femur. With the aid of the Delta table, the femur was externally rotated to approximately 130, extended, and adducted under the opposite leg. A side hook was then placed under the proximal femur, and the side hook elevator was used to elevate the proximal femur while releasing the capsule. Retractors were then placed. A capsular release was performed, as well as a release of the conjoined tendon, which afforded excellent visualization of the proximal femur. Next, a box osteotome was used to lateralize the proximal femur. A pet handler was then used to locate the femoral canal. Sequential broaching was then performed with appropriate size which afforded excellent fixation in the proximal femur. A trial was then placed with appropriate head and neck, and the hip was gently reduced with the aid of the Delta table. Fluoroscopy was then used to check position of the components, as well as to evaluate the leg lengths and offset. The leg lengths and offset were measured as closely as possible to ensure stability of the hip. The hip was then gently dislocated and the trials were then removed. Final implants were then impacted and the hip was again reduced. Final fluoroscopic x-rays confirmed that the components were in anatomic position. The leg lengths and offset were measured and were found to coincide with the trial measurements. The hip was also taken through range of motion, and found to be stable. The hip was then copiously irrigated with antibiotic solution with pulsatile lavage. The hip was then irrigated with Irrisept solution. The soft tissues were then injected with a ropivacaine solution. A second dose of 1 g of Tranexamic acid was also given intravenously. The fascia was then closed with 2-0 strata fix suture. The subcutaneous tissue was closed with 3-0 Vicryl. The subcuticular tissue was closed with 3-0 strata fix suture. The skin was then closed with Exofin skin glue. After the glue and dried, and Optifoam silver impregnated dressing was applied. The patient was then transferred to the recovery room in stable condition. The assistant professor of german RADHA Summers was required due to the complexity of surgery, and the need for skilled assistant grocery store manager for positioning, draping, exposure, retraction, and closure of the wound.
[2023-05-06] MEDS ORDERED: LACTATED RINGERS 1,000 ML IV ONE (10:56)
--- NOTE | 2023-05-06 11:36 | XR ---
EXAMINATION TYPE: XR Hip Limited RT DATE OF EXAM: 05/06/2023 COMPARISON: 03/03/2020 HISTORY: Postop replacement TECHNIQUE: AP right hip FINDINGS: There is placement of a right femoral prosthesis with acetabular component. No acute fractu res or dislocations are evident. Postsurgical soft tissue changes are noted IMPRESSION: 1. No acute fractures Postop right hip replacement.
--- NOTE | 2023-05-06 13:30 | XR ---
Intraoperative/procedural fluoroscopic services were provided. Total fluoroscopy time is 56 seconds w ith a total of 4 submitted images to PACS. Please see the operative/procedural note for further detai ls. DAP: 2.3103 Gycm2
[2023-05-06] MEDS: SODIUM CHLORIDE 0.9% 1,000 ML IV SCH (14:06)
[2023-05-06] MEDS: HYDROcodone/APAP 7.5-325MG 1 EACH TAB PO PRN (14:12)
--- NOTE | 2023-05-06 15:18 | P.ANPRN ---
Procedure Note - Anesthesia - Nerve Block Performed Right Manuel Single Time Out Performed: Yes Date of Procedure: 05/06/23 Procedure Start Time: 08:54 Procedure Stop Time: 08:58 Location of Patient: PreOp Indication: Acute Post-Operative Pain, Requested by Surgeon Sedation Type: Sedate with meaningful contact maintained Preparation: Sterile Prep Position: Supine Needle Types: Pajunk Needle Gauge: 21 Ultrasound used to visualize needle placement: Yes Ultrasound used to observe medication spread: Yes Blood Aspirated: No Pain Paresthesia on Injection Noted: No Resistance on Injection: Normal Image Stored and Saved: Yes Events: Uneventful and Well Tolerated (ropi .5% 20cc plus dexamethasone 4mg)
[2023-05-06] MEDS: HYDROmorphone 0.5 MG/0.5 ML SYRINGE IVP PRN ×2 (17:00→21:02)
[2023-05-06] MEDS ORDERED: SENNOSIDES-DOCUSATE SODIUM 1 EACH TAB PO SCH (21:00)
[2023-05-06] MEDS: DORZOLAMIDE HCL 2% DROPS 10 ML BTL LEFT EYE SCH (21:04)
[2023-05-07] MEDS: HYDROcodone/APAP 7.5-325MG 1 EACH TAB PO PRN ×3 (00:35→11:12)
[2023-05-07] MEDS: SODIUM CHLORIDE 0.9% 1,000 ML IV SCH (02:16)
[2023-05-07] MEDS: HYDROmorphone 0.5 MG/0.5 ML SYRINGE IVP PRN (03:55)
[2023-05-07] MEDS: LACTATED RINGERS 1,000 ML IV SCH (06:04)
[2023-05-07] MEDS ORDERED: LEVOTHYROXINE 25 MCG TAB PO SCH (06:30)
[2023-05-07] MEDS ORDERED: APIXABAN 2.5 MG TABLET PO SCH (09:00)
[2023-05-07] MEDS ORDERED: METOPROLOL SUCCINATE (ER) 25 MG TAB.ER.24H PO SCH (09:00)
[2023-05-07 09:02] VITALS: BP 100/63; PULSE 72; RESP 16; TEMP 98.4
[2023-05-07] MEDS: DORZOLAMIDE HCL 2% DROPS 10 ML BTL LEFT EYE SCH (09:13)
--- NOTE | 2023-05-07 09:19 | P.DS ---
Providers Expected date of discharge: 05/07/23 Attending physician: Charles Yo Consults: 05/06/23 18:29 Consult Physician Routine Consulting Provider: Sarah Madrigal Consult Reason/Comments: medical managment Do you want consulting provider notified?: Yes Primary care physician: Tomeka Knappo - Discharge Diagnosis(es) (1) Osteoarthritis of right hip Current Visit: Yes Status: Acute (2) S/P total hip arthroplasty Current Visit: Yes Status: Acute Hospital Course: This is a 82-year-old female with known history of degenerative arthritis of the right hip. The patient presented for evaluation as an outpatient. After discussion and consideration patient elects to proceed with total hip arthroplasty. The patient is seen preoperatively by Dr. Yo and medically cleared for surgery by their primary care physician. Patient is admitted to [facility] on 05/06/2023 for total hip arthroplasty. The procedure is performed without complication or sequelae. The patient is doing well postoperatively. Labs and vital signs are stable on day of discharge. On day of discharge patient's hip incision is healing well. There is minimal erythema. There is no drainage noted at this time. There is minimal soft tissu e swelling to the hip and thigh. Patient has full foot and ankle motion without difficulty or pain. Calf is soft and nontender to palpation. Neurovascular status to the right lower extremity is intact. Patient is discharged home in good condition. Please see med rec for accurate list of home medications. Plan - Discharge Summary Discharge Rx Participant: No New Discharge Prescriptions: New Apixaban [Eliquis] 2.5 mg PO BID 35 Days #70 tab Sennosides [Senokot] 2 tab PO DAILY PRN #60 tablet PRN Reason: Constipation HYDROcodone/APAP 7.5-325MG [[place] 7.5-325] 1 - 2 tab PO Q6H PRN #32 tab PRN Reason: Pain No Action Metoprolol Succinate (ER) [Toprol Xl] 25 mg PO QAM Dorzolamide HCl/Pf [Dorzolamide 2% Eye Drop] 1 drop LEFT EYE BID Levothyroxine Sodium 25 mcg PO QAM traMADol HCL [Ultram] 50 mg PO Q8H PRN PRN Reason: Pain Aspirin [Adult Low Dose Aspirin EC] 81 mg PO DAILY Discharge Medication List traMADol HCL [Ultram] 50 mg PO Q8H PRN 11/03/20 [History] Dorzolamide HCl/Pf [Dorzolamide 2% Eye Drop] 1 drop LEFT EYE BID 07/23/22 [History] Metoprolol Succinate (ER) [Toprol Xl] 25 mg PO QAM 07/23/22 [History] Aspirin [Adult Low Dose Aspirin EC] 81 mg PO DAILY 05/01/23 [History] Levothyroxine Sodium 25 mcg PO QAM 05/01/23 [History] Apixaban [Eliquis] 2.5 mg PO BID 35 Days #70 tab 05/06/23 [Rx] HYDROcodone/APAP 7.5-325MG [[place] 7.5-325] 1 - 2 tab PO Q6H PRN #32 tab 05/06/23 [Rx] Sennosides [Senokot] 2 tab PO DAILY PRN #60 tablet 05/06/23 [Rx] Follow up Appointment(s)/Referral(s): Charles Yo DO [Doctor of Osteopathic Medicine] - 2 Weeks Activity/Diet/Wound Care/Special Instructions: Weightbearing as tolerated with walker. Leave dressing intact. Dressing may be removed by home care nurse or by patient in 7 days. Then change dressing twice daily until follow up. May shower with initial dressing intact and after removal. If dressing become saturated, please remove. Please take Eliquis twice daily for 30 days to help prevent blood clots. Recommend use of compression stockings daily until follow up to help prevent swelling and blood clots. May remove at night before sleeping. Please follow-up with [facility] in 2 weeks and call with any questions or concerns, . Discharge Disposition: HOME WITH HOME HEALTH SERVICES
--- NOTE | 2023-05-07 09:52 | P.CONS ---
History of Present Illness - Reason for Consult Postoperative hypotension - History of Present Illness 82-year-old pleasant female admitted for right hip arthroplasty is doing well post surgery pain is well-controlled patient is being discharged today patient had history of DVT in the past and an being discharged on eliquis. Patient was on aspirin at home but had a history of mitral valve repair but never had any stents in the past had history of catheterization in the past. Patient denied any fever chills patient blood pressures are low which is expected postsurgery patient takes metoprolol with well-controlled heart rate but low blood pressure. REVIEW OF SYSTEMS: CONSTITUTIONAL: No fever, no malaise, no fatigue. HEENT: No recent visual problems or hearing problems. Denied any sore throat. CARDIOVASCULAR: No chest pain, orthopnea, PND, no palpitations, no syncope. PULMONARY: No shortness of breath, no cough, no hemoptysis. GASTROINTESTINAL: No diarrhea, no nausea, no vomiting, no abdominal pain. NEUROLOGICAL: No headaches, no weakness, no numbness. HEMATOLOGICAL: Denies any bleeding or petechiae. GENITOURINARY: Denies any burning micturition, frequency, or urgency. MUSCULOSKELETAL/RHEUMATOLOGICAL: Denies any joint pain, swelling, or any muscle pain. ENDOCRINE: Denies any polyuria or polydipsia. The rest of the 14-point review of systems is negative. PHYSICAL EXAMINATION: GENERAL: The patient is alert and oriented x3, not in any acute distress. Thin built HEENT: Pupils are round and equally reacting to light. EOMI. No scleral icterus. No conjunctival pallor. Normocephalic, atraumatic. No pharyngeal erythema. No thyromegaly. CARDIOVASCULAR: S1 and S2 present. No murmurs, rubs, or gallops. Loud heart sounds predominantly in I aortic area and also in the mitral area PULMONARY: Chest is clear to auscultation, no wheezing or crackles. ABDOMEN: Soft, nontender, nondistended, normoactive bowel sounds. No palpable organomegaly. MUSCULOSKELETAL: Deferred to orthopedic surgery EXTREMITIES: No cyanosis, clubbing, or pedal edema. NEUROLOGICAL: Gross neurological examination did not reveal any focal deficits. SKIN: No rashes. Assessment and plan -Postoperative hypertension: Expected no changes in the blood pressure medications are being made patient only takes metoprolol holding of metoprolol because reflex tachycardia because of which have not holding this medication patient was asked to be careful when she gets up and this is expected to improve in the day 2 -History of DVT in the past patient is being discharged on anticoagulation prophylactically post hip surgery which is appropriate holding of aspirin is appropriate but it to be resumed once the anticoagulation is discontinued -Hypothyroidism -Mitral valvular disease -Degenerative arthritis primary multi-joint Patient is medical stable to be discharged and no medication changes are being made at this time Past Medical History Past Medical History: Chest Pain / Angina, Deep Vein Thrombosis (DVT), Eye Disorder, Hearing Disorder / Deafness, Musculoskeletal Disorder, Osteoarthritis (OA), Thyroid Disorder Additional Past Medical History / Comment(s): Degenerative Disc Disease, spondylithosis, migraines, hx kidney stones, "small vessel heart disease", heart murmur, hx phlebitis yrs ago, "leaky valves", "feel winded all the time, tired", hx DVT leg after travelling, glaucoma, some trouble hearing. History of Any Multi-Drug Resistant Organisms: None Reported Past Surgical History: Heart Catheterization, Hysterectomy, Joint Replacement Additional Past Surgical History / Comment(s): Bilateral knee replacements, bilateral cataract surgery, left eye surgery, tendon repair right hand, mitral valve repair. Past Anesthesia/Blood Transfusion Reactions: No Reported Reaction, Motion Sickness Past Psychological History: No Psychological Hx Reported Smoking Status: Never smoker Past Alcohol Use History: None Reported Past Drug Use History: None Reported - Past Family History Father Family Medical History: Diabetes Mellitus Son(s) Family Medical History: Cancer, COPD Additional Family Medical History / Comment(s): Lung cancer. Mother Family Medical History: Coronary Artery Disease (CAD) Additional Family Medical History / Comment(s): Mother had CAD diagnosed less than 60 years old, during a heart cath at 65 years old. Medications and Allergies Home Medications Medication Instructions Recorded Confirmed Type traMADol HCL [Ultram] 50 mg PO Q8H PRN 11/03/20 05/06/23 History Dorzolamide HCl/Pf [Dorzolamide 2% 1 drop LEFT EYE BID 07/23/22 05/06/23 History Eye Drop] Metoprolol Succinate (ER) [Toprol 25 mg PO QAM 07/23/22 05/06/23 History Xl] Aspirin [Adult Low Dose Aspirin EC] 81 mg PO DAILY 05/01/23 05/06/23 History Levothyroxine Sodium 25 mcg PO QAM 05/01/23 05/06/23 History Apixaban [Eliquis] 2.5 mg PO BID 35 Days #70 tab 05/06/23 Rx HYDROcodone/APAP 7.5-325MG [[place] 1 - 2 tab PO Q6H PRN #32 tab 05/06/23 Rx 7.5-325] Sennosides [Senokot] 2 tab PO DAILY PRN #60 tablet 05/06/23 Rx Allergies Allergy/AdvReac Type Severity Reaction Status Date / Time denosumab [From Prolia] AdvReac Jaw Pain Verified 05/06/23 07:48 morphine AdvReac Itching Verified 05/06/23 07:48 Physical Exam Vitals: Vital Signs Temp Pulse Resp BP Pulse Ox 05/07/23 07:21 98.4 F 72 16 100/63 96 05/07/23 01:25 97.8 F 70 17 99/62 97 05/06/23 20:00 97.6 F 67 16 102/65 97 05/06/23 12:28 72 16 91/63 93 L 05/06/23 12:13 75 16 92/61 93 L 05/06/23 11:58 70 16 93/61 93 L 05/06/23 11:43 77 16 90/61 92 L 05/06/23 11:28 71 16 89/57 93 L 05/06/23 11:12 99 F 74 18 90/56 94 L Intake and Output 05/06/23 05/07/23 05/07/23 22:59 06:59 14:59 Intake Total 480 Balance 480 Intake: Oral 480 Other: Voiding Method Bedside Commode # Voids 2 3
[2023-05-07 10:54] LABS: Basophils # (A) 0.02 X 10*3/uL (0.00-0.10); Basophils % (A) 0.3 %; Eosinophils # (A) 0.01 X 10*3/uL (0.04-0.35); Eosinophils % (A) 0.2 %; HCT 28.2 % (37.2-46.3); Lymphocytes # (A) 1.02 X 10*3/uL (0.90-5.00); Lymphocytes % (A) 15.4 %; MCHC 31.9 d/dL (32.0-37.0); MCV 97.2 FL (80.0-97.0); Mean Platelet Volume 10.2 FL (9.5-12.2); Monocytes # (A) 0.55 X 10*3/uL (0.20-1.00); Monocytes % (A) 8.3 %; NRBC Per 100 WBC 0 X 10*3/uL (0.00-0.01); Neutrophils # (A) 5.01 X 10*3/uL (1.80-7.70); Neutrophils % (A) 75.6 %; Platelet Count 132 X 10*3/uL (140-440); RDW 12.9 % (11.5-14.5); WBC 6.62 X 10*3/uL (4.50-10.00)
== END 2023-05-07 11:35 | disposition home health service (06) ==
LOC: OR 07:17 → 4SSUR 12:05 → OR 05-07 11:35
PROVIDERS: ATTEND Orthopaedic Surgery
DX: M16.11 Unilateral primary osteoarthritis, right hip (principal); E03.9 Hypothyroidism, unspecified; I51.9 Heart disease, unspecified; I82.409 Acute embolism and thrombosis of unspecified deep veins of unspecified lower extremity; G89.18 Other acute postprocedural pain; Z79.890 Hormone replacement therapy; Z79.82 Long term (current) use of aspirin; Z79.891 Long term (current) use of opiate analgesic; Z79.899 Other long term (current) drug therapy; Z98.890 Other specified postprocedural states; Z95.4 Presence of other heart-valve replacement; Z96.653 Presence of artificial knee joint, bilateral
CPT/HCPCS: 27130; 97161; 97166; 64447; 85025; 73501; C1776; J2250; J1100; J0690 ×3; J2405; J2795; J1170 ×2

== ENCOUNTER → 2023-08-30 | Outpatient (CLI) | payer MEDICARE ==
--- NOTE | 2023-08-30 11:37 | CT ---
EXAMINATION TYPE: CT angio chest DATE OF EXAM: 08/30/2023 COMPARISON: None HISTORY: 82-year-old female SOB, R06.02 Shortness of breath; [id number] TECHNIQUE: Contiguous axial scanning of the chest after the administration of 60 mL of Isovue 370. C oronal/sagittal MIP reconstructions performed. CT DLP: 129.9mGycm. Automatic exposure control utilized for a dose reduction. FINDINGS: Old median sternotomy changes. The fixation wires have been removed. There is some chronic nonunion s uperiorly and inferiorly. Pectus excavatum deformity with some mass effect onto the right side of the heart. Heart is mildly en larged without pericardial effusion. Ectatic ascending aorta 3.9 cm. Conventional arch vessel branching anatomy. Ectatic upper descending thoracic aorta 3.2 cm in tortuous descending thoracic aorta. Mixing artifact throughout the descendin g thoracic aorta. Enlarged main right and left pulmonary arteries measuring up to 2.6 cm suggesting underlying pulmonar y artery hypertension. Satisfactory opacification of the pulmonary arterial system without evidence f or pulmonary embolus. Of 1 cm right hilar lymph node is probably reactive/post inflammatory. Otherwise, no thoracic lymph a denopathy by CT size criteria. Retained solid debris within the mid thoracic esophagus. If symptomatic or if otherwise clinically in dicated, recommend direct visualization to exclude a polypoid mucosal lesion. Bibasilar bronchiectasis with scattered reticular change and mild emphysematous change. Scattered mil d interstitial fibrosis throughout. Right middle lobe calcified granuloma. No consolidation or pleural effusion seen. Visualized upper abdomen shows no gross abnormal body. Markedly accentuated upper to mid thoracic kyphosis with bony bridging. Grade 1, nearly grade 2 anter olisthesis in the visualized upper thoracic spine from hypertrophic facet arthropathy. IMPRESSION: 1. Mild cardiomegaly and pulmonary arterial hypertension. No evidence for pulmonary embolus. Previous median sternotomy. 2. COPD with mild emphysema and concurrent interstitial fibrosis along with mild bibasilar bronchiect asis. No acute process. 3. Retained solid debris in the midthoracic esophagus. If symptomatic or if otherwise clinically chino cated, recommend direct visualization to exclude a polypoid mucosal lesion.
== END | disposition home or self-care (01) ==
LOC: RADCTMAIN 10:27
PROVIDERS: ATTEND Family Medicine
DX: I27.20 Pulmonary hypertension, unspecified (principal); I51.7 Cardiomegaly; J44.9 Chronic obstructive pulmonary disease, unspecified; J47.9 Bronchiectasis, uncomplicated; J43.9 Emphysema, unspecified; K22.89 Other specified disease of esophagus; J84.170 Interstitial lung disease with progressive fibrotic phenotype in diseases classified elsewhere; Z86.711 Personal history of pulmonary embolism
CPT/HCPCS: 71275; Q9967; 36415

== ENCOUNTER → 2023-09-16 | Outpatient (CLI) | payer MEDICARE ==
--- NOTE | 2023-09-25 13:50 | EM ---
EVENT MONITOR The patient was monitored between the and August. Baseline rhythm is sinus mechanism with normal conduction. Single PACs were noted as well as blocked PACs. No atrial fibrillation was noted. No ventricular ectopic activity was noted. MMEDEL / CARTERN: [id number] /
== END | disposition home or self-care (01) ==
LOC: RADECHMAIN 07:28
PROVIDERS: ATTEND Family Medicine
DX: I49.1 Atrial premature depolarization (principal); I49.5 Sick sinus syndrome
CPT/HCPCS: 93270

== ENCOUNTER → 2023-09-23 | Outpatient (CLI) | payer MEDICARE ==
--- NOTE | 2023-09-23 23:10 | FL ---
EXAMINATION TYPE: FL barium swallow DATE OF EXAM: 09/23/2023 COMPARISON: None HISTORY: Food getting stuck TECHNIQUE: A double air contrast esophagram study is performed. FINDINGS: There is hesitancy passing an area of narrowing just below the level of the aortic arch. On steep obl ique views this appears to have a filling defect. The more proximal esophagus is slightly patulous. M ass should be considered. Consider Mayfield's esophagitis. EGD is recommended for additional workup. The distal esophagus appears without additional filling defects. The distal esophagus has a normal ca liber. IMPRESSION: 1. There appears to be some narrowing of the esophagus below the level of the aortic arch with possib le filling defect. EGD recommended for additional evaluation.
== END | disposition home or self-care (01) ==
LOC: RADUSWWP 10:55
PROVIDERS: ATTEND Family Medicine
DX: K22.2 Esophageal obstruction (principal); R13.14 Dysphagia, pharyngoesophageal phase; Q25.49 Other congenital malformations of aorta
CPT/HCPCS: 74220

== ENCOUNTER 2023-12-18 10:58 | Day surgery (SDC) | payer MEDICARE ==
[2023-12-16 10:56] VITALS: BMI 18.6
[2023-12-18] MEDS ORDERED: LIDOCAINE 1% (10MG/ML) FOR IV START INTRADERMA PRN (11:23)
[2023-12-18] MEDS: IV FLUID CONTINUATION 1,000 ML IV ONE (11:26)
[2023-12-18 11:27] VITALS: TEMP 98.6
[2023-12-18] MEDS: LACTATED RINGERS 1,000 ML IV SCH (11:27)
[2023-12-18] MEDS ORDERED: PROPOFOL 10 MG/ML 20 ML VIAL IV ONE (11:41)
[2023-12-18] MEDS ORDERED: LIDOCAINE 1% INJ 10MG/ML (20 ML MDV) ONE (11:41)
--- NOTE | 2023-12-18 11:51 | P.PCN ---
Date of Procedure: 12/18/23 Procedure(s) Performed: BRIEF HISTORY: Patient is a 83-year-old, pleasant, white female scheduled for an upper endoscopy s for evaluation of intermittent dysphagia to solids. She had CT of the chest done in August of this year which showed some food and debris in the midesophagus. Subsequent barium esophagram did show narrowing of the midesophagus and hence she is here for an upper endoscopy to evaluate further. PROCEDURE PERFORMED: Esophagogastroduodenoscopy. PREOPERATIVE DIAGNOSIS: Intermittent dysphagia to solids and abnormal CT of the chest and barium swallow that showed possibly esophageal stricture. IV sedation per anesthesia. PROCEDURE: After informed consent was obtained, the patient was brought into the endoscopy unit. IV sedation was administered by Anesthesia under continuous monitoring. Initially the Olympus GIF-140 video endoscope was inserted into the mouth. Esophagus intubated without any difficulty. It was gradually advanced into the stomach and duodenum and carefully examined. The bulb and the second part of the duodenum appeared normal. The scope at this time was withdrawn to the stomach, adequately insufflated with air, and upon careful examination, mucosa of the antrum, body, cardia and the fundus appeared normal. The scope was then withdrawn into the esophagus. The GE junction was located at 39 cm from the incisors. Hiatal hernia noted. The esophagus5 appeared normal. There were no erosions or ulcerations seen. In the mid esophagus at approximately 25 cm from the incisors there was extrinsic compression noted most likely from left atrial enlargement but no obvious esophageal stricture identified. There was no retained food in the esophagus noted. No obvious esophageal stricture seen. The proximal cervical esophagus appeared normal and the patient tolerated the procedure well. IMPRESSION: 1. Small hiatal hernia. 2. Extrinsic compression in the mid esophagus most likely from left atrial enlargement but no evidence of esophageal stricture 3. No retained food in the esophagus. RECOMMENDATIONS: The findings of this examination were discussed with the patient as well as her family. She was advised to continue with small frequent meals and soft diet as tolerated.
[2023-12-18 12:03] VITALS: RESP 16
[2023-12-18 12:18] VITALS: BP 156/76; PULSE 60
== END 2023-12-18 12:28 | disposition home or self-care (01) ==
LOC: ORWHC2ENDO 10:58
PROVIDERS: ATTEND Internal Medicine Gastroenterology
DX: K44.9 Diaphragmatic hernia without obstruction or gangrene (principal); I10 Essential (primary) hypertension; E78.5 Hyperlipidemia, unspecified; J44.9 Chronic obstructive pulmonary disease, unspecified; E07.9 Disorder of thyroid, unspecified; Z79.82 Long term (current) use of aspirin; Z79.890 Hormone replacement therapy; Z79.899 Other long term (current) drug therapy; Z88.8 Allergy status to other drugs, medicaments and biological substances; Z98.890 Other specified postprocedural states
CPT/HCPCS: 43235; J2001; J2704

== ENCOUNTER 2024-04-14 16:00 | Inpatient (IN) | payer MEDICARE ==
[2024-04-14] MEDS: SODIUM CHLORIDE 0.9% 1,000 ML IV SCH (18:47)
[2024-04-14] MEDS ORDERED: VANCOMYCIN IV PER PHARMACY 1 EACH MISC MISCELLANE PRN (19:13)
[2024-04-14] MEDS: traMADol 50 MG TAB PO PRN (19:36)
[2024-04-14] MEDS: DORZOLAMIDE HCL 2% DROPS 10 ML BTL LEFT EYE SCH (19:39)
[2024-04-14] MEDS ORDERED: VANCOMYCIN 1,000 MG in SODIUM CHLORIDE 0.9% 250 ML IVPB ONE (19:45)
[2024-04-15] MEDS: VANCOMYCIN 1,000 MG in SODIUM CHLORIDE 0.9% 250 ML IVPB SCH (05:44)
[2024-04-15] MEDS: LEVOTHYROXINE 125 MCG TAB PO SCH (05:45)
[2024-04-15 05:50] LABS: Basophils % (A) 1 %; Eosinophils # (A) 0.2 k/uL (0-0.7); Eosinophils % (A) 3 %; HGB 10.4 gm/dL (11.4-16.0); Hypochromasia Moderate; Lymphocytes # (A) 1.3 k/uL (1.0-4.8); Lymphocytes % (A) 25 %; MCH 29.1 pg (25.0-35.0); MCHC 31.4 g/dL (31.0-37.0); MCV 92.5 fL (80.0-100.0); Mean Platelet Volume 7.4; Monocytes # (A) 0.3 k/uL (0-1.0); Monocytes % (A) 5 %; Neutrophils # (A) 3.5 k/uL (1.3-7.7); Neutrophils % (A) 65 %; Platelet Count 200 k/uL (150-450); RBC 3.57 m/uL (3.80-5.40); RDW 14.2 % (11.5-15.5); WBC 5.4 k/uL (3.8-10.6)
[2024-04-15 06:08] LABS: ALT 15 U/L (4-34); AST 23 U/L (14-36); African American GFR (CKD) >90 (>60 ml/min/1.73 sqM); Albumin 2.9 g/dL (3.5-5.0); Alkaline Phosphatase 69 U/L (38-126); Anion Gap 3 mmol/L; Blood Urea Nitrogen 10 mg/dL (7-17); Calcium 8.7 mg/dL (8.4-10.2); Carbon Dioxide 27 mmol/L (22-30); Chloride 112 mmol/L (98-107); Globulin 2.8 g/dL; Glucose 83 mg/dL (74-99); Non-African American GFR(CKD) >90 (>60 ml/min/1.73 sqM); Sodium 142 mmol/L (137-145); Total Bilirubin 0.4 mg/dL (0.2-1.3); Total Protein 5.7 g/dL (6.3-8.2)
[2024-04-15 06:10] LABS: INR 1.1 (<1.2); Prothrombin Time 11.6 sec (10.0-12.5)
[2024-04-15] MEDS: METOPROLOL SUCCINATE (ER) 25 MG TAB.ER.24H PO SCH (08:44)
[2024-04-15 10:58] LABS: Erythrocyte Sedimentation Rate 14 mm/Hr (0-30)
[2024-04-15] MEDS: ALPRAZolam 0.25 MG TAB PO PRN (12:12)
--- NOTE | 2024-04-15 14:11 | P.HPOR ---
History of Present Illness H&P Date: 04/15/24 This is an 83 year old female who is admitted for an abscess on the right thigh. Patient states that she presented to [facility] on 04/13/2024 and was admitted an as inpatient for her right hip, but was transferred to [facility] on 04/14/2024 when they were unable to find a bed for her at [facility]. Patient states that she noticed swelling of her right thigh a couple of weeks ago without any known cause. Patient states that the swelling improved on its own, but then 3-4 days ago she noticed drainage from her hip incision. Patient states that the drainage from her thigh prompted her to go to the emergency room. Patient denies fever/chills, pain in the hip, numbness, weakness or tingling. Patient states that she lives alone at home and normally ambulates without difficulty. Patient denies any history of issues with the right hip since having her hip replaced in May of 2023. Patient's past medical history is significant for DVT, thyroid disorder, osteoarthritis, chest pain, glaucoma, degenerative disc disease. Patient denies being on any blood thinners. Review of Systems See HPI. Past Medical History Past Medical History: Chest Pain / Angina, Deep Vein Thrombosis (DVT), Eye Disorder, Musculoskeletal Disorder, Osteoarthritis (OA), Thyroid Disorder Additional Past Medical History / Comment(s): hx DDD, spondylithosis, migraines, kidney stones, "small vessel heart disease", heart murmur, hx phlebitis, "leaky valves" per pt., DVT leg 2 years ago after traveling approx 2018 with poss PEs- tx with eliquis, glaucoma left eye,UTIs History of Any Multi-Drug Resistant Organisms: None Reported Past Surgical History: Heart Catheterization, Hysterectomy, Joint Replacement Additional Past Surgical History / Comment(s): Bilateral knee replacements, bilateral cataract surgery, left eye surgery, tendon repair right hand, mitral valve repair, rt hip replacement Past Anesthesia/Blood Transfusion Reactions: No Reported Reaction, Motion Sickness Past Psychological History: No Psychological Hx Reported Smoking Status: Never smoker Past Alcohol Use History: None Reported Past Drug Use History: None Reported - Past Family History Father Family Medical History: Diabetes Mellitus Son(s) Family Medical History: Cancer, COPD Additional Family Medical History / Comment(s): Lung cancer. Mother Family Medical History: Coronary Artery Disease (CAD) Additional Family Medical History / Comment(s): Mother had CAD diagnosed less than 60 years old, during a heart cath at 65 years old. Medications and Allergies Home Medications Medication Instructions Recorded Confirmed Type traMADol HCL [Ultram] 50 mg PO Q8H PRN 11/03/20 04/14/24 History Dorzolamide HCl/Pf [Dorzolamide 2% 1 drop LEFT EYE BID 07/23/22 04/14/24 History Eye Drop] Metoprolol Succinate (ER) [Toprol 25 mg PO DAILY 07/23/22 04/14/24 History Xl] Levothyroxine Sodium [Synthroid] 125 mcg PO DAILY 04/14/24 04/14/24 History Ondansetron Odt [Zofran Odt] 4 mg PO Q6H PRN 04/14/24 04/14/24 History Allergies Allergy/AdvReac Type Severity Reaction Status Date / Time alendronate sodium AdvReac jaw pain Verified 04/14/24 17:46 [From Fosamax] amoxicillin [From Augmentin] AdvReac Nausea & Verified 04/14/24 17:46 Vomiting clavulanic acid AdvReac Nausea & Verified 04/14/24 17:46 [From Augmentin] Vomiting denosumab [From Prolia] AdvReac Jaw Pain Verified 04/14/24 17:46 morphine AdvReac Itching Verified 04/14/24 17:46 Physical Examination On exam patient is resting comfortably in no acute distress. Patient is alert and oriented 3. Patient is well-appearing. Right lower extremity: There is approximately 2 cm size open area to the anterolateral thigh with purulent drainage present. There is another very small area starting to open up as well. There is no significant swelling of the right lower extremity. Calf is soft and nontender to palpation. Patient has full range of motion of the right hip and knee without any pain or discomfort. Sensation intact. Neurovascular status and circulatory status are intact. The left lower extremity bilateral upper extremities are within normal limits. Patient moves The head and neck freely. Head is normocephalic and atraumatic Results A CT report from [facility] dated 04/13/2024 shows: 1. 6.2 cm ring-enhancing fluid collection most consistent with an abscess of the anterolateral subcutaneous tissues in the region of the tensor fascia fernando which is contiguous with the skin. Findings suggestive of an abscess. No osseous or erosive changes to suggest acute osteomyelitis. 2. Diffuse demineralization of the osseous structures with right hip and knee prosthesis. No evidence of any acute hardware complication. 3. Additional findings as described above. - Labs Labs: Abnormal Lab Results - Last 24 Hours (Table) 04/15/24 04/15/24 04/15/24 Range/Units 05:23 05:23 05:38 RBC 3.57 L (3.80-5.40) m/uL Hgb 10.4 L (11.4-16.0) gm/dL Hct 33.0 L (34.0-46.0) % D-Dimer 10.45 H (<0.60) mg/L FEU Chloride 112 H (98-107) mmol/L Creatinine 0.47 L (0.52-1.04) mg/dL Total Protein 5.7 L (6.3-8.2) g/dL Albumin 2.9 L (3.5-5.0) g/dL H & H 04/15/24 Range/Units 05:38 Hgb 10.4 L (11.4-16.0) gm/dL Hct 33.0 L (34.0-46.0) % Coagulation 04/15/24 Range/Units 05:23 INR 1.1 (<1.2) Result Diagrams: 04/15/24 05:38 04/15/24 05:23 Assessment and Plan (1) Abscess of right thigh Current Visit: Yes Status: Acute Code(s): L02.415 - CUTANEOUS ABSCESS OF RIGHT LOWER LIMB SNOMED Code(s): 84157248316151904 Plan: 1. Labs and vital signs are within normal limits. A CT report is reviewed. There is no imaging available to review. There is low suspicion for prosthetic joint infection based on exam. 2. Planning for I&D of the right hip later today pending medical clearance and patient consent.
--- NOTE | 2024-04-15 15:15 | P.CONS ---
History of Present Illness - Reason for Consult Consult date: 04/15/24 Medical management Requesting physician: Charles Yo - Chief Complaint Infected right hip prosthetic. - History of Present Illness HISTORY OF PRESENT ILLNESS 83-year-old With active medical history of hypertension, hyperlipidemia, severe arthritis, sick sinus syndrome with bradycardia, history of DVT in the past, history of mitral valve regurgitation post mitral valve repair over 2 years ago who also had severe arthritis post right total hip arthroplasty with Dr. Boggs over a year ago who has been doing well done extremely well with surgery since did not have any major complication at all. She developed to have slight increased swelling discomfort and drainage from the site of the hip and the thigh area for the last 2 weeks become quite bit worse and up going to [facility] on 04/13/2024 where was seen and evaluated and diagnosed with possible infected prosthetic hip was admitted to the hospital and decided to transfer patient to [facility] to be under service who done her surgery over a year ago for total hip arthroplasty, patient patient was transferred to [facility] on 04/14/2025 continue IV antibiotics was initiated at [facility] which is vancomycin originally till the culture is complete leg culture was done at [facility] not finalized yet. White blood cell was not that high by the times repeated and no challenge and electrolyte or electrolyte balance. Kidney function remained good. REVIEW OF SYSTEMS CONSTITUTIONAL: Well-developed no acute respiratory distress. EYES: No icterus sclerae, no conjunctivitis. EARS, NOSE, MOUTH, THROAT, and FACE: No sore throat, lymphadenopathy, carotid bruits or deformity. RESPIRATORY: No SOB cough or wheezes. CARDIOVASCULAR: No CP, Palpitation, PND, Orthopnea, or angina. GASTROINTESTINAL: No Abd pain, Nausea or vomiting, no Diarrhea or constipation, No GI Bleed, no distention or masses. GENITOURINARY: Negative for Hematuria or UTI, no kidney stones. INTEGUMENT/BREAST: Negative for any muscular injury with mild osteoarthritis.. Slight swelling and drainage from the site of the prior area in the hip on the right side Extremities: The right hip has normal range of motion with no abnormality and there is slight area on the side of the hip with the drainage consistent with infection not clear if there is a slight abscess or not. HEMATOLOGIC/LYMPHATIC: Negative for bleed or purpura. MUSCULOSKELTAL: Negative for Myalgia or arthralgia. NEURLOGICAL: No LOC, Sz or syncope, blurred vision dizziness or abnormality.. BEHAVIORAL/PSYCH: Negative. ENDOCRINE: Negative. SOCIAL HISTORY Lifelong nonsmoker, no alcohol abuse. FAMILY HISTORY Mother had coronary artery disease at age 60 and during heart catheterization at age 65.. PHYSICAL EXAMINATION Gen: This is an 83-year-old female. She is resting in bed and appears to be comfortable. No acute distress is noted. HEENT: Head is atraumatic, normocephalic. Pupils equal, round. Sclerae is anicteric. Right sided IJ Cordis and Westwood Elmo catheter in place NECK: Supple. No JVD. No lymphadenopathy. No thyromegaly. LUNGS: Diminished breath sounds bilaterally. No wheezes or rhonchi. No intercostal retractions. Mediastinal and left pleural chest tube in place. HEART: Regular rate and rhythm. S1, S2, positive S3, positive systolic murmur. ABDOMEN: Soft. Bowel sounds are present. No masses. No tenderness. Olmos catheter in place draining clear beltran urine. EXTREMITIES: Right hip has normal range of motion there is a area on the lateral side of the thigh area with slightly drainage redness discomfort induration and irritation. NEUROLOGICAL: Patient is awake, alert and oriented x3. Cranial nerves 2 through 12 are grossly intact. 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 Patient most likely will need to go to the OR to wash the area take the pro sthetic out and probably do an antibiotic spacer antibiotics will be managed with infectious disease patient will require probably 6 to 8 weeks of IV antibiotic will depend on the culture. _Abscess on the incision site of her hip surgery from a year ago: Will be going to the OR to open it do culture and clean the area and see if there is any involvement of the prosthetic hip. _History of mitral valve regurgitation post mitral valve repair has been doing very well surgery was done successfully 2 years ago with no major complication. _Hypertension: Remain on metoprolol succinate 25 mg a day continue medication will titrate dose higher if needed and add smaller dose of ARB. Try to keep systolic blood pressure below 130. _Hypothyroidism: Continue levothyroxine 125 mcg daily stable and doing well. _Chronic pain syndrome: Remain on tramadol on as-needed basis. _Low-grade anemia: With hemoglobin of 10.4 continue iron supplement multivitamin. _GI prophylaxis: Continue patient on Pepcid 20 mg a day. _DVT prophylaxis: Heparin subcutaneous will be used. _CODE STATUS: Full code. CODE STATUS: Full code. Dr. Yo thank you much for the consult if I can be any further help to ple ase let me know. Past Medical History Past Medical History: Chest Pain / Angina, Deep Vein Thrombosis (DVT), Eye Disorder, Musculoskeletal Disorder, Osteoarthritis (OA), Thyroid Disorder Additional Past Medical History / Comment(s): hx DDD, spondylithosis, migraines, kidney stones, "small vessel heart disease", heart murmur, hx phlebitis, "leaky valves" per pt., DVT leg 2 years ago after traveling approx 2018 with poss PEs- tx with eliquis, glaucoma left eye,UTIs History of Any Multi-Drug Resistant Organisms: None Reported Past Surgical History: Heart Catheterization, Hysterectomy, Joint Replacement Additional Past Surgical History / Comment(s): Bilateral knee replacements, bilateral cataract surgery, left eye surgery, tendon repair right hand, mitral valve repair, rt hip replacement Past Anesthesia/Blood Transfusion Reactions: No Reported Reaction, Motion Sickness Past Psychological History: No Psychological Hx Reported Smoking Status: Never smoker Past Alcohol Use History: None Reported Past Drug Use History: None Reported - Past Family History Father Family Medical History: Diabetes Mellitus Son(s) Family Medical History: Cancer, COPD Additional Family Medical History / Comment(s): Lung cancer. Mother Family Medical History: Coronary Artery Disease (CAD) Additional Family Medical History / Comment(s): Mother had CAD diagnosed less than 60 years old, during a heart cath at 65 years old. Medications and Allergies Home Medications Medication Instructions Recorded Confirmed Type traMADol HCL [Ultram] 50 mg PO Q8H PRN 11/03/20 04/14/24 History Dorzolamide HCl/Pf [Dorzolamide 2% 1 drop LEFT EYE BID 07/23/22 04/14/24 History Eye Drop] Metoprolol Succinate (ER) [Toprol 25 mg PO DAILY 07/23/22 04/14/24 History Xl] Levothyroxine Sodium [Synthroid] 125 mcg PO DAILY 04/14/24 04/14/24 History Ondansetron Odt [Zofran Odt] 4 mg PO Q6H PRN 04/14/24 04/14/24 History Allergies Allergy/AdvReac Type Severity Reaction Status Date / Time alendronate sodium AdvReac jaw pain Verified 04/14/24 17:46 [From Fosamax] amoxicillin [From Augmentin] AdvReac Nausea & Verified 04/14/24 17:46 Vomiting clavulanic acid AdvReac Nausea & Verified 04/14/24 17:46 [From Augmentin] Vomiting denosumab [From Prolia] AdvReac Jaw Pain Verified 04/14/24 17:46 morphine AdvReac Itching Verified 04/14/24 17:46 Physical Exam Vitals: Vital Signs Temp Pulse Resp BP Pulse Ox 04/15/24 01:41 97.8 F 60 16 109/64 97 04/14/24 20:00 61 15 04/14/24 19:19 97.9 F 61 15 101/64 99 04/14/24 17:04 98.0 F 65 16 134/74 98 Intake and Output 04/14/24 04/14/24 04/15/24 14:59 22:59 06:59 Other: Voiding Method Toilet # Voids 1 Weight 50.2 kg Results CBC & Chem 7: 04/15/24 05:38 04/15/24 05:23
[2024-04-15] MEDS: IV FLUID CONTINUATION 1,000 ML IV ONE (16:10)
[2024-04-15] MEDS: LACTATED RINGERS 1,000 ML BAG IV STA (16:29)
[2024-04-15] MEDS ORDERED: MAGNESIUM HYDROXIDE 2,400 MG/30 ML CUP PO PRN (16:41)
[2024-04-15] MEDS ORDERED: NALOXONE 0.4 MG/ML 1 ML VIAL IV PRN (16:41)
[2024-04-15] MEDS ORDERED: ONDANSETRON 4 MG/2 ML VIAL IVP PRN (16:41)
[2024-04-15] MEDS ORDERED: HYDROmorphone 0.5 MG/0.5 ML SYRINGE IVP PRN ×2 (16:41)
[2024-04-15] MEDS ORDERED: PROPOFOL 10 MG/ML 20 ML VIAL IV ONE (17:01)
[2024-04-15] MEDS ORDERED: fentaNYL (PF) 50 MCG/ML 2 ML AMP ONE (17:01)
[2024-04-15] MEDS ORDERED: LIDOCAINE 1% INJ 10MG/ML (20 ML MDV) ONE (17:01)
[2024-04-15] MEDS: ceFAZolin 3,000 MG in SODIUM CHLORIDE 0.9% IRRIGATIO 3,000 ML IRRIGATION ONE (17:27)
--- NOTE | 2024-04-15 17:43 | P.OP ---
Date of Procedure: 04/15/24 Preoperative Diagnosis: Infection right hip Postoperative Diagnosis: Infection right hip Procedure(s) Performed: Irrigation and debridement right hip wound Anesthesia: NED Surgeon: Charles Yo Estimated Blood Loss (ml): 20 Pathology: other (cultures x 2) Condition: stable Disposition: PACU Indications for Procedure: This is an 83-year-old female that had a right total hip arthroplasty approximately 1 year ago. She was doing well, but noticed swelling about a month ago. The swelling became worse and then approximately week ago. She began to have redness the distal aspect of her incision. Incision opened up and she went to [facility] for evaluation. She was seen in emergency room, but was unable to have orthopedic treatment. She was then transferred to [facility]. After seeing and evaluating the patient, I recommended incision and drainage and irrigation debridement of the right hip wound. Labs and CAT scan did not appear to have the infection extending into the hip joint. Informed consent was obtained. Operative Findings: The operative findings are consistent with an infection of the right hip, which was deep to the fascia did not appear to enter the hip joint Description of Procedure: The patient was seen and evaluated in the preoperative area and the consent was reviewed. The operative site was marked with a skin marker. The patient verified the procedure and operative site. The patient was then brought to the operating room and given preoperative antibiotics intravenously. A general anesthetic was administered by the anesthesia department. The patient was then placed on the OR table with the bony prominences well-padded. The hip area was then prepped with a ChloraPrep solution and draped in the usual sterile fashion. A universal timeout was then performed, which confirmed the patient's name, surgical site, ALLERGIES, and procedure being performed on the consent. Next the infected area was incised sharply and the area of skin and necrotic tissue was excised. The wound was explored down to the fascia. There was an area of the fascia that was opened, this was explored and found to extend below the fascia, but did not hip appear to involve the joint. After all devitalized tissue was removed with a Ronguer, and also sharply with a knife down to the fascia, wound was irrigated with antibiotic solution via pulsatile lavage. There was also irrigated with Betadine solution. Prior to irrigation, 2 cultures were obtained. The fascia was then closed with 0 vicryl suture. The subcutaneous tissue was closed with 3-0 Vicryl. The skin was closed with may. After the glue and dried, and Optifoam silver impregnated dressing was applied. The patient was then transferred to the recovery room in stable condition.
[2024-04-15] MEDS: HYDROmorphone 0.5 MG/0.5 ML SYRINGE IVP PRN (18:04)
[2024-04-15] MEDS: SODIUM CHLORIDE 0.9% 1,000 ML IV SCH (19:49)
[2024-04-15] MEDS: SENNOSIDES-DOCUSATE SODIUM 1 EACH TAB PO SCH (22:16)
[2024-04-15] MEDS: HYDROcodone/APAP 5-325MG 1 EACH TAB PO PRN (22:17)
[2024-04-16 06:53] LABS: African American GFR (CKD) >90 (>60 ml/min/1.73 sqM); Non-African American GFR(CKD) >90 (>60 ml/min/1.73 sqM)
[2024-04-16 08:41] LABS: Basophils # (A) 0.06 X 10*3/uL (0.00-0.10); Basophils % (A) 1.1 %; Eosinophils # (A) 0.15 X 10*3/uL (0.04-0.35); Eosinophils % (A) 2.8 %; HCT 35.2 % (37.2-46.3); HGB 10.8 g/dL (12.0-15.0); Lymphocytes # (A) 1.11 X 10*3/uL (0.90-5.00); Lymphocytes % (A) 20.6 %; MCH 29.1 pg (27.0-32.0); MCHC 30.7 g/dL (32.0-37.0); MCV 94.9 FL (80.0-97.0); Mean Platelet Volume 10.1 FL (9.5-12.2); Monocytes # (A) 0.39 X 10*3/uL (0.20-1.00); Monocytes % (A) 7.2 %; NRBC Per 100 WBC 0 X 10*3/uL (0.00-0.01); Neutrophils # (A) 3.67 X 10*3/uL (1.80-7.70); Neutrophils % (A) 67.9 %; Platelet Count 175 X 10*3/uL (140-440); RBC 3.71 X 10*6/uL (4.10-5.20); RDW 14.3 % (11.5-14.5)
--- NOTE | 2024-04-16 09:04 | P.CONS ---
History of Present Illness - Reason for Consult Consult date: 04/15/24 Infected hip Requesting physician: Vladimir Lam - Chief Complaint Right hip pain swelling wound x days - History of Present Illness Patient is a 83-year-old female with a past medical history significant for DVT osteoarthritis hypothyroidism, mitral valve repair, status post bilateral knee replacement and right hip replacement about years ago patient started having a issues with the swelling to the right hip and thigh area that is been going on for about a month subsequent the patient mention she did have 2 area of of scab that seem to have opened up and started to drain patient been complaining of pain to the hip area to be mostly dull aching to throbbing moderate intensity without any relation and denies high-grade fever patient initially presented to [facility] on 04/13/2024 has been diagnosed with right hip periprosthetic joint infection subsequently has been transferred to [facility] to be followed by her orthopedic surgeon on presentation to the hospital the patient was afebrile and no fever have been recorded subsequently patient was not tachycardic hypotensive or hypoxic patient did have a creatinine 0.47 electrolytes to be normal white count is 5.4 patient did have a cultures obtained at [facility] patient has been on vancomycin which has been continued infectious he was consulted for further management of ant ibiotic therapy Review of Systems Positive point and negatives has been mentioned in the HPI, complete review of systems was performed and all other systems are negative Past Medical History Past Medical History: Chest Pain / Angina, Deep Vein Thrombosis (DVT), Eye Disorder, Musculoskeletal Disorder, Osteoarthritis (OA), Thyroid Disorder Additional Past Medical History / Comment(s): hx DDD, spondylithosis, migraines, kidney stones, "small vessel heart disease", heart murmur, hx phlebitis, "leaky valves" per pt., DVT leg 2 years ago after traveling approx 2018 with poss PEs- tx with eliquis, glaucoma left eye,UTIs History of Any Multi-Drug Resistant Organisms: None Reported Past Surgical History: Heart Catheterization, Hysterectomy, Joint Replacement Additional Past Surgical History / Comment(s): Bilateral knee replacements, bilateral cataract surgery, left eye surgery, tendon repair right hand, mitral valve repair, rt hip replacement Past Anesthesia/Blood Transfusion Reactions: No Reported Reaction, Motion Sickness Past Psychological History: No Psychological Hx Reported Smoking Status: Never smoker Past Alcohol Use History: None Reported Past Drug Use History: None Reported - Past Family History Father Family Medical History: Diabetes Mellitus Son(s) Family Medical History: Cancer, COPD Additional Family Medical History / Comment(s): Lung cancer. Mother Family Medical History: Coronary Artery Disease (CAD) Additional Family Medical History / Comment(s): Mother had CAD diagnosed less than 60 years old, during a heart cath at 65 years old. Medications and Allergies Home Medications Medication Instructions Recorded Confirmed Type traMADol HCL [Ultram] 50 mg PO Q8H PRN 11/03/20 04/14/24 History Dorzolamide HCl/Pf [Dorzolamide 2% 1 drop LEFT EYE BID 07/23/22 04/14/24 History Eye Drop] Metoprolol Succinate (ER) [Toprol 25 mg PO DAILY 07/23/22 04/14/24 History Xl] Levothyroxine Sodium [Synthroid] 125 mcg PO DAILY 04/14/24 04/14/24 History Ondansetron Odt [Zofran Odt] 4 mg PO Q6H PRN 04/14/24 04/14/24 History Allergies Allergy/AdvReac Type Severity Reaction Status Date / Time alendronate sodium AdvReac jaw pain Verified 04/14/24 17:46 [From Fosamax] amoxicillin [From Augmentin] AdvReac Nausea & Verified 04/14/24 17:46 Vomiting clavulanic acid AdvReac Nausea & Verified 04/14/24 17:46 [From Augmentin] Vomiting denosumab [From Prolia] AdvReac Jaw Pain Verified 04/14/24 17:46 morphine AdvReac Itching Verified 04/14/24 17:46 Physical Exam Vitals: Vital Signs Temp Pulse Resp BP Pulse Ox 04/15/24 07:05 97.7 F 57 L 16 125/72 97 04/15/24 01:41 97.8 F 60 16 109/64 97 04/14/24 20:00 61 15 04/14/24 19:19 97.9 F 61 15 101/64 99 04/14/24 17:04 98.0 F 65 16 134/74 98 Intake and Output 04/14/24 04/15/24 04/15/24 22:59 06:59 14:59 Other: Voiding Method Toilet Toilet # Voids 1 1 Weight 50.2 kg GENERAL DESCRIPTION: Elderly female lying in bed, no distress. No tachypnea or accessory muscle of respiration use. HEENT: Shows Pallor , no scleral icterus. Oral mucous membrane is dry. No pharyngeal erythema or thrush NECK: Trachea central, no thyromegaly. LUNGS: Unlabored breathing. Clear to auscultation anteriorly. No wheeze or crackle. HEART: S1, S2, regular rate and rhythm. No loud murmur ABDOMEN: Soft, no tenderness , guarding or rigidity, no organomegaly EXTREMITIES: Right lateral hip did have a open wound with some surrounding swelling no foul-smelling drainage SKIN: No rash, no masses palpable. NEUROLOGICAL: The patient is awake, alert, oriented x3, mood and affect normal. Results CBC & Chem 7: 04/16/24 05:56 04/16/24 05:56 Labs: Abnormal Lab Results - Last 24 Hours (Table) 04/15/24 04/15/24 04/15/24 Range/Units 05:23 05:23 05:38 RBC 3.57 L (3.80-5.40) m/uL Hgb 10.4 L (11.4-16.0) gm/dL Hct 33.0 L (34.0-46.0) % D-Dimer 10.45 H (<0.60) mg/L FEU Chloride 112 H (98-107) mmol/L Creatinine 0.47 L (0.52-1.04) mg/dL Total Protein 5.7 L (6.3-8.2) g/dL Albumin 2.9 L (3.5-5.0) g/dL Assessment and Plan (1) Penicillin allergy Current Visit: Yes Status: Acute Code(s): Z88.0 - ALLERGY STATUS TO PENICILLIN SNOMED Code(s): 48180854 (2) Abscess of right thigh Current Visit: Yes Status: Acute Code(s): L02.415 - CUTANEOUS ABSCESS OF RIGHT LOWER LIMB SNOMED Code(s): 06536851942314322 Plan: 1patient presented to the hospital with the wound to the right hip area this patient with 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 about a year ago with concern for periprosthetic right hip infection and likely from gram- positive skin darlene 2-await surgical exploration to determine the depth of this infection and deep culture that will guide further antibiotic therapy 3-vancomycin pharmacy to dose target trough of 15 while watching kidney function and Vanco trough closely Multiple family member at the bedside questions were answered We will follow on clinical condition and cultures to further adjust medication if needed Thank you for this consultation we will follow the patient along with you Dictation was produced using [employer] dictation software. please excuse any grammatical, word or spelling errors. Time with Patient: Greater than 30
--- NOTE | 2024-04-16 10:36 | P.PN ---
Subjective Progress Note Date: 04/16/24 This is an 83 year-old female who is status post irrigation and debridement of a right hip wound. This is postoperative day #1 and patient is seen and evaluated at bedside today. Patient states that she has not had any pain and was able to walk down the michel with physical therapy today. Patient denies any new complaints today. Objective - Vital Signs Vital signs: Vital Signs Temp 97.7 F 04/16/24 07:07 Pulse 67 04/16/24 07:58 Resp 16 04/16/24 07:58 BP 126/76 04/16/24 07:58 Pulse Ox 96 04/16/24 07:58 FiO2 Intake & Output 04/15/24 04/16/24 04/16/24 18:59 06:59 18:59 Intake Total 801 650 480 Output Total 20 Balance 781 650 480 Intake: IV 801 Intake, IV Titration 650 Amount Sodium Chloride 0.9% 1, 600 000 ml @ 60 mls/hr IV . [id number] [facility] Rx#:[id number] ceFAZolin 2 gm In Sodium 50 Chloride 0.9% 50 ml @ 100 mls/hr IVPB Q8HR [facility] Rx# :[id number] Oral 480 Output: Estimated Blood Loss 20 Other: Voiding Method Toilet Toilet # Voids 4 - Exam Vital signs are stable. Patient is in no acute distress and is alert and oriented 3. Calf is soft and nontender to palpation. Dressing is clean, dry, and intact. Patient has full foot and ankle motion without pain or difficulty. Sensation intact. Neurovascular status and circulatory status are intact. - Labs CBC & Chem 7: 04/16/24 05:56 04/16/24 05:56 Labs: Abnormal Lab Results - Last 24 Hours (Table) 04/16/24 04/16/24 Range/Units 05:56 05:56 RBC 3.71 L (4.10-5.20) X 10*6/uL Hgb 10.8 L (12.0-15.0) g/dL Hct 35.2 L (37.2-46.3) % MCHC 30.7 L (32.0-37.0) g/dL Creatinine 0.43 L (0.52-1.04) mg/dL Microbiology - Last 24 Hours (Table) 04/15/24 17:25 Gram Stain - Preliminary Hip - Right 04/15/24 17:30 Gram Stain - Preliminary Hip - Right Assessment and Plan Assessment: Status post irrigation and debridement right hip wound. (1) Abscess of right thigh Current Visit: Yes Status: Acute Code(s): L02.415 - CUTANEOUS ABSCESS OF RIGHT LOWER LIMB SNOMED Code(s): 06631339058080973 Plan: 1. Leave dressing intact x 7 days. May shower with dressing intact. If the dressing becomes saturated please remove and apply a clean dressing. 2. Weightbearing as tolerated to the right lower extremity with a walker. 3. Antibiotics per infectious disease. 4. Appreciate input from internal medicine. 5. Anticipate discharge in the next 24 to 48 hours once discharge antibiotics can be determined by infectious disease. Cultures are pending.
--- NOTE | 2024-04-16 16:05 | P.PN ---
Subjective Progress Note Date: 04/16/24 Principal diagnosis: Reason for follow-up is right hip abscess cellulitis Patient is a 83-year-old female with a past medical history significant for DVT osteoarthritis hypothyroidism, mitral valve repair, status post bilateral knee replacement and right hip replacement about years ago presented to the hospital with right hip area swelling did have some drainage and a wound in this patient who is status post OR debridement operative report did not mention extension of the wound down to the prosthetic hip. On today's evaluation that is 04/16/2024, Patient is afebrile this morning patient denies having any chest pain shortness of breath or cough, the patient is currently on room air, patient denies any abdominal pain no diarrhea no nausea no vomiting, the patient pain to the right hip is currently controlled. Patient white count is 5.40 ESR is 14 creatinine 0.43 cultures are currently pending Objective - Vital Signs Vital signs: Vital Signs Temp 96.5 F L 04/16/24 12:27 Pulse 58 L 04/16/24 12:27 Resp 16 04/16/24 12:27 BP 97/55 04/16/24 12:27 Pulse Ox 96 04/16/24 12:27 FiO2 Intake & Output 04/15/24 04/16/24 04/16/24 18:59 06:59 18:59 Intake Total 801 650 480 Output Total 20 Balance 781 650 480 Weight 50.2 kg Intake: IV 801 Intake, IV Titration 650 Amount Sodium Chloride 0.9% 1, 600 000 ml @ 60 mls/hr IV . [id number] [facility] Rx#:[id number] ceFAZolin 2 gm In Sodium 50 Chloride 0.9% 50 ml @ 100 mls/hr IVPB Q8HR [facility] Rx# :[id number] Oral 480 Output: Estimated Blood Loss 20 Other: Voiding Method Toilet Toilet # Voids 4 - Exam GENERAL DESCRIPTION: An elderly female lying in bed in no distress RESPIRATORY SYSTEM: Unlabored breathing , decreased breath sounds at bases HEART: S1 S2 regular rate and rhythm , ABDOMEN: Soft , no tenderness EXTREMITIES: Right hip is currently dressed - Labs CBC & Chem 7: 04/16/24 05:56 04/16/24 05:56 Labs: Abnormal Lab Results - Last 24 Hours (Table) 04/16/24 04/16/24 Range/Units 05:56 05:56 RBC 3.71 L (4.10-5.20) X 10*6/uL Hgb 10.8 L (12.0-15.0) g/dL Hct 35.2 L (37.2-46.3) % MCHC 30.7 L (32.0-37.0) g/dL Creatinine 0.43 L (0.52-1.04) mg/dL Microbiology - Last 24 Hours (Table) 04/15/24 17:25 Gram Stain - Preliminary Hip - Right 04/15/24 17:30 Gram Stain - Preliminary Hip - Right Assessment and Plan (1) Penicillin allergy Current Visit: Yes Status: Acute Code(s): Z88.0 - ALLERGY STATUS TO PENICI LLIN SNOMED Code(s): 48029383 (2) Abscess of right thigh Current Visit: Yes Status: Acute Code(s): L02.415 - CUTANEOUS ABSCESS OF RIGHT LOWER LIMB SNOMED Code(s): 87083502077513931 Plan: 1patient presented to the hospital with the wound to the right hip area this patient with 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 please excuse any grammatical, word or spelling errors. Time with Patient: Less than 30
[2024-04-17] MEDS: VANCOMYCIN TROUGH DUE 1 EACH MISC MISCELLANE ONE (05:07)
--- NOTE | 2024-04-17 06:51 | P.PN ---
Subjective Progress Note Date: 04/16/24 HISTORY OF PRESENT ILLNESS 83-year-old With active medical history of hypertension, hyperlipidemia, severe arthritis, sick sinus syndrome with bradycardia, history of DVT in the past, history of mitral valve regurgitation post mitral valve repair over 2 years ago who also had severe arthritis post right total hip arthroplasty with Dr. Boggs over a year ago who has been doing well done extremely well with surgery since did not have any major complication at all. She developed to have slight increased swelling discomfort and drainage from the site of the hip and the thigh area for the last 2 weeks become quite bit worse and up going to [facility] on 04/13/2024 where was seen and evaluated and diagnosed with possible infected prosthetic hip was admitted to the hospital and decided to transfer patient to [facility] to be under service who done her surgery over a year ago for total hip arthroplasty, patient patient was transferred to [facility] on 04/14/2025 continue IV antibiotics was initiated at [facility] which is vancomycin originally till the culture is complete leg culture was done at [facility] not finalized yet. White blood cell was not that high by the times repeated and no challenge and electrolyte or electrolyte balance. Kidney function remained good. 04/16/2024: Patient ended up going to the OR yesterday with Dr. Yo the infection looks more superficial and that opening the area and drain infection was decided is not involving the joint at this point, waiting for infectious disease for further recommendation on oral or IV antibiotics in the meanwhile remain currently on vancomycin and cefazolin. Cultures from [facility] still pending at this point still waiting to see if you have any culture from [facility] from her original admission. REVIEW OF SYSTEMS CONSTITUTIONAL: Well-developed no acute respiratory distress. EYES: No icterus sclerae, no conjunctivitis. EARS, NOSE, MOUTH, THROAT, and FACE: No sore throat, lymphadenopathy, carotid bruits or deformity. RESPIRATORY: No SOB cough or wheezes. CARDIOVASCULAR: No CP, Palpitation, PND, Orthopnea, or angina. GASTROINTESTINAL: No Abd pain, Nausea or vomiting, no Diarrhea or constipation, No GI Bleed, no distention or masses. GENITOURINARY: Negative for Hematuria or UTI, no kidney stones. INTEGUMENT/BREAST: Negative for any muscular injury with mild osteoarthritis.. Slight swelling and drainage from the site of the prior area in the hip on the right side Extremities: The right hip has normal range of motion with no abnormality and there is slight area on the side of the hip with the drainage consistent with infection not clear if there is a slight abscess or not. HEMATOLOGIC/LYMPHATIC: Negative for bleed or purpura. MUSCULOSKELTAL: Negative for Myalgia or arthralgia. NEURLOGICAL: No LOC, Sz or syncope, blurred vision dizziness or abnormality.. BEHAVIORAL/PSYCH: Negative. ENDOCRINE: Negative. SOCIAL HISTORY Lifelong nonsmoker, no alcohol abuse. FAMILY HISTORY Mother had coronary artery disease at age 60 and during heart catheterization at age 65.. PHYSICAL EXAMINATION Gen: This is an 83-year-old female. She is resting in bed and appears to be comfortable. No acute distress is noted. HEENT: Head is atraumatic, normocephalic. Pupils equal, round. Sclerae is anicteric. Right sided IJ Cordis and Marion Vielka catheter in place NECK: Supple. No JVD. No lymphadenopathy. No thyromegaly. LUNGS: Diminished breath sounds bilaterally. No wheezes or rhonchi. No intercostal retractions. Mediastinal and left pleural chest tube in place. HEART: Regular rate and rhythm. S1, S2, positive S3, positive systolic murmur. ABDOMEN: Soft. Bowel sounds are present. No masses. No tenderness. Olmos catheter in place draining clear beltran urine. EXTREMITIES: Right hip has normal range of motion there is a area on the lateral side of the thigh area with slightly drainage redness discomfort induration and irritation. NEUROLOGICAL: Patient is awake, alert and oriented x3. Cranial nerves 2 through 12 are grossly intact. 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 _Abscess on the incision site postsurgery for I and D still waiting for the final culture but continue current antibiotics. _History of mitral valve regurgitation post mitral valve repair has been doing very well surgery was done successfully 2 years ago with no major complication. _Hypertension: Remain on metoprolol succinate 25 mg a day continue medication will titrate dose higher if needed and add smaller dose of ARB. Try to keep systolic blood pressure below 130. _Hypothyroidism: Continue levothyroxine 125 mcg daily stable and doing well. _Chronic pain syndrome: Remain on tramadol on as-needed basis. _Low-grade anemia: With hemoglobin of 10.4 continue iron supplement multivitamin. _GI prophylaxis: Continue patient on Pepcid 20 mg a day. _DVT prophylaxis: Heparin subcutaneous will be used. Discussion: Following her surgery still waiting for final culture seen infectious disease agreed to continue vancomycin at least till the final culture back patient might require IV antibiotic for few days but oral antibiotic for further but from here and probably patient will be discharged home in the next 48 hours Objective - Vital Signs Vital signs: Vital Signs Temp 98.0 F 04/16/24 01:24 Pulse 60 04/16/24 01:24 Resp 16 04/16/24 01:24 BP 99/57 04/16/24 01:24 Pulse Ox 97 04/16/24 01:24 FiO2 Intake & Output 04/15/24 04/15/24 04/16/24 06:59 18:59 06:59 Intake Total 801 Output Total 20 Balance 781 Intake: IV 801 Output: Estimated Blood Loss 20 Other: Voiding Method Toilet Toilet Toilet # Voids 1 4 - Labs CBC & Chem 7: 04/16/24 05:56 04/16/24 05:56
[2024-04-17 07:24] LABS: African American GFR (CKD) >90 (>60 ml/min/1.73 sqM); Non-African American GFR(CKD) 87 (>60 ml/min/1.73 sqM)
--- NOTE | 2024-04-17 13:26 | US ---
"EXAMINATION TYPE: US venous doppler duplex LE BI DATE OF EXAM: 04/17/2024 1:17 PM COMPARISON: NONE CLINICAL INDICATION: Female, 83 years old with history of lower ext pain bilaterally; Bilateral leg s welling and discoloration. Not on blood thinners. TECHNIQUE: The lower extremity deep venous system is examined utilizing real time linear array sonog rickey with graded compression, color doppler sonography, and spectral doppler. SIDE PERFORMED: Bilateral FINDINGS: VESSELS IMAGED: Common Femoral Vein Deep Femoral Vein Greater Saphenous Vein * Femoral Vein Popliteal Vein Small Saphenous Vein * Proximal Calf Veins (* superficial vessels) Right Leg: Internal echoes and noncompressible seen in distal popliteal into one proximal calf vein Left Leg: Internal echoes and noncompressible seen in proximal FV, mid FV, and popliteal vein extend ing into one proximal calf vein. Duplicate vein seen in femoral vein. Grayscale, color doppler, spectral doppler imaging performed of the deep veins of the lower extremiti es. IMPRESSION: Bilateral deep vein thrombosis as described above A [place] [facility] critical message alert has been initiated for Vladimir Lam MD~[id number] via the [employer] | Critical Results System on 04/17/2024 1:24 PM. This message alert has been sent to Vladimir dennis MD~[id number] via the preferences provided by the clinician for the receipt of Radiology Critical Find ings. Message ID [id number]. [facility], , 04/17/2024 1:24 PM"
[2024-04-17] MEDS: HEPARIN SODIUM,PORCINE 5,000 UNIT/ML 1 ML VIAL SQ SCH (14:12)
--- NOTE | 2024-04-17 15:27 | P.PN ---
Subjective Progress Note Date: 04/17/24 Principal diagnosis: Reason for follow-up is right hip abscess cellulitis Patient is a 83-year-old female with a past medical history significant for DVT osteoarthritis hypothyroidism, mitral valve repair, status post bilateral knee replacement and right hip replacement about years ago presented to the hospital with right hip area swelling did have some drainage and a wound in this patient who is status post OR debridement operative report did not mention extension of the wound down to the prosthetic hip. On today's evaluation that is 04/17/2024,the patient denies any fever or any chills, patient is breathing comfortably on room air, the patient denies chest pain shortness of breath and no significant cough, patient denies abdominal pain, no nausea vomiting or diarrhea. Pain to the right hip is currently controlled. Patient did have a creatinine 0.53 Vanco trough low at 7.7 cultures are currently pending Objective - Vital Signs Vital signs: Vital Signs Temp 98.1 F 04/17/24 06:49 Pulse 60 04/17/24 06:49 Resp 17 04/17/24 06:49 BP 116/71 04/17/24 06:49 Pulse Ox 94 L 04/17/24 06:49 FiO2 Intake & Output 04/16/24 04/17/24 04/17/24 18:59 06:59 18:59 Intake Total 2818 Output Total 0 Balance 2818 Weight 50.2 kg Intake: Intake, IV Titration 780 Amount Sodium Chloride 0.9% 1, 480 000 ml @ 60 mls/hr IV . [id number] [facility] Rx#:[id number] Vancomycin 1,000 mg In 250 Sodium Chloride 0.9% 250 ml @ 125 mls/hr IVPB Q24H [facility] Rx#:[id number] ceFAZolin 2 gm In Sodium 50 Chloride 0.9% 50 ml @ 100 mls/hr IVPB Q8HR [facility] Rx# :[id number] Oral 2038 Output: Stool 0 Other: Voiding Method Toilet Toilet # Voids 1 1 1 - Exam GENERAL DESCRIPTION: An elderly female lying in bed in no distress RESPIRATORY SYSTEM: Unlabored breathing , decreased breath sounds at bases HEART: S1 S2 regular rate and rhythm , ABDOMEN: Soft , no tenderness EXTREMITIES: Right hip is currently dressed - Labs CBC & Chem 7: 04/16/24 05:56 04/17/24 05:39 Labs: Microbiology - Last 24 Hours (Table) 04/15/24 17:30 Gram Stain - Preliminary Hip - Right Wound Culture - Preliminary 04/15/24 17:25 Gram Stain - Preliminary Hip - Right Wound Culture - Preliminary Assessment and Plan (1) Penicillin allergy Current Visit: Yes Status: Acute Code(s): Z88.0 - ALLERGY STATUS TO PENICILLIN SNOMED Code(s): 47128807 (2) Abscess of right thigh Current Visit: Yes Status: Acute Code(s): L02.415 - CUTANEOUS ABSCESS OF RIGHT LOWER LIMB SNOMED Code(s): 15450916096867709 Plan: 1patient presented to the hospital with the wound to the right hip area this patient with 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 about a year ago with concern for periprosthetic right hip infection and likely from gram- positive skin darlene 2-patient is status post surgical exploration operative report mention no extension down to the prosthetic hip which was not removed deep culture obtained which are currently pending 3-patient to continue with vancomycin pharmacy to dose however the dose need to be just up to keep the trough around 15 while waiting for the culture to finalize we did call [facility] lab and there were no culture done at that facility before the patient was transferred Dictation was produced using [employer] dictation software. please excuse any grammatical, word or spelling errors. Time with Patient: Less than 30
[2024-04-17 20:44] LABS: Basophils % (A) 1 %; Eosinophils # (A) 0.2 k/uL (0-0.7); Eosinophils % (A) 3 %; HGB 11.2 gm/dL (11.4-16.0); Hypochromasia Slight; Lymphocytes # (A) 1.2 k/uL (1.0-4.8); Lymphocytes % (A) 22 %; MCH 29.4 pg (25.0-35.0); MCHC 32.1 g/dL (31.0-37.0); MCV 91.8 fL (80.0-100.0); Mean Platelet Volume 7.9; Monocytes # (A) 0.3 k/uL (0-1.0); Monocytes % (A) 5 %; Neutrophils # (A) 3.7 k/uL (1.3-7.7); Neutrophils % (A) 68 %; Platelet Count 206 k/uL (150-450); RBC 3.82 m/uL (3.80-5.40); RDW 14.3 % (11.5-15.5); WBC 5.5 k/uL (3.8-10.6)
[2024-04-17 20:56] LABS: INR 1.1 (<1.2)
[2024-04-17 20:57] LABS: Partial Thromboplastin Time 22.7 sec (22.0-30.0); Prothrombin Time 11.5 sec (10.0-12.5)
[2024-04-17] MEDS: HEPARIN SOD,PORK IN 0.45% NACL 25,000 UNIT in 0.45% NACL 1 250ML.BAG IV SCH (21:21)
[2024-04-17] MEDS: HEPARIN SODIUM 1,000 UN/ML (10ML VL) IV ONE (21:22)
--- NOTE | 2024-04-17 21:40 | CT ---
CTA CHEST EXAMINATION TYPE: CT chest angio for PE DATE OF EXAM: 04/17/2024 INDICATION: bilateral positive dvt on doppler, elevated d dimer CT DLP: 177.8 mGycm, Automated exposure control for dose reduction was used. CONTRAST: Patient injected with 100 ml mL of Isovue 370. COMPARISON: 08/30/2023 TECHNIQUE: CT of the chest is performed on a spiral scan at 2 mm thick sections. Study is performed with intravenous contrast timed for evaluation for pulmonary embolism. This will limit additional po rtions of the evaluation. 3-D MIP images reconstructed by the technologist are reviewed on the compu ter in the coronal and sagittal planes. FINDINGS: Small filling defects are present within the right lower lobe pulmonary arteries. Some of these may b e incompletely obstructing suggesting potentially chronic pulmonary emboli. There is at least one rig ht middle lobe obstructing pulmonary embolism which can be acute. No mediastinal or hilar adenopathy enlarged by CT criteria is evident. The ascending aorta diameter at the level of the main pulmonary artery is 3.9 cm. The main pulmonary artery diameter at the bifurcation is 4.2 cm. Correlate for pulmonary hypertension. Lung windows are clear. Emphysematous changes are present. Limited CT sections were through the upper abdomen. Upper abdomen appears unremarkable. IMPRESSION: 1. Right middle lobe acute pulmonary embolism. 2. Some chronic small right lower lobe pulmonary emboli are not excluded. 3. Report was called to the floor by Dr. Rosenthal by telephone 2137 hours 04/17/2024. 4. Correlate for pulmonary Hypertension [facility], Workstation: [facility], 04/17/2024 9:37 PM
[2024-04-17] MEDS: VANCOMYCIN 1,000 MG in SODIUM CHLORIDE 0.9% 250 ML IVPB SCH (23:11)
--- NOTE | 2024-04-17 23:57 | P.PN ---
Subjective Progress Note Date: 04/17/24 Principal diagnosis: Right hip infection. Post op I&D right hip. S/P Total right hip arthroplasty. This is an 83 year-old female who is status post irrigation and debridement of a right hip wound. This is postoperative day #2 and patient is seen getting ready to take a shower. Patient states that she has not had any pain and was able to walk down the michel with physical therapy. Patient denies any new complaints today. Objective - Vital Signs Vital signs: Vital Signs Temp 97.4 F L 04/17/24 19:50 Pulse 89 04/17/24 19:50 Resp 17 04/17/24 19:50 BP 147/81 04/17/24 19:50 Pulse Ox 95 04/17/24 19:50 FiO2 Intake & Output 04/17/24 04/17/24 04/18/24 06:59 18:59 06:59 Other: Voiding Method Toilet Toilet # Voids 1 1 - Exam Exam of the right hip reveals that her dressing is dry and intact. There is a dime size. Drainage in the midportion of the dressing. She is able to fully extend the knee. She has full foot and ankle motion without difficulty or pain. She has active straight leg raise. Neurovascular status is intact to the lower extremity. - Labs CBC & Chem 7: 04/17/24 20:25 04/17/24 05:39 Labs: Abnormal Lab Results - Last 24 Hours (Table) 04/17/24 Range/Units 20:25 Hgb 11.2 L (11.4-16.0) gm/dL Microbiology - Last 24 Hours (Table) 04/15/24 17:30 Gram Stain - Preliminary Hip - Right Wound Culture - Preliminary 04/15/24 17:25 Gram Stain - Preliminary Hip - Right Wound Culture - Preliminary Assessment and Plan (1) Abscess of right thigh Current Visit: Yes Status: Acute Code(s): L02.415 - CUTANEOUS ABSCESS OF RIGHT LOWER LIMB SNOMED Code(s): 58468212713923855 (2) S/P total hip arthroplasty Current Visit: No Status: Acute Code(s): Z96.649 - PRESENCE OF UNSPECIFIED ARTIFICIAL HIP JOINT SNOMED Code(s): 487403970035 Plan: The clinical findings are discussed with the patient and her family. She will continue with physical therapy. Cultures are pending. Continue care.
[2024-04-18 04:40] LABS: African American GFR (CKD) >90 (>60 ml/min/1.73 sqM); Non-African American GFR(CKD) >90 (>60 ml/min/1.73 sqM)
--- NOTE | 2024-04-18 05:05 | P.PN ---
Subjective Progress Note Date: 04/17/24 HISTORY OF PRESENT ILLNESS 83-year-old With active medical history of hypertension, hyperlipidemia, severe arthritis, sick sinus syndrome with bradycardia, history of DVT in the past, history of mitral valve regurgitation post mitral valve repair over 2 years ago who also had severe arthritis post right total hip arthroplasty with Dr. Boggs over a year ago who has been doing well done extremely well with surgery since did not have any major complication at all. She developed to have slight increased swelling discomfort and drainage from the site of the hip and the thigh area for the last 2 weeks become quite bit worse and up going to [facility] on 04/13/2024 where was seen and evaluated and diagnosed with possible infected prosthetic hip was admitted to the hospital and decided to transfer patient to [facility] to be under service who done her surgery over a year ago for total hip arthroplasty, patient patient was transferred to [facility] on 04/14/2025 continue IV antibiotics was initiated at [facility] which is vancomycin originally till the culture is complete leg culture was done at [facility] not finalized yet. White blood cell was not that high by the times repeated and no challenge and electrolyte or electrolyte balance. Kidney function remained good. 04/16/2024: Patient ended up going to the OR yesterday with Dr. Yo the infection looks more superficial and that opening the area and drain infection was decided is not involving the joint at this point, waiting for infectious disease for further recommendation on oral or IV antibiotics in the meanwhile remain currently on vancomycin and cefazolin. Cultures from [facility] still pending at this point still waiting to see if you have any culture from [facility] from her original admission. 04/17/2024 Patient is seen in follow-up today with infectious disease and orthopedics following with daughters at the bedside reporting awaiting for cultures to finalize to determine discharge antibiotics. Patient is maintained on antibiotics with infectious disease following and will continue current regimen. Patient reports having bilateral lower extremity pain and sensitivity even when placing the SILVIA hose with left worse than right calf pain. Will obtain Dopplers to rule out DVT. Patient to be placed on subcutaneous heparin for now. Patient denies chest pain or shortness of breath currently maintaining oxygen saturations above 95% on room air. D-dimer was noted to be elevated and will likely obtain a chest CT. Patient is afebrile at this time and reports to tolerating diet with no reported nausea or vomiting. Review of systems: Constitutional: No reports of fatigue, fever, or chills Cardiovascular: No reports of chest pain or palpitations Respiratory: No reports of shortness of breath or cough GI: No reports of nausea, vomiting, or diarrhea : No reports of dysuria or retention Neurovascular: reports of generalized lower extremity weakness with intense pain in the calf areas especially the left leg All medications have been reviewed PHYSICAL EXAMINATION Gen: This is an 83-year-old female. She is sitting up in the chair. No acute distress is noted. Well-developed, thin built, elderly appearing HEENT: Head is atraumatic, normocephalic. Pupils equal, round. Sclerae is anicteric. NECK: Supple. No JVD. No lymphadenopathy. No thyromegaly. LUNGS: Diminished breath sounds bilaterally. No wheezes or rhonchi. No intercostal retractions. HEART: Regular rate and rhythm. S1, S2 muffled ABDOMEN: Soft. Thin. Bowel sounds are present. No masses. No tenderness. EXTREMITIES: Right hip has normal range of motion there is a area on the lateral side of the thigh area with slightly drainage redness discomfort induration and irritation. NEUROLOGICAL: Patient is awake, alert and oriented x3. Cranial nerves 2 through 12 are grossly intact. 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 _Bilateral lower extremity pain more so on the left, Dopplers positive for DVT bilaterally _Elevated D-dimer, CT suggestive of pulmonary embolism and have started heparin and consult to pulmonary and appreciate input and recommendations, 2D echo is o rdered and pending _History of mitral valve regurgitation post mitral valve repair has been doing v jasmin well surgery was done successfully 2 years ago with no major complication. _Hypertension: Remain on metoprolol succinate 25 mg a day continue medication will titrate dose higher if needed and add smaller dose of ARB. Try to keep systolic blood pressure below 130. _Hypothyroidism: Continue levothyroxine 125 mcg daily stable and doing well. _Chronic pain syndrome: Remain on tramadol on as-needed basis. _Low-grade anemia: With hemoglobin of 10.4 continue iron supplement multivitamin. _GI prophylaxis: Continue patient on Pepcid 20 mg a day. _DVT prophylaxis: Heparin subcutaneous will be used. _Full code Plan: Patient is continued on IV antibiotics per infectious disease while awaiting for finalized cultures with orthopedics following status post I&D of the right hip. Appears more likely a superficial abscess rather than the previous surgical site infection per orthopedics. Continue current regimen Patient having severe sensitivity and lower calf pain bilaterally more so on the left and patient reports she was having difficulty while putting on the SILVIA hose. Dopplers were obtained of lower extremities and noted to have bilateral DVT. Heparin subcutaneous was initiated although will transition to IV heparin and given patient's D-dimer was elevated yesterday will obtain a CT of the chest to evaluate for PE. CT was suggestive of pulmonary embolism and will obtain a 2 D echo and also consult pulmonary and appreciate input and recommendations. Evaluate for any right heart strain. Patient's breathing status does not appear compromised and patient is maintaining oxygen saturations above 95% on room air. Patient denies shortness of breath at this time. We will continue to follow along with orthopedics during hospitalization. Thank you kindly for this consultation. Covering for Dr. Lam/Guilherme The impression and plan of care has been dictated by Summer Christian, Nurse Practitioner as directed. Dr. Peg MD I have performed a history and examination and MDM of this patient, discussed the same with the dictator, and agree with the dictator's assessment and plan as written ,documented as a scribe. Based on total visit time, I have performed more than 50% of the visit. Objective - Vital Signs Vital signs: Vital Signs Temp 98.1 F 04/17/24 06:49 Pulse 60 04/17/24 06:49 Resp 17 04/17/24 06:49 BP 116/71 04/17/24 06:49 Pulse Ox 94 L 04/17/24 06:49 FiO2 Intake & Output 04/16/24 04/17/24 04/17/24 18:59 06:59 18:59 Intake Total 2818 Output Total 0 Balance 2818 Weight 50.2 kg Intake: Intake, IV Titration 780 Amount Sodium Chloride 0.9% 1, 480 000 ml @ 60 mls/hr IV . [id number] [facility] Rx#:[id number] Vancomycin 1,000 mg In 250 Sodium Chloride 0.9% 250 ml @ 125 mls/hr IVPB Q24H [facility] Rx#:[id number] ceFAZolin 2 gm In Sodium 50 Chloride 0.9% 50 ml @ 100 mls/hr IVPB Q8HR [facility] Rx# :[id number] Oral 2038 Output: Stool 0 Other: Voiding Method Toilet # Voids 1 1 1 - Labs CBC & Chem 7: 04/17/24 20:25 04/18/24 04:01 Labs: Microbiology - Last 24 Hours (Table) 04/15/24 17:30 Gram Stain - Preliminary Hip - Right Wound Culture - Preliminary 04/15/24 17:25 Gram Stain - Preliminary Hip - Right Wound Culture - Preliminary
--- NOTE | 2024-04-18 09:05 | P.PN ---
Subjective Progress Note Date: 04/18/24 This is an 83 year-old female who is status post irrigation and debridement of a right hip wound on 04/15/[address] Yo. Patient worked with physical therapy and was able to ambulate down the hallway. Yesterday the patient had bilateral lower extremity Doppler ultrasounds which the report stated bilateral lower extremity DVTs. Yesterday patient had a chest CTA which the report stated acute right middle lobe PE, and could not exclude chronic PEs. I spoke with nursing staff this morning and they state considering conditions patient is doing well. Objective - Vital Signs Vital signs: Vital Signs Temp 97.8 F 04/18/24 06:51 Pulse 62 04/18/24 06:51 Resp 16 04/18/24 06:51 BP 142/83 04/18/24 06:51 Pulse Ox 97 04/18/24 06:51 FiO2 Intake & Output 04/17/24 04/18/24 04/18/24 18:59 06:59 18:59 Other: Voiding Method Toilet Toilet # Voids 1 2 - Exam Patient was examined at bedside this morning. Patient was awake alert and able to answer questions. Patient was in the process of getting a echocardiogram. A focused exam of the right hip reveals a surgical dressing that is dry, intact, and has a small amount of strikethrough. She is able to fully extend the knee. Right femoral nerve function was grossly intact. Patient is able to plantarflex and dorsiflex her right ankle and toes. Her right foot appears well-perfused. - Labs CBC & Chem 7: 04/17/24 20:25 04/18/24 04:01 Labs: Abnormal Lab Results - Last 24 Hours (Table) 04/17/24 04/18/24 04/18/24 Range/Units 20:25 02:19 04:01 Hgb 11.2 L (11.4-16.0) gm/dL APTT 68.9 H (22.0-30.0) sec Creatinine 0.46 L (0.52-1.04) mg/dL Microbiology - Last 24 Hours (Table) 04/15/24 17:30 Gram Stain - Preliminary Hip - Right Wound Culture - Preliminary 04/15/24 17:25 Gram Stain - Preliminary Hip - Right Wound Culture - Preliminary Assessment and Plan Assessment: Abscess of right thigh status post total hip arthroplasty right Bilateral DVT Right middle lobe acute PE Plan: Leave surgical dressings in place for now, please notify our service if becomes saturated. Cultures are pending, no growth after first 24 hours. We appreciate medical team for medical management. Dispo: Plans will be made in the future. Will see patient tomorrow.
[2024-04-18 10:22] LABS: Basophils # (A) 0.05 X 10*3/uL (0.00-0.10); Basophils % (A) 0.9 %; Eosinophils % (A) 3.8 %; HCT 31.6 % (37.2-46.3); HGB 9.8 g/dL (12.0-15.0); Lymphocytes % (A) 26.3 %; MCH 28.2 pg (27.0-32.0); MCV 91.1 FL (80.0-97.0); Mean Platelet Volume 10.4 FL (9.5-12.2); Monocytes % (A) 7.5 %; NRBC Per 100 WBC 0 X 10*3/uL (0.00-0.01); Neutrophils # (A) 3.26 X 10*3/uL (1.80-7.70); Neutrophils % (A) 61.1 %; Platelet Count 191 X 10*3/uL (140-440); RBC 3.47 X 10*6/uL (4.10-5.20); RDW 14.4 % (11.5-14.5); WBC 5.33 X 10*3/uL (4.50-10.00)
--- NOTE | 2024-04-18 15:09 | P.PN ---
Subjective Progress Note Date: 04/18/24 HISTORY OF PRESENT ILLNESS 83-year-old With active medical history of hypertension, hyperlipidemia, severe arthritis, sick sinus syndrome with bradycardia, history of DVT in the past, history of mitral valve regurgitation post mitral valve repair over 2 years ago who also had severe arthritis post right total hip arthroplasty with Dr. Boggs over a year ago who has been doing well done extremely well with surgery since did not have any major complication at all. She developed to have slight increased swelling discomfort and drainage from the site of the hip and the thigh area for the last 2 weeks become quite bit worse and up going to [facility] on 04/13/2024 where was seen and raz luated and diagnosed with possible infected prosthetic hip was admitted to the hospital and decided to transfer patient to [facility] to be under service who done her surgery over a year ago for total hip arthroplasty, patient patient was transferred to [facility] on 04/14/2025 continue IV antibiotics was initiated at [facility] which is vancomycin originally till the culture is complete leg culture was done at [facility] not finalized yet. White blood cell was not that high by the times repeated and no challenge and electrolyte or electrolyte balance. Kidney function remained good. 04/16/2024: Patient ended up going to the OR yesterday with Dr. Yo the infection looks more superficial and that opening the area and drain infection was decided is not involving the joint at this point, waiting for infectious disease for further recommendation on oral or IV antibiotics in the meanwhile remain currently on vancomycin and cefazolin. Cultures from [facility] still pending at this point still waiting to see if you have any culture from [facility] from her original admission. 04/17/2024 Patient is seen in follow-up today with infectious disease and orthopedics following with daughters at the bedside reporting awaiting for cultures to finalize to determine discharge antibiotics. Patient is maintained on antibiotics with infectious disease following and will continue current regimen. Patient reports having bilateral lower extremity pain and sensitivity even when placing the SILVIA hose with left worse than right calf pain. Will obtain Dopplers to rule out DVT. Patient to be placed on subcutaneous heparin for now. Patient denies chest pain or shortness of breath currently maintaining oxygen saturations above 95% on room air. D-dimer was noted to be elevated and will likely obtain a chest CT. Patient is afebrile at this time and reports to tolerating diet with no reported nausea or vomiting. 04/18/2024 Patient evaluated in follow-up on the medical floor. Is postoperative irrigation and debridement of her right hip wound. Patient underwent bilateral venous Doppler of the lower extremity yesterday which did reveal distal popliteal DVT in the right as well as DVT of the left popliteal vein proximal FV and Mid FV. Additionally at chest CT angiogram was done showing a right middle lobe acute pulmonary embolism. There is some chronic small right lower lobe pulmonary emboli are not excluded. Correlate for pulmonary hypertension. Is currently saturating well 97% on room air. She was initiated on IV heparin drip protocol for the pulmonary embolism and DVTs. Continue this for now and likely transition to oral Eliquis tomorrow. Awaiting pulmonary recommendations and also the echocardiogram is still pending. Currently pending final cultures from the irrigation and debridement. Patient does continue on IV vancomycin at this time. Review of systems: Constitutional: No reports of fatigue, fever, or chills Cardiovascular: No reports of chest pain or palpitations Respiratory: No reports of shortness of breath or cough GI: No reports of nausea, vomiting, or diarrhea : No reports of dysuria or retention Neurovascular: reports of generalized lower extremity weakness with intense pain in the calf areas especially the left leg All medications have been reviewed PHYSICAL EXAMINATION Gen: This is an 83-year-old female. She is sitting up in the chair. No acute distress is noted. Well-developed, thin built, elderly appearing HEENT: Head is atraumatic, normocephalic. Pupils equal, round. Sclerae is anicteric. NECK: Supple. No JVD. No lymphadenopathy. No thyromegaly. LUNGS: Diminished breath sounds bilaterally. No wheezes or rhonchi. No intercostal retractions. HEART: Regular rate and rhythm. S1, S2 muffled ABDOMEN: Soft. Thin. Bowel sounds are present. No masses. No tenderness. EXTREMITIES: Right hip has normal range of motion there is a area on the lateral side of the thigh area with slightly drainage redness discomfort induration and irritation. NEUROLOGICAL: Patient is awake, alert and oriented x3. Cranial nerves 2 through 12 are grossly intact. 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 _Bilateral lower extremity pain more so on the left, Dopplers positive for DVT bilaterally _Elevated D-dimer, CT suggestive of pulmonary embolism and have started heparin and consult to pulmonary and appreciate input and recommendations, 2D echo is ordered and pending _History of mitral valve regurgitation post mitral valve repair has been doing very well surgery was done successfully 2 years ago with no major complication. _Hypertension: Remain on metoprolol succinate 25 mg a day continue medication will titrate dose higher if needed and add smaller dose of ARB. Try to keep systolic blood pressure below 130. _Hypothyroidism: Continue levothyroxine 125 mcg daily stable and doing well. _Chronic pain syndrome: Remain on tramadol on as-needed basis. _Low-grade anemia: With hemoglobin of 10.4 continue iron supplement multivitamin. _GI prophylaxis: Continue patient on Pepcid 20 mg a day. _DVT prophylaxis: Heparin subcutaneous will be used. _Full code Plan: Patient is continued on IV antibiotics per infectious disease while awaiting for finalized cultures with orthopedics following status post I&D of the right hip. Appears more likely a superficial abscess rather than the previous surgical site infection per orthopedics. Continue current regimen Patient having severe sensitivity and lower calf pain bilaterally more so on the left and patient reports she was having difficulty while putting on the SILVIA hose. Dopplers were obtained of lower extremities and noted to have bilateral DVT. Heparin subcutaneous was initiated although will transition to IV heparin and given patient's D-dimer was elevated yesterday will obtain a CT of the chest to evaluate for PE. CT was suggestive of pulmonary embolism and will obtain a 2D echo and also consult pulmonary and appreciate input and recommendations. Evaluate for any right heart strain. Patient's breathing status does not appear compromised and patient is maintaining oxygen saturations above 95% on room air. Patient denies shortness of breath at this time. We will continue to follow along with orthopedics during hospitalization. Thank you kindly for this consultation. Covering for Dr. Lam/Guilherme The impression and plan of care has been dictated by Lizbeth Marin, Nurse Practitioner as directed. Dr. Peg MD I have performed a history and physical examination and medical decision making of this patient, discussed the same with the dictator, and agree with the dictators assessment and plan as written, documented as a scribe. Based on total visit time, I have performed more than 50% of this visit. Objective - Vital Signs Vital signs: Vital Signs Temp 98.3 F 04/18/24 13:00 Pulse 70 04/18/24 13:00 Resp 16 04/18/24 13:00 BP 123/74 04/18/24 13:00 Pulse Ox 97 04/18/24 13:00 FiO2 Intake & Output 04/17/24 04/18/24 04/18/24 18:59 06:59 18:59 Other: Voiding Method Toilet Toilet # Voids 1 2 1 - Labs CBC & Chem 7: 04/18/24 04:01 04/18/24 04:01 Labs: Abnormal Lab Results - Last 24 Hours (Table) 04/17/24 04/18/24 04/18/24 Range/Units 20:25 02:19 04:01 RBC 3.47 L (4.10-5.20) X 10*6/uL Hgb 11.2 L 9.8 L (11.4-16.0) gm/dL Hct 31.6 L (37.2-46.3) % MCHC 31.0 L (32.0-37.0) g/dL APTT 68.9 H (22.0-30.0) sec Creatinine (0.52-1.04) mg/dL 04/18/24 Range/Units 04:01 RBC (4.10-5.20) X 10*6/uL Hgb (11.4-16.0) gm/dL Hct (37.2-46.3) % MCHC (32.0-37.0) g/dL APTT (22.0-30.0) sec Creatinine 0.46 L (0.52-1.04) mg/dL Microbiology - Last 24 Hours (Table) 04/15/24 17:30 Gram Stain - Final Hip - Right Wound Culture - Final 04/15/24 17:25 Gram Stain - Final Hip - Right Wound Culture - Final Assessment and Plan Time with Patient: Less than 30
--- NOTE | 2024-04-18 16:14 | P.CNPUL ---
History of Present Illness Consult date: 04/18/24 Reason for consult: pulmonary embolism History of present illness: This is a 83-year-old female patient, is being seen in consultation for pulmon deepti embolism. The patient has a previous history of pulmonary embolism and the patient was back then treated with anticoagulation with Eliquis back in 2020 and subsequently, the anticoagulation was discontinued. The patient has other comorbidities including sick sinus syndrome, hypertension, hyperlipidemia, valvular heart disease with mitral regurgitation and the patient undergo mitral valve repair and history of hypothyroidism and glaucoma and osteoarthritis. More recently, the patient has undergone a right hip replacement. This was done approximately 1 year ago. The patient did well with approximately a month ago, the patient noted some swelling along the surgical area on the right. The swelling became worse and she started developing redness at the distal aspect of the incision. Incision opened up and infection was suspected and the patient underwent a irrigation and debridement of the right hip wound. The cultures are still pending for now. The patient is being seen by infectious disease and the patient is currently on IV antibiotics. She remains on vancomycin. I was c onsulted regarding pulmonary embolism in this patient. The patient postop, underwent bilateral lower extremity Dopplers and the patient was found to have bilateral distal popliteal DVT and the 1 in the left was extending to the femoral vein. CT angiogram also showed a right middle lobe pulmonary embolism. The patient has no significant shortness of breath and the patient's pulse ox around 97% room air oxygen. No pleurisy. No hemoptysis. Patient remains on IV heparin. Review of Systems Constitutional: Reports as per HPI Eyes: denies as per HPI, denies blurred vision, denies bulging eye, denies decreased vision, denies diplopia, denies discharge, denies dry eye, denies irritation, denies itching, denies pain, denies photophobia, denies loss of peripheral vision, denies loss of vision, denies tunnel vision/blind spots Ears: deny: decreased hearing, ear discharge, earache, tinnitus Ears, nose, mouth and throat: Reports as per HPI Breasts: absent: as per HPI, change in shape, gynecomastia, masses, nipple discharge, pain, skin changes, swelling Cardiovascular: Reports as per HPI Respiratory: Reports as per HPI Gastrointestinal: Reports as per HPI Genitourinary: Reports as per HPI Menstruation: Reports as per HPI Musculoskeletal: Reports as per HPI Musculoskeletal: absent: ankle pain, ankle stiffness, ankle swelling, as per HPI, elbow pain, elbow stiffness, elbow swelling, foot pain, foot stiffness, foot swelling, hand pain, hand stiffness, hand swelling, hip pain, hip stiffness, hip swelling, knee pain, knee stiffness, knee swelling, shoulder pain, shoulder stiffness, shoulder swelling, wrist pain, wrist stiffness, wrist swelling Integumentary: Reports wounds (Along the right hip surgical wound site s/p debridement) Neurological: Reports as per HPI Psychiatric: Reports as per HPI Endocrine: Reports as per HPI Past Medical History Past Medical History: Chest Pain / Angina, Deep Vein Thrombosis (DVT), Eye Disorder, Musculoskeletal Disorder, Osteoarthritis (OA), Thyroid Disorder Additional Past Medical History / Comment(s): hx DDD, spondylithosis, migraines, kidney stones, "small vessel heart disease", heart murmur, hx phlebitis, "leaky valves" per pt., DVT leg 2 years ago after traveling approx 2018 with poss PEs- tx with eliquis, glaucoma left eye,UTIs History of Any Multi-Drug Resistant Organisms: None Reported Past Surgical History: Heart Catheterization, Hysterectomy, Joint Replacement Additional Past Surgical History / Comment(s): Bilateral knee replacements, bilateral cataract surgery, left eye surgery, tendon repair right hand, mitral valve repair, rt hip replacement Past Anesthesia/Blood Transfusion Reactions: No Reported Reaction, Motion Sickness Past Psychological History: No Psychological Hx Reported Smoking Status: Never smoker Past Alcohol Use History: None Reported Past Drug Use History: None Reported - Past Family History Father Family Medical History: Diabetes Mellitus Son(s) Family Medical History: Cancer, COPD Additional Family Medical History / Comment(s): Lung cancer. Mother Family Medical History: Coronary Artery Disease (CAD) Additional Family Medical History / Comment(s): Mother had CAD diagnosed less than 60 years old, during a heart cath at 65 years old. Medications and Allergies Home Medications Medication Instructions Recorded Confirmed Type traMADol HCL [Ultram] 50 mg PO Q8H PRN 11/03/20 04/14/24 History Dorzolamide HCl/Pf [Dorzolamide 2% 1 drop LEFT EYE BID 07/23/22 04/14/24 History Eye Drop] Metoprolol Succinate (ER) [Toprol 25 mg PO DAILY 07/23/22 04/14/24 History Xl] Levothyroxine Sodium [Synthroid] 125 mcg PO DAILY 04/14/24 04/14/24 History Ondansetron Odt [Zofran Odt] 4 mg PO Q6H PRN 04/14/24 04/14/24 History Allergies Allergy/AdvReac Type Severity Reaction Status Date / Time alendronate sodium AdvReac jaw pain Verified 04/14/24 17:46 [From Fosamax] amoxicillin [From Augmentin] AdvReac Nausea & Verified 04/14/24 17:46 Vomiting clavulanic acid AdvReac Nausea & Verified 04/14/24 17:46 [From Augmentin] Vomiting denosumab [From Prolia] AdvReac Jaw Pain Verified 04/14/24 17:46 morphine AdvReac Itching Verified 04/14/24 17:46 Physical Exam Vitals: Vital Signs Temp Pulse Resp BP Pulse Ox 04/18/24 13:00 98.3 F 70 16 123/74 97 04/18/24 06:51 97.8 F 62 16 142/83 97 04/18/24 06:01 65 117/74 97 04/18/24 01:17 97.9 F 65 16 98/57 93 L 04/17/24 19:50 97.4 F L 89 17 147/81 95 Intake and Output 04/18/24 04/18/24 04/18/24 06:59 14:59 22:59 Other: # Voids 2 1 1 # Bowel Movements 1 The patient appeared well nourished and normally developed. Vital signs as documented. Head exam is unremarkable. No scleral icterus or corneal arcus noted. Neck is without jugular venous distension, thyromegaly, or carotid bruits. Carotid upstrokes are brisk bilaterally. Lungs are clear to auscultation and percussion. Cardiac exam reveals the PMI to be normally sized and situated. Rhythm is regular. First and second heart sounds normal. No murmurs, rubs or gallops. Abdominal exam reveals normal bowel sounds, no masses, no organomegaly and no aortic enlargement. Neurologically, the patient is awake and alert and the patient does not have any focal neurological deficit. Cranial nerves are essentially intact. EXTREMITIES: Right hip has normal range of motion there is a area on the lateral side of the thigh area with slightly drainage redness discomfort induration and irritation. NEUROLOGICAL: Patient is awake, alert and oriented x3. Cranial nerves 2 through 12 are grossly intact. Results - Laboratory Findings CBC and BMP: 04/18/24 04:01 04/18/24 04:01 ABG WBC 5.33 X 10*3/uL (4.50-10.00) 04/18/24 04:01 RBC 3.47 X 10*6/uL (4.10-5.20) L 04/18/24 04:01 Hgb 9.8 g/dL (12.0-15.0) L 04/18/24 04:01 Hct 31.6 % (37.2-46.3) L 04/18/24 04:01 MCV 91.1 FL (80.0-97.0) 04/18/24 04:01 MCH 28.2 pg (27.0-32.0) 04/18/24 04:01 MCHC 31.0 g/dL (32.0-37.0) L 04/18/24 04:01 RDW 14.4 % (11.5-14.5) 04/18/24 04:01 Plt Count 191 X 10*3/uL (140-440) 04/18/24 04:01 MPV 10.4 FL (9.5-12.2) 04/18/24 04:01 Immature Gran % (Auto) 0.40 % 04/18/24 04:01 Absolute Nucleated RBC 0 % 04/18/24 04:01 Neutrophils % 61.1 % 04/18/24 04:01 Lymphocytes % 26.3 % 04/18/24 04:01 Monocytes % 7.5 % 04/18/24 04:01 Eosinophils % 3.8 % 04/18/24 04:01 Basophils % 0.9 % 04/18/24 04:01 Immature Gran # 0.02 X 10*3/uL (0.00-0.04) 04/18/24 04:01 Neutrophils # 3.26 X 10*3/uL (1.80-7.70) 04/18/24 04:01 Lymphocytes # 1.40 X 10*3/uL (0.90-5.00) 04/18/24 04:01 Monocytes # 0.40 X 10*3/uL (0.20-1.00) 04/18/24 04:01 Eosinophils # 0.20 X 10*3/uL (0.04-0.35) 04/18/24 04:01 Basophils # 0.05 X 10*3/uL (0.00-0.10) 04/18/24 04:01 NRBC/100 WBC Diff 0 X 10*3/uL (0.00-0.01) 04/18/24 04:01 Hypochromasia Slight 04/17/24 20:25 ESR 14 mm/Hr (0-30) 04/15/24 05:38 PT 11.5 sec (10.0-12.5) 04/17/24 20:25 INR 1.1 (<1.2) 04/17/24 20:25 APTT 68.9 sec (22.0-30.0) H 04/18/24 02:19 D-Dimer 10.45 mg/L FEU (<0.60) H 04/15/24 05:23 Sodium 142 mmol/L (137-145) 04/15/24 05:23 Potassium 4.0 mmol/L (3.5-5.1) 04/15/24 05:23 Chloride 112 mmol/L (98-107) H 04/15/24 05:23 Carbon Dioxide 27 mmol/L (22-30) 04/15/24 05:23 Anion Gap 3 mmol/L 04/15/24 05:23 BUN 10 mg/dL (7-17) 04/15/24 05:23 Creatinine 0.46 mg/dL (0.52-1.04) L 04/18/24 04:01 Est GFR (CKD-EPI)AfAm >90 (>60 ml/min/1.73 sqM) 04/18/24 04:01 Est GFR (CKD-EPI)NonAf >90 (>60 ml/min/1.73 sqM) 04/18/24 04:01 Glucose 83 mg/dL (74-99) 04/15/24 05:23 Calcium 8.7 mg/dL (8.4-10.2) 04/15/24 05:23 Total Bilirubin 0.4 mg/dL (0.2-1.3) 04/15/24 05:23 AST 23 U/L (14-36) 04/15/24 05:23 ALT 15 U/L (4-34) 04/15/24 05:23 Alkaline Phosphatase 69 U/L (38-126) 04/15/24 05:23 Total Protein 5.7 g/dL (6.3-8.2) L 04/15/24 05:23 Albumin 2.9 g/dL (3.5-5.0) L 04/15/24 05:23 Globulin 2.8 g/dL 04/15/24 05:23 Albumin/Globulin Ratio 1.0 04/15/24 05:23 Procalcitonin 0.03 ng/mL (0.02-0.50) 04/15/24 05:23 Vancomycin Trough 7.7 ug/mL 04/17/24 05:39 PT/INR, D-dimer PT 11.5 sec (10.0-12.5) 04/17/24 20:25 INR 1.1 (<1.2) 04/17/24 20:25 D-Dimer 10.45 mg/L FEU (<0.60) H 04/15/24 05:23 Abnormal lab findings: Abnormal Labs 04/15/24 04/15/24 04/15/24 05:23 05:23 05:38 RBC 3.57 L Hgb 10.4 L Hct 33.0 L MCHC APTT D-Dimer 10.45 H Chloride 112 H Creatinine 0.47 L Total Protein 5.7 L Albumin 2.9 L 04/16/24 04/16/24 04/17/24 05:56 05:56 20:25 RBC 3.71 L Hgb 10.8 L 11.2 L Hct 35.2 L MCHC 30.7 L APTT D-Dimer Chloride Creatinine 0.43 L Total Protein Albumin 04/18/24 04/18/24 04/18/24 02:19 04:01 04:01 RBC 3.47 L Hgb 9.8 L Hct 31.6 L MCHC 31.0 L APTT 68.9 H D-Dimer Chloride Creatinine 0.46 L Total Protein Albumin - Diagnostic Findings CT scan - chest: image reviewed U/S of Legs: image reviewed Assessment and Plan Plan: 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 Previous DVT back in 2020. Hemodynamically stable. No significant shortness of breath. Right hip surgical wound infection without clear indication for a prosthetic joint infection at this point. The patient is on vancomycin. ID is on the case. Orthopedic surgery is on the case History of mitral valve repair Hypertension Hypothyroidism Degenerative arthritis Anemia of chronic disease Chronic back pain. Plan Agree on anticoagulation with IV heparin and the patient can be transition to long-term anticoagulation once cleared by orthopedic surgery. I will transition the patient's anticoagulation with Eliquis once we are sure that there is no further surgical intervention or debridement need to be done on the right hip infected wound. Continue IV vancomycin Hemodynamically stable No hypoxemia
[2024-04-18 17:52] LABS: INR 1.21 sec (0.93-1.11); Prothrombin Time 12.9 sec (9.9-11.9)
--- NOTE | 2024-04-18 22:21 | P.PN ---
Subjective Progress Note Date: 04/18/24 Principal diagnosis: Reason for follow-up is right hip abscess cellulitis Patient is a 83-year-old female with a past medical history significant for DVT osteoarthritis hypothyroidism, mitral valve repair, status post bilateral knee replacement and right hip replacement about years ago presented to the hospital with right hip area swelling did have some drainage and a wound in this patient who is status post OR debridement operative report did not mention extension of the wound down to the prosthetic hip. On today's evaluation that is 04/18/2024 the patient continues to be afebrile, the patient is breathing comfortably on room air patient denies having any chest pain cough is decreased intensity not bringing up any sputum no nausea no vomiting abdominal pain or diarrhea, pain to the right hip area is currently controlled. Patient white count is 5.33 creatinine 0.46 culture have been negative so far Objective - Vital Signs Vital signs: Vital Signs Temp 97.8 F 04/18/24 06:51 Pulse 62 04/18/24 06:51 Resp 16 04/18/24 06:51 BP 142/83 04/18/24 06:51 Pulse Ox 97 04/18/24 06:51 FiO2 Intake & Output 04/17/24 04/18/24 04/18/24 18:59 06:59 18:59 Other: Voiding Method Toilet Toilet # Voids 1 2 1 - Exam GENERAL DESCRIPTION: An elderly female lying in bed in no distress RESPIRATORY SYSTEM: Unlabored breathing , decreased breath sounds at bases HEART: S1 S2 regular rate and rhythm , ABDOMEN: Soft , no tenderness EXTREMITIES: Right hip is currently dressed - Labs CBC & Chem 7: 04/18/24 04:01 04/18/24 04:01 Labs: Abnormal Lab Results - Last 24 Hours (Table) 04/17/24 04/18/24 04/18/24 Range/Units 20:25 02:19 04:01 RBC 3.47 L (4.10-5.20) X 10*6/uL Hgb 11.2 L 9.8 L (11.4-16.0) gm/dL Hct 31.6 L (37.2-46.3) % MCHC 31.0 L (32.0-37.0) g/dL APTT 68.9 H (22.0-30.0) sec Creatinine (0.52-1.04) mg/dL 04/18/24 Range/Units 04:01 RBC (4.10-5.20) X 10*6/uL Hgb (11.4-16.0) gm/dL Hct (37.2-46.3) % MCHC (32.0-37.0) g/dL APTT (22.0-30.0) sec Creatinine 0.46 L (0.52-1.04) mg/dL Microbiology - Last 24 Hours (Table) 04/15/24 17:30 Gram Stain - Final Hip - Right Wound Culture - Final 04/15/24 17:25 Gram Stain - Final Hip - Right Wound Culture - Final Assessment and Plan (1) Penicillin allergy Current Visit: Yes Status: Acute Code(s): Z88.0 - ALLERGY STATUS TO PENICILLIN SNOMED Code(s): 51274506 (2) Abscess of right thigh Current Visit: Yes Status: Acute Code(s): L02.415 - CUTANEOUS ABSCESS OF RIGHT LOWER LIMB SNOMED Code(s): 71620218776487162 Plan: 1patient presented to the hospital with the wound to the right hip area this patient with 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 about a year ago with concern for periprosthetic right hip infection and likely from gram- positive skin darlene 2-patient is status post surgical exploration operative report mention no extension down to the prosthetic hip which was not removed deep culture obtained which are so far negative 3-with a culture negative for any resistant pathogen we will discontinue vancomycin and start the patient on Rocephin and may consider short course of Rocephin on discharge family the bedside question concern were answered Dictation was produced using [employer] dictation software. please excuse any grammatical, word or spelling errors. Time with Patient: Less than 30
[2024-04-19 03:09] LABS: African American GFR (CKD) >90 (>60 ml/min/1.73 sqM); Non-African American GFR(CKD) >90 (>60 ml/min/1.73 sqM)
[2024-04-19] MEDS: HEPARIN SODIUM 1,000 UN/ML (10ML VL) IV PRN (03:13)
[2024-04-19] MEDS: HYDROcodone/APAP 5-325MG 1 EACH TAB PO PRN (03:36)
[2024-04-19] MEDS ORDERED: VANCOMYCIN TROUGH DUE 1 EACH MISC MISCELLANE ONE (05:00)
--- NOTE | 2024-04-19 08:47 | P.PN ---
Subjective Progress Note Date: 04/19/24 This is an 83 year-old female who is Abscess of right thigh status post irrigation and debridement on 04/15/[address] Yo. Patient worked with physical therapy and was able to ambulate down the hallway. The patient had bilateral lower extremity Doppler ultrasounds which the report stated bilateral lower extremity DVTs. The patient had a chest CTA which the report stated acute right middle lobe PE, and could not exclude chronic PEs. I spoke with nursing staff this morning and they state considering conditions patient continues to do very well. Patient denies pain in their right thigh, but states a pulling sensation of the skin where the sutures are. Patient states she has been ambulating well with walker. Objective - Vital Signs Vital signs: Vital Signs Temp 97.5 F L 04/19/24 07:02 Pulse 67 04/19/24 07:02 Resp 17 04/19/24 07:02 BP 124/67 04/19/24 07:02 Pulse Ox 95 04/19/24 07:02 FiO2 Intake & Output 04/18/24 04/19/24 04/19/24 18:59 06:59 18:59 Intake Total 180.419 34.447 Balance 180.419 34.447 Weight 50.3 kg Intake: Intake, IV Titration 180.419 34.447 Amount Heparin Sod,Pork in 0.45% 180.419 34.447 NaCl 25,000 unit In 0.45 % NaCl 1 250ml.bag @ 12 UNITS/KG/HR 6.024 mls/hr IV .Q24H [facility] Rx#: [id number] Other: Voiding Method Toilet # Voids 1 2 # Bowel Movements 1 - Exam Patient was examined at bedside this morning. Patient was sitting up in chair. Patient was awake alert and able to answer questions. A focused exam of the right hip reveals a surgical dressing that is dry, intact, and has a small amount of strikethrough. She is able to fully extend the knee. Right femoral nerve function was grossly intact. Patient is able to plantarflex and dorsiflex her right ankle and toes. Her right foot appears well-perfused. Bilateral calves are soft and patient denies pain with palpation. - Labs CBC & Chem 7: 04/18/24 04:01 04/19/24 02:18 Labs: Abnormal Lab Results - Last 24 Hours (Table) 1004/18/24 04/19/24 Range/Units 04:01 04:01 02:18 RBC 3.47 L (4.10-5.20) X 10*6/uL Hgb 9.8 L (12.0-15.0) g/dL Hct 31.6 L (37.2-46.3) % MCHC 31.0 L (32.0-37.0) g/dL PT 12.9 H (9.9-11.9) sec INR 1.21 H (0.93-1.11) sec APTT (22.0-30.0) sec Creatinine 0.47 L (0.52-1.04) mg/dL 04/19/24 Range/Units 02:18 RBC (4.10-5.20) X 10*6/uL Hgb (12.0-15.0) g/dL Hct (37.2-46.3) % MCHC (32.0-37.0) g/dL PT (9.9-11.9) sec INR (0.93-1.11) sec APTT 42.9 H (22.0-30.0) sec Creatinine (0.52-1.04) mg/dL Microbiology - Last 24 Hours (Table) 04/15/24 17:30 Gram Stain - Final Hip - Right Wound Culture - Final 04/15/24 17:25 Gram Stain - Final Hip - Right Wound Culture - Final Assessment and Plan Assessment: Abscess of right thigh status post irrigation and debridement on 04/15/[address] Yo. status post total hip arthroplasty right Bilateral DVT Right middle lobe acute PE Plan: Leave surgical dressings in place for now, please notify our service if becomes saturated. Cultures are pending, no growth after first 24 hours. We appreciate medical team for medical management. Dispo: From an orthopedic standpoint, patient continues to do very well, has mild discomfort in the right thigh, and has been ambulating well. Patient is being treated by medical team for multiple medical conditions.
[2024-04-19 10:47] LABS: Blood Urea Nitrogen 5.8 mg/dL (9.0-27.0); Calcium 8.2 mg/dL (8.7-10.3); Carbon Dioxide 23.7 mmol/L (21.6-31.8); Chloride 109 mmol/L (96-109); Glucose 93 mg/dL (70-110); Potassium 3.5 mmol/L (3.5-5.5); Sodium 141 mmol/L (135-145)
[2024-04-19] MEDS: Apixaban Initiation Dose--VTE 5 MG TAB PO SCH (12:34)
[2024-04-19] MEDS ORDERED: CALCIUM CARBONATE 500 MG CHEWABLE PO PRN (12:59)
--- NOTE | 2024-04-19 13:38 | P.PN ---
Subjective Progress Note Date: 04/19/24 This is a 83-year-old female patient, is being seen in consultation for pulmona ry embolism. The patient has a previous history of pulmonary embolism and the patient was back then treated with anticoagulation with Eliquis back in 2020 and subsequently, the anticoagulation was discontinued. The patient has other comorbidities including sick sinus syndrome, hypertension, hyperlipidemia, valvular heart disease with mitral regurgitation and the patient undergo mitral valve repair and history of hypothyroidism and glaucoma and osteoarthritis. More recently, the patient has undergone a right hip replacement. This was done approximately 1 year ago. The patient did well with approximately a month ago, the patient noted some swelling along the surgical area on the right. The swelling became worse and she started developing redness at the distal aspect of the incision. Incision opened up and infection was suspected and the patient underwent a irrigation and debridement of the right hip wound. The cultures are still pending for now. The patient is being seen by infectious disease and the patient is currently on IV antibiotics. She remains on vancomycin. I was co nsulted regarding pulmonary embolism in this patient. The patient postop, underwent bilateral lower extremity Dopplers and the patient was found to have bilateral distal popliteal DVT and the 1 in the left was extending to the femoral vein. CT angiogram also showed a right middle lobe pulmonary embolism. The patient has no significant shortness of breath and the patient's pulse ox around 97% room air oxygen. No pleurisy. No hemoptysis. Patient remains on IV heparin. 04/19/2024, patient is, comfortable, hemodynamically stable on IV heparin. No specific complaints. No fever or chills. She is on IV Rocephin and she is also on vancomycin. Sodium level is 141, BUN is at 5 with a creatinine of 0.4. Electrolytes are all within normal limits. CBC from yesterday showed a white cell count of 5.3 with a hemoglobin 9.8. No pleurisy. No chest pain. No hemoptysis. No shortness of breath. Objective - Vital Signs Vital signs: Vital Signs Temp 97.5 F L 04/19/24 07:02 Pulse 67 04/19/24 07:02 Resp 17 04/19/24 07:02 BP 124/67 04/19/24 07:02 Pulse Ox 95 04/19/24 07:02 FiO2 Intake & Output 04/18/24 04/19/2404/19/24 18:59 06:59 18:59 Intake Total 180.419 45.695 Balance 180.419 45.695 Weight 50.3 kg Intake: Intake, IV Titration 180.419 45.695 Amount Heparin Sod,Pork in 0.45% 180.419 45.695 NaCl 25,000 unit In 0.45 % NaCl 1 250ml.bag @ 12 UNITS/KG/HR 6.024 mls/hr IV .Q24H [facility] Rx#: [id number] Other: Voiding Method Toilet # Voids 1 2 # Bowel Movements 1 - Exam The patient appeared well nourished and normally developed. Vital signs as documented. Head exam is unremarkable. No scleral icterus or corneal arcus noted. Neck is without jugular venous distension, thyromegaly, or carotid bruits. Carotid upstrokes are brisk bilaterally. Lungs are clear to auscultation and percussion. Cardiac exam reveals the PMI to be normally sized and situated. Rhythm is regular. First and second heart sounds normal. No murmurs, rubs or gallops. Abdominal exam reveals normal bowel sounds, no masses, no organomegaly and no aortic enlargement. Neurologically, the patient is awake and alert and the patient does not have any focal neurological deficit. Cranial nerves are essentially intact. EXTREMITIES: Right hip has normal range of motion there is a area on the lateral side of the thigh area with slightly drainage redness discomfort induration and irritation. NEUROLOGICAL: Patient is awake, alert and oriented x3. Cranial nerves 2 through 12 are grossly intact. - Labs CBC & Chem 7: 04/18/24 04:01 04/19/24 02:18 Labs: Abnormal Lab Results - Last 24 Hours (Table) 04/18/24 04/18/24 04/19/24 Range/Units 04:01 04:01 02:18 RBC 3.47 L (4.10-5.20) X 10*6/uL Hgb 9.8 L (12.0-15.0) g/dL Hct 31.6 L (37.2-46.3) % MCHC 31.0 L (32.0-37.0) g/dL PT 12.9 H (9.9-11.9) sec INR 1.21 H (0.93-1.11) sec APTT (22.0-30.0) sec Creatinine 0.47 L (0.52-1.04) mg/dL 04/19/24 04/19/24 Range/Units 02:18 09:04 RBC (4.10-5.20) X 10*6/uL Hgb (12.0-15.0) g/dL Hct (37.2-46.3) % MCHC (32.0-37.0) g/dL PT (9.9-11.9) sec INR (0.93-1.11) sec APTT 42.9 H 46.9 H (22.0-30.0) sec Creatinine (0.52-1.04) mg/dL Microbiology - Last 24 Hours (Table) 04/15/24 17:30 Gram Stain - Final Hip - Right Wound Culture - Final 04/15/24 17:25 Gram Stain - Final Hip - Right Wound Culture - Final Assessment and Plan Plan: 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 Previous DVT back in 2020. Hemodynamically stable. No significant shortness of breath. Right hip surgical wound infection without clear indication for a prosthetic joint infection at this point. The patient is on vancomycin. ID is on the case. Orthopedic surgery is on the case History of mitral valve repair Hypertension Hypothyroidism Degenerative arthritis Anemia of chronic disease Chronic back pain. Plan Stop the IV heparin and start the patient on anticoagulation with Eliquis. Continue IV Rocephin Continue IV vancomycin Hemodynamically stable No hypoxemia Will follow
[2024-04-19] MEDS: PANTOPRAZOLE 40 MG/10 ML VIAL IVP SCH (14:11)
--- NOTE | 2024-04-19 14:40 | CA ---
Transthoracic Echo Report Name: Dilcia David Age: 83 Gender: F : 1940 Exam Date: 04/18/2024 08:17 Exam Location: [facility] Ht (in): 65 Wt (lb): 110 Ordering Physician: Júnior Millard Attending/Referring Phys: [employer] Lily Michael RDCS Procedure CPT: Indications: Pulmonary Embolism/DVTs Cardiac Hx: MV Repair Technical Quality: Fair Contrast 1: Total Dose (mL): Contrast 2: Total Dose (mL): MEASUREMENTS (Male / Female) Normal Values 2D ECHO LV Diastolic Diameter PLAX 3.9 cm 4.2 - 5.9 / 3.9 - 5.3 cm LV Systolic Diameter PLAX 2.4 cm IVS Diastolic Thickness 1.1 cm 0.6 - 1.0 / 0.6 - 0.9 cm LVPW Diastolic Thickness 1.0 cm 0.6 - 1.0 / 0.6 - 0.9 cm LV Relative Wall Thickness 0.5 RV Internal Dim ED PLAX 2.2 cm LA Systolic Diameter LX 3.7 cm 3.0 - 4.0 / 2.7 - 3.8 cm LV Diastolic Volume MOD BP 47.5 cm??? 67 - 155 / 56 - 104 cm??? LV Systolic Volume MOD BP 19.8 cm??? 22 - 58 / 19 - 49 cm??? LV Ejection Fraction MOD BP 58.2 % >= 55 % LV Cardiac Index MOD BP 1635.8 cm???/min???m??? LV Diastolic Volume MOD 4C 53.8 cm??? LV Systolic Volume MOD 4C 16.9 cm??? LV Ejection Fraction MOD 4C 68.6 % LV Cardiac Index MOD 4C 2183.3 cm???/min???m??? LV Diastolic Length 4C 6.9 cm LV Systolic Length 4C 5.6 cm LV Diastolic Volume MOD 2C 40.8 cm??? LV Systolic Volume MOD 2C 11.4 cm??? LV Ejection Fraction MOD 2C 72.1 % LV Cardiac Index MOD 2C 1741.9 cm???/min???m??? LV Diastolic Length 2C 6.6 cm LV Systolic Length 2C 2.6 cm LA Volume 102.8 cm??? 18 - 58 / 22 - 52 cm??? LA Volume Index 68.3 cm???/m??? 16 - 28 cm???/m??? M-MODE Aortic Root Diameter MM 2.8 cm LA Systolic Diameter MM 2.2 cm LA Ao Ratio MM 0.8 AV Cusp Separation MM 1.8 cm DOPPLER AV Peak Velocity 159.2 cm/s AV Peak Gradient 10.1 mmHg AV Mean Velocity 108.1 cm/s AV Mean Gradient 5.4 mmHg AV Velocity Time Integral 32.1 cm AI Peak Velocity 450.1 cm/s AI Peak Gradient 81.0 mmHg AI Pressure Half Time 700.4 ms LVOT Peak Velocity 93.8 cm/s LVOT Peak Gradient 3.5 mmHg LVOT Velocity Time Integral 20.0 cm MV Peak Velocity 133.7 cm/s MV Peak Gradient 7.1 mmHg MV Mean Velocity 71.3 cm/s MV Mean Gradient 2.5 mmHg MV Velocity Time Integral 38.5 cm MV Area PHT 3.6 cm??? Mitral E Point Velocity 136.4 cm/s Mitral A Point Velocity 63.0 cm/s Mitral E to A Ratio 2.2 MV Deceleration Time 210.4 ms TR Peak Velocity 354.9 cm/s TR Peak Gradient 50.4 mmHg Right Ventricular Systolic Press 53.6 mmHg FINDINGS Left Ventricle Left ventricular ejection fraction is estimated at 55-60 %. Mildly increased septal wall thickness. Mildly increased posterior wall thickness. Normal left ventricular systolic function with no obvious regional wall motion abnormalities. Left ventricular cavity size normal. Right Ventricle Mild right ventricular dilatation. Moderate pulmonary hypertension. Right Atrium Severe right atrial dilatation. Left Atrium Severely increased left atrial volume. Moderately increased left atrial area. Mitral Valve MV repair, Mean PG 2.5 mmHg. Mild mitral regurgitation. No mitral stenosis. Aortic Valve Trileaflet aortic valve. No aortic stenosis. Dcxi-tb-lhjyselu aortic regurgitation. Tricuspid Valve Structurally normal tricuspid valve. Severe tricuspid regurgitation. No tricuspid stenosis. Pulmonic Valve Structurally normal pulmonic valve. Moderate pulmonic regurgitation. There is dilated pulmonic valve annulus. Pericardium No pericardial or pleural effusion. Aorta Normal size aortic root and proximal ascending aorta. CONCLUSIONS LVEF 55 to 60% Mild concentric LVH No obvious regional wall motion abnormality Mild RV dilatation with moderate pulmonary hypertension. RVSP 54 mmHg Severe biatrial dilatation Prior mitral valve repair, mean gradient 2.5 mmHg, mild mitral regurgitation Moderate aortic regurgitation Severe tricuspid regurgitation Previewed by: Dr Brennan Gomez (Electronically Signed) Final Date: 19 April 2024 14:39
--- NOTE | 2024-04-19 21:55 | P.PN ---
Subjective Progress Note Date: 04/19/24 Principal diagnosis: Reason for follow-up is right hip abscess cellulitis Patient is a 83-year-old female with a past medical history significant for DVT osteoarthritis hypothyroidism, mitral valve repair, status post bilateral knee replacement and right hip replacement about years ago presented to the hospital with right hip area swelling did have some drainage and a wound in this patient who is status post OR debridement operative report did not mention extension of the wound down to the prosthetic hip. On today's evaluation that is 04/19/2024, the patient continues to be afebrile, the patient is on room air and breathing comfortably, the Pt denies having any chest pain or cough, the patient denies having any abdominal pain no vomiting or any diarrhea, pain to the right hip is currently controlled. Patient did have creatinine 0.47 no CBC was done today culture remains to be negative Objective - Vital Signs Vital signs: Vital Signs Temp 97.5 F L 04/19/24 07:02 Pulse 67 04/19/24 07:02 Resp 17 04/19/24 07:02 BP 124/67 04/19/24 07:02 Pulse Ox 95 04/19/24 07:02 FiO2 Intake & Output 04/18/24 04/19/24 04/19/24 18:59 06:59 18:59 Intake Total 180.419 45.695 Balance 180.419 45.695 Weight 50.3 kg Intake: Intake, IV Titration 180.419 45.695 Amount Heparin Sod,Pork in 0.45% 180.419 45.695 NaCl 25,000 unit In 0.45 % NaCl 1 250ml.bag @ 12 UNITS/KG/HR 6.024 mls/hr IV .Q24H [facility] Rx#: [id number] Other: Voiding Method Toilet # Voids 1 2 # Bowel Movements 1 - Exam GENERAL DESCRIPTION: An elderly female lying in bed in no distress RESPIRATORY SYSTEM: Unlabored breathing , decreased breath sounds at bases HEART: S1 S2 regular rate and rhythm , ABDOMEN: Soft , no tenderness EXTREMITIES: Right hip is currently dressed - Labs CBC & Chem 7: 04/18/24 04:01 04/19/24 02:18 Labs: Abnormal Lab Results - Last 24 Hours (Table) 04/18/24 04/19/24 04/19/24 Range/Units 04:01 02:18 02:18 PT 12.9 H (9.9-11.9) sec INR 1.21 H (0.93-1.11) sec APTT (22.0-30.0) sec BUN 5.8 L (9.0-27.0) mg/dL Creatinine 0.4 L 0.47 L (0.6-1.5) mg/dL Calcium 8.2 L (8.7-10.3) mg/dL 04/19/24 04/19/24 Range/Units 02:18 09:04 PT (9.9-11.9) sec INR (0.93-1.11) sec APTT 42.9 H 46.9 H (22.0-30.0) sec BUN (9.0-27.0) mg/dL Creatinine (0.6-1.5) mg/dL Calcium (8.7-10.3) mg/dL Microbiology - Last 24 Hours (Table) 04/15/24 17:30 Gram Stain - Final Hip - Right Wound Culture - Final 04/15/24 17:25 Gram Stain - Final Hip - Right Wound Culture - Final Assessment and Plan (1) Penicillin allergy Current Visit: Yes Status: Acute Code(s): Z88.0 - ALLERGY STATUS TO PENICILLIN SNOMED Code(s): 96156086 (2) Abscess of right thigh Current Visit: Yes Status: Acute Code(s): L02.415 - CUTANEOUS ABSCESS OF RIGHT LOWER LIMB SNOMED Code(s): 42708746606260627 Plan: 1patient presented to the hospital with the wound to the right hip area this patient with 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 please excuse any grammatical, word or spelling errors. Time with Patient: Less than 30
[2024-04-20 04:23] LABS: African American GFR (CKD) >90 (>60 ml/min/1.73 sqM); Non-African American GFR(CKD) >90 (>60 ml/min/1.73 sqM)
[2024-04-20] MEDS: ACETAMINOPHEN TAB 500 MG TAB PO PRN (05:39)
--- NOTE | 2024-04-20 05:41 | P.PN ---
Subjective Progress Note Date: 04/19/24 83-year-old With active medical history of hypertension, hyperlipidemia, severe arthritis, sick sinus syndrome with bradycardia, history of DVT in the past, history of mitral valve regurgitation post mitral valve repair over 2 years ago who also had severe arthritis post right total hip arthroplasty with Dr. Boggs over a year ago who has been doing well done extremely well with surgery since did not have any major complication at all. She developed to have slight increased swelling discomfort and drainage from the site of the hip and the thigh area for the last 2 weeks become quite bit worse and up going to [facility] on 04/13/2024 where was seen and evaluated and diagnosed with possible infected prosthetic hip was admitted to the hospital and decided to transfer patient to [facility] to be under service who done her surgery over a year ago for total hip arthroplasty, patient patient was transferred to [facility] on 04/14/2025 continue IV antibiotics was initiated at [facility] which is vancomycin originally till the culture is complete leg culture was done at [facility] not finalized yet. White blood cell was not that high by the times repeated and no challenge and electrolyte or electrolyte balance. Kidney function remained good. 04/16/2024: Patient ended up going to the OR yesterday with Dr. Yo the infection looks more superficial and that opening the area and drain infection was decided is not involving the joint at this point, waiting for infectious disease for further recommendation on oral or IV antibiotics in the meanwhile remain currently on vancomycin and cefazolin. Cultures from [facility] still pending at this point still waiting to see if you have any culture from [facility] from her original admission. 04/17/2024 Patient is seen in follow-up today with infectious disease and orthopedics following with daughters at the bedside reporting awaiting for cultures to finalize to determine discharge antibiotics. Patient is maintained on antibiotics with infectious disease following and will continue current regimen. Patient reports having bilateral lower extremity pain and sensitivity even when placing the SILVIA hose with left worse than right calf pain. Will obtain Dopplers to rule out DVT. Patient to be placed on subcutaneous heparin for now. Patient denies chest pain or shortness of breath currently maintaining oxygen saturations above 95% on room air. D-dimer was noted to be elevated and will likely obtain a chest CT. Patient is afebrile at this time and reports to tolerating diet with no reported nausea or vomiting. 04/18/2024 Patient evaluated in follow-up on the medical floor. Is postoperative irrigation and debridement of her right hip wound. Patient underwent bilateral venous Doppler of the lower extremity yesterday which did reveal distal popliteal DVT in the right as well as DVT of the left popliteal vein proximal FV and Mid FV. Additionally at chest CT angiogram was done showing a right middle lobe acute pulmonary embolism. There is some chronic small right lower lobe pulmonary emboli are not excluded. Correlate for pulmonary hypertension. Is currently saturating well 97% on room air. She was initiated on IV heparin drip protocol for the pulmonary embolism and DVTs. Continue this for now and likely transition to oral Eliquis tomorrow. Awaiting pulmonary recommendations and also the echocardiogram is still pending. Currently pending final cultures from the irrigation and debridement. Patient does continue on IV vancomycin at this time. 04/19/2024 Patient is seen in follow-up today with no acute overnight issues noted. Patient continues on heparin and is being transition to Eliquis for bilateral DVTs and PE noted on CT scan. Patient reports was taking Eliquis previously for 6 months and unfortunately paid over $500 per month. Patient does not want to continue with this as she cannot afford this and asking if Xarelto is possibly covered. Will consult case management to verify coverage regarding discharge planning. Cultures have been negative on the right hip abscess and infectious disease considering a 2-week plan of IV antibiotics on discharge. Patient is af ebrile with no reports of chest pain or shortness of breath. Patient has been tolerating diet with no reported nausea or vomiting. Review of systems: Constitutional: No reports of fatigue, fever, or chills Cardiovascular: No reports of chest pain or palpitations Respiratory: No reports of shortness of breath or cough GI: No reports of nausea, vomiting, or diarrhea : No reports of dysuria or retention Neurovascular: reports of generalized lower extremity weakness with improvements All medications have been reviewed PHYSICAL EXAMINATION Gen: This is an 83-year-old female. She is sitting up in the chair. No acute distress is noted. Well-developed, thin built, elderly appearing HEENT: Head is atraumatic, normocephalic. Pupils equal, round. Sclerae is anicteric. NECK: Supple. No JVD. No lymphadenopathy. No thyromegaly. LUNGS: Diminished breath sounds bilaterally. No wheezes or rhonchi. No intercostal retractions. HEART: Regular rate and rhythm. S1, S2 muffled ABDOMEN: Soft. Thin. Bowel sounds are present. No masses. No tenderness. EXTREMITIES: Right hip has normal range of motion there is a area on the lateral side of the thigh area with slightly drainage, redness has improved and less painful on palpation NEUROLOGICAL: Patient is awake, alert and oriented x3. Cranial nerves 2 through 12 are grossly intact. 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 Cultures are negative and ID recommending possibly a 2-week course of IV antibiotics on discharge. Case management consult to determine discharge planning. _Abscess on the incision site status post I and D still waiting for the final culture but continue current antibiotics. _Bilateral lower extremity pain more so on the left, Dopplers positive for DVT bilaterally _Elevated D-dimer, CT suggestive of pulmonary embolism and was on heparin and being transition to Eliquis. Patient has history of taking Eliquis although it cost over $500 per month for 6 months and patient cannot afford. Case management was consulted to verify coverage of Xarelto is covered and alternative. 2D echo remains pending and pulmonary is following. Patient is comfortable on room air maintaining oxygen saturations above 95% _History of mitral valve regurgitation post mitral valve repair has been doing very well surgery was done successfully 2 years ago with no major complication. _Hypertension: Remain on metoprolol succinate 25 mg a day continue medication will titrate dose higher if needed and add smaller dose of ARB. Try to keep systolic blood pressure below 130. _Hypothyroidism: Continue levothyroxine 125 mcg daily stable and doing well. _Chronic pain syndrome: Remain on tramadol on as-needed basis. _Low-grade anemia: With hemoglobin of 10.4 continue iron supplement multivitamin. _GI prophylaxis: Continue patient on Pepcid 20 mg a day. _DVT prophylaxis: Heparin subcutaneous will be used. _Full code Plan: Patient is continued on IV antibiotics per infectious disease and cultures remain negative thus far. Orthopedics following status post I&D of the right hip. Appears more likely a superficial abscess rather than the previous surgical site infection per orthopedics. Continue current regimen. Infectious disease considering a 2-week course of IV antibiotics on discharge. Patient was having severe sensitivity and lower calf pain bilaterally more so on the left and patient reports she was having difficulty while putting on the SILVIA hose. Dopplers were obtained of lower extremities and noted to have bilateral DVT. Heparin subcutaneous was initiated although will transition to IV heparin and given patient's D-dimer was elevated yesterday will obtain a CT of the chest to evaluate for PE. CT was suggestive of pulmonary embolism and will obtain a 2D echo and also consult pulmonary and appreciate input and recommendations. Evaluate for any right heart strain. Patient's breathing status does not appear compromised and patient is maintaining oxygen saturations above 95% on room air. Patient denies shortness of breath at this time. Patient has been transition to Eliquis although she reports she was on this previously for 6 months and cost over $500 and she cannot afford this. Consult placed to case management regarding IV antibiotics on discharge as well as verifying coverage of Xarelto as a cheaper alternative. Family at the bedside with questions and concerns that were answered to the best of her ability We will continue to follow along with orthopedics during hospitalization. Thank you kindly for this consultation. Covering for Dr. Lam/Guilherme The impression and plan of care has been dictated by Summer Christian, Nurse Practitioner as directed. Dr. Peg MD I have performed a history and physical examination and medical decision making of this patient, discussed the same with the dictator, and agree with the dictators assessment and plan as written, documented as a scribe. Based on total visit time, I have performed more than 50% of this visit. Objective - Vital Signs Vital signs: Vital Signs Temp 97.5 F L 04/19/24 07:02 Pulse 67 04/19/24 07:02 Resp 17 04/19/24 07:02 BP 124/67 04/19/24 07:02 Pulse Ox 95 04/19/24 07:02 FiO2 Intake & Output 04/18/24 04/19/24 04/19/24 18:59 06:59 18:59 Intake Total 180.419 34.447 Balance 180.419 34.447 Weight 50.3 kg Intake: Intake, IV Titration 180.419 34.447 Amount Heparin Sod,Pork in 0.45% 180.419 34.447 NaCl 25,000 unit In 0.45 % NaCl 1 250ml.bag @ 12 UNITS/KG/HR 6.024 mls/hr IV .Q24H [facility] Rx#: [id number] Other: Voiding Method Toilet # Voids 1 2 # Bowel Movements 1 - Labs CBC & Chem 7: 04/18/24 04:01 04/20/24 03:29 Labs: Abnormal Lab Results - Last 24 Hours (Table) 04/18/24 04/18/24 04/19/24 Range/Units 04:01 04:01 02:18 RBC 3.47 L (4.10-5.20) X 10*6/uL Hgb 9.8 L (12.0-15.0) g/dL Hct 31.6 L (37.2-46.3) % MCHC 31.0 L (32.0-37.0) g/dL PT 12.9 H (9.9-11.9) sec INR 1.21 H (0.93-1.11) sec APTT (22.0-30.0) sec Creatinine 0.47 L (0.52-1.04) mg/dL 04/19/24 04/19/24 Range/Units 02:18 09:04 RBC (4.10-5.20) X 10*6/uL Hgb (12.0-15.0) g/dL Hct (37.2-46.3) % MCHC (32.0-37.0) g/dL PT (9.9-11.9) sec INR (0.93-1.11) sec APTT 42.9 H 46.9 H (22.0-30.0) sec Creatinine (0.52-1.04) mg/dL Microbiology - Last 24 Hours (Table) 04/15/24 17:30 Gram Stain - Final Hip - Right Wound Culture - Final 04/15/24 17:25 Gram Stain - Final Hip - Right Wound Culture - Final
[2024-04-20 08:36] LABS: Basophils # (A) 0.05 X 10*3/uL (0.00-0.10); Basophils % (A) 0.8 %; Eosinophils # (A) 0.22 X 10*3/uL (0.04-0.35); Eosinophils % (A) 3.6 %; HCT 32.1 % (37.2-46.3); HGB 9.9 g/dL (12.0-15.0); Lymphocytes # (A) 1.17 X 10*3/uL (0.90-5.00); Lymphocytes % (A) 18.9 %; MCHC 30.8 g/dL (32.0-37.0); MCV 90.7 FL (80.0-97.0); Mean Platelet Volume 10.1 FL (9.5-12.2); Monocytes # (A) 0.36 X 10*3/uL (0.20-1.00); Monocytes % (A) 5.8 %; NRBC Per 100 WBC 0 X 10*3/uL (0.00-0.01); Neutrophils # (A) 4.35 X 10*3/uL (1.80-7.70); Neutrophils % (A) 70.4 %; Platelet Count 202 X 10*3/uL (140-440); RBC 3.54 X 10*6/uL (4.10-5.20); RDW 14.2 % (11.5-14.5); WBC 6.18 X 10*3/uL (4.50-10.00)
--- NOTE | 2024-04-20 10:36 | P.PN ---
Subjective Progress Note Date: 04/20/24 This is an 83-year-old female who is status post irrigation and debridement of the right hip on 04/15/2024. Patient is seen and evaluated at bedside today. Patient denies any pain in the hip and states that she is walking without difficulty. Objective - Vital Signs Vital signs: Vital Signs Temp 98.1 F 04/20/24 06:47 Pulse 69 04/20/24 06:47 Resp 16 04/20/24 06:47 BP 110/66 04/20/24 06:47 Pulse Ox 95 04/20/24 06:47 FiO2 Intake & Output 04/19/24 04/20/24 04/20/24 18:59 06:59 18:59 Intake Total 45.695 240 Balance 45.695 240 Weight 50.3 kg Intake: Intake, IV Titration 45.695 240 Amount Heparin Sod,Pork in 0.45% 45.695 NaCl 25,000 unit In 0.45 % NaCl 1 250ml.bag @ 12 UNITS/KG/HR 6.024 mls/hr IV .Q24H [facility] Rx#: [id number] Sodium Chloride 0.9% 1, 240 000 ml @ 20 mls/hr IV . Q24H [facility] Rx#:[id number] Other: Voiding Method Toilet # Voids 1 2 - Exam Vital signs are stable. Patient is in no acute distress and is alert and oriented 3. Calf is soft and nontender to palpation. Dressing is clean, dry, and intact. Patient has no pain with active and passive hip motion. Patient has full foot and ankle motion without pain or difficulty. Sensation intact. Neurovascular status and circulatory status are intact. - Labs CBC & Chem 7: 04/20/24 03:29 04/20/24 03:29 Labs: Abnormal Lab Results - Last 24 Hours (Table) 04/19/24 04/20/24 04/20/24 Range/Units 02:18 03:29 03:29 RBC 3.54 L (4.10-5.20) X 10*6/uL Hgb 9.9 L (12.0-15.0) g/dL Hct 32.1 L (37.2-46.3) % MCHC 30.8 L (32.0-37.0) g/dL BUN 5.8 L (9.0-27.0) mg/dL Creatinine 0.4 L 0.47 L (0.6-1.5) mg/dL Calcium 8.2 L (8.7-10.3) mg/dL Assessment and Plan Assessment: Status post irrigation and debridement right hip wound. (1) Abscess of right thigh Current Visit: Yes Status: Acute Code(s): L02.415 - CUTANEOUS ABSCESS OF RIGHT LOWER LIMB SNOMED Code(s): 73007994667779535 Plan: 1. Leave dressing intact x 7 days. May shower with dressing intact. If the dressing becomes saturated please remove and apply a clean dressing. 2. Weightbearing as tolerated to the right lower extremity with a walker. 3. Antibiotics per infectious disease. 4. Appreciate input from internal medicine. Patient is now on Eliquis for DVT and PE. 5. Anticipate discharge in the next 24 to 48 hours once discharge antibiotics can be determined by infectious disease and patient is cleared by internal medicine. Cultures are negative so far.
--- NOTE | 2024-04-20 12:54 | P.PN ---
Subjective Progress Note Date: 04/20/24 Principal diagnosis: Reason for follow-up is right hip abscess cellulitis Patient is a 83-year-old female with a past medical history significant for DVT osteoarthritis hypothyroidism, mitral valve repair, status post bilateral knee replacement and right hip replacement about years ago presented to the hospital with right hip area swelling did have some drainage and a wound in this patient who is status post OR debridement operative report did not mention extension of the wound down to the prosthetic hip. On today's evaluation that is 04/20/2024, Patient is afebrile patient is currently on room air and denies having any shortness of breath, the patient denies any chest pain or cough, the patient denies any nausea vomiting did not have any abdominal pain and no diarrhea, pain to right hip is currently controlled. Patient white count 6.18, creatinine 0.47 culture here has been negative so far and there were no culture done at [facility] with the patient initially presented Objective - Vital Signs Vital signs: Vital Signs Temp 98.1 F 04/20/24 06:47 Pulse 69 04/20/24 06:47 Resp 16 04/20/24 06:47 BP 110/66 04/20/24 06:47 Pulse Ox 95 04/20/24 06:47 FiO2 Intake & Output 04/19/24 04/20/24 04/20/24 18:59 06:59 18:59 Intake Total 45.695 240 Balance 45.695 240 Weight 50.3 kg Intake: Intake, IV Titration 45.695 240 Amount Heparin Sod,Pork in 0.45% 45.695 NaCl 25,000 unit In 0.45 % NaCl 1 250ml.bag @ 12 UNITS/KG/HR 6.024 mls/hr IV .Q24H [facility] Rx#: [id number] Sodium Chloride 0.9% 1, 240 000 ml @ 20 mls/hr IV . Q24H [facility] Rx#:[id number] Other: Voiding Method Toilet # Voids 1 2 - Exam Elderly female up in the chair in no distress No tachypnea or accessory muscle respiration use Unlabored breathing Right hip incision is currently dressed - Labs CBC & Chem 7: 04/20/24 03:29 04/20/24 03:29 Labs: Abnormal Lab Results - Last 24 Hours (Table) 10/21/24 10/21/24 Range/Units 03:29 03:29 RBC 3.54 L (4.10-5.20) X 10*6/uL Hgb 9.9 L (12.0-15.0) g/dL Hct 32.1 L (37.2-46.3) % MCHC 30.8 L (32.0-37.0) g/dL Creatinine 0.47 L (0.52-1.04) mg/dL Assessment and Plan (1) Penicillin allergy Current Visit: Yes Status: Acute Code(s): Z88.0 - ALLERGY STATUS TO PENICILLIN SNOMED Code(s): 46797117 (2) Abscess of right thigh Current Visit: Yes Status: Acute Code(s): L02.415 - CUTANEOUS ABSCESS OF RIGHT LOWER LIMB SNOMED Code(s): 29192054486904694 Plan: 1patient presented to the hospital with the wound to the right hip area this patient with 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 please excuse any gram matical, word or spelling errors. Time with Patient: Less than 30
[2024-04-20 14:43] VITALS: BMI 18.4
--- NOTE | 2024-04-20 15:02 | P.PN ---
Subjective Progress Note Date: 04/20/24 This is a 83-year-old female patient, is being seen in consultation for pulmonary embolism. The patient has a previous history of pulmonary embolism and the patient was back then treated with anticoagulation with Eliquis back in 2020 and subsequently, the anticoagulation was discontinued. The patient has other comorbidities including sick sinus syndrome, hypertension, hyperlipidemia, valvular heart disease with mitral regurgitation and the patient undergo mitral valve repair and history of hypothyroidism and glaucoma and osteoarthritis. More recently, the patient has undergone a right hip replacement. This was done approximately 1 year ago. The patient did well with approximately a month ago, the patient noted some swelling along the surgical area on the right. The swelling became worse and she started developing redness at the distal aspect of the incision. Incision opened up and infection was suspected and the patient underwent a irrigation and debridement of the right hip wound. The cultures are still pending for now. The patient is being seen by infectious disease and the patient is currently on IV antibiotics. She remains on vancomycin. I was consulted regarding pulmonary embolism in this patient. The patient postop, underwent bilateral lower extremity Dopplers and the patient was found to have bilateral distal popliteal DVT and the 1 in the left was extending to the femoral vein. CT angiogram also showed a right middle lobe pulmonary embolism. The patient has no significant shortness of breath and the patient's pulse ox around 97% room air oxygen. No pleurisy. No hemoptysis. Patient remains on IV heparin. 04/19/2024, patient is, comfortable, hemodynamically stable on IV heparin. No specific complaints. No fever or chills. She is on IV Rocephin and she is also on vancomycin. Sodium level is 141, BUN is at 5 with a creatinine of 0.4. Electrolytes are all within normal limits. CBC from yesterday showed a white cell count of 5.3 with a hemoglobin 9.8. No pleurisy. No chest pain. No hemoptysis. No shortness of breath. The patient is seen today April 20, 2024 in follow-up on the regular medical floor. She is currently sitting up at the bedside. Awake and alert in no acute distress. She is maintaining good O2 saturation in the 90s on room air. She is afebrile. Hemodynamically stable. She has been transitioned to Eliquis. Right hip cultures revealed no growth. White count 6.1. Hemoglobin 9.9. Platelets 202. Creatinine 0.47. GFR greater than 90. She is continued on ceftriaxone. Vancomycin discontinued. Objective - Vital Signs Vital signs: Vital Signs Temp 98.1 F 04/20/24 06:47 Pulse 69 04/20/24 06:47 Resp 16 04/20/24 06:47 BP 110/66 04/20/24 06:47 Pulse Ox 95 04/20/24 06:47 FiO2 Intake & Output 04/19/24 04/20/24 04/20/24 18:59 06:59 18:59 Intake Total 45.695 240 Balance 45.695 240 Weight 50.3 kg 50.3 kg Intake: Intake, IV Titration 45.695 240 Amount Heparin Sod,Pork in 0.45% 45.695 NaCl 25,000 unit In 0.45 % NaCl 1 250ml.bag @ 12 UNITS/KG/HR 6.024 mls/hr IV .Q24H [facility] Rx#: [id number] Sodium Chloride 0.9% 1, 240 000 ml @ 20 mls/hr IV . Q24H [facility] Rx#:[id number] Other: Voiding Method Toilet # Voids 1 2 - Exam GENERAL EXAM: Alert, male, on room air, fairly comfortable in no apparent distress. HEAD: Normocephalic. EYES: Normal reaction of pupils, equal size. NOSE: Clear with pink turbinates. THROAT: No erythema or exudates. NECK: No masses, no JVD. CHEST: No chest wall deformity. LUNGS: Equal air entry with no crackles, wheeze, rhonchi or dullness. CVS: S1 and S2 normal with no audible murmur, regular rhythm. ABDOMEN: No hepatosplenomegaly, normal bowel sounds, no guarding or rigidity. SPINE: No scoliosis or deformity SKIN: No rashes CENTRAL NERVOUS SYSTEM: No focal deficits, tone is normal in all 4 extremities. EXTREMITIES: There is no peripheral edema. No clubbing, no cyanosis. Peripheral pulses are intact. 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 Previous DVT back in 2020. Hemodynamically stable. No significant shortness of breath. On room air oxygen Right hip surgical wound infection without clear indication for a prosthetic joint infection at this point. The patient is on vancomycin. ID is on the teo e. Orthopedic surgery is on the case History of mitral valve repair Hypertension Hypothyroidism Degenerative arthritis Anemia of chronic disease Chronic back pain. Plan: The patient was seen and evaluated Labs and medications reviewed Transitioned to Eliquis Antibiotics per ID service Stable and on room air Plan is for home with home care at discharge I have personally seen and examined the patient, performed the documentation and the assessment and plan as written. Number of minutes spent on the visit: 10 Dictation was produced using [employer] dictation software. Please excuse any g rammatical, word or spelling errors.
[2024-04-20 15:05] VITALS: BP 101/61; PULSE 65; RESP 17; TEMP 97.5
--- NOTE | 2024-04-20 16:21 | P.DS ---
Providers Date of admission: 04/14/24 16:54 Expected date of discharge: 04/20/24 Attending physician: Charles Yo Consults: 04/14/24 18:25 Consult Physician Routine Consulting Provider: Vladimir Lam Consult Reason/Comments: medical management Do you want consulting provider notified?: Already Contacted 04/15/24 05:39 Consult Physician Routine Consulting Provider: Anjelica Atkinson Consult Reason/Comments: Infected Knee Do you want consulting provider notified?: Yes 04/18/24 04:53 Consult Physician Urgent Consulting Provider: Jennifer Felix Consult Reason/Comments: bilateral dvt, PE Do you want consulting provider notified?: Yes Primary care physician: Tomeka Guilherme - Discharge Diagnosis(es) (1) Abscess of right thigh Current Visit: Yes Status: Acute Hospital Course: This is an 83-year-old female who presented to [facility] on 04/13/2024 with a draining wound on the right thigh. Patient was transferred to [facility] on 04/14/2024 for further treatment. Patient has a history of right total hip arthroplasty in May of 2023. A CT report of the right hip done at [facility] revealed an abscess of the right thigh with no evidence for extension into the hip joint. After discussion and consideration patient elects to proceed with irrigation and debridement of the right hip. The patient is seen preoperatively by Dr. Yo and medically cleared for surgery by internal medicine. Patient is admitted to [facility] on 04/14/2024 and irrigation and debridement of right hip wound is performed on 04/15/2024nd there was no involvement of the hip joint. The procedure is performed without complication or sequelae. Over the course of her hospital stay the patient was diagnosed with DVT and PE. Patient was evaluated for this by pulmonology and started on Eliquis. The patient has also been evaluated by infectious disease who has determined discharge antibiotics via midline. The patient is doing well postoperatively. Labs and vital signs are stable on day of discharge. On day of discharge patient's hip incision is healing well. There is minimal erythema. There is no drainage noted at this time. There is minimal soft tissue swelling to the hip and thigh. Patient has full foot and ankle motion without difficulty or pain. No pain with hip motion. Calf is soft and nontender to palpation. Neurovascular status to the lower extremity is intact. Patient is discharged home in good condition. Please see med rec for accurate list of home medications. Plan - Discharge Summary Discharge Rx Participant: No New Discharge Prescriptions: New Sennosides [Senokot] 2 tab PO DAILY PRN #60 tablet PRN Reason: Constipation Apixaban Initiation Dose--VTE [Eliquis Initiation Dosing for VTE Treatment] 10 mg PO BID #88 tab Magnesium Hydroxide [Milk of Magnesia] 2,400 mg PO DAILY PRN ml PRN Reason: Constipation Pantoprazole [Protonix] 40 mg PO DAILY #30 tab Calcium Carbonate [Tums] 500 mg PO TID PRN tab PRN Reason: Heartburn cefTRIAXone [Rocephin] 2,000 mg IVP Q24HR #14 each HYDROcodone/APAP 5-325MG [Holland 5-325] 1 tab PO Q6HR PRN #28 tab PRN Reason: Pain Sennosides-Docusate Sodium [Senokot-S] 2 each PO HS tab Acetaminophen Tab [Tylenol] 500 mg PO Q6HR PRN tab PRN Reason: Fever And/ Or Pain Continue Metoprolol Succinate (ER) [Toprol XL] 25 mg PO DAILY Dorzolamide HCl/Pf [Dorzolamide 2% Eye Drop] 1 drop LEFT EYE BID Ondansetron Odt [Zofran ODT] 4 mg PO Q6H PRN PRN Reason: Nausea Levothyroxine Sodium [Synthroid] 125 mcg PO DAILY traMADol HCL [Ultram] 50 mg PO Q8H PRN PRN Reason: Pain Discharge Medication List traMADol HCL [Ultram] 50 mg PO Q8H PRN 11/03/20 [History] Dorzolamide HCl/Pf [Dorzolamide 2% Eye Drop] 1 drop LEFT EYE BID 07/23/22 [History] Metoprolol Succinate (ER) [Toprol XL] 25 mg PO DAILY 07/23/22 [History] Levothyroxine Sodium [Synthroid] 125 mcg PO DAILY 04/14/24 [History] Ondansetron Odt [Zofran ODT] 4 mg PO Q6H PRN 04/14/24 [History] Acetaminophen Tab [Tylenol] 500 mg PO Q6HR PRN tab 04/20/24 [Rx] Apixaban Initiation Dose--VTE [Eliquis Initiation Dosing for VTE Treatment] 10 mg PO BID #88 tab 04/20/24 [Rx] Calcium Carbonate [Tums] 500 mg PO TID PRN tab 04/20/24 [Rx] HYDROcodone/APAP 5-325MG [Holland 5-325] 1 tab PO Q6HR PRN #28 tab 04/20/24 [Rx] Magnesium Hydroxide [Milk of Magnesia] 2,400 mg PO DAILY PRN ml 04/20/24 [Rx] Pantoprazole [Protonix] 40 mg PO DAILY #30 tab 04/20/24 [Rx] Sennosides [Senokot] 2 tab PO DAILY PRN #60 tablet 04/20/24 [Rx] Sennosides-Docusate Sodium [Senokot-S] 2 each PO HS tab 04/20/24 [Rx] cefTRIAXone [Rocephin] 2,000 mg IVP Q24HR #14 each 04/20/24 [Rx] Follow up Appointment(s)/Referral(s): [facility], [NON-STAFF] - Charles Yo DO [Doctor of Osteopathic Medicine] - 04/29/24 1:00 pm (With Shannan) Anjelica Atkinson MD [STAFF PHYSICIAN] - 1 Week [facility] Nurse, [NON-STAFF] - Activity/Diet/Wound Care/Special Instructions: Pt would like a flu vaccine at discharge if possible. Leave optifoam intact until 04/22/2024. Then change dressing daily to keep incision clean and dry. Okay to shower if no drainage from the incision. No soaking. Please follow up with [facility] and call with any questions or concerns, . Discharge Disposition: HOME WITH HOME HEALTH SERVICES
--- NOTE | 2024-04-21 06:26 | P.PN ---
Subjective Progress Note Date: 04/20/24 HISTORY OF PRESENT ILLNESS 83-year-old With active medical history of hypertension, hyperlipidemia, severe arthritis, sick sinus syndrome with bradycardia, history of DVT in the past, history of mitral valve regurgitation post mitral valve repair over 2 years ago who also had severe arthritis post right total hip arthroplasty with Dr. Boggs over a year ago who has been doing well done extremely well with surgery since did not have any major complication at all. She developed to have slight increased swelling discomfort and drainage from the site of the hip and the thigh area for the last 2 weeks become quite bit worse and up going to [facility] on 04/13/2024 where was seen and evaluated and diagnosed with possible infected prosthetic hip was admitted to the hospital and decided to transfer patient to [facility] to be under service who done her surgery over a year ago for total hip arthroplasty, patient patient was transferred to [facility] on 04/14/2025 continue IV antibiotics was initiated at [facility] which is vancomycin originally till the culture is complete leg culture was done at [facility] not finalized yet. White blood cell was not that high by the times repeated and no challenge and electrolyte or electrolyte balance. Kidney function remained good. 04/16/2024: Patient ended up going to the OR yesterday with Dr. Yo the infection looks more superficial and that opening the area and drain infection was decided is not involving the joint at this point, waiting for infectious disease for further recommendation on oral or IV antibiotics in the meanwhile remain currently on vancomycin and cefazolin. Cultures from [facility] still pending at this point still waiting to see if you have any culture from [facility] from her original admission. 04/20/2024: The patient was diagnosed with bilateral DVT and pulmonary embolism found to have bilateral distal popliteal DVT and the 1 in the left was extending to the femoral vein, CT angiogram showed right middle lobe pulmonary embolism as well patient has no shortness of breath has been 97% on room air no pleurisy hemoptysis or any symptoms, remain on IV heparin drip which will be changed at some point. Patient was started on Eliquis 5 mg twice a day per pulmonary, continue IV Rocephin along with vancomycin otherwise was hemodynamically stable REVIEW OF SYSTEMS CONSTITUTIONAL: Well-developed no acute respiratory distress. EYES: No icterus sclerae, no conjunctivitis. EARS, NOSE, MOUTH, THROAT, and FACE: No sore throat, lymphadenopathy, carotid bruits or deformity. RESPIRATORY: No SOB cough or wheezes. CARDIOVASCULAR: No CP, Palpitation, PND, Orthopnea, or angina. GASTROINTESTINAL: No Abd pain, Nausea or vomiting, no Diarrhea or constipation, No GI Bleed, no distention or masses. GENITOURINARY: Negative for Hematuria or UTI, no kidney stones. INTEGUMENT/BREAST: Negative for any muscular injury with mild osteoarthritis.. Slight swelling and drainage from the site of the prior area in the hip on the right side Extremities: The right hip has normal range of motion with no abnormality and there is slight area on the side of the hip with the drainage consistent with infection not clear if there is a slight abscess or not. HEMATOLOGIC/LYMPHATIC: Negative for bleed or purpura. MUSCULOSKELTAL: Negative for Myalgia or arthralgia. NEURLOGICAL: No LOC, Sz or syncope, blurred vision dizziness or abnormality.. BEHAVIORAL/PSYCH: Negative. ENDOCRINE: Negative. PHYSICAL EXAMINATION Gen: This is an 83-year-old female. She is resting in bed and appears to be comfortable. No acute distress is noted. HEENT: Head is atraumatic, normocephalic. Pupils equal, round. Sclerae is anicteric. Right sided IJ Cordis and [place] catheter in place NECK: Supple. No JVD. No lymphadenopathy. No thyromegaly. LUNGS: Diminished breath sounds bilaterally. No wheezes or rhonchi. No intercostal retractions. Mediastinal and left pleural chest tube in place. HEART: Regular rate and rhythm. S1, S2, positive S3, positive systolic murmur. ABDOMEN: Soft. Bowel sounds are present. No masses. No tenderness. Olmos catheter in place draining clear beltran urine. EXTREMITIES: Right hip has normal range of motion there is a area on the lateral side of the thigh area with slightly drainage redness discomfort induration and irritation. NEUROLOGICAL: Patient is awake, alert and oriented x3. Cranial nerves 2 through 12 are grossly intact. 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 _Abscess on the incision site postsurgery for I and D still waiting for the final culture but continue current antibiotics. _Bilateral DVT and pulmonary embolism: Was treated with IV heparin switched to Eliquis 5 mg twice a day will will continue medication watch for any further complication patient will be on anticoagulation at least total of 6 months as complication post orthopedic surgery but has to be quite careful in the past to be on anticoagulation with any procedure. _Post mitral valve repair: Has been doing well stable on medical management still seeing cardiology on a regular basis. _Hypertension: Remain on metoprolol succinate 25 mg a day continue medication will titrate dose higher if needed and add smaller dose of ARB. Try to keep systolic blood pressure below 130. Low-grade iron deficiency anemia: Remain on iron supplement and multivitamin._ _Hypothyroidism: Continue levothyroxine 125 mcg daily stable and doing well. _Chronic pain syndrome: Remain on tramadol on as-needed basis. _Low-grade anemia: With hemoglobin of 10.4 continue iron supplement multivitamin. Discussion: Patient has been on anticoagulation last few days she is more stable not symptomatic we will switch Eliquis to 10 mg twice a day for total of 2 weeks then 5 mg twice a day thereafter for the next 6 to 12 months. Whether he can go off anticoagulation or not this to be determined this is second blood clot. Both time had large increase in specially with immobility and trauma from surgery might cause higher odds for DVT which would cause her pulmonary embolism in the first place. Patient is stable for discharge today 04/20/2024. Objective - Vital Signs Vital signs: Vital Signs Temp 98.1 F 04/20/24 01:17 Pulse 59 L 04/20/24 01:17 Resp 16 04/20/24 01:17 BP 111/63 04/20/24 01:17 Pulse Ox 96 04/20/24 01:17 FiO2 Intake & Output 04/19/24 04/19/24 04/20/24 06:59 18:59 06:59 Intake Total 180.419 45.695 240 Balance 180.419 45.695 240 Weight 50.3 kg 50.3 kg Intake: Intake, IV Titration 180.419 45.695 240 Amount Heparin Sod,Pork in 0.45% 180.419 45.695 NaCl 25,000 unit In 0.45 % NaCl 1 250ml.bag @ 12 UNITS/KG/HR 6.024 mls/hr IV .Q24H [facility] Rx#: [id number] Sodium Chloride 0.9% 1, 240 000 ml @ 20 mls/hr IV . Q24H [facility] Rx#:[id number] Other: Voiding Method Toilet Toilet # Voids 2 1 2 - Labs CBC & Chem 7: 04/20/24 03:29 04/20/24 03:29 Labs: Abnormal Lab Results - Last 24 Hours (Table) 04/19/24 04/19/24 04/20/24 Range/Units 02:18 09:04 03:29 APTT 46.9 H (22.0-30.0) sec BUN 5.8 L (9.0-27.0) mg/dL Creatinine 0.4 L 0.47 L (0.6-1.5) mg/dL Calcium 8.2 L (8.7-10.3) mg/dL
== END 2024-04-20 17:23 | disposition home health service (06) | DRG 463 ==
LOC: 5NMEDONC 16:54 → 4SSUR 04-16 18:38
PROVIDERS: ADMIT Orthopaedic Surgery; ATTEND Orthopaedic Surgery
PROC: 0JBL0ZZ Excision of Right Upper Leg Subcutaneous Tissue and Fascia, Open Approach (ICD-10-PCS; principal; 2024-04-15 10:25)
DX: T84.51XA Infection and inflammatory reaction due to internal right hip prosthesis, initial encounter (principal); I26.99 Other pulmonary embolism without acute cor pulmonale; L02.415 Cutaneous abscess of right lower limb; L03.115 Cellulitis of right lower limb; I82.433 Acute embolism and thrombosis of popliteal vein, bilateral; Y83.1 Surgical operation with implant of artificial internal device as the cause of abnormal reaction of the patient, or of later complication, without mention of misadventure at the time of the procedure; D50.9 Iron deficiency anemia, unspecified; D63.8 Anemia in other chronic diseases classified elsewhere; E03.9 Hypothyroidism, unspecified; E78.5 Hyperlipidemia, unspecified; G89.4 Chronic pain syndrome; I10 Essential (primary) hypertension; I34.0 Nonrheumatic mitral (valve) insufficiency; I49.5 Sick sinus syndrome; G43.909 Migraine, unspecified, not intractable, without status migrainosus; H40.9 Unspecified glaucoma; R00.1 Bradycardia, unspecified; Z88.5 Allergy status to narcotic agent; Z88.0 Allergy status to penicillin; Z88.8 Allergy status to other drugs, medicaments and biological substances; Z96.653 Presence of artificial knee joint, bilateral; Z96.641 Presence of right artificial hip joint; Z79.890 Hormone replacement therapy; Z79.899 Other long term (current) drug therapy
CPT/HCPCS: 36410; 71275; 76937; 80048; 80053; 80202; 82565; 84145; 85025; 85379; 85610; 85652; 85730; 87070; 87075; 87205; 93005; 93306; 93970

== ENCOUNTER → 2024-10-13 | Outpatient (CLI) | payer MEDICARE ==
--- NOTE | 2024-10-13 11:54 | MR ---
EXAMINATION TYPE: MR brain wo/w con DATE OF EXAM: 10/13/2024 10:45 AM COMPARISON: None. CLINICAL INDICATION: Female, 83 years old with history of R44.1 VISUAL HALLUCINATIONS, Headaches, vis ual disturbance, mild memory loss IV Contrast: 5 cc Gadobutrol (None if empty) TECHNIQUE: Multiplanar, multisequence images of the brain and brainstem were acquired before and aft er administration of 5 mL IV Gadobutrol. Diffusion weighted imaging is performed. FINDINGS: No evidence for acute infarction, hemorrhage, mass, mass effect, midline shift, herniation, effacemen t of basal cisterns, or extra-axial fluid collection. Mild generalized supratentorial volume loss. Secondary mild prominence of the ventricular system. T2/FLAIR weighted sequences show severe confluent periventricular white white matter change in modera te scattered change in the subcortical and deep white matter regions. Additional patchy increased sig nal in the bilateral paramedian erin. Decreased flow void left vertebral artery and proximal basilar artery shows no corresponding filling defect on postcontrast sequences. Likely artifact. There is some dolichoectasia of the V4 segment lef t vertebral artery and proximal portion of the basilar artery with measurements of 6 mm and 7 mm, res pectively. Additional nodular prominence at the tip of the basilar artery at 7 mm. No saccular aneury sm. Midline structures demonstrate normal morphology. The craniocervical junction is normal. Post contrast images demonstrate no evidence of pathologic enhancement. Dural venous sinuses are pat ent. A few incidental choroid plexus cysts measuring up to 1.3 cm. There is rightward nasal septal deviation and left-sided conchal bullosa. Trace mucosal thickening fl oors of the maxillary sinuses and mild mucosal thickening throughout the ethmoid air cells. Globes ar e intact. IMPRESSION: 1. Mild cerebral atrophy and moderate to severe patchy and confluent burden of chronic small vessel i schemic disease. No acute intracranial abnormality seen. 2. 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 3. Mild chronic ethmoid sinus disease. [facility], , 10/13/2024 11:52 AM
== END | disposition home or self-care (01) ==
LOC: RADMRIMAIN 09:54
PROVIDERS: ATTEND Family Medicine
DX: J32.2 Chronic ethmoidal sinusitis (principal); I67.82 Cerebral ischemia; R44.1 Visual hallucinations; I65.02 Occlusion and stenosis of left vertebral artery
CPT/HCPCS: 70553; A9585

== ENCOUNTER → 2024-11-19 | Outpatient (CLI) | payer MEDICARE ==
[2024-11-19 22:19] LABS: T4, Free (Free Thyroxine) 1.2 ng/dL (0.80-1.80)
== END | disposition home or self-care (01) ==
LOC: LABWHC1 14:39
PROVIDERS: ATTEND Internal Medicine Interventional Cardiology
DX: R00.2 Palpitations (principal); E05.90 Thyrotoxicosis, unspecified without thyrotoxic crisis or storm
CPT/HCPCS: 36415; 84439; 84443